=== PATIENT | female | born 1950 | race Caucasian/White ===

== ENCOUNTER → 2019-06-12 09:48 | Outpatient (POV) | payer SELFPAY | PROVIDERS: Visit Provider Nurse Practitioner Family | DX: Z00.00 Encounter for general adult medical examination without abnormal findings (principal) ==

== ENCOUNTER → 2020-03-09 11:26 | Outpatient (CLI) | payer MEDICARE, OTHER, SELFPAY ==
[2020-03-09 15:04] LABS: Coronavirus 19 IgG Antibody Negative (Negative); Coronavirus 19 IgM Antibody Negative (Negative)
== END ==
PROVIDERS: Visit Provider Internal Medicine Gastroenterology
DX: Z01.818 Encounter for other preprocedural examination (principal); Z12.11 Encounter for screening for malignant neoplasm of colon
CPT/HCPCS: 36415; 86328

== ENCOUNTER 2020-03-11 07:12 | Day surgery (SDC) | payer MEDICARE, OTHER, SELFPAY ==
[2020-03-05 10:32] VITALS: BMI 30.2
[2020-03-11] VITALS (7 sets, daily range): BP systolic 111–149; BP diastolic 46–95; PULSE 77–86; RESP 16–20; TEMP 36.3–36.6; O2SAT 92–99
--- NOTE | 2020-03-11 07:47 | HMH.ANESCL ---
[facility] Anesthesia Checklist - Patient Identification Patient Identification: Arm Band, Verbal (Name & ) - Structural Data Admitted From: Home Planned Operative Procedure/s: colon Consent for Planned Operative Procedure(s) Verified: Yes Verified Documents: History and Physical - NPO Status Verified Time NPO: 00:00 - Additional verifications Patient : No Anesthesia Reactions: No Hx Blood Transfusions: No Blood Transfusion Reaction: No Cephalosporin Allergy: No Previous Colonoscopy: Yes - Cardiovascular Assessment Heart Sounds: S1 & S2 Pulse Strength: Baseline Pulse Rhythm: Regular Peripheral Edema: No - Airway Assessment C-Spine Mobility Assessed: Yes TMJ Mobility Assessed: Yes Dentition: Partials - Neurological Assessment Level of Consciousness: Awake, Alert, Appropriate Hx Seizures: No Numbness or tingling in extremities: No - Anesthesia Plan Anesthesia Risk discussed: Yes Anesthesia Plan: Verified ASA Class: II Anesthesia Type: MAC [facility] History I have reviewed the patient's past medical history: Yes Medical History: Reports:: Hyperlipidemia, Hypertension Denies:: Cancer, Diabetes Mellitus Type 1, Diabetes Mellitus Type 2, Internal Pacemaker, MRSA, Seizures *Have you ever received a pneumonia vaccine?: Yes *Have you received a flu vaccine this season?: Yes Anesthesia experience/problems:: none Other Surgeries: No: Pacemaker Amputation: No Fractures: No - *Social History Alcohol Intake: never Substance Use Type: other *Occupational Status:: employed Housing: house *Travel in the last 8 weeks: Inside the [place] Family Hx:: No significant family history
--- NOTE | 2020-03-11 08:46 | HMH.PROC ---
[facility] Procedure Note Procedure Note:: Colonoscopy Procedure Report: Colonoscopy with cold snare polypectomy Endoscopist: Johan Bautista II, MD Referring physician: Helio Villa MD Date of Procedure: March 11, 2020 Equipment: Olympus 180 variable stiffness pediatric colonoscope Sedation: MAC sedation Indication: Mrs. Weston is a 70-year-old female who is here for follow-up screening/surveillance colonoscopy secondary to a personal history of colon polyps. The patient did have a colonoscopy by me last and December 2014 at which time she had 3 polyps (small serrated adenomas x2/hyperplastic polyp x1) which were removed. She also had evidence of diverticulosis. The patient does report that she has 2 sisters with cancer but no family history of colon cancer. The patient's bowel function has significantly improved with the MiraLAX plus Citrucel fiber bowel regimen. She did see me in August 2019 and was having globus sensation with choking and heartburn. She felt gas trapped in her chest with belching. She resumed the MiraLAX plus Citrucel (rather than Benefiber) and resume domperidone. Her symptoms have improved and resolved. She reports no rectal bleeding, abdominal pain or weight loss. Procedure: Prior to the procedure, a history and physical exam was performed, and patient's medications and allergies were reviewed. The risks, benefits and alternatives of the sedation and procedure were discussed with the patient. All questions were answered and informed consent was obtained. The patient was brought to the procedure room. Patient identification and proposed procedure were verified by the physician and the nurse. The patient was placed in a left lateral decubitus position and the scope was passed under direct vision. Throughout the procedure, the patient's blood pressure, pulse, and oxygen saturations were monitored continuously. The colonoscopy was accomplished without difficulty. The patient tolerated the procedure well. Findings: On digital rectal examination there was normal rectal tone. There were no external hemorrhoids. The colonoscope was introduced through the anal canal to the rectum and advanced to the cecum. The ileocecal valve and appendiceal orifice were identified. The scope was advanced a short distance into the ileum which appeared grossly normal. The scope was then withdrawn into the colon. There was a diminutive 3 to 4 mm cecal polyp removed via cold snare polypectomy. The remaining cecum, ascending and transverse colon and mucosa were grossly normal. There were extensive scattered diverticuli throughout the colon but more predominantly in the descending and sigmoid colon (LEFT colon). The rectum itself was normal. Upon retroflexion within the rectum there were grade 1 internal hemorrhoids. The preparation was fair to poor throughout with [place] Preparation Score of 6 out of 9. There was a lot of liquid brown stool that was suctioned and washed.. The cecal time was 14 minutes. Impression: 1. Diminutive cecal polyp 2. Extensive pandiverticulosis 3. Grade 1 internal hemorrhoids Plan: I will follow up the polyp pathology and recommend repeat colonoscopy again in 7-10 years based upon the polyp histology as well as the patient's desire and good health to continue screening/surveillance. I would encourage continuation of the fiber bowel regimen (MiraLAX plus Citrucel mixed together) on a long-term daily maintenance basis.
== END 2020-03-11 10:03 | disposition home or self-care (01) ==
LOC: OUTP 07:16
PROVIDERS: Visit Provider Internal Medicine Gastroenterology
PROC: 0DJD8ZZ Inspection of Lower Intestinal Tract, Via Natural or Artificial Opening Endoscopic (ICD-10-PCS; CPT 45378; principal; 2020-03-11 08:00)
DX: Z12.11 Encounter for screening for malignant neoplasm of colon (principal); K63.5 Polyp of colon; K57.30 Diverticulosis of large intestine without perforation or abscess without bleeding; K64.0 First degree hemorrhoids; Z86.010 Personal history of colon polyps; Z80.9 Family history of malignant neoplasm, unspecified; I10 Essential (primary) hypertension; E78.5 Hyperlipidemia, unspecified; Z88.8 Allergy status to other drugs, medicaments and biological substances; Z79.82 Long term (current) use of aspirin; Z79.899 Other long term (current) drug therapy
CPT/HCPCS: 45385; 88305

== ENCOUNTER 2024-10-23 08:35 | Day surgery (SDC) | payer MEDICARE, OTHER, SELFPAY ==
[2024-10-20 10:23] VITALS: BMI 34.1
[2024-10-23 09:28] VITALS: BP 124/70; PULSE 58; RESP 14; TEMP 36.2; O2SAT 97
[2024-10-23] MEDS: LACTATED RINGERS 1000ML 1,000 ML 50 ML IV (09:41)
--- NOTE | 2024-10-23 10:00 | EXP.HP ---
History of Present Illness *Admission Date: 10/23/24 *Reason for visit:: Screening/surveillance colonoscopy-personal history of adenomatous polyps *History of present illness: Mrs. Weston is a 74-year-old female with a history of adenomatous polyps. The patient does state that she had a benign tumor removed from the lower small bowel/ileum because of small bowel obstruction earlier last year. I do not have the operative reports which she will obtain for me. She has improved since then. She reports no abdominal pain. She still has some obstipation/smaller caliber stools and incomplete bowel evacuation. She is off of MiraLAX and Citrucel. She reports no excessive wiping. She reports no rectal bleeding or weight loss. She does have chronic GERD and was placed on omeprazole twice daily. She is taking Iberogast. Previously she was on domperidone. She is here to reestablish. Her last colonoscopy in February 2020 showed a single benign polyp (adenoma). Her colonoscopy in December 2014 and revealed 3 polyps (small serrated adenomas x 2/hyperplastic polyp x 1) which were removed. She does have a history of diverticulosis. She reports no family history of colon cancer. [facility] Disclaimer: The information contained in this section may have been updated after the patient was seen, as this information can be updated by other users. Medical History Heart murmur Sjogrens syndrome Gastritis Hyperlipidemia Hypertension Hiatal hernia Hemorrhoids Esophageal dysmotility Diverticulosis Surgical History History of partial knee replacement H/O: hysterectomy Hx of appendectomy History of knee replacement Family History Father Cancer Sister Breast cancer Sister Brain cancer Lung cancer Social History (Updated 10/23/24 @ 09:29 by Zoraida Hood RN) Smoking Status: Never smoker alcohol intake: current alcohol intake frequency: holidays/special occasions only substance use type: denies use current occupational status: employed Travel in the last 8 weeks?: Inside the [place] housing: house current occupational exposures/hazards: No caffeine: Yes Have you lived/traveled outside US in past 30 days?: No Contact w/someone who lives/traveled outside US past 30 days?: No Exposure to someone with infectious disease in past 14 days?: No Do you have a fever (greater than 100.4 F or 38 C)?: No Have you tested positive for COVID-19?: No Exposed to someone with COVID-19 in past 14 days?: No Do you have a sore throat?: No Do you have a cough?: No Do you have any weakness?: No Are you experiencing any nausea/vomitting?: No Do you have any diarrhea?: No Are you experiencing any unusual bleeding?: No Do you have any muscle aches/pain?: No Do you have any abdominal pain?: No Are you experiencing loss of taste or smell?: No Other Medical History Have you received the Flu Vaccine for this season: Yes Have you received the Pneumonia Vaccine: Yes Review of Systems Review of Systems Review of systems (narrative): Negative *Cardiovascular Comments: Negative *Gastrointestinal Comments: Negative *Genitourinary Comments: Negative *Musculoskeletal Comments: Negative *Neurologic Comments: Negative Meds Home Medications and Allergies Home Medications ?Medication ?Instructions ?Recorded ?Confirmed ?Type clonazepam 0.5 mg tablet 0.5 mg PO DAILY Anxiety 03/05/20 10/23/24 History coenzyme Q10 30 mg capsule 30 mg PO DAILY Supplement 03/05/20 10/23/24 History fluticasone propionate 50 15.8 ml intranasal DAILY allergies 03/05/20 10/23/24 History mcg/actuation nasal spray,suspension losartan 100 mg tablet 100 mg PO DAILY bp 03/05/20 10/23/24 History omeprazole 20 mg capsule,delayed 20 mg PO DAILY GERD 03/05/20 10/23/24 History release simvastatin 20 mg tablet 20 mg PO DAILY Cholesterol 03/05/20 10/23/24 History sumatriptan succinate 100 mg tablet 100 mg PO DAILY migraines 03/05/20 10/23/24 History carvedilol 25 mg tablet 25 mg PO BID 07/18/24 10/23/24 History denosumab 60 mg/mL subcutaneous 60 mg SQ [id number] 07/18/24 10/23/24 History syringe (Prolia) estradiol 0.01% (0.1 mg/gram) 0.25 appful vaginal WEEKLY 07/18/24 10/23/24 History vaginal cream famotidine 20 mg tablet 20 mg PO BID 07/18/24 10/23/24 History hydroxychloroquine 200 mg tablet 200 mg PO DAILY 07/18/24 10/23/24 History hydroxyzine HCl 25 mg tablet 25 mg PO BID PRN allegies 07/18/24 10/23/24 History polyethylene glycol 3350 17 17 g PO DAILY 07/18/24 10/23/24 History gram/dose oral powder (Purelax) ropinirole 2 mg tablet 2 mg PO HS 07/18/24 10/23/24 History sertraline 100 mg tablet 100 mg PO DAILY 07/18/24 10/23/24 History sodium sul 1.479 gram-potas ch See Rx Instructions PO PER PKG DIR 09/27/24 10/23/24 Rx 0.188 gram-magnes sul 0.225 gram colonscopy #24 tabs tablet (Sutab) clonidine HCl 0.1 mg tablet 0.1 mg PO BID 10/20/24 10/23/24 History New Prescriptions to Start Prescriptions: Allergies Allergy/AdvReac Type Severity Reaction Status Date / Time bisoprolol (From Ziac) Allergy Mild Other Verified 10/23/24 09:17 hydrochlorothiazide (From Allergy Mild Other Verified 10/23/24 09:17 Ziac) levofloxacin (From Levaquin) Allergy Mild Nausea Verified 10/23/24 09:17 rizatriptan (From Maxalt) Allergy Mild Nausea Verified 10/23/24 09:17 rivaroxaban (From Xarelto) Allergy Nausea Verified 10/23/24 09:17 Exam Data for Last 24 hours Vital signs and Labs for Last 24 Hours: Temp Pulse Resp BP Pulse Ox O2 Del Method 97.1 F L 58 L 14 124/70 97 Room Air 10/23/24 09:28 10/23/24 09:28 10/23/24 09:28 10/23/24 09:28 10/23/24 09:28 10/23/24 09:28 I & O for Last 24 hours: Intake & Output 10/20/24 10/21/24 10/22/24 10/23/24 23:59 23:59 23:59 23:59 Weight 169 lb *Routine HEENT Exam Head: Present normocephalic Eye: Present EOMI and PERRL ENT: Present mucous membranes moist *Routine Neck Exam Neck: Present supple *Routine Respiratory Exam Respiratory: Present CTA bilaterally *Routine Cardiovascular Exam Cardiovascular: Present RRR *Routine Abdominal Exam Abdominal: Present soft and normoactive bowel sounds; Absent tenderness *Routine Rectal Exam Rectal:: deferred *Routine Genitalia Exam Genitalia:: deferred *Routine Extremities Exam Extremities: Absent cyanosis, clubbing or edema *Routine Skin Exam Skin: Present warm; Absent rash *Routine Neurological Exam Neurological: Present alert and oriented X3 Assessment and Plan *Assessment and plan (1) Personal history of adenomatous and serrated colon polyps: Status: Acute Category: Medical Code(s): Z86.0101 - Personal history of adenomatous and serrated colon polyps (2) Small bowel tumor: Status: Acute Category: Medical Code(s): D49.0 - Neoplasm of unspecified behavior of digestive system Plan A/P: 1. Personal history of adenomatous colon polyps and prior small bowel tumor is the preprocedural diagnosis. The patient will be anesthetized/sedated using MAC sedation. The patient has been seen and examined. Cardiac and lung assessment prior to the examination is stable. Proceed with planned surveillance colonoscopy.
--- NOTE | 2024-10-23 10:02 | HMH.PROCNOTE ---
[facility] Procedure Note Date: 10/23/24 Time: 10:22 Procedure Note:: Colonoscopy Procedure Report: Colonoscopy with cold snare polypectomy and cold biopsy Endoscopist: Johan Bautista II, MD Referring physician: Josesito Braxton DO [facility] [place] [address] Date of Procedure: October 23, 2024 Equipment: Olympus 190 variable stiffness pediatric colonoscope Sedation: MAC sedation Indication: Mrs. Weston is a 74-year-old female who is here for follow-up surveillance colonoscopy secondary to a personal history of adenomatous colon polyps. The patient does state that she had a benign tumor removed from the lower small bowel/ileum because of small bowel obstruction earlier last year. This took place on 07/15/2023 (Octavio Franco DO). She did have small bowel resection and there was a clear transition point and the lesion was benign. She has improved since then. She reports no abdominal pain. She still has some obstipation/smaller caliber stools and incomplete bowel evacuation. She is off of MiraLAX and Citrucel. She reports no excessive wiping. She reports no rectal bleeding or weight loss. She does have chronic GERD and was placed on omeprazole twice daily. She is taking Iberogast. Previously she was on domperidone. She is here to reestablish. Her last colonoscopy in February 2020 showed a single benign polyp (adenoma). Her colonoscopy in December 2014 and revealed 3 polyps (small serrated adenomas x 2/hyperplastic polyp x 1) which were removed. She does have a history of diverticulosis. She reports no family history of colon cancer. The patient has improved since resuming psyllium Konsyl. Procedure: Prior to the procedure, a history and physical exam was performed, and patient's medications and allergies were reviewed. The risks, benefits and alternatives of the sedation and procedure were discussed with the patient. All questions were answered and informed consent was obtained. The patient was brought to the procedure room. Patient identification and proposed procedure were verified by the physician and the nurse. The patient was placed in a left lateral decubitus position and the scope was passed under direct vision. Throughout the procedure, the patient's blood pressure, pulse, and oxygen saturations were monitored continuously. The colonoscopy was accomplished without difficulty. The patient tolerated the procedure well. Findings: On digital rectal examination there was normal rectal tone. There were no external hemorrhoids. The colonoscope was introduced through the anal canal to the rectum and advanced to the cecum. The ileocecal valve and appendiceal orifice were identified. The scope was advanced a short distance into the ileum which appeared grossly normal. The scope was then withdrawn into the colon. There were scattered diverticuli throughout the colon but more predominantly in the descending and sigmoid colon (LEFT colon). There was a single 7 mm sessile polyp in the descending colon removed via cold snare polypectomy. Upon retroflexion within the rectum there were grade 2 internal hemorrhoids. There was some granular/granulation tissue in the anal canal that was biopsied using cold biopsy forceps. The preparation was excellent throughout with [place] Preparation Score of 9. The cecal time was 12 minutes. Impression: 1. Descending colon polyp (7 mm) 2. Pandiverticulosis 3. Grade 2 internal hemorrhoids with some granulation tissue of anal canal status post biopsy Plan: I will follow-up the polyp histology and biopsies. I am not convinced that she will need any further preventive/surveillance colonoscopy. I will discuss the findings with the patient and family.
--- NOTE | 2024-10-23 10:16 | P.PNANES_ITS ---
[facility] Disclaimer: The information contained in this section may have been updated after the patient was seen, as this information can be updated by other users. Medical History Heart murmur Sjogrens syndrome Gastritis Hyperlipidemia Hypertension Hiatal hernia Hemorrhoids Esophageal dysmotility Diverticulosis Surgical History History of partial knee replacement H/O: hysterectomy Hx of appendectomy History of knee replacement Family History Father Cancer Sister Breast cancer Sister Brain cancer Lung cancer Social History (Updated 10/23/24 @ 09:29 by Zoraida Hood RN) Smoking Status: Never smoker alcohol intake: current alcohol intake frequency: holidays/special occasions only substance use type: denies use current occupational status: employed Travel in the last 8 weeks?: Inside the [facility] housing: house current occupational exposures/hazards: No caffeine: Yes Have you lived/traveled outside US in past 30 days?: No Contact w/someone who lives/traveled outside US past 30 days?: No Exposure to someone with infectious disease in past 14 days?: No Do you have a fever (greater than 100.4 F or 38 C)?: No Have you tested positive for COVID-19?: No Exposed to someone with COVID-19 in past 14 days?: No Do you have a sore throat?: No Do you have a cough?: No Do you have any weakness?: No Are you experiencing any nausea/vomitting?: No Do you have any diarrhea?: No Are you experiencing any unusual bleeding?: No Do you have any muscle aches/pain?: No Do you have any abdominal pain?: No Are you experiencing loss of taste or smell?: No [facility] Anesthesia Checklist Patient Identification Patient Identification: Verbal (Name & ) Structural Data Admitted From: Home Planned Operative Procedure/s: colonoscopy Consent for Planned Operative Procedure(s) Verified: Yes NPO Status Verified Time NPO: 00:00 Additional verifications Anesthesia Reactions: No Hx Blood Transfusions: No Blood Transfusion Reaction: No Airway Assessment Mallampati Score:: Class II C-Spine Mobility Assessed: Yes TMJ Mobility Assessed: Yes Dentition: Partials Neurological Assessment Level of Consciousness: Awake, Alert and Appropriate Anesthesia Plan Anesthesia Risk discussed: Yes Anesthesia Plan: Verified ASA Class: II Anesthesia Type: MAC
[2024-10-23 10:25] VITALS: BP 96/62; PULSE 64; RESP 17; TEMP 36.3; O2SAT 96
[2024-10-23 10:35] VITALS: BP 96/65; PULSE 60; RESP 18; O2SAT 95
[2024-10-23 10:45] VITALS: BP 118/65; PULSE 58; RESP 18; O2SAT 98
[2024-10-23 10:55] VITALS: BP 135/75; PULSE 59; RESP 18; O2SAT 98
== END 2024-10-23 11:18 | disposition home or self-care (01) ==
PROVIDERS: PCP Family Medicine; Visit Provider Internal Medicine Gastroenterology
PROC: 0DJD8ZZ Inspection of Lower Intestinal Tract, Via Natural or Artificial Opening Endoscopic (ICD-10-PCS; CPT 45378; principal; 2024-10-23 10:00)
DX: D12.4 Benign neoplasm of descending colon (principal); K62.0 Anal polyp; K57.90 Diverticulosis of intestine, part unspecified, without perforation or abscess without bleeding; K64.8 Other hemorrhoids; K21.9 Gastro-esophageal reflux disease without esophagitis; E78.5 Hyperlipidemia, unspecified; I10 Essential (primary) hypertension; Z86.0101 Personal history of adenomatous and serrated colon polyps; Z79.899 Other long term (current) drug therapy
CPT/HCPCS: 45380; 45385; 88305; J7120

== ENCOUNTER 2025-05-13 19:06 | Inpatient (IN) | payer MEDICARE, OTHER, SELFPAY ==
--- OUTSIDE RECORDS SUMMARY | 2024-02-22 10:40 | XMS_ITS ---
Author Organization Dialysis Clinic, [facility] . Address [address] [place] [address] Care Team Providers Care Sales Assistant Entertainment And Media Name Role Phone Mohan Knox DO Primary Care Provider Scar Samuel [phone] Encounters Encounter Location Date Provider Diagnosis [facility] [address] [address] 02/22/2024 Scar Dhaliwal Plan Of Treatment No Information Progress Notes * Stacey WESTON SDOB:[birth year] (75 yo F)Acc No.[id number]:02/22/2024 Progress Note Patient: Stacey MONTANA Provider: Cristina Dhaliwal MD :1950 A ge:74 Y S ex:Female Date:02/22/2024 [facility] [id number] Pcp:Mohan Knox DO Subjective: * Chief Complaints: * * Medical History: Objective: * Vitals: Assessment: Plan: * Treatment: * * Electronic signature of Delfina Dhaliwal MD on 05/15/2025 at 06:24 AM CHEMICAL PACKAGER Sign off status: Pending * Provider: Cristina Dhaliwal MD Date: Generated for Printi ng/Faxing/eTransmitting on: 06:24 AM CHEMICAL PACKAGER
--- OUTSIDE RECORDS SUMMARY | 2024-02-22 10:40 | XMS_ITS ---
Author Organization Dialysis Clinic, [facility] . Address [address] [place] [address] Care Team Providers Care Exotic Dancer Name Role Phone Mohan Knox DO Primary Care Provider Scar Samuel [phone] Encounters Encounter Location Date Provider Diagnosis [facility] [address] [address] 02/22/2024 Scar Dhaliwal Plan Of Treatment No Information Progress Notes * Stacey WESTON SDOB:[birth year] (75 yo F)Acc No.[id number]:02/22/2024 Progress Note Patient: Stacey MONTANA Provider: Cristina Dhaliwal MD :1950 A ge:74 Y S ex:Female Date:02/22/2024 [facility] [id number] Pcp:Mohan Knox DO Subjective: * Chief Complaints: * * Medical History: Objective: * Vitals: Assessment: Plan: * Treatment: * * Electronic signature of Delfina Dhaliwal MD on 05/13/2025 at 06:46 PM DEVELOPMENT TECHNICAL LEAD Sign off status: Pending * Provider: Cristina Dhaliwal MD Date: Generated for Printi ng/Faxing/eTransmitting on: 07/14/2024 06:46 PM DEVELOPMENT TECHNICAL LEAD
--- OUTSIDE RECORDS SUMMARY | 2024-04-25 15:20 | XMS_ITS ---
Author Organization [facility] Address [address] [place] [address] Phone [phone] Care Team Providers Care Service Coordinator Name Role Phone Josesito Braxton DO Primary Care Provider UnavailScar Mendiola M.D. 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, unspecified migraine type G43.919 Benign essential HTN I10 Insomnia, unspecified type G47.00 Hyponatremia E87.1 Hyperlipidemia, unspecified hyperlipidem ia type E78.5 Sjogrens Syndrome Surgical History Surgery Date(Month/Year) Hysterectomy L Total Knee Replacement Appendectomy L arm reconstruction Carpal Tunnel release partial right knee replacement 12/24/21 Interstem placement 04/27/23 Hospitalization History Reason Date(Month/Year) [facility] - 4 day stay - sept ic UTI 11/12/22 Progress Notes * JESS WATSON SDOB:[birth year] (75 yo F)Acc No.[id number]:04/25/2024 Progress Notes Patient: JESS WATSON Provider: Scar Dhaliwal MD :1950 Age:74 Y Sex:Female Date:04/25/2024 Address:[address] [place] [address], [id number] Pcp:Josesito Braxton DO * Electronic signature of Delfina Dhaliwal M.D. on 05/13/2025 at 07:47 PM EST Sign off status: Pending * Provider: Scar Dhaliwal MD Date: 04/25/2024 Generated for Jeremi neri/Salomón/eTransmitting on: 05/13/2025 07:47 PM EST
--- OUTSIDE RECORDS SUMMARY | 2024-04-25 15:20 | XMS_ITS ---
Author Organization [facility] Address [address] [place] [address] Phone [phone] Care Team Providers Care Wafer Polisher Name Role Phone Josesito Braxton DO Primary Care Provider UnavailScar Mendiola M.D. JF TOBIAS DO Unavailable Unavailable Social History Sex Observation Social History Observation Description Sex Observation Female Encounters Date Time Type Facility Location Provider Diagnosis 04/25/2024 03:20 PM Office Visit [facility] [address] [place] [address] Scar Dhaliwal Plan Of Treatment Next Appt Details Provider Name:Scar Dhaliwal, 08/21/2025 11:30:00 AM, [address], [place], [address], Medical (General) History Medical History History ICD [...] Interstem placement 04/27/23 Hospitalization History Reason Date(Month/Year) [facility] - 4 day stay - sept ic UTI 11/12/22 Progress Notes * JESS WATSON SDOB:[birth year] (75 yo F)Acc No.[id number]:04/25/2024 Progress Notes Patient: JESS WATSON Provider: Scar Dhaliwal MD :1950 Age:74 Y Sex:Female Date:04/25/2024 Address:[address] [place] [address], [place], [id number] Pcp:Josesito Braxton DO * Electronic signature of Delfina Dhaliwal M.D. on 05/15/2025 at 07:25 AM EST Sign off status: Pending * Provider: Scar Dhaliwal MD Date: 04/25/2024 Generated for Jeremi neri/Salomón/eTransmitting on: 05/15/2025 07:25 AM EST
--- OUTSIDE RECORDS SUMMARY | 2025-02-27 08:00 | XMS_ITS ---
Author Organization [facility] katelin Care [facility] Address [address] [place] [address] Phone [phone] Care Team Providers Care Newspaper Photo Editor Name Role Phone Josesito Braxton DO Primary Care Provider UnavailScar Mendiola M.D. [phone] JF TOBIAS DO Unavailable Unavailable Social History Sex Observation Social History Observation Description Sex Observation Female Encounters Date Time Type Facility Location Provider Diagnosis 02/27/2025 08:00 AM Office Visit [facility] [address] [place] [address] Scar Dhaliwal Plan Of Treatment Next Appt Details Provider Name:Scar Dhaliwal, 08/21/2025 11:30:00 AM, [address], [place], [address], Medical (General) History Medical History History ICD [...] Interstem placement 04/27/23 Hospitalization History Reason Date(Month/Year) [facility] - 4 day stay - sept ic UTI 11/12/22 Progress Notes * JESS WATSON SDOB:[birth year] (75 yo F)Acc No.[id number]:02/27/2025 progress note Patient: JESS WATSON Provider: Scar Dhaliwal MD :1950 Age:75 Y Sex:Female Date:02/27/2025 Address:[address] [address], [place] Pcp:Josesito Braxton DO * Electronic signature of Delfina Dhaliwal M.D. on 05/13/2025 at 07:43 PM EST Sign off status: Pending * Provider: Scar Dhaliwal MD Date: 02/27/2025 Generated for Jeremi neri/Salomón/Valentinasmitting on: 05/13/2025 07:43 PM EST
--- OUTSIDE RECORDS SUMMARY | 2025-02-27 08:00 | XMS_ITS ---
Author Organization [facility] katelin Care [facility] Address [address] [place] [address] Phone [phone] Care Team Providers Care Fiberglass Container Winding Operator Name Role Phone Josesito Braxton DO Primary Care Provider UnavailScar Mendiola M.D. JF TOBIAS DO Unavailable Unavailable Social History Sex Observation Social History Observation Description Sex Observation Female Encounters Date Time Type Facility Location Provider Diagnosis 02/27/2025 08:00 AM Office Visit [facility] Kidney Care [facility] [address] [place] [address] Scar Dhaliwal Plan Of Treatment Next Appt Details Provider Name:Scar Dhaliwal, 08/21/2025 11:30:00 AM, [address], [address], [place], [address], Medical (General) History Medical History History ICD [...] Interstem placement 04/27/23 Hospitalization History Reason Date(Month/Year) [facility] - 4 day stay - sept ic UTI 11/12/22 Progress Notes * JESS WATSON SDOB:[birth year] (75 yo F)Acc No.[id number]:02/27/2025 progress note Patient: JESS WATSON Provider: Scar Dhaliwal MD :1950 Age:75 Y Sex:Female Date:02/27/2025 Address:[address] [place] [address], [place] Pcp:Josesito Braxton DO * Electronic signature of Delfina Dhaliwal M.D. on 05/15/2025 at 07:22 AM EST Sign off status: Pending * Provider: Scar Dhaliwal MD Date: 02/27/2025 Generated for Jeremi neri/Salomón/eTjoelsmitting on: 05/15/2025 07:22 AM EST
--- OUTSIDE RECORDS SUMMARY | 2025-03-20 13:20 | XMS_ITS ---
Author Organization [facility] Address [address] [facility] [address] [place] [address] Phone [phone] Care Team Providers Care Forest Fire Control Officer Name Role Phone Josesito Braxton DO Primary Care Provider Unavailabl e Scar Dhaliwal M.D. Unavailable [facility] Unavailable Unavailable REASON FOR VISIT SIADH/HTN Medications Medication SIG (Take, Route, Frequency, Duration) Notes Start Date End Date Diagnosis (ICD Code) Status Probiotic - Capsule as directed Orally *Pick strength-form from [facility] for eRX* Active Losartan Potassium 100 MG Tablet 1 tablet in the aviation boatswain's mate Orally Once a day Hyponatremia (ICD_10 - E87.1) Active Omeprazole 20 MG Capsule Delayed Release 1 capsule Orally twice daily; Duration: 30 days Active Hydroxychloroquine Sulfate 200 MG Tablet 1 tablet Orally once daily Active hydrOXYzine HCl 25 MG Tablet 2 tablets Orally Once a day; Duration: 30 days Active Famotidine 20 MG Tablet TAKE 1 TABLET BY MOUTH TWICE A DAY Oral; Duration: 90 Active Flonase Allergy Relief 50 MCG/ACT Suspension 1 spray in each nostril as needed Nasally Once a day; Duration: 30 days as needed Active CoQ-10 100 MG Capsule 1 capsule with a meal Orally Once a day; Duration: 30 days Active Estradiol 0.1 MG/GM Cream as directed Vaginal Active cloNIDine HCl 0.1 MG Tablet 1 tablet Orally Twice daily HTN (hypertension) (ICD_10 - I10) Active Domperidone 10mg TID Orally *Reorder from [facility] for eRx and Interaction Alerts* Not-Taki ng Pilocarpine HCl 5 MG Tablet 1 tablet Orally twice daily; Duration: 30 days Not-Taki ng Carvedilol 25 MG Tablet TAKE 1 TABLET BY MOUTH TWICE A DAY WITH FOOD FOR 90 DAYS; Duration: 90 Active clonazePAM 0.5 MG Tablet 1 tablet at bedtime Orally Once a day Active Benefiber - Powder as directed Orally Active Potassium Chloride Anamaria ER 20 MEQ Tablet Extended Release 1 tablet with food Orally Once a day Not-Taki ng SUMAtriptan Succinate 100 MG Tablet 1 tablet at least 2 hours between doses as needed Orally Twice a day as needed Active Wegovy 1 MG/0.5ML Solution Auto-injector 0.5 mL Subcutaneous 024 Active Sertraline HCl 100 MG Tablet 1 tablet Orally Once a day; Duration: 30 days Active Simvastatin 20 MG Tablet 1 tablet in the evening Orally Once a day; Duration: 30 day(s) Active rOPINIRole HCl 2 MG Tablet 1 tablet 1 to 3 hours before bedtime Orally Once a day; Duration: 30 days Active Social History Sex Observation Social History Observation Description Sex Observation Female Vital Signs Vital Sign Value Appt Date Temperature 97.5 degrees Fahrenheit 03/20/20 25 Blood pressure systolic 125 mm Hg 03/20/20 25 Blood pressure diastolic 72 mm Hg 025 Heart Rate 76 /min 03/20/2025 Respiratory Rate 20 /min 03/20/2025 Height 59 in 03/20/2025 Weight 182.6 lbs 03/20/2025 BMI 36.88 kg/m2 03/20/2025 Oximetry 97 % 03/20/2025 Height-cm 149.86 cm 03/20/2025 Weight-kg 82.83 kg 03/20/2025 Encounters Date Time Type Facility Location Provider Diagnosis 01:20 PM Office Visit, Est Pt., Level 3 (70504) [facility] Kidney Care [facility] [address] [place] [address] [address] [place] [address] Scar Dhaliwal SIADH (syndrome of inappropriate ADH production) E22.2 ; HTN (hypertension) I10 ; Hyperlipidemia E78.5 and Obese E66.9 Assessments Encounter Date Diagnosis (ICD Code) Assessment Notes Treat ment Notes Section Notes 03/20/2025 SIADH (syndrome of inappropriate ADH production) (ICD-10 - E22.2) I shared today's findings with Stacey. We are both pleased to see that her blood pressures particularly well-controlled and that her metabolic parameters are all within normal limits particularly her serum sodium. Obviously, I have made no changes in her current medications which we reconciled. We agreed to meet at least 1 more time in 6 months. 03/20/2025 HTN (hypertension) (ICD-10 - I10) I shared today's findings with Stacey. We are both pleased to see that her blood pressures particularly well-controlled and that her metabolic parameters are all within normal limits particularly her serum sodium. Obviously, I have made no changes in her current medications which we reconciled. We agreed to meet at least 1 more time in 6 months. 03/20/2025 Hyperlipidemia (ICD-10 - E78.5) I shared today's findings with Stacey. We are both pleased to see that her blood pressures particularly well-controlled and that her metabolic parameters are all within normal limits particularly her serum sodium. Obviously, I have made no changes in her current medications which we reconciled. We agreed to meet at least 1 more time in 6 months. 03/20/2025 Obese (ICD-10 - E66.9) I shared today's findings with Stacey. We are both pleased to see that her blood pressures particularly well-controlled and that her metabolic parameters are all within normal limits particularly her serum sodium. Obviously, I have made no changes in her current medications which we reconciled. We agreed to meet at least 1 more time in 6 months. Plan Of Treatment Pending Test Test Name Order Date CBC, Platelet with No Differential 03/20 Comp. Metabolic Panel (14) 03/20/2025 Urinalysis 03/20/2025 Next Appt Details Follow Up: 6 Months, Reason: Provider Name:Scar Dhaliwal, 08/21/2025 11:30:00 AM, [address], [place], [address], Medical (General) History Medical History History ICD [...] Interstem placement 04/27/23 Hospitalization History Reason Date(Month/Year) [facility] - 4 day stay - sept ic UTI 11/12/22 History and Physical Notes * HPI (History of Present Illness) Category c/o Denies Symptom Duration Details Notes Catego ry Notes History of the present illness Stacey comes in today for recheck of her sodium level and hypertension control. She denies any acute health issues since we last met 4 months ago. Her medications are unchanged. She is no longer taking Wegovy which she had just stopped when I saw her last. She has decided not to try any others her weight is up 6 or 7 lbs. as a result. Her blood pressure however is 125/72 and her oxygen saturation is 97%. Her labs for today's visit include a completely normal comprehensive metabolic profile that includes a sodium of 138. Uric acid level was 4.4. Her hemogram is normal although her hemoglobin is borderline at 12.1 g. Her urinalysis is normal with an SG of 1.019. She has no edema and says that she feels fine. Examination Category Field Details Notes Category Notes Physical Examination General appearance: alert, pleasant, overweight but well-nourished and in no acute distress Head: normocephalic, atrau matic Heart: regular rate and rhy thm at 72 bpm with no ectopy Neurologic: alert and oriented, nonfocal Skin: skin is warm and dry Extremities: normal extremity wit h no clubbing, cyanosis or edema Psych: cooperative with exa m, cognitive function intact, normal affect / mood Oral cavity: mucosa moist Progress Notes * STACEY WATSON SDOB:[birth year] (75 yo F)Acc No.[id number]:03/20/2025 progress note Patient: STACEY WATSON Provider: Scar Dhaliwal MD :1950 Age:75 Y Sex:Female Date:03/20/2025 Address:[address], [place], [place] Pcp:Josesito Braxton DO Subjective: * Chief Complaints: * 1. SIADH/HTN. * HPI: History of the present illness: Stacey comes in today for recheck of her sodium level and hypertension control. She denies any acute health issues since we last met 4 months ago. Her medications are unchanged. She is no longer taking Wegovy which she had just stopped when I saw her last. She has decided not to try any others her weight is up 6 or 7 lbs. as a result. Her blood pressure however is 125/72 and her oxygen saturation is 97%. Her labs for today's visit include a completely normal comprehensive metabolic profile that includes a sodium of 138. Uric acid level was 4.4. Her hemogram is normal although her hemoglobin is borderline at 12.1 g. Her urinalysis is normal with an SG of 1.019. She has no edema and says that she feels fine. * ROS: General / Constitutional: Patient denies change in appetite, fever, weakness. Weight gain admits. NSAID Denies. Allergy / Immunology: Patient denies hives, itching, rash. Respiratory: Patient denies chronic cough, shortness of breath, sputum production. Cardiovascular: Patient denies chest pain, chest pain with exertion, irregular heartbeat. Gastrointestinal: Patient denies abdominal pain, diarrhea, rectal bleeding. Hematology: Patient denies easy bleeding, easy bruising, recent transfusion. Genitourinary: Patient denies abdominal pain / swelling, blood in the urine, frequent urination. Musculoskeletal: Patient denies arthritis / arthralgia, joint stiffness, swollen joints. Peripheral Vascular: Patient denies blanching of skin, cold extremities, decreased sensation in extremities. Skin: Patient denies blistering of skin, changing moles, skin lesion(s). Neurologic: Patient denies dizziness, gait abnormality, headache. Nephrology: Pt denies edema. * Medical History: * Medications: Taking Benefiber - Powder as directed Orally , Taking Carvedilol 25 MG Tablet TAKE 1 TABLET BY MOUTH TWICE A DAY WITH FOOD FOR 90 DAYS , Taking clonazePAM 0.5 MG Tablet 1 tablet at bedtime Orally Once a day , Taking cloNIDine HCl 0.1 MG Tablet 1 tablet Orally Twice daily , Taking CoQ-10 100 MG Capsule 1 capsule with a meal Orally Once a day , Taking Estradiol 0.1 MG/GM Cream as directed Vaginal , Taking Famotidine 20 MG Tablet TAKE 1 TABLET BY MOUTH TWICE A DAY Oral , Taking Flonase Allergy Relief 50 MCG/ACT Suspension 1 spray in each nostril as needed Nasally Once a day , Notes to Pharmacist: as needed, Taking Hydroxychloroquine Sulfate 200 MG Tablet 1 tablet Orally once daily , Taking hydrOXYzine HCl 25 MG Tablet 2 tablets Orally Once a day , Taking Losartan Potassium 100 MG Tablet 1 tablet in the aviation boatswain's mate Orally Once a day , Taking Omeprazole 20 MG Capsule Delayed Release 1 capsule Orally twice daily , Taking Probiotic - Capsule as directed Orally , Notes to Pharmacist: *Pick strength-form from [facility] for eRX*, Taking rOPINIRole HCl 2 MG Tablet 1 tablet 1 to 3 hours before bedtime Orally Once a day , Taking Sertraline HCl 100 MG Tablet 1 tablet Orally Once a day , Taking Simvastatin 20 MG Tablet 1 tablet in the evening Orally Once a day , Taking SUMAtriptan Succinate 100 MG Tablet 1 tablet at least 2 hours between doses as needed Orally Twice a day , Notes to Pharmacist: as needed, Taking Wegovy 1 MG/0.5ML Solution Auto-injector 0.5 mL Subcutaneous , Not-Taking Potassium Chloride Anamaria ER 20 MEQ Tablet Extended Release 1 tablet with food Orally Once a day , Not-Taking Pilocarpine HCl 5 MG Tablet 1 tablet Orally twice daily , Not-Taking Domperidone 10mg TID Orally , Notes to Pharmacist: *Reorder from [facility] for eRx and Interaction Alerts* Objective: * Vitals: BP: 125/72 mm Hg, HR: 76 /min, RR: 20 /min, Temp: 97.5 F, Oxygen sat %: 97 %, Wt: 182.6 lbs, Wt-k.83 kg, Ht: 59 in, Ht-cm: 149.86 cm, BMI: 36.88 Index, Body Surface Area: 1.85. * Examination: Physical Examination: General appearance: alert, pleasant, overweight but well-nourished and in no acute distress. Head: normocephalic, atraumatic. Oral cavity: mucosa moist. Skin: skin is warm and dry. Heart: regular rate and rhythm at 72 bpm with no ectopy. Extremities: normal extremity with no clubbing, cyanosis or edema. Neurologic: alert and oriented, nonfocal. Psych: cooperative with exam, cognitive function intact, normal affect / mood. Assessment: * Assessment: 1. SIADH (syndrome of inappropriate ADH production) - E22.2 (Primary) 2. HTN (hypertension) - I10 3. Hyperlipidemia - E78.5 4. Obese - E66.9 I shared today's findings with Stacey. We are both pleased to see that her blood pressures particularly well- controlled and that her metabolic parameters are all within normal limits particularly her serum sodium. Obviously, I have made no changes in her current medications which we reconciled. We agreed to meet at least 1 more time in 6 months. Plan: * Treatment: 2. HTN (hypertension) LAB: CBC, Platelet with No Differential LAB: Comp. Metabolic Panel (14) LAB: Urinalysis 3. Hyperlipidemia LAB: CBC, Platelet with No Differential LAB: Comp. Metabolic Panel (14) LAB: Urinalysis 4. Obese LAB: CBC, Platelet with No Differential LAB: Comp. Metabolic Panel (14) LAB: Urinalysis * Follow Up: 6 Months * Billing Information: * Visit Code: 56178 Office Visit, Est Pt., Level 3. * Procedure Codes: * Sign off status: Completed true * Provider: Scar Dhaliwal MD Date: 03/20/2025 Generated for Jeremi neri/Salomón/eTjoelsmitting on: 05/13/2025 07:47 PM EST
--- OUTSIDE RECORDS SUMMARY | 2025-03-20 13:20 | XMS_ITS ---
Author Organization [facility] Address [address] [facility] [address] [place] [address] Phone [phone] Care Team Providers Care Insecticide Maker Name Role Phone Josesito Braxton DO Primary Care Provider Unavailabl e Scar Dhaliwal M.D. Unavailable [facility] Unavailable Unavailable REASON FOR VISIT SIADH/HTN Medications Medication SIG (Take, Route, Frequency, Duration) Notes Start Date End Date Diagnosis (ICD Code) Status Probiotic - Capsule as directed Orally *Pick strength-form from [facility] for eRX* Active Losartan Potassium 100 MG Tablet 1 tablet in the thermospray operator Orally Once a day Hyponatremia (ICD_10 - [...] Active Domperidone 10mg TID Orally *Reorder from [facility] for eRx and Interaction Alerts* Not-Taki [...] PM Office Visit, Est Pt., Level 3 ([address]) [facility] Kidney Care [facility] [address] [place] [address] [address] [place] [address] Scar Dhaliwal SIADH (syndrome of inappropriate ADH [...] 11:30:00 AM, [address], [place], [address], Medical (General) History Medical History History ICD [...] STACEY WATSON SDOB:[birth year] (75 yo F)Acc No.[id number]:03/20/2025 progress note Patient: STACEY WATSON Provider: Scar Dhaliwal MD :1950 Age:75 Y Sex:Female Date:03/20/2025 Address:[address], [place], [id number] Pcp:Josesito Braxton DO Subjective: * Chief Complaints: [...] 100 MG Tablet 1 tablet in the thermospray operator Orally Once a day , Taking Omeprazole 20 MG Capsule Delayed Release 1 capsule Orally twice daily , Taking Probiotic - Capsule as directed Orally , Notes to Pharmacist: *Pick strength-form from [facility] for eRX*, Taking rOPINIRole HCl 2 [...] Orally , Notes to Pharmacist: *Reorder from [facility] for eRx and Interaction Alerts* Objective: [...] Months * Billing Information: * Visit Code: 63917 Office Visit, Est Pt., Level 3. * Procedure Codes: * Sign off status: Completed true * Provider: Scar Dhaliwal MD Date: 03/20/2025 Generated for Jeremi neri/Salomón/eTjoelsmitting on: 05/15/2025 07:25 AM EST
--- OUTSIDE RECORDS SUMMARY | 2025-04-23 06:44 | XMS_ITS | Continuity of Care Document ---
Author Organization [facility] Phone Care Team Providers Care Dimension Stone Quarry Supervisor Name Role Phone AIDEN VALVERDE Unavailable AIDEN VALVERDE Primary Attending AIDEN VALVERDE Primary Care AIDEN VALVERDE Admitting ALLERGIES AND ADVERSE REACTIONS ALLERGIES AND ADVERSE REACTIONS Code System Allergy Substance Adverse Reaction Date Reaction (Severity) Comment Status Reported By Updated By UnAssessed Allergies. RESULTS Patient: WALTER MERCADO Date of : 1950 5 LABORATORY RESULTS Information is not available LABORATORY NARRATIVE RESULTS Information is not available RADIOLOGY RESULTS ORDER 100: CHEST PA LATERAL (LOINC: 84109-0) ORDER DATE: April 20, 2025 9:24:00 PM [facility] PERFORMING LAB: [address] [id number] Final Result Date: April 20, 2025 9:33:[address] [place] [address] Name: JESS WATSON Exam Date: 04/20/2025 : 1950 Age 75 years Gender: F Exam: CHEST PA LATERAL Physician: AIDEN VALVERDE Facility: [facility] Facility HSV: Outpatient XR CHEST 2 VIEWS Reason For Study: dysponea COMPARISON:November 16, 2022 TECHNIQUE: PA and lateral views of the chest were obtained. FINDINGS PA and lateral views of the chest demonstrate clear lungs. The heart size is normal. The bony thorax is intact. Mild DJD in the spine. COPD. IMPRESSION: No active disease in the chest. Electronically signed by: Estrellita Mayo MD 04/20/2025 05:48 PM [facility] Dictated By: ESTRELLITA MAYO Transcribed By: Transcribed On: 04/20/2025 4:33 PM Electronically signed by: ESTRELLITA MAYO 04/20/2025 Thank you for referring JESS WATSON to [facility]. Legally authenticated by MARIA ESTHER HARO 2025-04-20 16:33:04 PATHOLOGY NARRATIVE RESULTS Information is not available MICROBIOLOGY RESULTS No Micro Labs/Results Exist for Patient BLOOD ADMIN RESULTS Information is not available MEDICATIONS HOME MEDICATIONS Status RXNORM NDC Medication Dose Route Frequency Dates Comments Reported By Updated By Drug Treatment Unknown DISCHARGE MEDICATIONS Status RXNORM NDC Medication Dose Route Frequency Dates Dis pense Data Comments Physician Updated By No Discharge Medication Info rmation Available INPATIENT MEDICATIONS Status RXNORM NDC Medication Dose Route Frequency Rat e Quantity Dates Indication Dispense Data Comments Physician Updated By No Inpatient Medication Info rmation Available SOCIAL HISTORY SOCIAL HISTORY - Smoking Status SNOMED-CT Social History Element Description Effective Dates Offered Cessation Comment Updated By No Smoking Information Avail able SOCIAL HISTORY - Gender Sex: Female SOCIAL HISTORY - Status : status i nformation is not available Intention in Next Year: intention information is not available SOCIAL HISTORY - Assessments Code System Description Status Date Value of Assessment Updated By Comment Assessment Information is no t available SOCIAL HISTORY - [place] Affiliation [place] information is not av ailable SOCIAL HISTORY - Legal Sex Legal Sex : Female (finding) SOCIAL HISTORY - Sexual Behavior Sexual Orientation Gender Identity SNOMED-CT Description SNO MED -CT Description Activity Level No of Partners Partner Type UpdatedBy Information is not available SOCIAL HISTORY - Occupation Occupation information is no t available ENCOUNTERS ENCOUNTER INFORMATION Reason for Visit XRAY Admission April 20, 2025 9:18:00 PM [facility] [address] [facility] [address] Discharge April 20, 2025 9:18:00 PM [facility] DISCHARGED TO HOME OR SELF CARE ENCOUNTER DIAGNOSES Notes information is not kristopher ilable. Code System Diagnosis Onset Date Diagnosis information is not available. ABSTRACT DIAGNOSES Code System Diagnosis Updated By Abatement Date R06.09 ICD10 OTHER FORMS OF DYSPNEA ESM31 40 on April 23, 2025 11:44:09 AM [facility] R06.09 ICD10 OTHER FORMS OF DYSPNEA ESM31 40 on April 23, 2025 11:44:09 AM [facility] CARE TEAM Care Dimension Stone Quarry Supervisor Role AIDEN VALVERDE Referring AIDEN VALVERDE Primary Attending AIDEN VALVERDE Primary Care AIDEN VALVERDE Admitting CARE TEAM CARE derrick boat runner Role on Team Location Telecom Status Start Date End Curt e Updated By NICOLLE WOLFE DO PCP [address], [place], [address] normal April 20, 2025 5:00:00 AM [place] April 20, 2025 9:18:00 PM [place] [id number] on April 20, 2025 9:19:24 PM [facility] NICOLLE WOLFE DO Referring [address], [place], [address] normal April 20, 2025 5:00:00 AM [place] April 20, 2025 9:18:00 PM [place] [id number] on April 20, 2025 9:19:24 PM [facility] NICOLLE WOLFE DO Attending [address], [place], [address] normal April 20, 2025 5:00:00 AM [facility] April 20, 2025 9:18:00 PM [place] [id number] on April 20, 2025 9:19:24 PM [facility] NICOLLE WOLFE DO Admitting [address], [place], [address] normal April 20, 2025 5:00:00 AM [place] April 20, 2025 9:18:00 PM [place] [id number] on April 20, 2025 9:19:24 PM [facility] INSURANCE PROVIDERS INSURANCE PROVIDER Coverage Status - Effective Date Coverage Type Payor Plan Order Relationship To Subscriber Insurance Plan No Insurance Plan 2024-05-17 M PRIMARY [id number] [id number] MEDICARE 2024-05-17 C SECONDARY [id number] [phone] [facility]
--- OUTSIDE RECORDS SUMMARY | 2025-05-02 09:40 | XMS_ITS | Encounter Summary ---
Author Organization [employer] ([place], [place], [place], [place], [place]) Address [address] [place] [address] Care Team Providers Care Metal Fabricator Helper Name Role Phone Josesito Braxton DO Primary Care Provider [phone] Reason for Referral * Other (Routine) - New Request Specialty Diagnoses / Procedures Referred By Marcos de leon Referred To Contact Diagnoses Other forms of dyspnea Procedures Pulmonary Function Testing Josesito Braxton DO [address] [place] [place] [address] [place] [address] Phone: tel: fax: Referral ID Status Reason Start Date Expiration Date V isits Requested Visits Authorized [id number] New Request 04/23/2025 04/23/2026 1 1 Reason for Visit * Other (Routine) - New Request Specialty Diagnoses / Procedures Referred By Marcos de leon Referred To Contact Diagnoses Other forms of dyspnea Procedures Pulmonary Function Testing Josesito Braxton DO [address] [facility] [place] [address] [place] [address] Phone: tel: fax: Referral ID Status Reason Start Date Expiration Date V isits Requested Visits Authorized [id number] New Request 04/23/2025 04/23/2026 1 1 Encounter Details Date Type Department Care Team (Late st Contact Info) Description 05/02/2025 9:40 AM EST - 05/02/2025 11:59 PM EST Hospital Encounter [facility] Pulmonary Lab [address] [place] [address] Josesito Braxton, [address] [place] [address] Other forms of dyspnea Discharge Disposition: Home or Self Care Social History Tobacco Use Types Packs/Day Years Used Date Smoking Tobacco: Never Smokeless Tobacco: Never PRAPARE - Transportation Answer Date Re corded In the past 12 months, has l ack of transportation kept you from medical appointments or from getting medications? No 07/15/2023 Lack of Transportation (Non-Medical) Not on file 07/15/2023 Utilities Answer Date Recorded In the past 12 months, has t he electric, gas, oil, or water company threatened to shut off services in your home? No 07/15/2023 Food Insecurity Answer Date Recorded Within the past 12 months, y ou worried that your food would run out before you got money to buy more. Never true 07/15/2023 Within the past 12 months, t he food you bought just didn't last and you didn't have money to get more. Never true 07/15/2023 Transportation Needs Answer Date Record ed In the past 12 months, has l ack of reliable transportation kept you from medical appointments, meetings, work or from getting things needed for daily living? No 07/15/2023 Financial Resource Strain Answer Date R ecorded How hard is it for you to pa y for the very basics like food, housing, medical care, and heating? Would you say it is: Not hard at all 07/15/2023 Employment Answer Date Recorded Do you want help finding or keeping work or a job? I do not need or want help 07/15/2023 Family and Community Support Answer Curt e Recorded If for any reason you need h elp with day-to-day activities such as bathing, preparing meals, shopping, managing finances, etc., do you get the help you need? I don't need any help 07/15/2023 Feeling Lonely or Isolated 0 Educational Attainment Answer Date Ha rded Do you speak a language other than [place]ian at [facility]? No 07/15/2023 Do you want help with school or training? For example, starting or completing job training or getting a high school diploma, GED or equivalent. No 07/15/2023 Physical Activity Answer Date Recorded Number of minutes of exercise per week 0 07/15/2023 Substance Use Answer Date Recorded Used prescription meds for non-medical reasons N ot on file 07/14/2023 Used illegal drugs past 12 months Not on file 07/14/2023 Comments Unknown Sex and Gender Information Value Date Recorded Sex Assigned at Not on file Legal Sex Female 2:04 PM CDT Gender Identity Not on file Sexual Orientation Not on file documented as of this encounter Medications at Time of Discharge amoxicillin-clavu lanate (AUGMENTIN) 875-125 mg per tablet Take 1 tablet by mouth 2 (two) times daily. 28 tablet 08/25/2023 documented as of this encounter Plan of Treatment Not on file documented as of this encounter Procedures Procedure Name Priority Date/Time Associated Diagnosis Comments AR GAS DILUT/WASHOUT LUNG VOL W/WO DISTRIB VENT&V Routine 05/02/2025 10:57 AM EST Other forms of dyspnea documented in this encounter Results * Pulmonary Function Testing (05/02/2025 10:57 AM EST) Anatomical Region Laterality Modality Other Impressions 05/06/2025 6:42 PM EST The data is consistent with mild obstructive lung disease like COPD or asthma. There is insignificant post-bronchodilator response. There is no post-bronchodilator response. , that are non consistent with obstructive or restrictive lung diseases. The data shows mild reduction in gas exchange. Narrative 05/06/2025 6:42 PM EST Pulmonary function test/PFT. [address] [address] PATIENT: Stacey Weston is a 75 y.o. female : 1950 DATE: 05/06/2025 All tests were appropriately administered via ATS/ERS criteria. Testing is acceptable and repeatable. FINDINGS: 1. FVC: 109 % 2. FEV1: 98 % 3. FEV1/FVC: 66 4. T % 5. RV: 95 % 6. RV/T 7. DLCO: 64 % Spirometry: . Mild obstructive pattern. . Insignificant postbronchodilator response. Lung volumes: . No restrictive pattern. DLCO: Mild reduction in DLCO. Flow volume loop: Reproducible test with accepted criteria according to ATS. Josesito Braxton DO PFT ORDERABLES Final Result documented in this encounter Visit Diagnoses Diagnosis Other forms of dyspnea documented in this encounter Care Teams Metal Fabricator Helper Relationship Specialty Start Date End Date Josesito Braxton DO [address] [place] [address] PCP - General Family Medicine 07/26/24 documented as of this encounter
--- OUTSIDE RECORDS SUMMARY | 2025-05-02 09:40 | XMS_ITS | Encounter Summary ---
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 Name Role Phone Josesito Braxton DO Primary Care Provider [phone] Reason for Referral * Other (Routine) - New Request Specialty Diagnoses / Procedures Referred By Marcos de leon Referred To Contact Diagnoses Other forms of dyspnea Procedures Pulmonary Function Testing Josesito Braxton DO [address] [place] [place] [address] [place] [address] Phone: tel: fax: Referral ID Status Reason Start Date Expiration Date V isits Requested Visits Authorized [id number] New Request 04/23/2025 04/23/2026 1 1 Reason for Visit * Other (Routine) - New Request Specialty Diagnoses / Procedures Referred By Marcos de leon Referred To Contact Diagnoses Other forms of dyspnea Procedures Pulmonary Function Testing Josesito Braxton DO [address] [facility] [place] [address] [place] [address] Phone: tel: fax: Referral ID Status Reason Start Date Expiration Date V isits Requested Visits Authorized [id number] New Request 04/23/2025 04/23/2026 1 1 Encounter Details Date Type Department Care Team (Late st Contact Info) Description 05/02/2025 9:40 AM EST - 05/02/2025 11:59 PM EST Hospital Encounter [facility] Pulmonary Lab [address] [place] [address] Josesito Braxton, [address] [place] [address] Other forms of dyspnea Discharge [...] Do you speak a language other than Chadian at [facility]? No 07/15/2023 Do you want help with [...] Procedure Name Priority Date/Time Associated Diagnosis Comments CA GAS DILUT/WASHOUT LUNG VOL W/WO DISTRIB VENT&V [...] 05/06/2025 6:42 PM EST Pulmonary function test/PFT. [address] [address] PATIENT: Stacey Weston is a 75 y.o. [...] dyspnea documented in this encounter Care Teams Concrete Pile Driver Operator Relationship Specialty Start Date End Date Josesito Braxton DO [address] [place] [address] PCP - General Family Medicine 07/26/24 documented as of this encounter
[2025-05-13] VITALS (13 sets, daily range): BP systolic 157–209; BP diastolic 80–110; PULSE 67–76; RESP 14–21; TEMP 36.7–36.8; O2SAT 90–99; BMI 34.5; BMI 36.1
--- NOTE | 2025-05-13 19:10 | CT_ITS ---
PROCEDURE INFORMATION: Exam: CT Head Without Contrast Exam date and time: 05/13/2025 7:25 PM Age: 75 years old Clinical indication: Pain; Headache; Additional info: Headache, hypertensive TECHNIQUE: Imaging protocol: Computed tomography of the head without contrast. Radiation optimization: All CT scans at this facility use at least one of these dose optimization techniques: automated exposure control; mA and/or kV adjustment per patient size (includes targeted exams where dose is matched to clinical indication); or iterative reconstruction. COMPARISON: No relevant prior studies available. FINDINGS: Brain: Normal. No hemorrhage. Unremarkable white matter. No mass effect. Cerebral ventricles: No ventriculomegaly. Paranasal sinuses: Visualized sinuses are unremarkable. No fluid levels. Mastoid air cells: Visualized mastoid air cells are well aerated. Bones: Unremarkable. No acute fracture. Soft tissues: Unremarkable. IMPRESSION: No acute intracranial abnormality.
--- NOTE | 2025-05-13 19:10 | XR_ITS ---
PROCEDURE INFORMATION: Exam: XR Chest Exam date and time: 05/13/2025 7:27 PM Age: 75 years old Clinical indication: Other: HTN, chest tightness TECHNIQUE: Imaging protocol: Radiologic exam of the chest. Views: 1 view. COMPARISON: No relevant prior studies available. FINDINGS: Lungs: Unremarkable. No consolidation. Pleural spaces: Unremarkable. No pleural effusion. No pneumothorax. Heart/Mediastinum: Unremarkable. No cardiomegaly. Bones/joints: Unremarkable. IMPRESSION: No acute findings.
--- NOTE | 2025-05-13 19:11 | ECG_ITS ---
APPROVED REPORT Exam: Resting ECG HR:63 bpm ECG Measurements Heart Rate 63 AXES MI 172 P 0 QRSd 82 QRS 53 QT 406 T 64 QTc 413 Conclusion SINUS RHYTHM NORMAL ECG UNCONFIRMED REPORT Electronically signed by : JUAN R GRANDE, 05/13/2025 23:50:41
--- NOTE | 2025-05-13 19:17 | HMH.EDGENADL ---
Discharge Plan Disposition Patient Disposition: Admitted Prescriptions Prescriptions: No Action carvedilol 25 mg tablet 25 mg PO BID estradiol 0.01 % (0.1 mg/gram) cream 0.25 appful vaginal WEEKLY famotidine 20 mg tablet 20 mg PO BID hydroxychloroquine 200 mg tablet 200 mg PO DAILY hydroxyzine HCl 25 mg tablet 25 mg PO BID PRN (Reason: allegies) Prolia 60 mg/mL syringe 60 mg SQ [id number] polyethylene glycol 3350 [Purelax] 17 gram/dose powder 17 g PO DAILY ropinirole 2 mg tablet 2 mg PO HS Rx Instructions: administer 1-3 hours before bedtime sertraline 100 mg tablet 100 mg PO DAILY Sutab 1.479-0.188- 0.225 gram tablet See Rx Instructions PO PER PKG DIR Qty: 24 0RF Rx Instructions: at 6pm the night before procedure, swallow 1 tablet every 1-2 minutes. you should finish 12 tablets and entire 16 oz of water within 20 minutes. IMPORTANT: If you experience pre-related symptoms ( nausea, bloating or cramping) pause and slow the rate of drinking additional water until symptoms diminish. approximately one hour after the last tablet, drink 16 oz of water over 30 mins. then repeat 4 hours before procedure time. clonidine HCl 0.1 mg Tablet 0.1 mg PO BID clonazepam 0.5 MG tablet 0.5 mg PO DAILY coenzyme Q10 30 MG capsule 30 mg PO DAILY sumatriptan succinate 100 MG tablet 100 mg PO DAILY simvastatin 20 MG tablet 20 mg PO DAILY omeprazole 20 MG capsule,delayed release(DR/EC) 20 mg PO DAILY losartan 100 MG tablet 100 mg PO DAILY fluticasone propionate 15.8 ML spray,suspension 15.8 ml intranasal DAILY Referrals Follow up/Referrals: Josesito Braxton DO [Primary Care Provider, Family Practice] - See instructions Clinical Impressions Clinical Impression: Hypertensive emergency Print Language Print Language: Sami Discharge ED Provider: Travis Davis Adult HPI General Chief complaint: Headache Stated complaint: high bp Time Seen by Provider: 05/13/25 19:07 Mode of Arrival: EMS Source of Information: Patient Description of Symptoms (Recalled from ER Triage Doc. by RN): Reports having a headache. Checked her BP and it was 190 systolic so she called EMS. EMS states once they got her into the ambulance she began complaining of chest pain. History of Present Illness HPI narrative: Stacey Enrico is a 75-year-old female with a past medical history of hypertension on carvedilol, clonidine, and losartan, hyperlipidemia, cardiac murmur who presents to the emergency department for complaints of high blood pressure. Patient arrives via EMS. Patient states that over the course of about 30 minutes today, she developed a severe headache. She does report a remote history of migraine headaches but states that this feels different and more severe. She did take a sumatriptan hand at approximately 5 PM. The headache has improved slightly since then. She checked her blood pressure at home and noticed that it was elevated to the 180-190 range, which is abnormal for her. She called 911. She states that throughout the day, she has had some tightness in her chest but denies any shortness of breath, cough, fever, abdominal pain, nausea, vomiting, diarrhea, dysuria or hematuria. She denies any blurry vision or double vision. Related Data Home Medications ?Medication ?Instructions ?Recorded ?Confirmed clonazepam 0.5 mg tablet 0.5 mg PO DAILY Anxiety 03/05/20 10/23/24 coenzyme Q10 30 mg capsule 30 mg PO DAILY Supplement 03/05/20 10/23/24 fluticasone propionate 50 15.8 ml intranasal DAILY allergies 03/05/20 10/23/24 mcg/actuation nasal spray,suspension losartan 100 mg tablet 100 mg PO DAILY bp 03/05/20 10/23/24 omeprazole 20 mg capsule,delayed 20 mg PO DAILY GERD 03/05/20 10/23/24 release simvastatin 20 mg tablet 20 mg PO DAILY Cholesterol 03/05/20 10/23/24 sumatriptan succinate 100 mg tablet 100 mg PO DAILY migraines 03/05/20 10/23/24 carvedilol 25 mg tablet 25 mg PO BID 07/18/24 10/23/24 denosumab 60 mg/mL subcutaneous 60 mg SQ [id number] 07/18/24 10/23/24 syringe (Prolia) estradiol 0.01% (0.1 mg/gram) 0.25 appful vaginal WEEKLY 07/18/24 10/23/24 vaginal cream famotidine 20 mg tablet 20 mg PO BID 07/18/24 10/23/24 hydroxychloroquine 200 mg tablet 200 mg PO DAILY 07/18/24 10/23/24 hydroxyzine HCl 25 mg tablet 25 mg PO BID PRN allegies 07/18/24 10/23/24 polyethylene glycol 3350 17 17 g PO DAILY 07/18/24 10/23/24 gram/dose oral powder (Purelax) ropinirole 2 mg tablet 2 mg PO HS 07/18/24 10/23/24 sertraline 100 mg tablet 100 mg PO DAILY 07/18/24 10/23/24 clonidine HCl 0.1 mg tablet 0.1 mg PO BID 10/20/24 10/23/24 Previous Rx's ?Medication ?Instructions ?Recorded sodium sul 1.479 gram-potas ch See Rx Instructions PO PER PKG DIR 09/27/24 0.188 gram-magnes sul 0.225 gram colonscopy #24 tabs tablet (Sutab) Allergies Allergy/AdvReac Type Severity Reaction Status Date / Time bisoprolol (From Ziac) Allergy Mild Other Verified 10/23/24 09:17 hydrochlorothiazide (From Allergy Mild Other Verified 10/23/24 09:17 Ziac) levofloxacin (From Levaquin) Allergy Mild Nausea Verified 10/23/24 09:17 rizatriptan (From Maxalt) Allergy Mild Nausea Verified 10/23/24 09:17 rivaroxaban (From Xarelto) Allergy Nausea Verified 10/23/24 09:17 [facility] Disclaimer: The information contained in this section may have been updated after the patient was seen, as this information can be updated by other users. Medical History (Updated 05/13/25 @ 20:58 by Travis Davis MD) Heart murmur Sjogrens syndrome Gastritis Hyperlipidemia Hypertension Hiatal hernia Hemorrhoids Esophageal dysmotility Diverticulosis Surgical History History of partial knee replacement H/O: hysterectomy Hx of appendectomy History of knee replacement Family History Father Cancer Sister Breast cancer Sister Brain cancer Lung cancer Social History (Updated 10/23/24 @ 09:29 by Zoraida Hood RN) Smoking Status: Never smoker alcohol intake: current alcohol intake frequency: holidays/special occasions only substance use type: denies use current occupational status: employed Travel in the last 8 weeks?: Inside the [place] housing: house current occupational exposures/hazards: No caffeine: Yes Have you lived/traveled outside US in past 30 days?: No Contact w/someone who lives/traveled outside US past 30 days?: No Exposure to someone with infectious disease in past 14 days?: No Do you have a fever (greater than 100.4 F or 38 C)?: No Have you tested positive for COVID-19?: No Exposed to someone with COVID-19 in past 14 days?: No Do you have a sore throat?: No Do you have a cough?: No Do you have any weakness?: No Do you have any diarrhea?: No Are you experiencing any unusual bleeding?: No Do you have any muscle aches/pain?: No Do you have any abdominal pain?: No Are you experiencing loss of taste or smell?: No Other Medical History Have you received the Flu Vaccine for this season: Yes Have you received the Pneumonia Vaccine: Yes ROS Obtained: Yes Systems reviewed as appropriate & no additional complaints except as documented Physical Exam General General appearance: alert and in no apparent distress Head Head exam: atraumatic Eye Eye exam: Present normal appearance ENT ENT exam: Present normal external ear exam Neck Neck exam: Present full ROM Chest Chest inspection: Present symmetric chest wall rise Respiratory Respiratory exam: Present normal lung sounds bilaterally; Absent respiratory distress, wheezes or stridor Cardiovascular Cardiovascular exam: Present regular rate and normal rhythm Abdominal Exam Abdominal exam: Present soft; Absent tenderness or guarding Extremities Exam Extremities exam: Present normal inspection Back Exam Back exam: Present normal inspection Neurological Exam Neurological exam: Present alert and oriented X3 Psychiatric Psychiatric exam: Present normal affect Skin Skin exam: Present warm and dry Medical Decision Making Medical Records Screening: Per USPSTF and CDC recommendations, given the prevalence of disease in our region, it is our hospital?s policy to screen for HIV and viral Hepatitis for all patients aged 18 and over and those with ongoing risk factors. Felix Inquiry Pt receiving controlled substance: No Vital Signs: 05/13/25 19:05 Pulse Rate [Radial] 72 Respiratory Rate 18 Blood Pressure [Right Arm] 198/105 H Blood Pressure Mean [Right Arm] 136 Blood Pressure Source [Right Arm] Automatic Cuff Blood Pressure Position [Right Arm] Sitting 02 Sat by Pulse Oximetry 99 Oxygen Delivery Method Room Air Lab Data Lab Results 05/13/25 19:20: WBC 6.8, RBC 4.66, Hgb 12.0 L, Hct 36.5 L, MCV 78.3 L, MCH 25.8 L, MCHC 32.9, RDW 14.5, Plt Count 240, MPV 8.9, Neut % (Auto) 56.1, Lymph % (Auto) 32.3, Dickson % (Auto) 8.5, Eos % (Auto) 2.5, Baso % (Auto) 0.3, Neut # (Auto) 3.8, Lymph # (Auto) 2.2, Dickson # (Auto) 0.6, Eos # (Auto) 0.2, Baso # (Auto) 0.0, Sodium 136, Potassium 4.1, Chloride 106, Carbon Dioxide 22, Anion Gap 12.1, BUN 19 H, Creatinine 1.00, Estimated Creat Clear 58, Estimated GFR 54 L, Est GFR ( Amer) 65, Glucose 88, Calcium 8.6, Total Bilirubin 1.0, AST 33, ALT 30, Alkaline Phosphatase 60, Troponin I < 0.01, NT-Pro-B Natriuret Pep 124, Total Protein 7.0, Albumin 4.1, Globulin 2.9, Albumin/Globulin Ratio 1.4, TSH 0.88, Free T4 1.12, HCV Ab JORDAN w/Rflx PCR Qn Negative, HIV Ag/Ab Combo Qual Negative 05/13/25 19:20 05/13/25 19:20 Orders (Tests/Meds): ED MEDICATIONS Generic Name Dose Route Start Last Admin Trade Name Freq PRN Reason Stop Dose Admin Sodium Nitroprusside 50 mg/ 252 mls @ 7.037 mls/hr 05/13/25 20:45 Dextrose IV 06/12/25 20:44 .Q24H LUIGI Protocol 0.3 MCG/KG/MIN Discontinued Medications Generic Name Dose Route Start Last Admin Trade Name Freq PRN Reason Stop Dose Admin Acetaminophen 1,000 mg 05/13/25 19:10 05/13/25 19:36 Acetaminophen 500mg Tab PO 05/13/25 19:11 1,000 mg ONCE ONE Administration ORDERS Category Date Time Status CT head/brain wo con Stat Cat Scan 05/13/25 19:10 Completed CXR --portable [XR chest portable] Stat Exams 05/13/25 19:10 Completed BNP [NT Pro Brain Natriuretic Pep.] Stat Lab 05/13/25 19:20 Completed CBC w/Auto Diff [Complete Blood Count Auto Diff] Stat Lab 05/13/25 19:20 Completed CMP [Comprehensive Metabolic Panel] Stat Lab 05/13/25 19:20 Completed Free T4 (Free Thyroxine) Stat Lab 05/13/25 19:20 Completed HIV Combo Stat Lab 05/13/25 19:20 Completed Hepatitis C Ab Qual. W/ RFX Stat Lab 05/13/25 19:20 Completed TSH [Thyroid Stimulating Hormone] Stat Lab 05/13/25 19:20 Completed Troponin I Q3H Lab 05/13/25 22:15 Ordered Troponin I Q3H Lab 05/14/25 01:15 Ordered Troponin I Stat Lab 05/13/25 19:20 Completed ECG Data Tracing #1: I reviewed this ECG and interpreted as documented below: Normal sinus rhythm. No ST elevation or depression. QTc normal at 413 Medical Decision Narrative: Stacey Weston is a 75-year-old female with a past medical history of hypertension on carvedilol, clonidine, and losartan, hyperlipidemia, cardiac murmur who presents to the emergency department for complaints of high blood pressure. Patient arrives via EMS. Patient states that over the course of about 30 minutes today, she developed a severe headache. She does report a remote history of migraine headaches but states that this feels different and more severe. She did take a sumatriptan hand at approximately 5 PM. The headache has improved slightly since then. She checked her blood pressure at home and noticed that it was elevated to the 180-190 range, which is abnormal for her. She called 911. She states that throughout the day, she has had some tightness in her chest but denies any shortness of breath, cough, fever, abdominal pain, nausea, vomiting, diarrhea, dysuria or hematuria. She denies any blurry vision or double vision. On arrival, patient is hypertensive her blood pressure 198/105, heart rate within normal limits, maintaining appropriate oxygen saturation on room air. Physical exam, stated above, revealed nontoxic-appearing female in no distress. She is able to ambulate here in the emergency department. Cardiopulmonary Jonathan without murmur or rub. No wheezing, rales or rhonchi. No focal neurological deficit. Differential diagnosis includes, but is not limited to: Hypertensive emergency, intracranial hemorrhage, migraine headache, tension headache, ACS, hyperthyroidism, electrolyte derangement, among others. The most morbid conditions were considered and workup was based on these. EKG was interpreted by me personally. Normal sinus rhythm. No ST elevation or depression. Chest x-ray interpreted by me personally. No focal consolidation, no pneumothorax, no widened mediastinum, no enlargement of the cardiac silhouette. Unremarkable chest x-ray. See radiology report for details. CT head was interpreted by me personally. No intracranial hemorrhage, mass or midline shift. See radiology report for details Laboratory studies are grossly unremarkable and nonactionable with initial troponin less than 0.01. Thyroid studies within normal limits. Mildly elevated BUN of 19 but no YAYO. Patient is continue to have symptoms and blood pressure is rising, 210/110 currently. Given her continued chest tightness, I do feel that she would benefit from gradual reduction of her blood pressure and started her on a nitroprusside drip. Do feel that she will require admission for hypertensive emergency. I discussed patient's case with Dr. Boyle of the hospital medicine service who agreed to admit the patient for further management. Patient and family are in agreement with this plan. Critical Care Critical Care Time Critical Care Time: Yes Attestation: On 05/13/25, the high probability of a clinically significant, sudden or life threatening deterioration of the following system(s) required my full and direct attention, intervention and personal management. The time I documented below is in addition to time spent performing reported procedures but includes the following listed in this critical care notation. Total Time Total Critical Care Time: 35
[2025-05-13 19:30] LABS: Hematocrit 36.5 % (37.0-47.0); Hemoglobin 12.0 g/dL (12.2-16.2); Immature Granulocytes % 0.3 %; Mean Corpuscular HGB Conc 32.9 g/dL (31.8-35.4); Mean Corpuscular Hemoglobin 25.8 pg (27.0-31.2); Mean Corpuscular Volume 78.3 fl (81-99); Nucleated Red Blood Cells % 0 %; Platelet Count 240 K/mm3 (142-424); Red Blood Count 4.66 M/mm3 (4.20-5.40); Red Cell Distribution Width-SD 40.7 fL; White Blood Count 6.8 K/mm3 (4.8-10.8)
[2025-05-13] MEDS: ACETAMINOPHEN 500MG TAB 1000 MG PO (19:36)
[2025-05-13 19:38] LABS: Alanine Aminotransferase 30 U/L (12-78); Albumin Level 4.1 g/dl (3.5-5.0); Albumin/Globulin Ratio 1.4 (1.1-1.8); Alkaline Phosphatase 60 U/L (38-126); Anion Gap 12.1 mEq/L (5-15); Aspartate Amino Transferase 33 U/L (14-36); Bilirubin,Total 1.0 mg/dl (0.2-1.3); Blood Urea Nitrogen 19 mg/dl (7-17); Calcium 8.6 mg/dl (8.4-10.2); Carbon Dioxide 22 mmol/L (22.0-30.0); Chloride 106 mmol/L (98-107); Creatinine Clearance Estimated 58 mL/min (50-200); Creatinine,Serum 1.00 mg/dl (0.52-1.04); Estimated Glomerular Filt Rate 54 ml/min (>60); GFR (African American) 65 ML/MIN (>60); Globulin 2.9 g/dL (1.3-3.2); Glucose 88 mg/dl (74-100); Potassium 4.1 mmoL/L (3.5-5.1); Sodium 136 mmol/L (136-145); Total Protein,Serum 7.0 g/dl (6.3-8.2)
--- OUTSIDE RECORDS SUMMARY | 2025-05-13 19:43 | XMS_ITS | Continuity of Care Document ---
Author Organization [facility], BONE DENSITY SB Address [address] [place] [address] Care Team Providers Care Vice President Financial Name Role Phone MARGO ALEJANDRO Pelts Skinner KAVON TANG Urologist YOVANI LOPEZ Communication Consultant AIDEN BRAXTON Primary Care Provider CHARLIE BAUTISTA Scientific Glass Blower INGRID CASTAÑEDA Referring Provider Assessment No assessment recorded. Plan of Treatment Reminders Order Date Submit Date Provider Last Modified By Organization Details Last Modified Time Details Appointments PHYSICAL EXAM 2025 09:00A M AIDEN BRAXTON DO Not available Not available Not available CARDIO ULTRASOUN D 2025 01:45P M CARDIO_UL TRASOUND Not available Not available Not available INJECTION 2025 09:00A M Endocrino logy_nurs e Not available Not available Not available DERM VISIT 2025 08:20A M LOAN [employer] LIBRARIAN Not available Not available Not available RECHECK 2025 09:00A M KAVON TANG MD Not available Not available Not available BONE DENSITY 2025 09:00A M Bone_dens ity Not available Not available Not available RECHECK 2025 09:15A M INGRID CASTAÑEDA MD Not available Not available Not available VISUAL FIELD 2025 09:45A M Ophth_vis ual_field s Not available Not available Not available LEVEL 1 2025 10:30A Candice ALEJANDRO MD Not available Not available Not available Lab None recorded. Referral None recorded. Procedures None recorded. Surgeries None recorded. Imaging None recorded. Medication Orders None recorded. Patient TargetsNo targets recorded. Patient InstructionsNo instructions recorded. Reason for Referral None Reported. Results Created Date Observation Date Name Description Value Unit Range Abnormal Flag Note LastModifiedBy Organization Detail LastModifiedTime 03/16/2003/16/2025 URIC ACID uric acid 4.4 mg/dL 2.4-6. 8 normal Refer ence range s are based on [facility] norms and do not neces aiden martinez late with treat ment targe ts. In patie nts with an estab lishe d diagn osis of gout under going Urate Lower ing Thera py (ULT) , the 2011 José can [facility] atolo gy Guid kyung s for Manag ement of Gout recom mend a targe t uric acid level of < 6 mg/dL in all patie nts, or lower in certa in circu mstan mary anne. Arthr itis Care and Resea [facility] Vol 64 No 10, 2011 José bliss [facility] of Rheum atolo gy ----- ----- ----- ----- ----- ----- ----- ----- ----- ----- ----- ---- Not Available [facility] [address] [place], [address], 03/16/2025 14:19:08 03/16/2003/16/2025 COMP. METAB OLIC PANEL glucose 99 mg/dL 74-100 normal Not Available [facility] [address] [place], [address], 03/16/2025 14:19:06 03/16/20 25 03/16/2025 COMP. METAB OLIC PANEL blood urea nitrogen 14 mg/dL 6-20 normal Not Available [facility] [address] [place], [address], 03/16/2025 14:19:06 03/16/20 25 03/16/2025 COMP. METAB OLIC PANEL creatinine 0.84 mg/dL 0.50-0 .95 normal Not Available [facility] [address] [place] [address], [address], 03/16/2025 14:19:06 03/16/20 25 03/16/2025 COMP. METAB OLIC PANEL BUN/creatini ne ratio 17 (calc ) 10-20 normal Not Available [facility] [address] [place] [address], [address], 03/16/2025 14:19:06 03/16/20 25 03/16/2025 COMP. METAB OLIC PANEL sodium 138 mmol/ L 136-14 5 normal Not Available [facility] [address] [place] [address], [address], 03/16/2025 14:19:06 03/16/20 25 03/16/2025 COMP. METAB OLIC PANEL potassium 4.1 mmol/ L 3.4-5. 0 normal Not Available [facility] [address] [place] [address], [address], 03/16/2025 14:19:06 03/16/20 25 03/16/2025 COMP. METAB OLIC PANEL chloride 103 mmol/ L 98-107 normal Not Available [facility] [address] [place] [address], [address], 03/16/2025 14:19:06 03/16/20 25 03/16/2025 COMP. METAB OLIC PANEL carbon dioxide 21 mmol/ L 22-31 low Not Available [facility] [address] [place] [address], [address], 03/16/2025 14:19:06 03/16/20 25 03/16/2025 COMP. METAB OLIC PANEL anion gap 14 (calc ) 7-25 normal Not Available [facility] [address] [place] [address], [address], 03/16/2025 14:19:06 03/16/20 25 03/16/2025 COMP. METAB OLIC PANEL calcium 9.0 mg/dL 8.6-10 .2 normal Not Available [facility] [address] [place] [address], [address], 03/16/2025 14:19:06 03/16/20 25 03/16/2025 COMP. METAB OLIC PANEL total protein 6.4 g/dL 6.4-8. 3 normal Not Available [facility] [address] [place] [address], [address], 03/16/2025 14:19:06 03/16/2003/16/2025 COMP. METAB OLIC PANEL albumin 3.8 g/dL 3.5-5. 2 normal Not Available [facility] [address] [place] [address], [address], 03/16/2025 14:19:06 03/16/20 25 03/16/2025 COMP. METAB OLIC PANEL globulin 2.6 1.5-4. 5 normal Not Available [facility] [address] [place] [address], [address], 03/16/2025 14:19:06 03/16/20 25 03/16/2025 COMP. METAB OLIC PANEL albumin/glob ulin ratio 1.5 (calc ) 1.1-2. 5 normal Not Available [facility] [address] [place] [address], [address], 03/16/2025 14:19:06 03/16/20 25 03/16/2025 COMP. METAB OLIC PANEL bilirubin, total 1.0 mg/dL 0.1-1. 0 normal NOTE: New refer ence range . Not Available [facility] [address] [place] [address], [address], 03/16/2025 14:19:06 03/16/20 25 03/16/2025 COMP. METAB OLIC PANEL alkaline phosphatase 51 U/L 30-121 normal Not Available [facility] [address] [place], [address], 03/16/2025 14:19:06 03/16/2003/16/2025 COMP. METAB OLIC PANEL AST 21 U/L 0-32 normal Not Available [facility] [address] [place] [address], [address], 03/16/2025 14:19:06 03/16/2003/16/2025 COMP. METAB OLIC PANEL ALT 25 U/L 0-33 normal Not Available [facility] [address] [place], [address], 03/16/2025 14:19:06 03/16/2003/16/2025 COMP. METAB OLIC PANEL eGFR 71 >= 60 normal NOT E New calcu latio n for GFR (CKD- EPI 2020) is formu lated witho ut race adjus tment facto rs at the recom menda tion of the [employer] at[employer] and Ameri can Socie ty of Nephr ology . This calcu latio n has not been valid ated in pregn ant women . For pedia will bowmane nts refer to https ://leesa thomason.wilmer anderson/angelina mccrary s/VERONIKAO QI/gf r_cal culat orPed Not Available [facility] [address] [place], [address], 03/16/2025 14:19:06 03/16/2003/16/2025 UA WITH CULTU RE IF INDIC ATED color Yellow normal Not Available [facility] [address] [place], [address], 03/16/2025 13:56:16 03/16/2003/16/2025 UA WITH CULTU RE IF INDIC ATED appearance Clear normal Not Available [facility] [address] [place], [address], 03/16/2025 13:56:16 03/16/2003/16/2025 UA WITH CULTU RE IF INDIC ATED glucose Normal mg/dL normal normal Not Available [facility] [address] [place] [address], [address], 03/16/2025 13:56:16 03/16/2003/16/2025 UA WITH CULTU RE IF INDIC ATED bilirubin Negati ve mg/dL negati ve normal Not Available [facility] [address] [place] [address], [address], 03/16/2025 13:56:16 03/16/2003/16/2025 UA WITH CULTU RE IF INDIC ATED ketone Negati ve mg/dL negati ve normal Not Available [facility] [address] [place] [address], [address], 03/16/2025 13:56:16 03/16/2003/16/2025 UA WITH CULTU RE IF INDIC ATED specific gravity 1.019 1.003- 1.035 normal Not Available [facility] [address] [place] [address], [address], 03/16/2025 13:56:16 03/16/20 25 03/16/2025 UA WITH CULTU RE IF INDIC ATED blood Negati ve /uL negati ve normal Not Available [facility] [address] [place] [address], [address], 03/16/2025 13:56:16 03/16/2003/16/2025 UA WITH CULTU RE IF INDIC ATED pH 6.5 5.0 - 8.0 normal Not Available [facility] [address] [place] [address], [address], 03/16/2025 13:56:16 03/16/2003/16/2025 UA WITH CULTU RE IF INDIC ATED protein Negati ve mg/dL negati ve normal Not Available [facility] [address] [place] [address], [address], 03/16/2025 13:56:16 03/16/20 25 03/16/2025 UA WITH CULTU RE IF INDIC ATED urobilinogen 1 mg/dL normal abnormal Not Available [facility] [address] [place] [address], [address], 03/16/2025 13:56:16 03/16/20 25 03/16/2025 UA WITH CULTU RE IF INDIC ATED nitrite Negati ve negati ve normal Not Available [facility] [address] [place] [address], [address], 03/16/2025 13:56:16 03/16/2003/16/2025 UA WITH CULTU RE IF INDIC ATED leukocyte esterase Negati ve /uL negati ve normal Not Available [facility] [address] [place] [address], [address], 03/16/2025 13:56:16 03/16/2003/16/2025 UA WITH CULTU RE IF INDIC ATED WBC, urine Rare 0-5/hp f normal Not Available [facility] [address] [place] [address], [address], 03/16/2025 13:56:16 03/16/20 25 03/16/2025 UA WITH CULTU RE IF INDIC ATED RBC, urine 0-2 0-2/hp f normal Not Available [facility] [address] [place] [address], [address], 03/16/2025 13:56:16 03/16/20 25 03/16/2025 UA WITH CULTU RE IF INDIC ATED squamous epi. cells 0-5 0-5/hp f normal Not Available [facility] [address] [place] [address], [address], 03/16/2025 13:56:16 03/16/20 25 03/16/2025 UA WITH CULTU RE IF INDIC ATED reflex culture see below normal UA resul ts do not meet cultu re crite mckenzie. Not Available [facility] [address] [place] [address], [address], 03/16/2025 13:56:16 03/16/2003/16/2025 HEMOG BRITTANY white blood cells 6.2 10*3/ uL 3.8-10 .8 normal Not Available [facility] [address] [place] [address], [address], 03/16/2025 13:48:00 03/16/2003/16/2025 HEMOG BRITTANY red blood cells 4.65 10*6/ uL 3.80-5 .20 normal Not Available [facility] [address] [place] [address], [address], 03/16/2025 13:48:00 03/16/2003/16/2025 HEMOG BRITTANY hemoglobin 12.1 g/dL 12.0-1 6.0 normal Not Available [facility] [address] [place] [address], [address], 03/16/2025 13:48:00 03/16/2003/16/2025 HEMOG BRITTANY hematocrit 36.1 % 35.0-4 7.0 normal Not Available [facility] [address] [place] [address], [address], 03/16/2025 13:48:00 03/16/2003/16/2025 HEMOG BRITTANY MCV 78 fL 80-100 low Not Available [facility] [address] [place] [address], [address], 03/16/2025 13:48:00 03/16/2003/16/2025 HEMOG BRITTANY MCH 26 pg 26-35 normal Not Available [facility] [address] [place] [address], [address], 03/16/2025 13:48:00 03/16/20 25 03/16/2025 HEMOG BRITTANY MCHC 34 g/dL 32-36 normal Not Available [facility] [address] [place] [address], [address], 03/16/2025 13:48:00 03/16/20 25 03/16/2025 HEMOG BRITTANY RDW 14.7 % 11.0-1 5.0 normal Not Available [facility] [address] [place] [address], [address], 03/16/2025 13:48:00 03/16/20 25 03/16/2025 HEMOG BRITTANY MPV 7.0 fL 6.2-10 .5 normal Not Available [facility] [address] [place] [address], [address], 03/16/2025 13:48:00 03/16/20 25 03/16/2025 HEMOG BRITTANY platelet count 271 10*3/ uL 150-40 0 normal Not Available [facility] [address] [place] [address], [address], 03/16/2025 13:48:00 03/23/20 25 03/23/2025 PTH, INTAC T WITH CA PTH, intact 62.0 pg/mL 17.9-5 8.6 high INTER PRETI VE GUIDE ===== ===== ===== ===== ===== ===== ===== ===== ===== ===== ===== === PTH CALCI UM CONDI TION ===== ===== ===== ===== ===== ===== ===== ===== ===== ===== ===== = Renata l Renata l Renata l Parat hyroi d _ Low or Low Hypop ethan yroid ism Low Renata l _ Renata l or High Prima ry Hyper parat hyroi dism High __ High Renata l or Secon brandy Hyper parat hyroi dism Low __ High High Terti piyush Hyper parat hyroi dism __ Low or High Non-P ethan yroid Hyper calce chayo Low Renata l ===== ===== ===== ===== ===== ===== ===== ===== ===== ===== ===== ==== Not Available [facility] [address] [place] [address], [address], 03/23/2025 17:15:29 03/23/20 25 03/23/2025 PTH, INTAC T WITH CA calcium 9.0 mg/dL 8.6-10 .2 normal Not Available [facility] [address] [place] [address], [address], 03/23/2025 17:15:29 03/23/20 25 03/23/2025 VITAM IN D 25-OH vitamin D 25-oh, total 27 NG/mL >=30 NG/mL abnormal Not Available [facility] [address] [place], [address], 03/23/2025 17:14:21 03/24/20 25 03/23/2025 DEXA No observ ation record ed. IVETT Castañeda MD [address] [place], [address], 03/26/2025 12:33:01 03/29/20 25 03/29/2025 elect rocar diogr am No observ ation record ed. BARCODE Not Available 2024 16:54:21 04/20/20 25 04/20/2025 XR, chest , 2 view No observ ation record ed. IVETT Not Available 2024 13:51:02 04/20/20 25 04/20/2025 XR, chest , 2 view No observ ation record ed. [address], [address], 04/22/2025 13:51:02 04/23/20 25 04/20/2025 elect rocar diogr am No observ ation record ed. BARCODE Not Available 2024 08:23:38 04/23/20 25 04/23/2025 optic al coher ence tomog brittany, retin a No observ ation record ed. [email or web address] Not Available 2024 11:19:42 04/23/20 25 04/23/2025 visua l field test No observ ation record ed. [email or web address] Not Available 2024 13:59:35 05/06/20 25 05/02/2025 compl ete PFT w/ post [facility] hodil ator jayce metry * No observ ation record ed. [facility] [address], [place], [address], 05/11/2025 15:43:58 Result Notes Documentation Provider Name and Address Organization Details Recorded Time Dexa : [facility] [address] [facility] [id number], Donna S (id #[id number], : 1950) [address] [address] Date: 03/24/2025RE: Stacey Weston, : 1950, PT ID #[id number] Hurt DO, I would like to thank you for referring Stacey Weston to our practice for consultation and evaluation. I have enclosed a copy of the office evaluation for your records. Sincerely, Electronically Signed by: INGRID CASTAÑEDA, MDProcedure DocumentationDXA Low Bone Mass 2 - Tx:Bone Densitometry Dual Energy X-Ray Absorptiometry (DXA) Report & Bone Health Report Trabecular Bone Score ( TBS) Follow-up bone mineral density measurement was performed on a Hologic QDR-4500C scanner with good technique. Ordering Provider Indications for the study:1. Osteopenia/prior fracture/rheumatoid arthritis/monitoring treatment The L1-L4 lumbar spine bone density scan demonstrates lumbar spine T-score of -0.7, Z-score of 1.8, BMD 0.971 g/cm . Additionally, there has been a no statistically significant change in bone density over the lumbar spine when compared to the patient's previous examination on 03/23/2024. The left hip bone density scan demonstrates a femoral neck T-score of -1.6, Z-score of 0.6, BMD 0.670 g/cm . The total left hip T-score of -0.3, Z-score of 1.6, BMD 0.902 g/cm . Additionally there has been a no statistically significant change in bone density over the left total hip and a -7.1% decrease in bone density over the femoral neck when compared to the previous bone density measurement on 03/23/2024. The lumbar spine TBS is 1.177 which suggests a degraded microarchitecture.IMPRESSIO N: Low bone mass (osteopenia) on Prolia therapy as demonstrated by bone density measurements& moderate resilience to fracture on bone resilience index. As perNational Osteoporosis Foundation 2014,postmenopausal women and men age 50 and older presenting with any the following should be considered for treatment: A hip or vertebral (clinical or morphometric) fracture or T-score = -2.5 at the femoral neck or spine after appropriate evaluation to exclude secondary causes or Low bone mass (T-score between -1.0 and -2.5 at the femoral neck or spine) and a 10-year probability of a hip fracture = 3% or a 10-year probability of a major osteoporosis-related fracture = 20% based on the [place]-adapted WHO algorithm P atient is a candidate for pharmacologic therapy based on the above-mentioned criteria.RECOMMENDATIONS:1. Continue current Prolia therapy 60 mg subcu every 6 months. 2. 1 year follow-up bone density while on Prolia therapy. 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 94848646 Active Not Available [employer] 3 08:06:45 Morbid obesity 687498636 Active Not Available [employer] 3 08:06:48 Chronic kidney disease stage 3B 429228914 Active Not Available [employer] 4 09:23:52 Body mass index 40+ - severely obese 792489214 Active Not Available [employer] 4 09:23:58 Insomnia 256211200 Active 2014 From Automate d Load;Pro vider: Daisy, Cadet;S tatus: Active AIDEN BRAXTON, [address], [address] 4 18:20:35 Hyperten sive disorder 57931550 Completed 201402/05/2019 From Automate d Load;Pro vider: Daisy, Cadet;S tatus: Active JF CHAMBERS, [place] [address] 9 18:12:30 Hyperlip idemia 56720895 Active 2014 From Automate d Load;Pro vider: Daisy, Cadet;S tatus: Active AIDEN BRAXTON [address] [address] , [facility] 4 18:20:28 Melanocy tic nevus of trunk 383788156 Completed 201411/09/2016 From Automate d Load;Pro vider: Loan Medina; Status: [facility] 7 10:32:09 Senile hyperker atosis 405548810 Completed 201404/28/2016 From Automate d Load;Pro vider: Loan Medina; Status: Active HELIO VILLA MD [address] [place] [address], [address] [place] [address] , [facility] 6 15:20:57 Lentigo Completed 201404/28/2016 From Automate d Load;Pro vider: Loan Medina; Status: Active HELIO VILLA MD [address] [place] [address], [address] [place] [address] , [facility] 6 15:20:42 Hypertro phic conditio n of skin 23095416 Completed 201404/28/2016 From Automate d Load;Pro vider: Loan Medina; Status: Active HELIO VILLA MD [address] [place] [address], [address] , [facility] 6 15:21:10 Gastroin testinal tract finding Completed 201403/20/2019 From Automate d Load;Pro vider: Marlene Raza;S tatus: Active JF CHAMBERS DO [address] [place] [address], [address] , [facility] 9 08:44:09 Backache 799382052 Completed 201404/28/2016 From Automate d Load;Pro vider: Jenna Villa tatus: Active HELIO VILLA MD [address] [place] [address], [address] , [facility] 6 15:28:50 Function al heart murmur 73466601 Active 2014 From Automate d Load;Pro vider: Diaz Munroe;S tatus: Active Not Available [facility] 3 08:12:47 Irritabl e bowel syndrome with diarrhea 131678781 Active 2014 From Automate d Load;Pro vider: Marlene Raza;Fernanda tatus: Active Not Available [facility] 3 08:12:47 Constipa tion 51803893 Completed 201511/09/2016 From Automate d Load;Pro vider: Marlene Raza;S tatus: [facility] 7 10:31:52 Lacerati on of hand 581716480 Completed 201504/28/2016 From Automate d Load;Pro vider: Helio Villa;S tatus: [place] [address] [place] [address], [address] , [facility] 6 15:21:03 Low back pain 803836220 Completed 201511/09/2016 From Automate d Load;Pro vider: Helio Villa;S tatus: Active [facility] 7 10:32:13 Hemangio ma 140524156 Completed 201511/09/2016 From Automate d Load;Pro vider: Loan Medina; Status: [facility] 7 10:32:17 Degenera tion of lumbar interver tebral disc 46876577 Active 2015 Not Available [facility] 3 08:12:47 Hyperkal emia 95451788 Completed 201803/17/2019 JF CHAMBERS, [address], [address] , [facility] 9 08:33:51 Benign essentia l hyperten dwayne 1147141 Active 2018 AIDEN BRAXTON, DO [address] [place], [address] , [facility] 4 18:20:26 Fracture of phalanx of finger 12442893 Active 2018 Not Available [facility] 3 08:12:47 Hyponatr emia 69489654 Active 2018 Not Available [facility] 3 08:12:47 Migraine 73474500 Active 2019 Not Available [facility] 3 08:12:47 Generali zed anxiety disorder 42793122 Active 2020 Not Available [facility] 3 08:12:47 Restless legs syndrome 84621581 Active 2022 AIDEN BRAXTON, DO [address] [place], [address] , [facility] 4 11:41:36 COVID-19 767655969 Active 2022 BLADIMIR GLOVER MD [address] [place], [address] , [facility] 3 12:34:54 Lower abdomina l pain 49883903 Active 2023 CONNIE MOREIRA, DO [address] [place], [address] , [facility] 4 10:53:29 Stomach cramps 26484354 Active 2023 CONNIE MOREIRA, DO [address] [place], [address] , [facility] 4 11:21:49 Divertic ulosis of colon 037142203 Active 2023 CONNIE MOREIRA, DO [address] [place], [address] , [facility] 4 11:21:56 Nausea 230342624 Active 2023 CONNIE MOREIRA, DO [address] [place], [address] , [facility] 4 11:23:15 Obstruct ani sleep apnea of adult 03536410274 03 Active 2023 AIDEN BRAXTON, DO [address] [place], [address] , [facility] 4 18:20:43 Anxiety 85555301 Active 2023 AIDEN BRAXTON, DO [address] [place], [address] , [facility] 4 11:41:56 Obesity 523865103 Active 2023 Kendal mathew, [facility] 4 10:34:00 Ex-smoke r 2807672 Active 2024 AIDEN BRAXTON, DO [address] [place], [address] , [facility] 5 10:41:21 Problem Notes None recorded. Procedures Surgical History Date Name Laterality Status Provider Name and Address Organization Details Recorded Time OCT/Retina completed MARGO ALEJANDRO MD [address] [place] [address], [address], [facility] 04/23/2025 11:27:53 025 Visual Field Extended completed MARGO ALEJANDRO MD [address] [place] [address], [address], [facility] 04/23/2025 11:27:51 025 Punctual Plug completed MARGO ALEJANDRO MD [address] [place] [address], [address], [facility] 04/23/2025 11:27:17 025 EKG completed MIKAL LOJA, [employer] [address] [place] [address] [place], [address], [facility] 03/29/2025 16:24:21 025 DXA Low Bone Mass 2 - Tx completed INGRID CASTAÑEDA MD [address] [place] [address], [address], [facility] 03/24/2025 10:29:10 025 Neurostimulator Analysis w/o Reprogramming completed Chelly Tyler [facility] 02/07/2025 15:59:51 09/24/2 025 Post Void Residual; Ultrasound completed Lexy Rahman [facility] 02/07/2025 15:02:22 025 Destruction Premalignant Lesion(s) completed Shruti Valdez [facility] 01/09/2025 08:36:36 025 Prolia Injection completed Gena Browne [facility] 12/22/2024 09:20:55 025 Punctual Plug completed MARGO ALEJANDRO MD [address] [place], [address], [facility] 10/13/2024 09:28:28 025 Prolia Injection completed Karol Crooks [facility] 06/23/2024 09:07:52 025 Axial Length, IOL Master completed MARGO ALEJANDRO MD [facility] [place], [address], [facility] 06/02/2024 09:56:59 024 OCT/[place] [address] [place] [address], [phone], [facility] 04/19/2024 10:29:56 024 DXA Low Bone Mass 2 - Tx completed INGRID CASTAÑEDA MD [address] [place] [address], [address], [facility] 03/23/2024 16:44:04 024 EKG completed MIKAL LOJA APRN [address] [place], [address], [facility] 02/24/2024 09:40:10 024 Post Void Residual; Ultrasound completed Reg Sky [facility] 12/29/2023 15:52:26 024 Prolia Injection completed Josefa Kumar [facility] 12/21/2023 16:07:15 024 procedure on intestine completed Christy Choi [facility] 02/24/2024 09:35:22 024 Neurostimulator Analysis w/o Reprogramming completed Chelly Gonzalezey [facility] 05/31/2023 10:21:06 024 Post Void Residual; Ultrasound completed Reg Sky [facility] 05/31/2023 09:27:17 023 Other completed KAVON TANG MD [address] [place], [address], [facility] 04/27/2023 15:56:37 023 Prolia Injection completed Flower Winston [facility] 04/19/2023 16:20:54 023 PNE Implantation; Sacral Nerve completed KAVON TANG MD [address] [place] [address], [phone], [facility] 04/06/2023 15:07:08 023 Post Void Residual; Ultrasound completed Gaby Maurice [facility] 01/22/2023 08:55:17 023 DXA Low Bone Mass 2 - Tx completed INGRID CASTAÑEDA MD [facility] [place], [address], [facility] 12/15/2022 18:22:03 023 TCM completed Bree Rolon [facility] 11/19/2022 20:07:07 023 Post Void Residual; Ultrasound completed Jillian Roe [facility] 07/17/2022 08:34:39 022 Post Void Residual; Ultrasound completed Catrachita Tarango [facility] 05/05/2022 08:53:27 021 Destruction BN Lesions completed Sondra Oconnor [facility] 04/29/2021 08:58:00 021 Knee Surgery completed Kendal Canales [facility] 04/29/2021 11:21:40 021 Visual Field Extended completed MARGO ALEJANDRO MD [address] [place], [address], [facility] 11/11/2020 09:09:46 021 EKG completed JF CHAMBERS DO [address] [place], [address], [facility] 09/30/2020 10:03:56 021 OCT/Retina completed MARGO ALEJANDRO MD [address] [place], [address], [facility] 09/09/2020 09:45:14 020 Salivary Gland Biopsy completed MARGO FRIEDMAN MD [address] [place], [address], [facility] 04/30/2020 09:43:49 020 Destruction BN Lesions completed Ariadna Meng [facility] 04/23/2020 08:51:13 020 Urinary Bladder completed KAVON TANG MD [address] [place], [address], [facility] 03/26/2020 09:44:18 020 Post Void Residual; Ultrasound completed Teena Johnson [facility] 02/09/2020 08:13:00 020 EKG completed MIKAL LOJA, [employer] [address] [place], [address], [facility] 02/01/2020 09:13:51 020 Post Void Residual; Ultrasound completed Yolanda Alexander [facility] 11/15/2019 09:12:34 020 Biopsy Skin Lesion; Tangential completed Cheyanne Magaña [facility] 10/31/2019 11:29:08 019 Destruction BN Lesions completed LOAN MEDINA, [employer] [address] [place], [address], [facility] 04/20/2019 09:32:34 019 Evening/Weekend/Ho liday Services completed Denny Schwab [facility] 02/25/2019 13:34:39 019 EKG completed DIAZ MUNROE PA-C [address] [place], [address], [facility] 01/26/2019 08:54:46 019 Probing Lacrimal Canaliculi completed MARGO ALEJANDRO MD [address] [place], [address], [facility] 05/26/2018 13:24:16 018 Destruction BN Lesions completed [facility] 04/19/2018 09:15:50 018 Date of Last Pap Smear completed [facility] 12/13/2018 10:16:23 018 EKG completed DIAZ MUNROE PA-C [address] [place], [address], [facility] 01/26/2018 09:02:42 018 DXA Low Bone Mass 1 - No Tx completed INGRID CASTAÑEDA MD [facility] [place], [address], [facility] 11/08/2017 18:09:16 018 Most Recent Bone Density completed [facility] 12/13/2018 10:16:45 018 Orthopedic Surgery completed ROBIN ARELLANO PA-C [address] [place], [address], [facility] 09/01/2017 09:30:46 017 Destruction BN Lesions completed [facility] 04/14/2017 09:04:58 017 Shave Lesion; scalp, neck, hand, foot, genitalia completed [facility] 04/14/2017 09:06:31 017 EKG completed DIAZ MUNROE PA-C [address] [place], [address], [facility] 10/29/2016 09:29:58 016 EKG [place], [address], [facility] 05/05/2016 14:22:08 016 Most Recent Mammogram completed [facility] 12/13/2018 10:18:24 012 Total Hysterectomy completed Luis Carlos Whaleyley [facility] 12/13/2018 13:20:05 Appendectomy completed Skylar Burns [facility] 04/28/2016 11:23:45 Carpal tunnel surgery completed Yulisa Freddie [facility] 02/02/2020 09:20:20 Orthopedic Surgery completed Amari Crosson [facility] 09/25/2019 15:42:13 Other completed Gabbie Stump [facility] 10/14/2023 16:17:19 Imaging Results None recorded. Procedure Notes None recorded. Medical Equipment None Reported. Allergies Allergen ID Allergen Name Allergen Category Reaction Reaction Severity Criticality Documentation Date Start Date Code Code System Note Provider Name and Address Organization Details Recorded Time 660303 bisoprolo l / hydrochlo rothiazid e medicatio n Not available Not available Not available 04/10/20162005 24560 7 [facility] [id number] Maxalt medicatio n Not available Not available Not available 04/10/20162005 26374 8 RxNorm [facility]ives / n[facility] 09:22:08 200983 Levaquin medicatio n rash Not available Not available 06/18/2022 82060 2 RxNorm KAVON TANG MD [address] [place] [address], [phone] [place] [address] 3 13:46:23 [id number] rizatript an medicatio n Not available Not available Not available 03/29/2025 85783 RxNorm Not Available ivett - External Data Service - prod 5 06:13:52 [id number] levofloxa arcadio medicatio n Not available Not available Not available 03/29/20252023 74551 RxNorm Not Available ivett [employer] - prod 5 06:15:51 599407 metoclopr amide hydrochlo ride medicatio n Not available Not available Not available 03/29/20252023 89668 6 RxNorm Not Available [employer] - External Data Service - prod 5 06:15:51 [id number] bisoprolo l / hydrochlo rothiazid e medicatio n Not available Not available Not available 03/29/20252023 63327 7 RxNorm Not Available [employer] - External Data Service - prod 5 06:15:51 Medications Name Sig Start Date Stop Date Status Note LastModified by Organization Details LastModified Time semagluti de 4mg/1ml injectabl e Inject 0.5mL (2mg=50 units) subcutan eously once weekly for four (4) weeks. 04/27 completed Not Available Not Available Not Available compounde d medicatio n Inject 0.5mL (2mg=50 units) subcutan eously once weekly for four (4) weeks. 2024 active Not Available Not Available Not Avai lable Compound Bi-Est Vaginal Cream (Estriol- E3 Estradiol -E2 (80:20) 0.5 mg/gm) Insert 1g into the vagina 2 nights per week 03/17 completed Not Available Not Available Not Available compounde d medicatio n Inject 0.5mL (2mg=50 units) subcutan eously once weekly for four (4) weeks. 2024 active Not Available Not Available Not Avai lable compounde d medicatio n Inject 0.5mL (2mg=50 units) subcutan eously once weekly for four (4) weeks. 2024 active Not Available Not Available Not Avai lable semagluti de 1mg/1ml injectabl e Inject 0.5mL (0.5mg=5 0 units) subcutan eously once weekly for four (4) weeks. 03/29 completed Not Available Not Available Not Available semagluti de methylcob alamin 4mg 1mg/1ml injectabl e Inject 0.5mL (2mg=50 units) subcutan eously once weekly for four (4) weeks. active to compound ing pharmacy Not Available Not Available Not Available compounde d medicatio n Inject 0.5mL (2mg=50 units) subcutan eously once weekly for four (4) weeks. active Not Available Not Available No t Available compounde d medicatio n Inject 0.5mL (2mg=50 units) subcutan eously once weekly for four (4) weeks. 2024 active Not Available Not Available Not Avai lable semagluti de 0.5mg/0.5 ml injectabl e Inject 0.25mL (0.25mg= 25 units) subcutan eously once weekly for four (4) weeks. 01/23 completed Not Available Not Available Not Available losartan 50 mg tablet Take 1 tablet every day by oral route at bedtime. 12/26 completed Not Available Not Available Not Available celecoxib 200 mg capsule TAKE 1 CAPSULE BY MOUTH EVERY DAY 2024 active Not Available Not Available Not Avai lable cyclobenz aprine 10 mg tablet Take 1 tablet 3 times a day by oral route. 01/29 completed Not Available Not Available Not Available amoxicill in 500 mg capsule TAKE 4 CAPSULES 1HR PRIOR TO APPOINTM ENT 02/01 completed Not Available Not Available Not Available methocarb mikayla 500 mg tablet TAKE 1 TABLET BY MOUTH EVERYDAY AT BEDTIME 02/01 completed Not Available Not Available Not Available pilocarpi ne 5 mg tablet TAKE 1 TABLET BY MOUTH THREE TIMES A DAY FOR 90 DAYS 2024 active Not Available Not Available Not Avai lable carvedilo l 25 mg tablet TAKE 1 TABLET BY MOUTH TWICE A DAY WITH FOOD FOR 90 DAYS active Not Available Not Available No t Available clonidine HCl 0.1 mg tablet 2 TABLETS ORALLY ONCE A DAY IN THE EVENING 30 DAYS 2024 active Not Available Not Available Not Avai lable oxybutyni n chloride ER 15 mg tablet,ex tended release 24 hr Take 1 tablet every day by oral route for 30 days. 02/03 completed Not Available Not Available Not Available doxycycli ne hyclate 100 mg capsule Take 1 capsule twice a day by oral route for 7 days. 07/27 completed Not Available Not Available Not Available ropinirol e 1 mg tablet TAKE 1 TABLET BY MOUTH EVERY DAY AT BEDTIME NEEDED 05/28 completed Not Available Not Available Not Available clindamyc in HCl 300 mg capsule Take 1 capsule every 8 hours by oral route. 03/04 completed Not Available Not Available Not Available trazodone 50 mg tablet TAKE 1/2-1 TABLET AT BEDTIME NEEDED 04/02 completed Not Available Not Available Not Available cetirizin e 10 mg tablet TAKE 1 TABLET BY MOUTH EVERY DAY FOR 30 DAYS 02/23 completed no longer takes Not Available Not Available Not Available oxybutyni n chloride ER 10 mg tablet,ex tended release 24 hr TAKE 1 TABLET BY MOUTH EVERY DAY active Not Available Not Available No t Available benzonata te 200 mg capsule Take 1 capsule 3 times a day by oral route for 5 days. 07/27 completed Not Available Not Available Not Available metoprolo l succinate ER 50 mg tablet,ex tended release 24 hr TAKE 1 TABLET BY MOUTH TWICE A DAY active Not Available Not Available No t Available sumatript an 100 mg tablet TAKE 1 TABLET BY MOUTH AT ONSET OF MIGRAINE , MAY REPEAT DOSE AFTER 2 HRS 2024 active Not Available Not Available Not Avai lable meloxicam 15 mg tablet Take 1 tablet every day by oral route as needed. 10/17 completed Not Available Not Available Not Available promethaz ine 12.5 mg tablet TAKE 1 TABLET BY MOUTH THREE TIMES A DAY NEEDED 04/06 completed Complete d Not Available Not Available Not Available Levaquin 750 mg tablet Take 1 tablet every day by oral route. 01/29 completed Not Available Not Available Not Available Imitrex 20 mg/actuat ion nasal spray One spray at the onset of migraine headache . 12/04 completed Instruct ions: USE DIRECTED ;Medicat ion Descript ion: sumatrip tillman; Route:na yefri; refills: 3; Quantity :18 spray Not Available Not Available Not Available ondansetr on HCl 4 mg tablet TAKE 1 TABLET BY MOUTH FOUR TIMES A DAY NEEDED 02/23 completed Not Available Not Available Not Available Medrol (Carlos) 4 mg tablets in a dose pack Take as directed on package 01/29 completed Not Available Not Available Not Available clonazepa m 0.5 mg tablet TAKE 1 TABLET BY MOUTH EVERY DAY AT BEDTIME NEEDED active Not Available Not Available No t Available sertralin e 100 mg tablet TAKE 1 & 1/2 TABLET BY MOUTH EVERY DAY FOR 90 DAYS active Not Available Not Available No t Available meclizine 12.5 mg tablet 1-2 tablets every 8 hrs as needed 08/24 completed Not Available Not Available Not Available levofloxa arcadio 250 mg tablet TAKE 3 TABLETS EVERY 24 HOURS 06/30 completed Not Available Not Available Not Available tramadol 50 mg tablet Take 1 tablet every 6 hours by oral route. 07/08 completed Not Available Not Available Not Available Kenalog 40 mg/mL suspensio n for injection KENALOG 40MG 07/04 completed Not Available Not Available Not Available meloxicam 7.5 mg tablet 1-2 TABS DAILY PRN FOR PAIN 02/09 completed Not Available Not Available Not Available Tessalon Perles 100 mg capsule Take 2 capsules 3 times a day by oral route as needed. 06/21 completed Not Available Not Available Not Available famotidin e 20 mg tablet TAKE 1 TABLET BY MOUTH TWICE A DAY NEEDED 2024 active Not Available Not Available Not Avai lable hydrocort isone 2.5 % lotion Apply to the rash on eyelids twice a day for 1 week, then once day for 1 week, then only if needed for flares up, but not more than twice a week. 04/24 completed Not Available Not Available Not Available Imodium A-D 2 mg tablet 03/17 completed Not Available Not Available Not Available Flagyl 500 mg tablet Take 1 tablet every 8 hours by oral route for 10 days. 09/28 completed Not Available Not Available Not Available hydrocodo ne 7.5 mg-acetam inophen 325 mg tablet Take 1 tablet every 6 hours by oral route as needed for 3 days. 02/01 completed Not Available Not Available Not Available ropinirol e 2 mg tablet TAKE 1 TO 1 & 1/2 TABLETS AT BEDTIME NEEDED 2024 active Not Available Not Available Not Avai lable Lasix 20 mg tablet Take 1 tablet every day by oral route as needed for 14 days. 01/05 completed Not Available Not Available Not Available cephalexi n 500 mg capsule TAKE 1 CAPSULE EVERY 8 HOURS BY ORAL ROUTE FOR 3 DAYS. 06/30 completed Not Available Not Available Not Available simvastat in 20 mg tablet TAKE 1 TABLET BY MOUTH EVERYDAY AT BEDTIME active Not Available Not Available No t Available oseltamiv ir 75 mg capsule Take 1 capsule twice a day by oral route as directed for 5 days. 06/21 completed Not Available Not Available Not Available Norvasc 5 mg tablet Take 1 tablet every day by oral route. 02/09 completed Not Available Not Available Not Available ropinirol e 0.5 mg tablet TAKE 1 TABLET BY MOUTH EVERY DAY AT BEDTIME NEEDED 05/28 completed Not Available Not Available Not Available ranitidin e 150 mg tablet TAKE 1 TABLET BY MOUTH TWICE A DAY NEEDED active Not Available Not Available No t Available buspirone 10 mg tablet Two times a day 06/03 completed Frequenc y: bid;Medi cation Descript ion: buspiron e; Dosage:1 /2; Route:or al; refills: 4; Quantity :30 tablet Not Available Not Available Not Available promethaz ine 25 mg tablet 1 po q6hrs prn nausea. 06/21 completed Not Available Not Available Not Available Antivert 25 mg tablet Three times a day 09/28 completed Instruct ions: Take for dizzines s;Freque ncy: tid;Alt Frequenc y: prn;Medi cation Descript ion: meclizin e; Dosage:1 ; Route:or al; refills: 2; Quantity :30 tablet Not Available Not Available Not Available hydrochlo rothiazid e 12.5 mg capsule Take 1 capsule every day by oral route. 03/17 completed Not Available Not Available Not Available oxybutyni n chloride ER 5 mg tablet,ex tended release 24 hr Take 1 tablet every day by oral route. 07/23 completed Not Available Not Available Not Available omeprazol e 20 mg capsule,d elayed release 1 capsule by mouth twice daily active Not Available Not Available No t Available diclofena c sodium 75 mg tablet,de layed release Take 1 tablet twice a day by oral route. 10/18 completed Not Available Not Available Not Available hydroxyzi ne HCl 25 mg tablet TAKE 1 TO 2 TABLETS BY MOUTH AT BEDTIME NEEDED 2024 active Not Available Not Available Not Avai lable Levsin/SL 0.125 mg sublingua l tablet Every four hours 06/03 completed Frequenc y: q4h;Alt Frequenc y: prn;Medi cation Descript ion: hyoscyam ine; Dosage:1 ; Route:knight blingual ; refills: 3; Quantity :60 tablet Not Available Not Available Not Available hydroxych loroquine 200 mg tablet TAKE 1 TABLET BY MOUTH EVERY DAY 2024 active Not Available Not Available Not Avai lable estradiol 0.01% (0.1 mg/gram) vaginal cream PLEASE SEE ATTACHED FOR DETAILED DIRECTIO NS active Not Available Not Available No t Available albuterol sulfate HFA 90 mcg/actua tion aerosol inhaler Inhale 2 puffs every 4 hours by inhalati on route for 30 days. 2024 active Not Available Not Available Not Avai lable Vitamin D2 1,250 mcg (50,000 unit) capsule 12/04 completed Duration : 28 days;Ins truction s: TAKE ONE CAPSULE BY MOUTH ONCE WEEKLY;M edjabiero n Descript ion: ergocalc iferol; Route:or al; refills: 5; Quantity :4 capsule Not Available Not Available Not Available Percocet 5 mg-325 mg tablet Take 1 tablet every 6 hours by oral route as needed for 3 days. 05/04 completed Not Available Not Available Not Available ketoconaz ole 2 % topical cream Apply to the areas of rash on the face, once daily, as needed. 12/14 completed Not Available Not Available Not Available [place] 5 mg-325 mg tablet Take 1 tablet every 4-6 hours by oral route as needed. 08/19 completed Not Available Not Available Not Available ondansetr on 4 mg disintegr ating tablet 1-2 TABLETS BY MOUTH EVERY 8 HOURS NEEDED NEEDED FOR NAUSEA OR VOMITING . active Not Available Not Available No t Available Klonopin 1 mg tablet 1 po qhs prn 03/17 completed Not Available Not Available Not Available losartan 100 mg tablet TAKE 1 TABLET BY MOUTH EVERY DAY 2024 active Not Available Not Available Not Avai lable fluticaso ne propionat e 50 mcg/actua tion nasal spray,dion pension SPRAY TWICE IN EACH NOSTRIL DAILY active Not Available Not Available No t Available clotrimaz ole 1 % topical cream USE DIRECTED 02/23 completed no longer takes Not Available Not Available Not Available sertralin e 50 mg tablet TAKE 1 TABLET BY MOUTH EVERY DAY 12/26 completed Not Available Not Available Not Available doxycycli ne hyclate 100 mg tablet TAKE 1 TABLET BY MOUTH TWICE A DAY 02/23 completed no longer takes Not Available Not Available Not Available dicyclomi ne 10 mg capsule TAKE 1 CAPSULE BY MOUTH EVERY SIX HOURS NEEDED FOR PAIN FOR 30 DAYS 02/01 completed Not Available Not Available Not Available loratadin e 10 mg tablet Take 1 tablet every day by oral route for 90 days. 2024 active Not Available Not Available Not Avai lable doxazosin 2 mg tablet TAKE 1 TABLET BY MOUTH EVERY DAY 10/15 completed Not Available Not Available Not Available amoxicill in 875 mg-potass ium clavulana te 125 mg tablet TAKE 1 TABLET BY MOUTH EVERY 12 HOURS FOR 7 DAYS 12/26 completed Not Available Not Available Not Available ciclopiro x 0.77 % topical gel Apply to the areas of rash on the face, once daily. 11/09 completed Not Available Not Available Not Available Bactrim DS 800 mg-160 mg tablet Take 1 tablet every 12 hours by oral route for 7 days. 02/09 completed Not Available Not Available Not Available Asprin Ec Low Dose 81 mg tablet,de layed release 02/09 completed Not Available Not Available Not Available guaifenes in 400 mg tablet Take 1 tablet every 4 hours by oral route as needed for 5 days. 12/26 completed Not Available Not Available Not Available cyclobenz aprine 5 mg tablet 1-2 tabs qhs prn 09/27 completed Not Available Not Available Not Available cyclospor ine 0.05 % eye drops in a dropperet te active Not Available Not Available Not Available Mucinex DM 30 mg-600 mg tablet,ex tended release 12 hr Take 1 tablet every 12 hours by oral route for 10 days. 07/27 completed Not Available Not Available Not Available Sure Comfort Insulin Syringe 0.5 mL 31 gauge x 09/29 USE DIRECTED active Not Available Not Available No t Available Co Q-10 1 DAILY active Not Available Not Avai lable Not Available calcium 1200 mg 02/01 completed Not Available Not Available Not Available Aspir-81 03/17 completed Not Available Not Available Not Available Citrucel (sucrose) Daily 09/01 completed Frequenc y: daily;Me dication Descript ion: methylce llulose; Dosage:2 ; Route:or al; refills: 0; Quantity :otc tablet Not Available Not Available Not Available Vitamin D 2000 units daily 04/06 completed Is no longer taking. Is injectin g prolia every 6 months. Not Available Not Available Not Available fiber 20ml qd 12/11 completed fiber gas Not Available Not Available Not Available gabapenti n 07/08 completed Not Available Not Available Not Available Miralax 03/17 completed Not Available Not Available Not Available Vitamin Daily active Per renal doc Not Available Not Available Not Available sodium fluoride 1.1 % dental paste USE DIRECTED 2024 active Not Available Not Available Not Avai lable Benefiber 02/09 completed Not Available Not Available Not Available diclofena c 1 % topical gel APPLY 2 GRAMS TO THE AFFECTED AREA(S) BY TOPICAL ROUTE 4 TIMES PER DAY 02/09 completed Not Available Not Available Not Available Probiotic Formula 10 billion cell(2 billion ea) capsule Daily 2014 active Frequenc y: daily;Me dication Descript ion: bifidoba cterium- lactobac illus; Dosage:1 ; Route:or al; refills: 0; Quantity :otc capsule- -not taking Not Available Not Available Not Available Xifaxan 550 mg tablet Take 1 tablet 3 times a day by oral route for 14 days. 12/14 completed Not Available Not Available Not Available Prolia 60 mg/mL subcutane ous syringe Inject 1 mL by subcutan eous route for 80 days. 2024 active Injects every 6 months Not Available Not Available Not Available Purelax 17 gram oral powder packet 17 GRAMS BY MOUTH ONCE DAILY active Not Available Not Available No t Available Osteo Bi-Flex 1 DAILY 02/09 completed Not Available Not Available Not Available domperido ne 10 mg tablet Take 1 tablet 4 times a day by oral route. 02/[address] Bautista Not Available Not Available Not Available Myrbetriq 25 mg tablet,ex tended release Take 1 tablet every day by oral route. 10/04 completed Not Available Not Available Not Available Myrbetriq 50 mg tablet,ex tended release Take 1 tablet every day by oral route for 30 days. 01/27 completed Not Available Not Available Not Available potassium chloride ER 20 mEq tablet,ex tended release TAKE 1 TABLET BY MOUTH EVERY DAY 12/26 completed Not Available Not Available Not Available Xiidra 5 % eye drops in a dropperet te PLACE 1 DROP INTO BOTH EYES TWICE A DAY APPROX IMATELY 12 HOURS APART 2024 active Not Available Not Available Not Avai lable semagluti de 0.25 mg or 0.5 mg (2 mg/1.5 mL) subcutane ous pen injector Inject by subcutan eous route 0.25 MG once weekly. 2024 active Not Available Not Available Not Avai lable semagluti de (weight loss) 0.5 mg/0.5 mL subcutane ous pen injector Inject 0.5 mg every week by subcutan eous route for 28 days. 02/01 completed Not Available Not Available Not Available semagluti de (weight loss) 1 mg/0.5 mL subcutane ous pen injector Inject 1 mg every week by subcutan eous route as directed for 28 days. 04/06 completed compound medicati on. Increase d to 2 mg every week. Not Available Not Available Not Available Tyrvaya 0.03 mg/spray nasal spray INSTILL 1 SPRAY INTO EACH NOSTRIL TWICE A DAY 04/16 completed Not Available Not Available Not Available Paxlovid 300 mg (150 mg x 2)-100 mg tablets in a dose pack take BID for 5 days 04/27 completed Not Available Not Available Not Available Ozempic 2 mg/dose (8 mg/3 mL) subcutane ous pen injector Inject by subcutan eous route for 28 days. active Not Available Not Available No t Available tirzepati de 2.5 mg/0.5 mL subcutane ous pen injector Inject 2.5 mg every week by subcutan eous route. 12/28 completed Not Available Not Available Not Available Lagevrio 200 mg capsule (EUA) Take 4 capsules every 12 hours by oral route for 5 days. 06/04 completed Not Available Not Available Not Available Ozempic 0.25 mg or 0.5 mg (2 mg/3 mL) subcutane ous pen injector INJECT BY SUBCUTAN EOUS ROUTE 0.5 MG ONCE WEEKLY. 01/29 completed Not Available Not Available Not Available Vitals Date Recorded Body height Body mass index (BMI) Body weight Systolic And Diastolic Provider Name and Address Organization Details Last Updated DateTime 03/23/2025 151.13 cm 34.4 kg/m2 79583.48 g 136/74 mm[Hg[facility] 15:46:27 Social History Question Answer Notes LastModified by Organizat ion Details LastModified Time Tobacco Smoking Status Former Smoker hasnt smoked since 1979 Luis Carlos Mahoney [facility] 12/13/2018 13:18:56 Accident Related Injury No [email or web address] Information not available 09/25/2019 What Is Your Level Of Caffeine Consumption? Moderate [email or web address] Information not available 08/29/2024 How Much Tobacco Do You Chew? None [email or web address] Information not available 02/25/2019 Are You Deaf Or Do You Have Serious Difficulty Hearing? No Information not available 12/11/2020 What Type Of Diet Are You Following? REGULAR Information not available 12/11/2020 Which Illicit Or Recreational Drugs Have You Used? None Per Pt [email or web address] Information not available 04/16/2019 When Did You Quit Smoking? 16+yearssinc [email or web address] te Information not available 10/15/2022 Which Of Your Hands Is Dominant? Right [email or web address] Information not available 09/25/2019 Hard Of Hearing Or Deaf In One Or Both Ears? No Information not available 10/26/2019 Legally Blind In One Or Both Eyes? No Information not available 10/26/2019 Which Hand Is Involved? Left Shoulder Information not available 09/25/2019 Rate The Severity Of Your Symptoms: (0-10 With 0=none And 10=worst Possible) 3 3-08/24 [email or web address] Information not available 09/25/2019 Date Of Injury: 2009 Or Longer [email or web address] Information not available 09/25/2019 Have You Been Treated For This Problem Before? Yes [email or web address] Information not available 09/25/2019 How Long Have You Had These Symptoms? 10 Years, Worse In Last Month [email or web address] Information not available 09/25/2019 Will This Be Filed As Workers' Compensation? No [email or web address] Information not available 09/25/2019 Marital Status Unknown Informatio n not available 04/28/2016 What Was The Date Of Your Most Recent Tobacco Screening? 03/29/2025 [email or web address] Information not available 03/29/2025 What Is Your Current Pack Years? 20-29packyea rs [email or web address] Information not available 04/27/2024 What Is Your Relationship Status? [email or web address] Information not available 08/29/2024 Do You Use Your Seat Belt Or Car Seat Routinely? Yes Information not available 12/11/2020 Are You Sexually Active? No Information not available 12/11/2020 Do You Have Smoke And Carbon Monoxide Detectors In Your Home? Yes Information not available 12/11/2020 At What Age Did You Start Smoking Tobacco? 11 [email or web address] Information not available 08/29/2024 Are There Any Smokers In Your House? No Information not available 12/11/2020 How Much Tobacco Do You Smoke? 2 PPD Information not available 03/17/2019 Do You Use Sunscreen Routinely? Yes Information not available 12/11/2020 Has Tobacco Cessation Counseling Been Provided? No Information not available 01/28/2021 On What Date Was Tobacco Cessation Counseling Provided? 04/27/2024 [email or web address] Information not available 04/27/2024 How Many Years Have You Smoked Tobacco? 20 Information not available 04/28/2016 Have You Recently Traveled Abroad? No Information not available 12/11/2020 Work Related Injury? No Information not available 09/25/2019 Sex: Female Functional Status Question Answer Note LastModified by Organizat ion Details LastModified Time How many times per week do you consume alcohol? Less than 1 time per week [email or web address] Information not available 08/29/2024 Do you use any illicit or recreational drugs? No [email or web address] Information not available 09/25/2019 Do you or have you ever used any other forms of tobacco or nicotine? Yes Information not available 12/11/2020 What is your level of alcohol consumption? Occasional Information not available 04/28/2016 Do you or have you ever used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
--- OUTSIDE RECORDS SUMMARY | 2025-05-13 19:43 | XMS_ITS | Clinical Summary ---
Author Organization [employer] ([place], [place], [place], [place], [place]) Address [address] [place] [address] Care Team Providers Care Outboard Technician Name Role Phone Josesito Braxton DO Primary Care Provider [phone] Allergies Active Allergy Reactions Criticality Noted Date Comments Levofloxacin 07/14/2023 Metoclopramide Hcl 07/14/2023 Bisoprolol-Hydrochlorothiazide 07/14 Medications amoxicillin-clav ulanate (AUGMENTIN) 875-125 mg per tablet Take 1 tablet by mouth 2 (two) times daily. 28 tablet 08/25/2023 Active Active Problems Problem Noted Date Diagnosed Date Small bowel obstruction 07/14/2023 Encounters Date Type Department Care Team Description 05/02/2025 9:40 AM EST - 05/02/2025 11:59 PM [facility] Hospital Encounter [facility] [address] [place] [address] Josesito Braxton DO Other forms of dyspnea Discharge Disposition: Home or Self Care from Last 3 Months Social History Tobacco Use Types Packs/Day Years Used Date Smoking Tobacco: Never Smokeless Tobacco: Never Tobacco Cessation:Counseling Given: Not Answered PRAPARE - Transportation Answer Date Re corded [...] Do you speak a language other than [place] at [place]? No 07/15/2023 Do you want help with [...] on file Sexual Orientation Not on file Last Filed Vital Signs Vital Sign Reading Time Taken Comments Blood Pressure 156/77 08/02/2024 6:05 PM EDT Pulse 81 08/02/2024 6:05 PM EDT Temperature 36.7 C (98.1 F) 08/02/2024 1:36 PM EDT Respiratory Rate 22 08/02/2024 6:05 PM EDT Oxygen Saturation 96% 08/02/2024 6:05 PM EDT Inhaled Oxygen Concentration - - Weight 79.8 kg (176 lb) 08/02/2024 1:36 PM EDT Height 160 cm (5' 3 ) 08/02/2024 1:36 PM EDT Body Mass Index 31.18 08/02/2024 1:36 PM EDT Plan of Treatment Health Maintenance Due Date Last Done Comments DXA SCAN 1950 Depression Screening (12+) 1960 Hepatitis C Screening 01/19/1966 Medicare Initial AWV [id number] 01/16/2014 Respiratory Syncytial Virus (RSV) Adult or (1 - 1-dose 75+ series) 01/19/2023 Falls Risk Screening 05/17/2024 COVID-19 VACCINE ( - 2024-2 6 season) 2025 05/04/2023, 04/06/2022, 11/05/2021, Additional history exists Tobacco Cessation Counseling and Screening (12+) 08/02/2025 08/02/2024 DTAP/TDAP/TD VACCINES (2 - T d or Tdap) 03/10/2034 03/10/2024 Pneumococcal 50+ years Completed , 02/14/2021, 06/29/2014, Additional history exists Shingles Vaccine (Zoster) Completed 2022, 03/30/2022, 03/30/2014 Breast Cancer Screening Discontinued 03/24/20, 05/26/2022, 09/02/2020, Additional history exists Influenza Vaccine Completed 02/07/2025, , 01/29/2023, Additional history exists Procedures Procedure Name Priority Date/Time Associated Diagnosis Comments MO GAS DILUT/WASHOUT LUNG VOL W/WO DISTRIB VENT&V Routine 05/02/2025 10:57 AM EST Other forms of dyspnea from Last 3 Months Results * Pulmonary Function Testing (05/02/2025 10:57 [...] 05/06/2025 6:42 PM EST Pulmonary function test/PFT. [address] [address] PATIENT: Stacey Weston is a 75 y.o. [...] Josesito Braxton DO PFT ORDERABLES Final Result from Last 3 Months Insurance MEDICARE PART A B Advance Directives For more information, please contact: [phone] * Full Code (Latest Code Status on File) Date Activated Date Inactivated Comments 07/14/2023 4:39 PM 07/21/2023 2:58 PM -Attempt Resu scitation if person has no pulse and is not breathing. -If no pulse or not breathing attempt CPR/CODE. -Call Rapid Response if patient is in distress. Care Teams Outboard Technician Relationship Specialty Start Date End Date Josesito Braxton DO [address] [place] [address] [address] [place] [address] PCP - General Family Medicine 07/26/24
--- OUTSIDE RECORDS SUMMARY | 2025-05-13 19:43 | XMS_ITS | Clinical Summary ---
Author Organization [facility] , [facility] Address [address] [place] [address] Phone Care Team Providers Care School Principal Name Role Phone Pieter HIGGINS, Ad Bain Unavailable Wendi HAYWOOD MD (), [facility] Primary Care Provider [phone] Lisette Neymar CLARKin Diana Unavailable [phone] Reason for Visit and Chief Complaint BRACE FITTING Problems Includes: Problems addressed during this encounter and other active Problems All Visits Onset Date Date of Diagnosis Resolved Date Provider Condition Status Joint Pain Right Thumb 10/09/2021 10/09/2021 Ad Stapleton MD Active Last Documented On 5 1:41AM ; [facility], [facility] Joint Pain Right Knee 06/26/2020 06/26/2020 Nathaniel Feldman MD Active Last Documented On 5 1:40AM ; [facility] Plan of Treatment No Plan of Treatment Recorded Assessments Includes: Assessments from this encounter No Assessments Recorded Medical Equipment - Implanted Devices Includes: Current Devices No Medical Equipment Recorded Medications Includes: Medications discussed during this encounter and other current Medications Current Medications (continue as prescribed) HYDROcodone-Acetaminophen 5- 325 MG Oral Tablet 09/26/2024 Provider: Herbert Feldman MD Diagnosis: Take 1 tablet every 8 hrs prn pain Last Documented On 5 10:46AM By Moises Feldman ; [facility] traZODone HCl 50 MG Oral Tablet 01/29/2022 Provider: Diagnosis: Last Documented On 2 2:11PM By Alina Manrique ; [facility] SUMAtriptan Succinate 100 MG Oral Tablet 01/27/2022 Provider: Diagnosis: Last Documented On 2 2:11PM By Alina Manrique ; [facility] Carvedilol 25 MG Oral Tablet 01/23/2022 Provider: Diagnosis: Last Documented On 2 2:11PM By Alina Manrique ; [facility] Doxazosin Mesylate 2 MG Oral Tablet 01/23/2022 Provi carmina: Diagnosis: Last Documented On 2 2:11PM By Alina Manrique ; [facility] Simvastatin 20 MG Oral Tablet 01/16/2022 Provider: Diagnosis: Last Documented On 2 2:11PM By Alina Manrique ; [facility] clonazePAM 0.5 MG Oral Tablet 01/11/2022 Provider: Diagnosis: Last Documented On 2 2:11PM By Alina Manrique ; [facility] Pilocarpine HCl 5 MG Oral Tablet 01/05/2022 Provider : Bear Hamilton Diagnosis: Last Documented On 2 2:11PM By Alina Manrique ; [facility], [facility] Medications Administered Includes: Administered Medications from this encounter No Administered Medications Recorded Results Includes: Results discussed during this encounter No Results Recorded For Specified Dates History of Present Illness Includes: History of Present Illness from this encounter No History of Present Illness Recorded Social History Description Last Updated Sex - Female 12/11/2024 Last Documented On 5 3:19PM ; [facility] Smoking Status Unknown Procedures and Surgical History Includes: Procedures from this encounter Procedures Code Diagnosis Performing Provider Service Location Service Date KNEE SUPPORT, NEOPRENE [id number] Effusion, right knee, Presence of right artificial knee joint Drew ORTIZ 09/26/2024 Last Documented On 5 1:06PM ; [facility], [facility] Medical History Includes: Medical History addressed during this encounter No Medical History Recorded Family History Includes: Family History addressed during this encounter No Family History Recorded Review of Systems Includes: Review of Systems from this encounter No Review of Systems Recorded Physical Exam Includes: Physical Exam from this encounter No Physical Exam Recorded Allergies Includes: Active Allergies Substance Type Reaction Onset Date Resolved Date Statu s OTHER Allergy maxalt/ziac 10/09/2021 Active Last Documented On 5 9:13AM ; [facility] Morphine Derivatives Allergy Nausea, Vom iting, Diarrhea / Diarrheal disorder 08/05/2009 Resolved Last Documented On 7 9:34AM ; [facility] Care School Principal Name (Identifier) Role/Relation Location/Telecom Last Documented By Ad Stapleton MD ([id number]) Assigned practitioner (occupation) Last Documented On 12/11/2024 3:19PM ; [facility] CODIE HAYWOOD MD (FP) ([id number]) Primary care physician (occupation) [address], [facility], [address] tel: Last Documented On 12/11/2024 3:19PM ; [facility], [facility] Diana [facility] ([id number]) [address] , [facility], [address] tel: Last Documented On 03/21/2019 3:39PM ; [facility] Encounters Encounter Provider Location (Healthcare Service Location) Date Check-In Time Check-Out Time Diagnosis Encounter Disposition BRACE FITTING Drew CORTEZ DME 2024 10:27AM 11:59PM Payer Includes: Active Insurance Policies Plan Name (Payer ID) Coverage Type Member ID Group # Subscriber (ID) Relationship Effective Dates 1 - Medicare Part B [facility] ([id number]) [id number] Stacey Michael Enrico Self 01/15/2013 - Unknown Last Documented On 9 8:26AM ; [facility] 2 - [facility] ([id number]) [id number] Stacey S Mary ulte Self 05/17/2016 - Unknown Last Documented On 2 11:18AM ; [facility]
--- OUTSIDE RECORDS SUMMARY | 2025-05-13 19:44 | XMS_ITS | Referral Summary ---
Author Organization [employer] ([place], [place], [place], [place], [place]) Address [address] [place] [address] Care Team Providers Care Roto Mixer Operator Name Role Phone Josesito Braxton DO Primary Care Provider [phone] Encounters Date Type Department Care Team Description 05/02/2025 9:40 AM EST - 05/02/2025 11:59 PM EST Hospital Encounter [facility] [address] [place] [address] Josesito Braxton DO Other forms of dyspnea Discharge Disposition: Home or Self Care from Last 3 Months Allergies Active Allergy Reactions Criticality Noted Date Comments Levofloxacin 07/14/2023 Metoclopramide Hcl 07/14/2023 Bisoprolol-Hydrochlorothiazide 07/14 Medications amoxicillin-clav ulanate (AUGMENTIN) 875-125 mg per tablet Take 1 tablet by mouth 2 (two) times daily. 28 tablet 08/25/2023 Active Active Problems Problem Noted Date Diagnosed Date Small bowel obstruction 07/14/2023 Social History Tobacco Use Types Packs/Day Years [...] Do you speak a language other than [place] at [place]? No 07/15/2023 Do you [...] 08/02/2024 1:36 PM EDT Plan of Treatment Not on file Procedures Procedure Name Priority Date/Time Associated Diagnosis Comments CT GAS DILUT/WASHOUT LUNG VOL W/WO DISTRIB VENT&V [...] 05/06/2025 6:42 PM EST Pulmonary function test/PFT. [address] [address] PATIENT: Stacey Weston is a 75 y.o. [...] Advance Directives For more information, please contact: [phone] * Full Code (Latest Code Status on File) Date Activated Date Inactivated Comments 07/14/2023 4:39 PM 07/21/2023 2:58 PM -Attempt Resu scitation if person has no pulse and is not breathing. -If no pulse or not breathing attempt CPR/CODE. -Call Rapid Response if patient is in distress. Care Teams Roto Mixer Operator Relationship Specialty Start Date End Date Josesito Braxton DO [address] [place] [address] PCP - General Family Medicine 07/26/24
--- OUTSIDE RECORDS SUMMARY | 2025-05-13 19:44 | XMS_ITS | Continuity of Care Document ---
Author Organization VIRIDIANA Garry Cl[facility], [facility] Address [address] [place] [address] Care Team Providers Care Strategic Partner Development Manager Name Role Phone MARGO ALEJANDRO Fire Lieutenant Marine KAVON TANG Urologist YOVANI LOPEZ Pantograph Ii Engraver AIDEN VALVERDE Primary Care Provider [phone] CHARLIE BAUTISTA Automatic Splicing Machine Operator INGRID CASTAÑEDA Referring Provider [phone] Assessment Encounter Date Assessment Date Assessment LastModified by Organization Details LastModified Time 04/20/2025 04/20/2025 Hemoptysis: - The patient's report of spitting up blood is noted. A nasal exam did not reveal a source. - A chest X-ray will be performed to further investigate potential pulmonary sources. - The patient's excessive phlegm production could be due to allergies or COPD, which will be evaluated with PFTs. [email or web address] Not available 04/20/2025 15:33:58 Plan of Treatment Reminders Order Date Submit Date Provider Last Modified By Organization Details Last Modified Time Details Appointments PHYSICAL EXAM 2025 09:00A M AIDEN VALVERDE DO Not available Not available Not available CARDIO ULTRASOUN D 2025 01:45P M CARDIO_UL TRASOUND Not available Not available Not available INJECTION 2025 09:00A M Endocrino logy_nurs e Not available Not available Not available DERM VISIT 2025 08:20A M LOAN MEDINA [employer] Not available Not available Not available RECHECK 2025 09:00A M KAVON TANG MD Not available Not available Not available BONE DENSITY 2025 09:00A M Bone_dens ity Not available Not available Not available RECHECK 2025 09:15A M INGRID CATSAÑEDA MD Not available Not available Not available VISUAL FIELD 2025 09:45A M Ophth_vis ual_field s Not available Not available Not available LEVEL 1 2025 10:30A M MARGO ALEJANDRO MD Not available Not available Not available Lab CBC w/ auto diff 2024 025 [facility], [address], [place], [address], 04/20/2025 19:15:20 Referral None recorded. Procedures None recorded. Surgeries None recorded. Imaging XR, chest, 2 view 2024 [facility], [address] [place], [address], 04/20/2025 17:57:11 Medication Orders albuterol sulfate HFA 90 mcg/actua tion aerosol inhaler [address] [id number], [address] [place] [address], [address], 04/20/2025 15:30:20 Patient TargetsNo targets recorded. Patient Instructions Encounter Date Encounter Id Patient Instructions Last Modified By Organization Details Last Modified Time 04/20/2025 [id number] complete PFT w/ post bronchodilator spirometry* [email or web address] Not available 05/03/2025 09:37:38 - An order will be placed for you to have a chest X-ray and blood work done today. - The staff will help you schedule an appointment for pulmonary function tests to check your lung function. - Keep your appointment with the rotating equipment specialist for an echocardiogram, which is scheduled for June 06. - An inhaler has been prescribed for you. You may use two puffs every four hours as needed for chest tightness or wheezing. - To use the inhaler correctly, breathe out fully, then take a slow, deep breath in as you press the canister. Hold your breath for as long as you can, then breathe out. Wait a minute or two before taking the second puff. - Be aware that the inhaler may cause your heart to beat faster for a few minutes after use. - Our office will call you with the results of your pulmonary function tests once they are available. [email or web address] Not available 04/20/2025 15:34:02 Reason for Referral None Reported. Results Created Date Observation Date Name Description Value Unit Range Abnormal Flag Note LastModifiedBy Organization Detail LastModifiedTime 03/23/2003/23/2025 PTH, INTAC T WITH CA PTH, intact [...] ===== ===== ===== ===== ==== Not Available [facility] [address] [place] [address], [phone], 03/23/2025 17:15:29 03/23/20 25 03/23/2025 PTH, INTAC T WITH CA calcium 9.0 mg/dL 8.6-10 .2 normal Not Available [facility] [address] [place] [address], [phone], 03/23/2025 17:15:29 03/23/20 25 03/23/2025 VITAM IN D 25-OH vitamin D 25-oh, total 27 NG/mL >=30 NG/mL abnormal Not Available [facility] [address] [place] [address], [phone], 03/23/2025 17:14:21 04/20/20 25 04/20/2025 COMPL ETE BLOOD COUNT white blood cells 6.5 10*3/ uL 3.8-10 .8 normal Not Available [facility] [address] [place] [address], [phone], 04/20/2025 19:15:20 04/20/20 25 04/20/2025 COMPL ETE BLOOD COUNT red blood cells 4.70 10*6/ uL 3.80-5 .20 normal Not Available [facility] [address] [place] [address], [phone], 04/20/2025 19:15:20 04/20/20 25 04/20/2025 COMPL ETE BLOOD COUNT hemoglobin 12.4 g/dL 12.0-1 6.0 normal Not Available [facility] [address] [place] [address], [phone], 04/20/2025 19:15:20 04/20/20 25 04/20/2025 COMPL ETE BLOOD COUNT hematocrit 36.4 % 35.0-4 7.0 normal Not Available [facility] [address] [place] [address], [address], 04/20/2025 19:15:20 04/20/20 25 04/20/2025 COMPL ETE BLOOD COUNT MCV 78 fL 80-100 low Not Available [facility] [address] [place] [address], [phone], 04/20/2025 19:15:20 04/20/20 25 04/20/2025 COMPL ETE BLOOD COUNT MCH 26 pg 26-35 normal Not Available [facility] [address] [place] [address], [address], 04/20/2025 19:15:20 04/20/20 25 04/20/2025 COMPL ETE BLOOD COUNT MCHC 34 g/dL 32-36 normal Not Available [facility] [address] [place] [address], [address], 04/20/2025 19:15:20 04/20/20 25 04/20/2025 COMPL ETE BLOOD COUNT RDW 14.8 % 11.0-1 5.0 normal Not Available [facility] [address] [place] [address], [phone], 04/20/2025 19:15:20 04/20/20 25 04/20/2025 COMPL ETE BLOOD COUNT MPV 7.0 fL 6.2-10 .5 normal Not Available [facility] [address] [place] [address], [phone], 04/20/2025 19:15:20 04/20/20 25 04/20/2025 COMPL ETE BLOOD COUNT platelet count 267 10*3/ uL 150-40 0 normal Not Available [facility] [address] [place] [address], [address], 04/20/2025 19:15:20 04/20/20 25 04/20/2025 COMPL ETE BLOOD COUNT neutrophil,a bsolute 3.9 10*3/ uL 1.6-8. 4 normal Not Available [facility] [address] [place] [address], [address], 04/20/2025 19:15:20 04/20/20 25 04/20/2025 COMPL ETE BLOOD COUNT lymphocyte,a bsolute 1.5 10*3/ uL 0.4-5. 1 normal Not Available [facility] [address] [place] [address], [address], 04/20/2025 19:15:20 04/20/20 25 04/20/2025 COMPL ETE BLOOD COUNT monocyte,abs olute 0.9 10*3/ uL 0.0-1. 2 normal Not Available [facility] [address] [place] [address], [phone], 04/20/2025 19:15:20 04/20/20 25 04/20/2025 COMPL ETE BLOOD COUNT eosinophil,a bsolute 0.2 10*3/ uL 0.0-0. 8 normal Not Available [facility] [address] [place] [address], [phone], 04/20/2025 19:15:20 04/20/20 25 04/20/2025 COMPL ETE BLOOD COUNT basophil,abs olute 0.1 10*3/ uL 0.0-0. 3 normal Not Available [facility] [address] [place] [address], [address], 04/20/2025 19:15:20 04/20/20 25 04/20/2025 COMPL ETE BLOOD COUNT % neutrophils 59.3 % 42.0-7 8.0 normal Not Available [facility] [address] [place] [address], [address], 04/20/2025 19:15:20 04/20/20 25 04/20/2025 COMPL ETE BLOOD COUNT % lymphocytes 23.0 % 11.0-4 7.0 normal Not Available [facility] [address] [place] [address], [address], 04/20/2025 19:15:20 04/20/20 25 04/20/2025 COMPL ETE BLOOD COUNT % monocytes 13.6 % 0.0-11 .0 high Not Available [facility] [address] [place] [address], [address], 04/20/2025 19:15:20 04/20/20 25 04/20/2025 COMPL ETE BLOOD COUNT % eosinophils 3.1 % 0.0-7. 0 normal Not Available [facility] [address] [place] [address], [address], 04/20/2025 19:15:20 04/20/20 25 04/20/2025 COMPL ETE BLOOD COUNT % basophils 1.0 % 0.0-3. 0 normal Not Available [facility] [address] [place] [address], [address], 04/20/2025 19:15:20 04/20/20 25 04/20/2025 COMPL ETE BLOOD COUNT nucleated red cells 0.0 % 0.0-0. 9 normal Not Available [facility] [address] [place] [address], [address], 04/20/2025 19:15:20 04/20/20 25 04/20/2025 COMPL ETE BLOOD COUNT nucleated RBCs, absolute 0.00 10*3/ uL not estab. normal Not Available [facility] [address] [place], [address], 04/20/2025 19:15:20 03/24/20 25 03/23/2025 DEXA No observ ation record ed. SELVIN Castañeda MD [address] [place], [address], 03/26/2025 12:33:01 03/29/20 25 03/29/2025 elect rocar diogr am No observ ation record ed. BARCODE Not Available 2024 16:54:21 04/20/20 25 04/20/2025 XR, chest , 2 view No observ ation record ed. SELVIN Not Available 2024 13:51:02 04/20/20 25 04/20/2025 XR, chest , 2 view No observ ation record ed. [facility] [address] [place], [address], 04/22/2025 13:51:02 04/23/20 25 04/20/2025 elect rocar [...] 25 05/02/2025 compl ete PFT w/ [facility] jayce metry * No observ ation record ed. [facility] [address], [place], [address], 05/11/2025 15:43:58 Result Notes None recorded. 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 44770354 Active Not Available [facility] 3 08:06:45 Morbid obesity 047038875 Active Not Available [facility] 3 08:06:48 Chronic kidney disease stage 3B 506179791 Active Not Available [facility] 4 09:23:52 Body mass index 40+ - severely obese 275743090 Active Not Available [facility] 4 09:23:58 Insomnia 300124941 Active 2014 From Autom[employer] Load;Pro vider: Helio Villa;S tatus: Active AIDEN VALVERDE, [address], [address] [place] [address] , [facility] 4 18:20:35 Hyperten sive disorder 32887813 Completed 201402/05/2019 From Automate d Load;Pro vider: Helio Villa;S tatus: Active JF Vipul JATINDER, [address], [address] [place] [address] 9 18:12:30 Hyperlip idemia 54562505 Active 2014 From Autom[employer] Load;Pro vider: Helio Villa;S tatus: Active AIDEN VALVERDE, DO [address] [place] [address], [address] [place] [address] , [facility] 4 18:20:28 Melanocy tic nevus of trunk 561944937 Completed 201411/09/2016 From Automate d Load;Pro vider: Loan Medina; Status: [facility] 7 10:32:09 Senile hyperker atosis 391010630 Completed 201404/28/2016 From Automate d Load;Pro vider: Loan Medina; Status: Active HELIO VILLA MD [address] [place] [address], [address] [place] [address] , [facility] 6 15:20:57 Lentigo Completed 201404/28/2016 From Automate d Load;Pro vider: Loan Medina; [place]: [place] [address] [place] [address], [address] , [facility] 6 15:20:42 Hypertro phic conditio n of skin 57661070 Completed 201404/28/2016 From Automate d Load;Pro vider: Loan Medina; Status: Active HELIO VILLA MD [address] [place] [address], [address] , [facility] 6 15:21:10 Gastroin testinal tract finding Completed 201403/20/2019 From Automate d Load;Pro vider: Marlene Raza;Fernanda tatus: Active JF CHAMBERS DO [address] [place] [address], [address] [place] [address] , [facility] 9 08:44:09 Backache 832033514 Completed 201404/28/2016 From Automate d Load;Pro vider: Helio Villa;S tatus: Active HELIO VILLA MD [address] [place] [address], [address] [place] [address] , [facility] 6 15:28:50 Function al heart murmur 85189596 Active 2014 From Automate d Load;Pro vider: Diaz Munroe;S tatus: Active Not Available [facility] 3 08:12:47 Irritabl e bowel syndrome with diarrhea 045805512 Active 2014 From Automate d Load;Pro vider: Marlene Raza;S tatus: Active Not Available [facility] 3 08:12:47 Constipa tion 88915840 Completed 201511/09/2016 From Automate d Load;Pro vider: Marlene Raza;S tatus: [facility] 7 10:31:52 Lacerati on of hand 471247552 Completed 201504/28/2016 From Automate d Load;Pro vider: Helio Villa;S tatus: Active HELIO VILLA MD [address] [place], [address] , [facility] 6 15:21:03 Low back pain 648932000 Completed 201511/09/2016 From Automate d Load;Pro vider: Helio Villa;S tatus: Active [facility] 7 10:32:13 Hemangio ma 964681710 Completed 201511/09/2016 From Automate d Load;Pro vider: Loan Medina; Status: [facility] 7 10:32:17 Degenera tion of lumbar interver tebral disc 04522091 Active 2015 Not Available [facility] 3 08:12:47 Hyperkal emia 39371404 Completed 201803/17/2019 JF JATINDER, DO [address] [place], [address] , [facility] 9 08:33:51 Benign essentia l hyperten dwayne 5574444 Active 2018 AIDEN VALVERDE, DO [address] [place], [address] , [facility] 4 18:20:26 Fracture of phalanx of finger 21672037 Active 2018 Not Available [facility] 3 08:12:47 Hyponatr emia 62248126 Active 2018 Not Available [facility] 3 08:12:47 Migraine 75466521 Active 2019 Not Available [facility] 3 08:12:47 Generali zed anxiety disorder 30902830 Active 2020 Not Available [facility] 3 08:12:47 Restless legs syndrome 17875383 Active 2022 AIDEN VALEVRDE, DO [address] [place], [address] , [facility] 4 11:41:36 COVID-19 273939781 Active 2022 BLADIMIR GLOVER MD [address] [place], [address] , [facility] 3 12:34:54 Lower abdomina l pain 47810899 Active 2023 CONNIE MOREIRA, DO [address] [place], [address] , [facility] 4 10:53:29 Stomach cramps 85105876 Active 2023 CONNIE MOREIRA, DO [address] [place], [address] , [facility] 4 11:21:49 Divertic ulosis of colon 169690525 Active 2023 CONNIE MOREIRA, DO [address] [place], [address] , [facility] 4 11:21:56 Nausea 962184161 Active 2023 CONNIE MOREIRA, DO [address] [place], [address] , [facility] 4 11:23:15 Obstruct ani sleep apnea of adult 14014764869 03 Active 2023 AIDENVLADIMIR VASQUEZT, DO [address] [place], [address] , [facility] 4 18:20:43 Anxiety 19590814 Active 2023 AIDEN L CHRISTINAT, DO [address] [place], [address] , [facility] 4 11:41:56 Obesity 644533316 Active 2023 [facility] 4 10:34:00 Ex-smoke r 3485542 Active 2024 AIDNE VASQUEZT, DO [address] [place], [address] , [facility] 10:41:21 Problem Notes None recorded. Procedures Surgical History Date Name Laterality Status Provider Name and Address Organization Details Recorded Time OCT/Retina completed MARGO ALEJANDRO MD [address] [place] [address], [address], [facility] 04/23/2025 11:27:53 025 Visual Field Extended completed MARGO ALEJANDRO MD [address] [place] [address], [address], [facility] 04/23/2025 11:27:51 025 Punctual Plug completed MARGO ALEJANDRO MD [address] [place] [address], [address], [facility] 04/23/2025 11:27:17 025 EKG completed MIKAL LOJA APRN [address] [place] [address], [address], [facility] 03/29/2025 16:24:21 025 DXA Low Bone Mass 2 - Tx completed INGRID CASTAÑEDA MD [address] [place] [address], [address], [facility] 03/24/2025 10:29:10 025 Neurostimulator Analysis w/o Reprogramming completed Chelly Tyler [facility] 02/07/2025 15:59:51 025 Post Void Residual; Ultrasound completed Lexy Rahman [facility] 02/07/2025 15:02:22 025 Destruction Premalignant Lesion(s) completed Shruti Valdez [facility] 01/09/2025 08:36:36 025 Prolia Injection completed Gena Browne [facility] 12/22/2024 09:20:55 025 Punctual Plug completed MARGO ALEJANDRO MD [address] [place] [address], [address], [facility] 10/13/2024 09:28:28 025 Prolia Injection completed Karol Crooks [facility] 06/23/2024 09:07:52 01/17/2 025 Axial Length, IOL Master completed MARGO ALEJANDRO MD [address] [place], [address], [facility] 06/02/2024 09:56:59 024 OCT/Retina completed MARGO ALEJANDRO MD [address] [place], [address], [facility] 04/19/2024 10:29:56 024 DXA Low Bone Mass 2 - Tx completed INGRID CASTAÑEDA [place] [address] [place] [address], [address], [facility] 03/23/2024 16:44:04 024 EKG completed MIKAL LOJA APRN [address] [place], [address], [facility] 02/24/2024 09:40:10 024 Post Void Residual; Ultrasound completed [facility] 12/29/2023 15:52:26 024 Prolia Injection completed Josefa Kumar [facility] 12/21/2023 16:07:15 024 procedure on intestine completed Christy Choi [facility] 02/24/2024 09:35:22 024 Neurostimulator Analysis w/o Reprogramming completed Chelly Tyler [facility] 05/31/2023 10:21:06 024 Post Void Residual; Ultrasound completed [facility] 05/31/2023 09:27:17 023 Other completed KAVON TANG MD [address] [place], [address], [facility] 04/27/2023 15:56:37 023 Prolia Injection completed Flower Winston [facility] 04/19/2023 16:20:54 023 PNE Implantation; Sacral Nerve completed KAVON TANG MD [address] [place], [address], [facility] 04/06/2023 15:07:08 023 Post Void Residual; Ultrasound completed Gaby Richards [facility] 01/22/2023 08:55:17 023 DXA Low Bone Mass 2 - Tx completed INGRID CASTAÑEDA MD [address] [place], [address], [facility] 12/15/2022 18:22:03 023 TCM completed Bree Rolon [facility] 11/19/2022 20:07:07 023 Post Void Residual; Ultrasound completed Jillian Roe [facility] 07/17/2022 08:34:39 022 Post Void Residual; Ultrasound completed Catrachita Tarango [facility] 05/05/2022 08:53:27 021 Destruction BN Lesions completed Sondra Oconnor [facility] 04/29/2021 08:58:00 021 Knee Surgery completed Kendal Canales [facility] 04/29/2021 11:21:40 021 Visual Field Extended completed MARGO ALEJANDRO MD [address] [place] [address], [address], [facility] 11/11/2020 09:09:46 021 EKG completed JF CHAMBERS DO [facility] [place], [address], [facility] 09/30/2020 10:03:56 021 OCT/Retina completed MARGO ALEJANDRO MD [address] [place] [address], [address], [facility] 09/09/2020 09:45:14 020 Salivary Gland Biopsy completed MARGO FRIEDMAN MD [address] [place] [address], [address], [facility] 04/30/2020 09:43:49 020 Destruction BN Lesions completed Ariadna Meng [facility] 04/23/2020 08:51:13 020 Urinary Bladder completed KAVON TANG MD [address] [place], [address], [facility] 03/26/2020 09:44:18 020 Post Void Residual; Ultrasound completed Teena Johnson [facility] 02/09/2020 08:13:00 020 EKG completed MIKAL AUBREY LOJA, [employer] [address] [place], [address], [facility] 02/01/2020 09:13:51 020 Post Void Residual; Ultrasound completed Yolanda Alexander [facility] 11/15/2019 09:12:34 020 Biopsy Skin Lesion; Tangential completed Cheyanne Magaña [facility] 10/31/2019 11:29:08 019 Destruction BN Lesions completed LOAN MEDINA, [employer] [address] [place], [address], [facility] 04/20/2019 09:32:34 019 Evening/Weekend/Ho liday Services completed Denny Barfieldley [facility] 02/25/2019 13:34:39 019 EKG completed DIAZ MUNROE PA-C [address] [place], [address], [facility] 01/26/2019 08:54:46 019 Probing Lacrimal Canaliculi completed MARGO ALEJANDRO MD [address] [place], [address], [facility] 05/26/2018 13:24:16 018 Destruction BN Lesions completed [place] [facility] 04/19/2018 09:15:50 018 Date of Last Pap Smear completed Betty Harjeet [facility] 12/13/2018 10:16:23 018 EKG completed DIAZ MUNROE PA-C [address] [place], [address], [facility] 01/26/2018 09:02:42 018 DXA Low Bone Mass 1 - No Tx completed INGRID CASTAÑEDA MD [address] [place], [address], [facility] 11/08/2017 18:09:16 018 Most Recent Bone Density completed [facility] 12/13/2018 10:16:45 018 Orthopedic Surgery completed ROBIN ARELLANO PA-C [address] [place], [address], [facility] 09/01/2017 09:30:46 017 Destruction BN Lesions completed [facility] 04/14/2017 09:04:58 017 Shave Lesion; scalp, neck, hand, foot, genitalia completed [facility] 04/14/2017 09:06:31 017 EKG completed DIAZ MUNROE PA-C [address] [place], [address], [facility] 10/29/2016 09:29:58 016 EKG completed DIAZ MUNROE PA-C [address] [place], [address], [facility] 05/05/2016 14:22:08 016 Most Recent Mammogram completed [facility] 12/13/2018 10:18:24 012 Total Hysterectomy completed Luis Carlos Mahoney [facility] 12/13/2018 13:20:05 Appendectomy completed Skylar Burns [facility] 04/28/2016 11:23:45 Carpal tunnel surgery completed Yulisa Frazier [facility] 02/02/2020 09:20:20 Orthopedic Surgery completed Amari Klein [facility] 09/25/2019 15:42:13 Other completed Gabbie Pérez [facility] 10/14/2023 16:17:19 Imaging Results None recorded. Procedure Notes None recorded. Medical Equipment None Reported. Allergies Allergen ID Allergen Name Allergen Category Reaction Reaction Severity Criticality Documentation Date Start Date Code Code System Note Provider Name and Address Organization Details Recorded Time 770834 bisoprolo l / hydrochlo rothiazid e medicatio n Not available Not available Not available 04/10/20162005 24413 7 RxNorm hives / n/v Yulisa Frazier [facility] 0 09:22:14 007813 Maxalt medicatio n Not available Not available Not available 04/10/20162005 73952 8 RxNorm hives / n/v Yulisa Frazier [facility] 0 09:22:08 482891 Levaquin medicatio n rash Not available Not available 06/18/2022 14742 2 RxNorm KAVON TANG MD [address] [place] [address], [address] [place] [address] 3 13:46:23 743260 rizatript an medicatio n Not available Not available Not available 03/29/2025 11515 RxNorm Not Available [employer] - prod 5 06:13:52 581206 levofloxa arcadio medicatio n Not available Not available Not available 03/29/20252023 60938 RxNorm Not Available [employer] - prod 5 06:15:51 178341 metoclopr amide hydrochlo ride medicatio n Not available Not available Not available 03/29/20252023 72830 6 RxNorm Not Available [employer] - prod 5 06:15:51 379045 bisoprolo l / hydrochlo rothiazid e medicatio n Not available Not available Not available 03/29/20252023 43480 7 RxNorm Not Available [employer] - prod 5 06:15:51 Medications [...] tablet 1-2 TABS DAILY PRN FOR PAIN 01/19/ 2023 09/26 /2023 completed Not Available Not Available Not Available [...] TAKE ONE CAPSULE BY MOUTH ONCE WEEKLY;M ivette n Descript ion: ergocalc iferol; Route:or al; [...] completed Not Available Not Available Not Available Velva 5 mg-325 mg tablet Take 1 tablet [...] height Body mass index (BMI) Body weight Body temperature Heart rate Oxygen saturation Systolic And Diastolic Provider Name and Address Organization Details Last Updated DateTime 5 151.13 cm 36 kg/m2 99235.6 6 g 97.5 [degF] 86 /min 94 % 148/78 mm[Hg] Laurence Herndon [facility] 5 15:05:48 Social History Question Answer Notes LastModified by Organizat ion Details LastModified Time Tobacco Smoking Status Former Smoker hasnt smoked since [facility]/13/2018 13:18:56 Accident Related Injury No [email or web address] Information not available 09/25/2019 What Is Your Level Of Caffeine Consumption? Moderate [email or web address] Information not available 08/29/2024 How Much Tobacco Do You Chew? None [email or web address] Information not available 02/25/2019 Are You Deaf Or Do You Have Serious Difficulty Hearing? No Information not available 12/11/2020 What Type Of Diet Are You Following? REGULAR Information not available 12/11/2020 Which Illicit Or Recreational Drugs Have You Used? None Per Pt [email or web address] Information not available 04/16/2019 When Did You Quit Smoking? 16+yearssinc elastcigaret te Information not available 10/15/2022 Which Of Your Hands Is Dominant? Right [email or web address] Information not available 09/25/2019 Hard Of Hearing Or Deaf In One Or Both Ears? No Information not available 10/26/2019 Legally Blind In One Or Both Eyes? No Information not available 10/26/2019 Which Hand Is Involved? Left Shoulder [email or web address] Information not available 09/25/2019 Rate The Severity Of Your Symptoms: (0-10 With 0=none And 10=worst Possible) 3 3-08/24 [email or web address] Information not available 09/25/2019 Date Of Injury: 2009 Or Longer [email or web address] Information not available 09/25/2019 Have You Been Treated For This Problem Before? Yes [email or web address] Information not available 09/25/2019 How Long Have You Had These Symptoms? 10 Years, Worse In Last Month [email or web address] Information not available 09/25/2019 Will This Be Filed As Workers' Compensation? No Information not available 09/25/2019 Marital Status Unknown Informatio n not available 04/28/2016 What Was The Date Of Your Most Recent Tobacco Screening? 03/29/2025 [email or web address] Information not available 03/29/2025 What Is Your Current Pack Years? 20-29packyea rs [email or web address] Information not available 04/27/2024 What Is Your [...] Date Was Tobacco Cessation Counseling Provided? 04/27/2024 [email or web address] Information not available 04/27/2024 How Many Years Have You Smoked Tobacco? 20 Information not available 04/28/2016 Have You Recently Traveled Abroad? No Information not available 12/11/2020 Work Related Injury? No [email or web address] Information not available 09/25/2019 Sex: Female Functional Status Question Answer Note LastModified by Organizat ion Details LastModified Time How many times per week do you consume alcohol? Less than 1 time per week [email or web address] Information not available 08/29/2024 Do you use any illicit or recreational drugs? No [email or web address] Information not available 09/25/2019 Do you or have you ever used any other forms of tobacco or nicotine? Yes Information not available 12/11/2020 What is your level of alcohol consumption? Occasional Information not available 04/28/2016 Do you or have you ever used smokeless tobacco? Never used smokeless tobacco Information not available 02/25/2019 Are you currently employed? Yes [email or web address] Information not available 08/29/2024 Are you able to care for yourself independently? 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 Never used electronic cigarettes [email or web address] Information not available 02/25/2019 What is your exercise level? Occasional Information not available 12/11/2020 Mental Status Question Answer Note LastModified by Organization D etails LastModified Time Do you feel stressed (tense, restless, nervous, or anxious, or unable to sleep at night)? [id number] Information not available 12/11/2020 Family History Relationship [...] 2015 11:15:50 Mother Migraine [email or web address] available 05/17/2018 08:20:37 Mother Tuberculosis [email or web address] Not availab le 08/29/2024 09:05:09 Notes:NO FAMILY HX OF MM Medical History Condition Response Coronary Artery Disease N Other N Gout N Atrial Fibrillation N Kidney Stones N Hyperthyroidism N Blood Transfusion N Emphysema N COPD N Depression N Pneumonia N Nervous Illness N Lazy Eye N Anxiety Disorder N Muscle, Joint, or Bone Problems N Vision or Eye Problems Y Hiatal hernia N Arthritis N Polyps N Infertility N Blood Clot N Acid Reflux (GERD) Y Cancer N Stroke Y Varicosities N Rheumatoid Arthritis N Fibromyalgia N Headaches Y Kidney Disease N Heart Problems Y Heart [...] N Immune System Disorder N Heart Attack (CT) N Mental Illness N Neurological Problems N [...] Immunizations Vaccine Type Date Status Note Provider Kota sullivan and Address Organization Details Recorded Time Tdap 4 completed Sarah mathew [facility] 03/13/2024 08:47:59 Influenza, high-dose, trivalent, PF 6 completed Sarah Nasir [facility] 08/20/2022 08:13:21 Pneumococcal conjugate PCV 13 5 completed Sarah Best [facility] 08/20/2022 08:13:21 pneumococcal polysaccharide PPV23 4 completed Sarah Best [facility] 08/20/2022 08:13:21 tetanus toxoid, unspecified formulation 6 completed Sarah Best [facility] 08/20/2022 08:13:21 zoster live 4 completed Sarah Best [facility] 08/20/2022 08:13:21 Influenza, high-dose, trivalent, PF 5 completed Sarah Best [facility] 02/09/2025 16:28:58 COVID-19, mRNA, LNP-S, PF, 30 mcg/0.3 mL dose 1 completed Not Available [facility] 07/07/2023 10:32:34 Influenza, high-dose, quadrivalent, PF [address] [facility] [address] [place], [address], [facility] 02/09/2023 08:06:59 COVID-19, mRNA, LNP-S, PF, 50 mcg/0.5 mL [address] [facility], DO [address] [place], [address], [facility] 05/13/2023 07:47:23 RSV, recombinant, protein subunit RSVpreF, adjuvant reconstituted, 0.5 mL, PF [address] [facility], DO [address] [place], [address], [facility] 05/13/2023 07:47:23 COVID-19, mRNA, LNP-S, PF, 100 mcg/0.5mL dose or 50 mcg/0.25mL dose 1 completed Sarah Best [facility] 08/20/2022 08:13:21 COVID-19, mRNA, LNP-S, PF, 100 mcg/0.5mL dose or 50 mcg/0.25mL dose 2 completed Sarah Calixong [facility] 08/20/2022 08:13:21 Influenza, high-dose, quadrivalent, PF 2 completed Sarah Calixong [facility] 08/20/2022 08:13:21 Influenza, high-dose, trivalent, PF 4 completed Maryjane Ritchie [facility] 02/03/2024 08:52:58 COVID-19, mRNA, LNP-S, PF, 30 mcg/0.3 mL dose 1 completed Sarah Best [facility] 08/20/2022 08:13:21 Influenza, high-dose, trivalent, PF 5 completed Sarah Best [facility] 08/20/2022 08:13:21 Influenza, split virus, trivalent, preservative 4 completed Sarah Calixong [facility] 08/20/2022 08:13:21 Influenza, adjuvanted, quadrivalent, PF 0 completed Sarah Calixong [facility] 08/20/2022 08:13:21 Influenza, high-dose, quadrivalent, PF 1 completed Sarah Calixong [facility] 08/20/2022 08:13:21 Influenza, high-dose, trivalent, PF 9 completed Sarah Calixong [facility] 08/20/2022 08:13:21 Influenza, high-dose, trivalent, PF 7 completed Sarah Calixong [facility] 08/20/2022 08:13:21 Influenza, high-dose, trivalent, PF 8 completed Sarah Calixong [facility] 08/20/2022 08:13:21 Influenza, high-dose, trivalent, PF 3 completed Sarah Calixong [facility] 08/20/2022 08:13:21 zoster recombinant 2 completed Sarah Best [facility] 08/20/2022 08:13:21 COVID-19, mRNA, LNP-S, bivalent, PF, 50 mcg/0.5 mL or 25mcg/0.25 mL dose 2 completed Sarah Best [facility] 08/20/2022 08:13:21 zoster recombinant 3 completed [facility] 08/25/2022 08:40:09 Influenza, split virus, quadrivalent, preservative 7 completed [facility] 08/25/2022 08:40:09 Past Encounters Encounter ID Performer Location Encounter Start Date Encounter Closed Date Diagnosis/Indication Diagnosis SNOMED-CT Code Diagnosis ICD10 Code Diagnosis IMO Codes Diagnosis Note [id number] INGRID CASTAÑEDA MD ENDOCRINO [address]Y [address] [place] [address] 03/23/2025 14:51:41 03/24/2025 04:24:10 Osteopenia 749937974 M85.89 1 year follow-up osteopenia on therapy [...] s if necessary. Vitamin D deficiency 347 14637 E55.9 58866 Further repletion to keep levels above 30 ng/mL as appropriat e 1 year follow-up with bone density before visit while on Prolia therapy Patient verbalized understand ing and agreed with the above mentioned plan of care. [id number] INGRID CASTAÑEDA MD BONE DENSITY [address] [place] [address] 03/23/2025 14:51:07 03/23/2025 15:44:40 Osteopenia 057427475 M85.89 [id number] MIKAL LOJA APRN [facility] [address] [place] [address] ,[address] [place] [address] 03/29/2025 15:28:42 04/05/2025 18:59:40 Hypertensive disorder 10484894 I10 Stable. Primary care managing Mixed hyperlipidemia 267 721084 E78.2 Continue with statin. Low cholestero l, low fat diet advised. Recommend FLP at least annually. 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 Obesity 072582908 E66.9 Discussed importance of maintainin g healthy weight, increasing aerobic exercise. Goal 120-150 min per week. Dyspnea on exertion 6084 5006 R06.09 [id number] Echocardio gram will be arranged for evaluation of structural heart disease. Further recommenda tions to be made based on findings. [id number] AIDEN VALVERDE DO [facility] [address] [place] [address] 04/20/2025 14:54:44 04/20/2025 15:38:38 Dyspnea on exertion 16704876 R06.09 [id number] - The primary differenti al diagnoses for the patient's dyspnea on exertion include cardiac and pulmonary etiologies .- The patient has seen cardiology an upcoming appointmen t with a cardiologi st for an echocardio gram on June 06 to assess for cardiac causes. Nuclear stress test may also be needed- A chest x-ray and pulmonary function tests (PFTs) will be ordered to evaluate for pulmonary causes, such as asthma or COPD.- Blood work will be ordered to check blood counts and rule out anemia.- An inhaler will be prescribed for as-needed use for chest tightness or wheezing. Health Concerns Section Related Observation LastModified by Organization Detai ls LastModified Time None Recorded Concern Status LastModified by Organization Details LastModified Time None Recorded Payers Encounter Date Sequence Insurance Name Policy Number Policy Phillip Covered Member ID Phillip Member ID Guarantor Name 04/20/2025 1 [place] Stacey Michael Enrico [id number] Stacey Weston 04/20/2025 2 [facility] (MEDICARE SUPPLEMENT) Stacey S Enrico [id number] Stacey Fernanda Enrico Notes Date Note Type Note Provider Name and Address Organization Details Recorded Time 04/20/2025 text/html The patient is a 75-year-old female presenting with dyspnea on exertion. Dyspnea on exertion: - The patient reports experiencing shortness of breath with minimal exertion, such as carrying her dog, which weighs less than 5 pounds, to the car or walking to the door of a school. - She reports that the dyspnea is intermittent, with good days and bad days, and that she does not experience it while walking around at work. - Associated symptoms include intermittent chest heaviness and significant exhaustion that requires her to sit or lie down to recover before she can continue her activity. - She denies any heart palpitations or swelling. - She questions if she may have developed asthma. - Her weight has been stable. Hemoptysis: - The patient reports a single episode of spitting up bright red blood just before her visit. - This was the first time she has experienced this. - She also notes having a significant amount of phlegm and drainage. History of Tobacco Use: - The patient has a history of smoking but quit in 1979. Medical History: - History of tobacco use, quit in 1979. - No history of anemia. Medications: - Has used an inhaler in the past. Social History: - Tobacco use: Patient is a former smoker who quit in 1979. - Functional status: The patient is able to walk around at work without dyspnea but experiences significant shortness of breath with minimal exertion, such as carrying her small dog. - Pets: She owns a dog. Diagnostic Results: - EKG: Findings are good. Documentation on this patient encounter was supported using voice-enabled Al technology. The patient consented to recording for the purpose of documenting the encounter. Provider reviewed content of the generated note prior to signature. AIDEN VALVERDE, DO [facility] [place], [address], [facility] 04/20/2025 17:05:10 OBGyn Episode No OBEpisode recorded.
--- OUTSIDE RECORDS SUMMARY | 2025-05-13 19:45 | XMS_ITS | Continuity of Care Document ---
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 Procedures None recorded. Surgeries None recorded. Imaging DEXA - 1 year follow-up osteopeni a on Prolia therapy 2024 026 [facility] Bone Density [facility], [address] [place] [address], [address], 03/23/2025 15:51:54 Medication Orders None recorded. Patient TargetsNo targets recorded. Patient InstructionsNo instructions recorded. Reason for Referral None Reported. Results Created Date Observation Date Name Description Value Unit Range Abnormal Flag Note LastModifiedBy Organization Detail LastModifiedTime 03/16/20 25 03/16/2025 URIC ACID uric acid 4.4 mg/dL 2.4-6. 8 normal Refer ence range s are based on [facility] norms and do not neces aiden martinez late with treat ment targe ts. In patie nts with an estab lishe d diagn osis of gout under going Urate Lower ing Thera py (ULT) , the 2011 [facility] Herve tracey s for Manag ement of Gout recom mend a targe t uric acid level of < 6 mg/dL in all patie nts, or lower in certa in circu mstan mary anne. Arthr itis Care and Resea [facility] Vol 64 No 10, 2011 [facility] atolo [facility] ----- ----- ----- ----- ----- ----- ----- ----- ----- ----- ----- ---- Not Available [facility] [address] [place] [address], [address], 03/16/2025 14:19:08 03/16/20 25 03/16/2025 COMP. METAB OLIC PANEL glucose 99 mg/dL 74-100 normal Not Available [facility] [address] [place] [address], [address], 03/16/2025 14:19:06 03/16/20 25 03/16/2025 COMP. METAB OLIC PANEL blood urea nitrogen 14 mg/dL 6-20 normal Not Available [facility] [address] [place] [address], [address], 03/16/2025 14:19:06 03/16/20 25 03/16/2025 COMP. METAB OLIC PANEL creatinine 0.84 mg/dL 0.50-0 .95 normal Not Available [facility] [address] [place] [address], [address], 03/16/2025 14:19:06 03/16/20 25 03/16/2025 COMP. METAB OLIC PANEL BUN/creatini ne ratio 17 (calc ) 10-20 normal Not Available [address], [address], 03/16/2025 14:19:06 03/16/20 25 03/16/2025 COMP. METAB OLIC PANEL sodium 138 mmol/ L 136-14 5 normal Not Available [facility] [address] [place] [address], [address], 03/16/2025 14:19:06 03/16/20 25 03/16/2025 COMP. METAB OLIC PANEL potassium 4.1 mmol/ L 3.4-5. 0 normal Not Available [facility] [address] [place] [address], [address], 03/16/2025 14:19:06 03/16/2010 0303/16/2025 COMP. METAB OLIC PANEL chloride 103 mmol/ L 98-107 normal Not Available [facility] [address] [place] [address], [address], 03/16/2025 14:19:06 03/16/20 25 03/16/2025 COMP. METAB OLIC PANEL carbon dioxide 21 mmol/ L 22-31 low Not Available [facility] [address] [place] [address], [address], 03/16/2025 14:19:06 03/16/20 25 03/16/2025 COMP. METAB OLIC PANEL anion gap 14 (calc ) 7-25 normal Not Available [facility] [address] [place] [address], [address], 03/16/2025 14:19:06 03/16/20 25 03/16/2025 COMP. METAB OLIC PANEL calcium 9.0 mg/dL 8.6-10 .2 normal Not Available [facility] [address] [place] [address], [address], 03/16/2025 14:19:06 03/16/2003/16/2025 COMP. METAB OLIC PANEL total protein 6.4 g/dL 6.4-8. 3 normal Not Available [facility] [address] [place] [address], [address], 03/16/2025 14:19:06 03/16/20 25 03/16/2025 COMP. METAB OLIC PANEL albumin 3.8 g/dL 3.5-5. 2 normal Not Available [facility] [address] [place] [address], [address], 03/16/2025 14:19:06 03/16/20 25 03/16/2025 COMP. METAB OLIC PANEL globulin 2.6 1.5-4. 5 normal Not Available [facility] [address] [place] [address], [address], 03/16/2025 14:19:06 03/16/20 25 03/16/2025 COMP. METAB OLIC PANEL albumin/glob ulin ratio 1.5 (calc ) 1.1-2. 5 normal Not Available [facility] [address] [place], [address], 03/16/2025 14:19:06 03/16/20 25 03/16/2025 COMP. METAB OLIC PANEL bilirubin, total 1.0 mg/dL 0.1-1. 0 normal NOTE: New refer ence range . Not Available [facility] [address] [place] [address], [address], 03/16/2025 14:19:06 03/16/20 25 03/16/2025 COMP. METAB OLIC PANEL alkaline phosphatase 51 U/L 30-121 normal Not Available [facility] [address] [place], [address], 03/16/2025 14:19:06 03/16/20 25 03/16/2025 COMP. METAB OLIC PANEL AST 21 U/L 0-32 normal Not Available [facility] [address] [place], [address], 03/16/2025 14:19:06 03/16/20 25 03/16/2025 COMP. METAB OLIC PANEL ALT 25 U/L 0-33 normal Not Available [facility] [address] [place], [address], 03/16/2025 14:19:06 03/16/20 25 03/16/2025 COMP. METAB OLIC PANEL eGFR 71 >= 60 normal NOT E New calcu latio n for GFR (CKD- EPI 2020) is formu lated witho ut race adjus tment facto rs at the recom menda tion of the [facility] [employer] ation and Amjob Whartone ty of Nephr ology . This calcu latio n has not been valid ated in pregn ant women . For pedia tric patie nts refer to https :[email or web address] [email or web address] anderson/pr ofess ional s/KDO QI/gf r_cal culat orPed Not Available [facility] [address] [place] [address], [address], 03/16/2025 14:19:06 03/16/2003/16/2025 UA WITH CULTU RE IF INDIC ATED color Yellow normal Not Available [facility] [address] [place] [address], [address], 03/16/2025 13:56:16 03/16/2003/16/2025 UA WITH CULTU RE IF INDIC ATED appearance Clear normal Not Available [facility] [address] [place] [address], [address], 03/16/2025 13:56:16 03/16/2003/16/2025 UA WITH CULTU RE IF INDIC ATED glucose Normal mg/dL normal normal Not Available [facility] [address] [place] [address], [address], 03/16/2025 13:56:16 03/16/2003/16/2025 UA WITH CULTU RE IF INDIC ATED bilirubin Negati ve mg/dL negati ve normal Not Available [facility] [address] [place] [address], [address], 03/16/2025 13:56:16 03/16/2003/16/2025 UA WITH CULTU RE IF INDIC ATED ketone Negati ve mg/dL negati ve normal Not Available [facility] [address] [place] [address], [address], 03/16/2025 13:56:16 03/16/2003/16/2025 UA WITH CULTU RE IF INDIC ATED specific gravity 1.019 1.003- 1.035 normal Not Available [facility] [address] [place] [address], [address], 03/16/2025 13:56:16 03/16/2003/16/2025 UA WITH CULTU RE IF INDIC ATED blood Negati ve /uL negati ve normal Not Available [facility] [address] [place] [address], [address], 03/16/2025 13:56:16 03/16/20 25 03/16/2025 UA WITH CULTU RE IF INDIC ATED pH 6.5 5.0 - 8.0 normal Not Available [facility] [address] [place] [address], [address], 03/16/2025 13:56:16 03/16/2003/16/2025 UA WITH CULTU RE IF INDIC ATED protein Negati ve mg/dL negati ve normal Not Available [facility] [address] [place] [address], [address], 03/16/2025 13:56:16 03/16/2003/16/2025 UA WITH CULTU RE IF INDIC ATED urobilinogen 1 mg/dL normal abnormal Not Available [facility] [address] [place] [address], [address], 03/16/2025 13:56:16 03/16/20 25 03/16/2025 UA WITH CULTU RE IF INDIC ATED nitrite Negati ve negati ve normal Not Available [facility] [address] [place] [address], [address], 03/16/2025 13:56:16 03/16/2003/16/2025 UA WITH CULTU RE IF INDIC ATED leukocyte esterase Negati ve /uL negati ve normal Not Available [facility] [address] [place] [address], [address], 03/16/2025 13:56:16 03/16/2003/16/2025 UA WITH CULTU RE IF INDIC ATED WBC, urine Rare 0-5/hp f normal Not Available [facility] [address] [place] [address], [address], 03/16/2025 13:56:16 03/16/20 25 03/16/2025 UA WITH CULTU RE IF INDIC ATED RBC, urine 0-2 0-2/hp f normal Not Available [facility] [address] [place] [address], [address], 03/16/2025 13:56:16 03/16/20 25 03/16/2025 UA WITH CULTU RE IF INDIC ATED squamous epi. cells 0-5 0-5/hp f normal Not Available [facility] [address] [place] [address], [address], 03/16/2025 13:56:16 03/16/20 25 03/16/2025 UA WITH CULTU RE IF INDIC ATED reflex culture see below normal UA resul ts do not meet cultu re crite mckenzie. Not Available [facility] [address] [place] [address], [address], 03/16/2025 13:56:16 03/16/20 25 03/16/2025 HEMOG BRITTANY white blood cells 6.2 10*3/ uL 3.8-10 .8 normal Not Available [facility] [address] [place] [address], [address], 03/16/2025 13:48:00 03/16/20 25 03/16/2025 HEMOG BRITTANY red blood cells 4.65 10*6/ uL 3.80-5 .20 normal Not Available [facility] [address] [place] [address], [address], 03/16/2025 13:48:00 03/16/20 25 03/16/2025 HEMOG BRITTANY hemoglobin 12.1 g/dL 12.0-1 6.0 normal Not Available [facility] [address] [place] [address], [address], 03/16/2025 13:48:00 03/16/20 25 03/16/2025 HEMOG BRITTANY hematocrit 36.1 % 35.0-4 7.0 normal Not Available [facility] [address] [place] [address], [address], 03/16/2025 13:48:00 03/16/2003/16/2025 HEMOG BRITTANY MCV 78 fL 80-100 low Not Available [facility] [address] [place] [address], [address], 03/16/2025 13:48:00 03/16/2003/16/2025 HEMOG BRITTANY MCH 26 pg 26-35 normal Not Available [facility] [address] [place] [address], [address], 03/16/2025 13:48:00 03/16/2003/16/2025 HEMOG BRITTANY MCHC 34 g/dL 32-36 normal Not Available [facility] [address] [place] [address], [address], 03/16/2025 13:48:00 03/16/2003/16/2025 HEMOG BRITTANY RDW 14.7 % 11.0-1 5.0 normal Not Available [facility] [address] [place] [address], [address], 03/16/2025 13:48:00 03/16/20 25 03/16/2025 HEMOG BRITTANY MPV 7.0 fL 6.2-10 .5 normal Not Available [facility] [address] [place] [address], [address], 03/16/2025 13:48:00 03/16/2003/16/2025 HEMOG BRITTANY platelet count 271 10*3/ uL 150-40 0 normal Not Available [facility] [address] [place] [address], [address], 03/16/2025 13:48:00 03/23/20 25 03/23/2025 PTH, INTAC [...] ===== ===== ===== ===== ==== Not Available [facility] [address] [place], [address], 03/23/2025 17:15:29 03/23/20 25 03/23/2025 PTH, INTAC T WITH CA calcium 9.0 mg/dL 8.6-10 .2 normal Not Available [facility] [address] [place], [address], 03/23/2025 17:15:29 03/23/20 25 03/23/2025 VITAM IN D 25-OH vitamin D 25-oh, total 27 NG/mL >=30 NG/mL abnormal Not Available [facility] [address] [place] [address], [address], 03/23/2025 17:14:21 03/24/20 25 03/23/2025 DEXA No observ ation record ed. IVETT Castañeda MD [address] [place], [address], 03/26/2025 12:33:01 03/29/20 25 03/29/2025 elect rocar diogr am No observ ation record ed. BARCODE Not Available 2024 16:54:21 04/20/20 25 04/20/2025 XR, chest , 2 view No observ ation record ed. IVETT Not Available 2024 13:51:02 04/20/20 25 04/20/2025 XR, chest , 2 view No observ ation record ed. IVETT [address], [address], 04/22/2025 13:51:02 04/23/20 25 04/20/2025 elect rocar [...] 25 05/02/2025 compl ete PFT w/ post [facility] hodil ator jayce metry * No observ ation record ed. [facility] [address] [facility] , [place], [address], 05/11/2025 15:43:58 Result Notes None recorded. 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 61213610 Active Not Available [employer] 3 08:06:45 Morbid obesity 897934534 Active Not Available [employer] 3 08:06:48 Chronic kidney disease stage 3B 790979611 Active Not Available [employer] 4 09:23:52 Body mass index 40+ - severely obese 452077687 Active Not Available [employer] 4 09:23:58 Insomnia 984279249 Active 2014 From Autom[employer] Load;Pro vider: Daisy, Cadet;S tatus: Active AIDEN VALVERDE, [address], [address] , [facility] 4 18:20:35 Hyperten sive disorder 13917068 Completed 201402/05/2019 From Automate d Load;Pro vider: Daisy, Cadet;S tatus: Active [facility], [address], [address] , [facility] 9 18:12:30 Hyperlip idemia 12899062 Active 2014 From Autom[employer] d Load;Pro vider: Daisy, Cadet;S tatus: Active AIDEN VALVERDE, [address], [address] , [facility] 4 18:20:28 Melanocy tic nevus of trunk 061896380 Completed 201411/09/2016 From Automate d Load;Pro vider: Loan Medina; Status: Active Beckie Henry [facility] 7 10:32:09 Senile hyperker atosis 401302760 Completed 201404/28/2016 From Automate d Load;Pro vider: Loan Medina; Status: Active HELIO VILLA MD [address] [place] [address], [address] [place] [address] , [facility] 6 15:20:57 Lentigo Completed 201404/28/2016 From Automate d Load;Pro vider: Loan Medina; Status: Active HELIO VILLA MD [address] [place] [address], [address] , [facility] 6 15:20:42 Hypertro phic conditio n of skin 83039394 Completed 201404/28/2016 From Automate d Load;Pro vider: Loan Medina; Status: Active HELIO VILLA MD [address] [place] [address], [address] , [facility] 6 15:21:10 Gastroin testinal tract finding Completed 201403/20/2019 From Automate d Load;Pro vider: Marlene Raza;S tatus: Active JF CHAMBERS DO [address] [place] [address], [address] , [facility] 9 08:44:09 Backache 677398937 Completed 201404/28/2016 From Automate d Load;Pro vider: Jenna Villa tatus: Active HELIO VILLA MD [address] [place] [address], [address] , [facility] 6 15:28:50 Function al heart murmur 49660290 Active 2014 From Automate d Load;Pro vider: Diaz Munroe;S tatus: Active Not Available [facility] 3 08:12:47 Irritabl e bowel syndrome with diarrhea 906989646 Active 2014 From Automate d Load;Pro vider: Marlene Raza;S tatus: Active Not Available [facility] 3 08:12:47 Constipa tion 50720107 Completed 201511/09/2016 From Automate d Load;Pro vider: Marlene Raza;S tatus: [facility] 7 10:31:52 Lacerati on of hand 215895718 Completed 201504/28/2016 From Automate d Load;Pro vider: Helio Villa;S [place]atus: [place] [address] [place] [address], [address] , [facility] 6 15:21:03 Low back pain 564282971 Completed 201511/09/2016 From Automate d Load;Pro vider: Helio Villa;S tatus: Active [facility] 7 10:32:13 Hemangio ma 192250756 Completed 201511/09/2016 From Automate d Load;Pro vider: Loan Medina; Status: [facility] 7 10:32:17 Degenera tion of lumbar interver tebral disc 87814610 Active 2015 Not Available [facility] 3 08:12:47 Hyperkal emia 46997919 Completed 201803/17/2019 JF CHAMBERS, DO [address] [place] [address], [address] , [facility] 9 08:33:51 Benign essentia l hyperten dwayne 6740642 Active 2018 AIDEN VALVERDE, DO [address] [place], [address] , [facility] 4 18:20:26 Fracture of phalanx of finger 69655190 Active 2018 Not Available [facility] 3 08:12:47 Hyponatr emia 99393902 Active 2018 Not Available [facility] 3 08:12:47 Migraine 41776509 Active 2019 Not Available [facility] 3 08:12:47 Generali zed anxiety disorder 31831083 Active 2020 Not Available [facility] 3 08:12:47 Restless legs syndrome 03268756 Active 2022 AIDEN VALVERDE, DO [address] [place], [address] , [facility] 4 11:41:36 COVID-19 715752713 Active 2022 BLADIMIR GLOVER MD [address] [place], [address] , [facility] 3 12:34:54 Lower abdomina l pain 06243331 Active 2023 CONNIE MOREIRA, DO [address] [place], [address] , [facility] 4 10:53:29 Stomach cramps 47465328 Active 2023 CONNIE MOREIRA, DO [address] [place], [address] , [facility] 4 11:21:49 Divertic ulosis of colon 720309608 Active 2023 CONNIE MOREIRA, DO [address] [place], [address] , [facility] 4 11:21:56 Nausea 013536457 Active 2023 CONNIE MOREIRA, DO [address] [place], [address] , [facility] 4 11:23:15 Obstruct ani sleep apnea of adult 60649196373 03 Active 2023 AIDEN VALVERDE, DO [address] [place], [address] , [facility] 4 18:20:43 Anxiety 48330538 Active 2023 AIDEN VALVERDE, DO [address] [place], [address] , [facility] 4 11:41:56 Obesity 321622875 Active 2023 Kendal mathew, [facility] 4 10:34:00 Ex-smoke r 8211358 Active 2024 AIDEN VALVERDE, DO [address] [place], [address] , [facility] 5 10:41:21 Problem Notes None recorded. Procedures Surgical History Date Name Laterality Status Provider Name and Address Organization Details Recorded Time OCT/Retina completed MARGO ALEJANDRO MD [address] [place] [address], [address], [facility] 04/23/2025 11:27:53 025 Visual Field Extended completed MARGO ALEJANDRO MD [address] [place] [address], [address], [facility] 04/23/2025 11:27:51 025 Punctual Plug completed MARGO ALEJANDRO MD [address] [place] [address], [address], [facility] 04/23/2025 11:27:17 025 EKG completed MIKAL LOJA APRN [address] [place] [address], [address], [facility] 03/29/2025 16:24:21 025 DXA Low Bone Mass 2 - Tx completed INGRID CASTAÑEDA MD [address] [place] [address], [address], [facility] 03/24/2025 10:29:10 025 Neurostimulator Analysis w/o Reprogramming completed Chelly Tyler [facility] 02/07/2025 15:59:51 025 Post Void Residual; Ultrasound completed Lexy Rahman [facility] 02/07/2025 15:02:22 025 Destruction Premalignant Lesion(s) completed Shruti Valdez [facility] 01/09/2025 08:36:36 025 Prolia Injection completed Gena Browne [facility] 12/22/2024 09:20:55 025 Punctual Plug completed MARGO ALEJANDRO MD [address] [place], [address], [facility] 10/13/2024 09:28:28 025 Prolia Injection completed Karol Crooks [facility] 06/23/2024 09:07:52 025 Axial Length, IOL Master completed MARGO ALEJANDRO MD [address] [place], [address], [facility] 06/02/2024 09:56:59 024 OCT/Retina completed MARGO ALEJANDRO MD [address] [place], [address], [facility] 04/19/2024 10:29:56 024 DXA Low Bone Mass 2 - Tx completed INGRID CASTAÑEDA MD [address] [place], [address], [facility] 03/23/2024 16:44:04 024 EKG completed MIKAL LOJA APRN [address] [place], [address], [facility] 02/24/2024 09:40:10 024 Post Void Residual; Ultrasound completed Reg Sky [facility] 12/29/2023 15:52:26 024 Prolia Injection completed Josefa Kumar [facility] 12/21/2023 16:07:15 024 procedure on intestine completed Christy Choi [facility] 02/24/2024 09:35:22 024 Neurostimulator Analysis w/o Reprogramming completed Chellychantelle Tyler [facility] 05/31/2023 10:21:06 024 Post Void Residual; Ultrasound completed Reg Sky [facility] 05/31/2023 09:27:17 023 Other completed KAVON TANG MD [address] [place], [address], [facility] 04/27/2023 15:56:37 023 Prolia Injection completed Flower Tiwarichelle [facility] 04/19/2023 16:20:54 023 PNE Implantation; Sacral Nerve completed KAVON TANG MD [address] [place], [address], [facility] 04/06/2023 15:07:08 023 Post Void Residual; Ultrasound completed Gaby Maurice [facility] 01/22/2023 08:55:17 023 DXA Low Bone Mass 2 - Tx completed INGRID CASTAÑEDA MD [address] [place], [address], [facility] 12/15/2022 18:22:03 023 TCM completed Bree Rolon [facility] 11/19/2022 20:07:07 023 Post Void Residual; Ultrasound completed Jillian Roe [facility] 07/17/2022 08:34:39 022 Post Void Residual; Ultrasound completed Catrachita Tarango [facility] 05/05/2022 08:53:27 021 Destruction BN Lesions completed Sondra Oconnor [facility] 04/29/2021 08:58:00 021 Knee Surgery completed Kendal Canales [facility] 04/29/2021 11:21:40 021 Visual Field Extended completed MARGO ALEJANDRO MD [address] [place], [address], [facility] 11/11/2020 09:09:46 021 EKG completed JF CHAMBERS DO [address] [place], [address], [facility] 09/30/2020 10:03:56 021 FEB/ completed MARGO ALEJANDRO MD [address] [place], [address], [facility] 09/09/2020 09:45:14 020 Salivary Gland Biopsy completed MARGO FRIEDMAN MD [address] [place], [address], [facility] 04/30/2020 09:43:49 020 Destruction BN Lesions completed Ariadna Meng [facility] 04/23/2020 08:51:13 020 Urinary Bladder completed KAVON TANG MD [address] [place], [address], [facility] 03/26/2020 09:44:18 020 Post Void Residual; Ultrasound completed Teena Johnson [facility] 02/09/2020 08:13:00 020 EKG completed MIKAL LOJA, [employer]CHANIC [address] [place], [address], [facility] 02/01/2020 09:13:51 020 Post Void Residual; Ultrasound completed Yolanda Alexander [facility] 11/15/2019 09:12:34 020 Biopsy Skin Lesion; Tangential completed Cheyanne Magaña [facility] [facility] 10/31/2019 11:29:08 019 Destruction BN Lesions completed LOAN MEDINA, [employer] [address] [place], [address], [facility] 04/20/2019 09:32:34 019 Evening/Weekend/Ho liday Services completed Denny Schwab [facility] 02/25/2019 13:34:39 019 EKG completed DIAZ MUNROE PA-C [address] [place], [address], [facility] 01/26/2019 08:54:46 019 Probing Lacrimal Canaliculi completed MARGO ALEJANDRO MD [address] [place], [address], [facility] 05/26/2018 13:24:16 018 Destruction BN Lesions completed [facility] 04/19/2018 09:15:50 018 Date of Last Pap Smear completed [facility] 12/13/2018 10:16:23 018 EKG completed DIAZ MUNROE PA-C [address] [place], [address], [facility] 01/26/2018 09:02:42 018 DXA Low Bone Mass 1 - No Tx completed INGRID CASTAÑEDA MD [address] [place], [address], [facility] 11/08/2017 18:09:16 018 Most Recent Bone Density completed [facility] 12/13/2018 10:16:45 018 Orthopedic Surgery completed ROBIN ARELLANO PA-C [address] [place], [address], [facility] 09/01/2017 09:30:46 017 Destruction BN Lesions completed [facility] 04/14/2017 09:04:58 017 Shave Lesion; scalp, neck, hand, foot, genitalia completed [facility] 04/14/2017 09:06:31 017 EKG completed DIAZ MUNROE PA-C [address] [place], [address], [facility] 10/29/2016 09:29:58 016 EKG [place], [address], [facility] 05/05/2016 14:22:08 016 Most Recent Mammogram completed [facility] 12/13/2018 10:18:24 012 Total Hysterectomy completed Luis Carlos Mahoney [facility] 12/13/2018 13:20:05 Appendectomy completed Skylar Burns [facility] 04/28/2016 11:23:45 Carpal tunnel surgery completed Yulisa Freddie [facility] 02/02/2020 09:20:20 Orthopedic Surgery completed Amari Klein [facility] 09/25/2019 15:42:13 Other completed Gabbie Stump [facility] 10/14/2023 16:17:19 Imaging Results None recorded. Procedure Notes None recorded. Medical Equipment None Reported. Allergies Allergen ID Allergen Name Allergen Category Reaction Reaction Severity Criticality Documentation Date Start Date Code Code System Note Provider Name and Address Organization Details Recorded Time 401901 bisoprolo l / hydrochlo rothiazid e medicatio n Not available Not available Not available 04/10/20162005 99538 7 RxNorm hives / n/[facility] 09:22:14 108900 Maxalt medicatio n Not available Not available Not available 04/10/20162005 59814 8 RxNorm hives / n/v [facility] 0 09:22:08 414281 Levaquin medicatio n rash Not available Not available 06/18/2022 08753 2 RxNorm KAVON TANG MD [address] [place] [address], [address] [place] [address] 3 13:46:23 355054 rizatript an medicatio n Not available Not available Not available 03/29/2025 03152 RxNorm Not Available [employer] - prod 5 06:13:52 591351 levofloxa arcadio medicatio n Not available Not available Not available 03/29/20252023 76585 RxNorm Not Available [employer] External Data Service - prod 5 06:15:51 492717 metoclopr amide hydrochlo ride medicatio n Not available Not available Not available 03/29/20252023 36838 6 RxNorm Not Available [employer] - External Data Service - prod 5 06:15:51 571511 bisoprolo l / hydrochlo rothiazid e medicatio n Not available Not available Not available 03/29/20252023 58846 7 RxNorm Not Available [employer]ett - External [...] TAKE ONE CAPSULE BY MOUTH ONCE WEEKLY;M edrosenda n Descript ion: ergocalc iferol; Route:or al; [...] completed Not Available Not Available Not Available [place] 5 mg-325 mg tablet Take 1 tablet [...] Updated DateTime 03/23/2025 151.13 cm 34.4 kg/m2 69813.48 g 136/74 mm[Hg] [facility] 03/23/2025 15:46:27 Social History Question Answer Notes LastModified by Organizat ion Details LastModified Time Tobacco Smoking Status Former Smoker hasnt smoked since 1979 Luis Carlos Mahoney [facility] 12/13/2018 13:18:56 Accident Related Injury No [email or web address] Information not available 09/25/2019 What Is Your Level Of Caffeine Consumption? Moderate [email or web address] Information not available 08/29/2024 How Much Tobacco Do You Chew? None [email or web address] Information not available 02/25/2019 Are You Deaf Or Do You Have Serious Difficulty Hearing? No Information not available 12/11/2020 What Type Of Diet Are You Following? REGULAR Information not available 12/11/2020 Which Illicit Or Recreational Drugs Have You Used? None Per Pt [email or web address] Information not available 04/16/2019 When Did You Quit Smoking? 16+yearssinc [email or web address] te Information not available 10/15/2022 Which Of Your Hands Is Dominant? Right Information not available 09/25/2019 Hard Of Hearing Or Deaf In One Or Both Ears? No Information not available 10/26/2019 Legally Blind In One Or Both Eyes? No Information not available 10/26/2019 Which Hand Is Involved? Left Shoulder Information not available 09/25/2019 Rate The Severity Of Your Symptoms: (0-10 With 0=none And 10=worst Possible) 3 3-08/24 [email or web address] Information not available 09/25/2019 Date Of Injury: 2009 Or Longer Information not available 09/25/2019 Have You Been Treated For This Problem Before? Yes [email or web address] Information not available 09/25/2019 How Long Have You Had These Symptoms? 10 Years, Worse In Last Month Information not available 09/25/2019 Will This Be Filed As Workers' Compensation? No [email or web address] Information not available 09/25/2019 Marital Status Unknown [email or web address] Informatio n not available 04/28/2016 What Was The Date Of Your Most Recent Tobacco Screening? 03/29/2025 [email or web address] Information not available 03/29/2025 What Is Your Current Pack Years? 20-29packyea rs [email or web address] Information not available 04/27/2024 What Is Your [...] Date Was Tobacco Cessation Counseling Provided? 04/27/2024 [email or web address] Information not available 04/27/2024 How Many Years Have You Smoked Tobacco? 20 Information not available 04/28/2016 Have You Recently Traveled Abroad? No Information not available 12/11/2020 Work Related Injury? No [email or web address] Information not available 09/25/2019 Sex: Female Functional Status Question Answer Note LastModified by Organizat ion Details LastModified Time How many times per week do you consume alcohol? Less than 1 time per week [email or web address] Information not available 08/29/2024 Do you use any illicit or recreational drugs? No [email or web address] Information not available 09/25/2019 Do you or have you ever used any other forms of tobacco or nicotine? Yes Information not available 12/11/2020 What is your level of alcohol consumption? Occasional Information not available 04/28/2016 Do you or have you ever used smokeless tobacco? Never used smokeless tobacco [email or web address] Information not available 02/25/2019 Are you currently employed? Yes [email or web address] Information not available 08/29/2024 Are you able to care for yourself independently? 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 Never used electronic cigarettes Information not available 02/25/2019 What is your exercise level? Occasional Information not available 12/11/2020 Mental Status Question Answer Note LastModified by Organization D etails LastModified Time Do you feel stressed (tense, restless, nervous, or anxious, or unable to sleep at night)? [id number] Information not available 12/11/2020 Family History Relationship [...] history of malignant neoplasm undete rmined type API- Not available 08/29/2024 09:05:09 Father Alcoholism API- Not available 08/29/2024 09:05:09 Father Hyperlipidem ia API- Not available 2024 09:05:09 Mother Hypertensive disorder [...] N Immune System Disorder N Heart Attack (OR) N Mental Illness N Neurological Problems N [...] Recorded Time Tdap 4 completed Sarah Best [facility] 03/13/2024 08:47:59 Influenza, high-dose, trivalent, PF 6 completed Sarah Best [facility] 08/20/2022 08:13:21 Pneumococcal conjugate PCV 13 5 completed Sarahaftab Best [facility] 08/20/2022 08:13:21 pneumococcal polysaccharide PPV23 4 [facility] 08/20/2022 08:13:21 tetanus toxoid, unspecified formulation 6 completed [facility] 08/20/2022 08:13:21 zoster live 4 completed [facility] 08/20/2022 08:13:21 Influenza, high-dose, trivalent, PF 5 completed Sarah [facility] 02/09/2025 16:28:58 COVID-19, mRNA, LNP-S, PF, 30 mcg/0.3 mL dose 1 completed Not Available [facility] 07/07/2023 10:32:34 Influenza, high-dose, quadrivalent, PF 3 completed [facility], [address], [address], [facility] 02/09/2023 08:06:59 COVID-19, mRNA, LNP-S, PF, 50 mcg/0.5 mL 3 completed [facility], [address], [address], [facility] 05/13/2023 07:47:23 RSV, recombinant, protein subunit RSVpreF, adjuvant reconstituted, 0.5 mL, PF 3 completed JF CHAMBERS, DO [address] [place], [address], [facility] 05/13/2023 07:47:23 COVID-19, mRNA, LNP-S, PF, 100 mcg/0.5mL dose or 50 mcg/0.25mL dose 1 completed Sarah Best [facility] 08/20/2022 08:13:21 COVID-19, mRNA, LNP-S, PF, 100 mcg/0.5mL dose or 50 mcg/0.25mL dose 2 completed Sarah Best [facility] 08/20/2022 08:13:21 Influenza, high-dose, quadrivalent, PF 2 completed Sarah Best [facility] 08/20/2022 08:13:21 Influenza, high-dose, trivalent, PF 4 completed Maryjane Ritchie [facility] 02/03/2024 08:52:58 COVID-19, mRNA, LNP-S, PF, 30 mcg/0.3 mL dose 1 completed Sarah Best [facility] 08/20/2022 08:13:21 Influenza, high-dose, trivalent, PF 5 completed Sarah Best [facility] 08/20/2022 08:13:21 Influenza, split virus, trivalent, preservative 4 completed Sarah Best [facility] 08/20/2022 08:13:21 Influenza, adjuvanted, quadrivalent, PF 0 completed Sarah Best [facility] 08/20/2022 08:13:21 Influenza, high-dose, quadrivalent, PF 1 completed Sarah Best [facility] 08/20/2022 08:13:21 Influenza, high-dose, trivalent, PF 9 completed Sarah Calixong [facility] 08/20/2022 08:13:21 Influenza, high-dose, trivalent, PF 7 completed Sarah Calixong [facility] 08/20/2022 08:13:21 Influenza, high-dose, trivalent, PF 8 completed [facility] 08/20/2022 08:13:21 Influenza, high-dose, trivalent, PF 3 completed Sarah [facility] 08/20/2022 08:13:21 zoster recombinant 2 completed [facility] 08/20/2022 08:13:21 COVID-19, mRNA, LNP-S, bivalent, PF, 50 mcg/0.5 mL or 25mcg/0.25 mL dose 2 completed [facility] 08/20/2022 08:13:21 zoster recombinant 3 completed [facility] 08/25/2022 08:40:09 Influenza, split virus, quadrivalent, preservative 7 completed [facility] 08/25/2022 08:40:09 Past Encounters Encounter ID Performer Location Encounter Start Date Encounter Closed Date Diagnosis/Indication Diagnosis SNOMED-CT Code Diagnosis ICD10 Code Diagnosis IMO Codes Diagnosis Note [id number] FCO CASTRO APRN UROLOGY [facility] [address] [place] [address] 02/21/2025 08:54:22 02/24/2025 04:26:59 Overactive urinary bladder 226703280 N32.81 [id number] INGRID CASTAÑEDA MD [address] [place] [address] 03/23/2025 14:51:41 03/24/2025 04:24:10 Osteopenia [id number] M85.89 1 year follow-up osteopenia on therapy [...] s if necessary. Vitamin D deficiency 347 49790 E55.9 32500 Further repletion to keep levels above 30 ng/mL as appropriat e 1 year follow-up with bone density before visit while on Prolia therapy Patient verbalized understand ing and agreed with the above mentioned plan of care. [id number] INGRID CASTAÑEDA MD BONE DENSITY [address] [place] [address] 03/23/2025 14:51:07 03/23/2025 15:44:40 Osteopenia 459995813 M85.89 [id number] Health Concerns Section Related Observation LastModified by Organization Detai ls LastModified Time None Recorded Concern Status LastModified by Organization Details LastModified Time None Recorded Payers Encounter Date Sequence Insurance Name Policy Number Policy Phillip Covered Member ID Phillip Member ID Guarantor Name 03/23/2025 1 [place] Stacey Weston [id number] Stacey Weston 03/23/2025 2 [employer] (MEDICARE SUPPLEMENT) Stacey Weston [id number] Stacey Weston Notes Date Note Type Note [...] excessive alcohol consumptionTakes calcium and vitamin D ezkg-xew-ercxjkwDr recent fallsBone density on 12/07/2022 is consistent with osteopenia and 10-year fracture risk which qualifies her for pharmacologic therapy.Interval history:Started on Prolia therapy and received her first injection on 04/19/2023Last Prolia injection on She denies any recent falls or low trauma fracture since last office visit while on Prolia at herPreviously reported unable to take vitamin D [id number] due to constipationHad a follow-up bone density our endocrine office today including TBS INGRID CASTAÑEDA MD [address] [place] [address], [address], [facility] 03/23/2025 17:09:53 OBGyn Episode No OBEpisode recorded.
--- OUTSIDE RECORDS SUMMARY | 2025-05-13 19:46 | XMS_ITS | Clinical Summary ---
Author Organization [facility] , [facility] Address [address] [place] [address] Phone Care Team Providers Care Parole Supervisor Name Role Phone Pieter HIGGINS, Ad Bain Unavailable [phone] YOBANY HIGGINS (FP), CODIE Heart Primary Care Provider [phone] Lisette Mohan CLARK Unavailable [phone] Reason for Referral 04/15/2022 Encounter for Follow Up Date Recorded Target Due Date Referral Type Referring Prov ider Reason For Referral 04/15/2022 Thaddeus Hair on PA-C see pcp for bp Last Documented On 2 3:37PM ; [facility] 04/15/2022 Thaddeus Hair on PA-C referral to physician Last Documented On 2 3:43PM ; [facility], [facility] Reason for Visit and Chief Complaint The Chief Complaint is: Right knee pain Problems Includes: Problems addressed during this encounter and other active Problems All Visits Onset Date Date of Diagnosis Resolved Date Provider Condition Status Joint Pain Right Thumb 10/09/2021 10/09/2021 Ad Stapleton MD Active Last Documented On 5 1:41AM ; [facility] Joint Pain Right Knee 06/26/2020 06/26/2020 Nathaniel Feldman MD Active Last Documented On 5 1:40AM ; [facility], [facility] Plan of Treatment Patient is 1 year postop partial knee replacement. Overall doing well no complaints. Continue with ad jen. activity follow-up in the office in 3 to 5 years or as needed - Last Documented On 04/16/2022 8:07AM ; [facility] Instructions to patient Instructions for patient SEE PCP FOR BP Last Documented On 2 3:37PM ; [facility] Lose weight Last Documented On 2 3:37PM ; [facility] Assessments Includes: Assessments from this encounter Findings 1 year postop right medial partial knee replacement - Last Documented On 04/16/2022 8:07AM ; [facility] Instructions Includes: Instructions from this encounter Instructions to patient Instructions for patient SEE PCP FOR BP Last Documented On 2 3:37PM ; [facility] Lose weight Last Documented On 2 3:37PM ; [facility] Medical Equipment - Implanted Devices Includes: Current Devices No Medical Equipment Recorded Medications Includes: Medications discussed during this encounter and other current Medications Current Medications (continue as prescribed) HYDROcodone-Acetaminophen 5- 325 MG Oral Tablet 09/26/2024 Provider: Herbert Feldman MD Diagnosis: Take 1 tablet every 8 hrs prn pain Last Documented On 5 10:46AM By Moises Feldman ; [facility] traZODone HCl 50 MG Oral Tablet 01/29/2022 Provider: Diagnosis: Last Documented On 2 2:11PM By Alina Manrique ; [facility] SUMAtriptan Succinate 100 MG Oral Tablet 01/27/2022 Provider: Diagnosis: Last Documented On 2 2:11PM By Alina Manrique ; [facility] Carvedilol 25 MG Oral Tablet 01/23/2022 Provider: Diagnosis: Last Documented On 2 2:11PM By Alina Manrique ; [facility] Doxazosin Mesylate 2 MG Oral Tablet 01/23/2022 Provi carmina: Diagnosis: Last Documented On 2 2:11PM By Alina Manrique ; [facility] Simvastatin 20 MG Oral Tablet 01/16/2022 Provider: Diagnosis: Last Documented On 2 2:11PM By Alina Manrique ; [facility] clonazePAM 0.5 MG Oral Tablet 01/11/2022 Provider: Diagnosis: Last Documented On 2 2:11PM By Alina Manrique ; [facility], [facility] Pilocarpine HCl 5 MG Oral Tablet 01/05/2022 Provider : Bear Hamilton Diagnosis: Last Documented On 2 2:11PM By Alina Manrique ; [facility], [facility] Past Medications on file Medrol 4 MG Oral Tablet Ther apy Pack 09/26/2024 - 10/03/2024 Provider: Drew Levine Diagnosis: take as directed per instructions on box Last Documented On 5 10:46AM By Drew Ricardo ; [facility], [facility] Clotrimazole 1% External Cream 03/18/2023 - 04/17/2023 Provider: Ad diggs MD Diagnosis: use as directed Last Documented On 3 4:47PM By Ragini Bradshaw ; [facility] Medications Administered Includes: Administered Medications from this encounter No Administered Medications Recorded Vital Signs Includes: Vital Signs from this encounter Vital Name 04/15/2022 03:42P Blood Pressure Sitting (mmHg) 146/80 Pulse Rate-Sitting (bpm) 76 Height (in) 58 Weight (lb) 183.4 Body Mass Index (kg/m2) 38.3 Body Surface Area (m2) 1.8 Note: ck Last Documented: On 04/15/2022 3:42PM ; [facility] Results Includes: Results discussed during this encounter No Results Recorded For Specified Dates History of Present Illness Includes: History of Present Illness from this encounter VAL Weston is a 72 year old female. - Allergy list reviewed - Problem list reviewed - Medication list reviewed Social History Description Last Updated Not a current smoker. 03/18/2023 Last Documented On 2 3:37PM ; [facility] Not using alcohol 03/18/2023 Last Documented On 2 3:37PM ; [facility] No caffeine use 03/24/2022 Last Documented On 2 3:37PM ; [facility] No recent change in diet 03/24/2022 Last Documented On 2 3:37PM ; [facility], [facility] Not exercising regularly 03/24/2022 Last Documented On 2 3:37PM ; [facility] Not using drugs 03/24/2022 Last Documented On 2 3:37PM ; [facility] Tobacco non-user 03/24/2022 Last Documented On 2 3:37PM ; [facility] Non-smoker 03/24/2022 Last Documented On 2 3:37PM ; [facility] Not a smoker 03/24/2022 Last Documented On 2 3:37PM ; [facility] Not a current smoker. 06/26/2020 Last Documented On 2 3:37PM ; [facility] Not a current smoker 03/21/2019 Last Documented On 2 3:37PM ; [facility], [facility] Recent change in diet 03/21/2019 Last Documented On 2 3:37PM ; [facility] Smoking status : Never smoker 03/21/2019 Last Documented On 2 3:37PM ; [facility], [facility] No tobacco use 03/21/2019 Last Documented On 2 3:37PM ; [facility], [facility] Sex - Female 12/11/2024 Last Documented On 5 3:19PM ; [facility], [facility] Procedures and Surgical History Includes: Procedures from this encounter Procedures Code Diagnosis Performing Provider Service L ocation Service Date use of tobacco assessment performed 1000F Last Documented On 2 3:37PM ; [facility], [facility] patient screened for future fall risk: documentation of any fall with injury in past year 1100F Last Documented On 2 3:43PM ; [facility] follow-up visit in one month Last Documented On 2 3:43PM ; [facility] referral to physician see pcp for bp Last Documented On 2 3:37PM ; [facility] referral to physician Last Documented On 2 3:43PM ; [facility], [facility] Pt received screening for fall risk G8270 Last Documented On 2 3:37PM ; [facility] Clinical summary provided to patient Last Documented On 2 3:37PM ; [facility] an X-ray was performed 06/2020 [facility] [id number] Last Documented On 2 3:37PM ; [facility] Surgical History Last Updated History of hysterectomy 10/09/2021 Last Documented On 2 3:37PM ; [facility] History of total knee arthroplasty 2018 Right 10/09/2021 Last Documented On 2 3:37PM ; [facility], [facility] History of appendectomy 03/21/2019 Last Documented On 2 3:37PM ; [facility], [facility] Medical History Includes: Medical History addressed during this encounter Description Last Updated Recent immunization for flu 02/13/2022 Last Documented On 2 8:07AM ; [facility], [facility] Recent immunization for pneumococcal pne umonia 02/13/2022 04/15/2022 Last Documented On 2 8:07AM ; [facility], [facility] History of arthritis 10/09/2021 Last Documented On 2 3:37PM ; [facility], [facility] Use of CPAP 10/09/2021 Last Documented On 2 3:37PM ; [facility], [facility] Previous Fractures 08/09/2020 Last Documented On 2 3:37PM ; [facility], [facility] Appendectomy 06/26/2020 Last Documented On 2 3:37PM ; [facility], [facility] Heartburn / Acid Reflux 06/26/2020 Last Documented On 2 3:37PM ; [facility], [facility] Hypertension 06/26/2020 Last Documented On 2 3:37PM ; [facility], [facility] Hysterectomy 06/26/2020 Last Documented On 2 3:37PM ; [facility], [facility] Sleep Apnea 06/26/2020 Last Documented On 2 3:37PM ; [facility], [facility] Total knee arthroplasty 06/26/2020 Last Documented On 2 3:37PM ; [facility], [facility] Use of CPAP 06/26/2020 Last Documented On 2 3:37PM ; [facility], [facility] Arthritic joint problems 03/21/2019 Last Documented On 2 3:37PM ; [facility], [facility] Intermittent hypertension 03/21/2019 Last Documented On 2 3:37PM ; [facility] Carpal tunnel/ulnar removed-right ~high cholesterol 03/31/2017 Last Documented On 2 3:37PM ; [facility], [facility] History of diverticulitis of colon 03/31 Last Documented On 2 3:37PM ; [facility], [facility] Family History Includes: Family History addressed during this encounter Description Last Updated Family history of thromboembolic disease 10/09/2021 Last Documented On 2 3:37PM ; [facility] Family history of rheumatoid arthritis 0 06/26/2020 Last Documented On 2 3:37PM ; [facility], [facility] Stroke / Seizures 06/26/2020 Last Documented On 2 3:37PM ; [facility] stroke/seizure 03/21/2019 Last Documented On 2 3:37PM ; [facility], [facility] Family history of cancer 03/21/2019 Last Documented On 2 3:37PM ; [facility] Family history of hypertension 9 Last Documented On 2 3:37PM ; [facility] Review of Systems Includes: Review of Systems from this encounter Systemic: Not feeling tired, no recent weight loss, and no recent weight gain. No edema. Head: Headache. No sinus pain. Eyes: No vision problems. Vision problems glasses/contacts. No glaucomatous visual field defect. No Cataracts. Glasses/Contacts. No Glaucoma. Otolaryngeal: No hearing loss and no tinnitus. No nasal symptoms. Cardiovascular: No chest pain or discomfort, no palpitations, no Hypertension, and no High Cholesterol. Pulmonary: No daytime asthma symptoms, no cough, and no chronic cough. No wheezing. Gastrointestinal: No heartburn and no abdominal pain. Indigestion and Acid Reflux. No Peptic Ulcer, no GI Stomach Bleed, and no Ulcers. Endocrine: No hot flashes, no muscle weakness, no Diabetes, no Hypothyroid, and no Hyperthyroid. Hematologic: Easy bleeding and a tendency for easy bruising. No Anemia. Musculoskeletal: Arthritis. No lower back pain. No soft tissue swelling. Pain localized to one or more joints. Neurological: No dizziness, no convulsions, and no numbness. Psychological: No anxiety, no emotional lability, no depression, and no insomnia. Not crying for no reason. Skin: No dry skin. No Ulcers, no Scars, no rash, and no ulcers. Allergic and Immunologic: Complaint of seasonal allergic reaction. Mental Status Includes: Mental Status from this encounter Description No anxiety Last Documented On 2 3:37PM ; [facility], [facility] Physical Exam Includes: Physical Exam from this encounter Immunizations Includes: Immunizations addressed during this encounter Vaccine Dose # Date Site Reaction(s) Status Source Influenza 2 02/13/2022 Complete (Reported) Patient Last Documented On 2 3:42PM ; [facility] PCV (Pneumovax 23) 2 02/13/2022 Complete ( Reported) Patient Last Documented On 2 3:42PM ; [facility] Allergies Includes: Active Allergies Substance Type Reaction Onset Date Resolved Date Statu s OTHER Allergy maxalt/ziac 10/09/2021 Active Last Documented On 5 9:13AM ; [facility] Morphine Derivatives Allergy Nausea, Vom iting, Diarrhea / Diarrheal disorder 08/05/2009 Resolved Last Documented On 7 9:34AM ; [facility], [facility] Care Parole Supervisor Name (Identifier) Role/Relation Location/Telecom Last Documented By Ad Stapleton MD ([id number]) Assigned practitioner (occupation) tel:[phone] Last Documented On 12/11/2024 3:19PM ; [facility], [facility] CODIE HAYWOOD MD (FP) ([id number]) Primary care physician (occupation) [address], [place], [place], , [address] tel:[phone] Last Documented On 12/11/2024 3:19PM ; [facility], [facility] Mohan Knox DO ([id number]) [address] , [place], [place], , [address] tel: Last Documented On 03/21/2019 3:39PM ; [facility] Encounters Encounter Provider Location (Healthcare Service Location) Date Check-In Time Check-Out Time Diagnosis Encounter Disposition Follow Up [facility] 2021 3:31PM 4:02PM Payer Includes: Active Insurance Policies Plan Name (Payer ID) Coverage Type Member ID Group # Subscriber (ID) Relationship Effective Dates 1 - Medicare Part B [facility] ([id number]) [id number] Stacey Weston Self 01/15/2013 - Unknown Last Documented On 9 8:26AM ; [facility], [facility] - [facility] [id number] Stacey mantilla Self 05/17/2016 - Unknown Last Documented On 2 11:18AM ; [facility], [facility]
--- OUTSIDE RECORDS SUMMARY | 2025-05-13 19:46 | XMS_ITS | Continuity of Care Document ---
Author Organization [facility], UROLOGY [facility] Address [address] [place] [address] Care Team Providers Care Director Of Institutional Sales Name Role Phone MARGO ALEJANDRO Hot Header Operator KAVON TANG Urologist YOVANI LOPEZ Practice Nurse AIDEN VALVERDE Primary Care Provider CHARLIE BAUTISTA Petroleum Engineering Professor INGRID CASTAÑEDA Referring Provider Assessment Encounter Date Assessment Date Assessment LastModified by Organization Details LastModified Time 02/21/2025 02/21/2025 Medtronic interstim reps only, no charge [email or web address] Not available 02/23/2025 14:41:58 Plan of Treatment Reminders Order Date Submit [...] DERM VISIT 2025 08:20A M LOAN MEDINA APRN Not available Not available Not available RECHECK [...] Abnormal Flag Note LastModifiedBy Organization Detail LastModifiedTime 02/08/2002/07/2025 urina lysis panel , auto Unknown Analyte Clean Catch Not Available Cu/Lc Urolo gy [facility] [address] [facility], [place], [address], 02/07/2025 15:02:25 02/08/2002/07/2025 urina lysis panel , auto Unknown Analyte Yellow Not Available Cu/Lc Urology [address] [place], [address], 02/07/2025 15:02:25 02/08/2002/07/2025 urina lysis panel , auto Unknown Analyte Clear Not Available Cu/Lc Urology [facility] [address] [place], [address], 02/07/2025 15:02:25 02/08/2002/07/2025 urina lysis panel , auto Unknown Analyte 1.005 Not Available Cu/Lc [facility] [place], [address], 02/07/2025 15:02:25 02/08/2002/07/2025 urina lysis panel , auto Unknown Analyte 7.0 Not Available Cu/Lc [facility] [address] [place], [address], 02/07/2025 15:02:25 02/08/2008 0202/07/2025 urina lysis panel , auto Unknown Analyte Negati ve Not Available Cu/Lc Urolo gy [address] [facility], [place], [address], 02/07/2025 15:02:25 02/08/20 25 02/07/2025 urina lysis panel , auto Unknown Analyte Negati ve Not Available Cu/Lc Urolo gy [address] [facility], [place], [address], 02/07/2025 15:02:25 02/08/2002/07/2025 urina lysis panel , auto Unknown Analyte Negati ve Not Available Cu/Lc Urolo gy [address] [facility], [place], [address], 02/07/2025 15:02:25 02/08/2002/07/2025 urina lysis panel , auto Unknown Analyte Normal Not Available Cu/Lc Urology [address] [facility], [place], [address], 02/07/2025 15:02:25 02/08/2002/07/2025 urina lysis panel , auto Unknown Analyte Negati ve Not Available Cu/Lc Urolo gy [address] [facility], [place], [address], 02/07/2025 15:02:25 02/08/2002/07/2025 urina lysis panel , auto Unknown Analyte Normal Not Available Cu/Lc Urology [address] [facility], [place], [address], 02/07/2025 15:02:25 02/08/2002/07/2025 urina lysis panel , auto Unknown Analyte Negati ve Not Available Cu/Lc Urolo gy [address] [facility], [place], [address], 02/07/2025 15:02:25 02/08/20 25 02/07/2025 urina lysis panel , auto Unknown Analyte Negati ve Not Available Cu/Lc Urolo gy [address], [place], [address], 02/07/2025 15:02:25 03/24/20 25 03/23/2025 DEXA No observ ation record ed. IVETT Castañeda MD [address] [place], [address], 03/26/2025 12:33:01 03/29/20 25 03/29/2025 elect rocar diogr am No observ ation record ed. BARCODE Not Available 2024 16:54:21 04/20/20 25 04/20/2025 XR, chest , 2 view No observ ation record ed. IVETT Not Available 2024 13:51:02 04/20/20 25 04/20/2025 XR, chest , 2 view No observ ation record ed. [facility] [address] [place], [address], 04/22/2025 13:51:02 04/23/20 25 04/20/2025 elect rocar [...] 25 05/02/2025 compl ete PFT w/ [facility] hodil ator jayce metry * No observ ation record ed. [facility] [address], [place], [address], 05/11/2025 15:43:58 Result Notes None recorded. 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 04294756 Active Not Available [facility] 3 08:06:45 Morbid obesity 778269154 Active Not Available [facility] 3 08:06:48 Chronic kidney disease stage 3B 968669803 Active Not Available [facility] 4 09:23:52 Body mass index 40+ - severely obese 182348020 Active Not Available [facility] 4 09:23:58 Insomnia 695604688 Active 2014 From Automate d Load;Pro vider: Helio Villa;S tatus: Active AIDEN VALVERDE, [address], [address] [place] [address] , [facility] 4 18:20:35 Hyperten sive disorder 78439176 Completed 201402/05/2019 From Automate d Load;Pro vider: Helio Villa;S tatus: Active JF Vipul JATINDER, [address], [address] [place] [address] 9 18:12:30 Hyperlip idemia 18732743 Active 2014 From Automate d Load;Pro vider: Helio Villa;S tatus: Active AIDEN Susan VASQUEZLavinia, [address], [address] [place] [address] 4 18:20:28 Melanocy tic nevus of trunk 091105356 Completed 201411/09/2016 From Automate d Load;Pro vider: Loan Medina; Status: [facility] 7 10:32:09 Senile hyperker atosis 110734226 Completed 201404/28/2016 From Automate d Load;Pro vider: Loan Medina; Status: Active HELIO VILLA MD [address] [place] [address], [address] [place] [address] , [facility] 6 15:20:57 Lentigo Completed 201404/28/2016 From Automate d Load;Pro vider: Loan Medina; Status: Active HELIO VILLA MD [address] [place] [address], [address] , [facility] 6 15:20:42 Hypertro phic conditio n of skin 05043806 Completed 201404/28/2016 From Automate d Load;Pro vider: Loan Medina; Status: Active HELIO VILLA MD [address] [place] [address], [address] , [facility] 6 15:21:10 Gastroin testinal tract finding Completed 201403/20/2019 From Automate d Load;Pro vider: Marlene Raza;Fernanda tatus: Active JF CHAMBRES DO [address] [place] [address], [address] , [facility] 9 08:44:09 Backache 561546071 Completed 201404/28/2016 From Automate d Load;Pro vider: Helio Villa;S tatus: Active HELIO VILLA MD [address] [place] [address], [address] , [facility] 6 15:28:50 Function al heart murmur 18893015 Active 2014 From Automate d Load;Pro vider: Diaz Munroe;S tatus: Active Not Available [facility] 3 08:12:47 Irritabl e bowel syndrome with diarrhea 604142768 Active 2014 From Automate d Load;Pro vider: Shady Raza tatus: Active Not Available [facility] 3 08:12:47 Constipa tion 58884208 Completed 201511/09/2016 From Automate d Load;Pro vider: Marlene Raza;S tatus: [facility] 7 10:31:52 Lacerati on of hand 270824302 Completed 201504/28/2016 From Automate d Load;Pro vider: Helio Villa;Fernanda tatus: Active HELIO VILLA MD [address] [place], [address] , [facility] 6 15:21:03 Low back pain 877053729 Completed 201511/09/2016 From Automate d Load;Pro vider: Helio Villa;S tatus: Active [facility] 7 10:32:13 Hemangio ma 478047548 Completed 201511/09/2016 From Automate d Load;Pro vider: Loan Medina; Status: [facility] 7 10:32:17 Degenera tion of lumbar interver tebral disc 35819279 Active 2015 Not Available [facility] 3 08:12:47 Hyperkal emia 91574895 Completed 201803/17/[address] JATINDER, DO [address] [place], [address] , [facility] 9 08:33:51 Benign essentia l hyperten dwayne 5037686 Active 2018 AIDEN VALVERDE DO [facility] [place], [address] , [facility] 4 18:20:26 Fracture of phalanx of finger 82093664 Active 2018 Not Available [facility] 3 08:12:47 Hyponatr emia 06659962 Active 2018 Not Available [facility] 3 08:12:47 Migraine 38183877 Active 2019 Not Available [facility] 3 08:12:47 Generali zed anxiety disorder 19436619 Active 2020 Not Available [facility] 3 08:12:47 Restless legs syndrome 46376894 Active 2022 AIDEN VALVERDE, DO [address] [place], [address] , [facility] 4 11:41:36 COVID-19 542808279 Active 2022 BLADIMIR GLOVER MD [address] [place], [address] , [facility] 3 12:34:54 Lower abdomina l pain 38963401 Active 2023 CONNIE MOREIRA, DO [address] [place], [address] , [facility] 4 10:53:29 Stomach cramps 07141880 Active 2023 CONNIE MOREIRA, DO [address] [place], [address] , [facility] 4 11:21:49 Divertic ulosis of colon 723336816 Active 2023 CONNIE MOREIRA, DO [address] [place], [address] , [facility] 4 11:21:56 Nausea 862926549 Active 2023 CONNIE MOREIRA, DO [address] [place], [address] , [facility] 4 11:23:15 Obstruct ani sleep apnea of adult 89803876030 03 Active 2023 AIDEN VALVERDE, DO [address] [place], [address] , [facility] 4 18:20:43 Anxiety 08131703 Active 2023 AIDEN VALVERDE, DO [address] [place], [address] , [facility] 4 11:41:56 Obesity 417997046 Active 2023 [facility] 4 10:34:00 Ex-smoke r 4884474 Active 2024 AIDEN VALVERDE, DO [address] [place], [address] , [facility] 10:41:21 Problem Notes None recorded. Procedures Surgical History Date Name Laterality Status Provider Name and Address Organization Details Recorded Time OCT/Retina completed MARGO ALEJANDRO MD [address] [place], [address], [facility] 04/23/2025 11:27:53 Visual Field Extended completed MARGO ALEJANDRO MD [address] [place] [address], [address], [facility] 04/23/2025 11:27:51 025 Punctual Plug completed MARGO ALEJANDRO MD [address] [place] [address], [address], [facility] 04/23/2025 11:27:17 025 EKG completed MIKAL LOJA APRN [address] [place] [address], [address], [facility] 03/29/2025 16:24:21 025 DXA Low Bone Mass 2 - Tx completed INGRID CASTAÑEDA MD [address] [place] [address], [address], [facility] 03/24/2025 10:29:10 025 Neurostimulator Analysis w/o Reprogramming completed hCelly Tyler [facility] 02/07/2025 15:59:51 025 Post Void Residual; Ultrasound completed Lexy Rahman [facility] 02/07/2025 15:02:22 025 Destruction Premalignant Lesion(s) completed Shruti Valdez [facility] 01/09/2025 08:36:36 025 Prolia Injection completed Gena Browne [facility] 12/22/2024 09:20:55 025 P[place]ual [place] [address] [place] [address], [address], [facility] 10/13/2024 09:28:28 025 Prolia Injection completed Karol Crooks [facility] 06/23/2024 09:07:52 025 Axial Length, IOL Master completed MARGO ALEJANDRO MD [address] [place], [address], [facility] 06/02/2024 09:56:59 024 OCT/Retina completed MARGO ALEJANDRO MD [address] [place], [address], [facility] 04/19/2024 10:29:56 024 DXA Low Bone Mass 2 - Tx completed INGRID CASTAÑEDA MD [address] [place], [address], [facility] 03/23/2024 16:44:04 024 EKG completed MIKAL LOJA APRN [address] [place], [address], [facility] 02/24/2024 09:40:10 024 Post Void Residual; Ultrasound completed [facility] 12/29/2023 15:52:26 024 Prolia Injection completed Josefa Kumar [facility] 12/21/2023 16:07:15 024 procedure on intestine completed Christy Choi [facility] 02/24/2024 09:35:22 024 Neurostimulator Analysis w/o Reprogramming completed Chelly Tyler [facility] 05/31/2023 10:21:06 024 Post Void Residual; Ultrasound completed [facility] 05/31/2023 09:27:17 023 Other completed KAVON TANG MD [address] [place], [address], [facility] 04/27/2023 15:56:37 023 Prolia Injection completed Flower Winston [facility] 04/19/2023 16:20:54 023 PNE Implantation; Sacral Nerve completed KAVON TANG MD [address] [place], [address], [facility] 04/06/2023 15:07:08 023 Post Void Residual; Ultrasound completed Gaby Richards [facility] 01/22/2023 08:55:17 023 DXA Low Bone Mass 2 - Tx completed INGRID CASTAÑEDA MD [address] [place] [address], [address], [facility] 12/15/2022 18:22:03 023 TCM completed Breeryan Rolon [facility] 11/19/2022 20:07:07 023 Post Void Residual; Ultrasound completed Jillian Roe [facility] 07/17/2022 08:34:39 022 Post Void Residual; Ultrasound completed Catrachita Tarango [facility] 05/05/2022 08:53:27 021 Destruction BN Lesions completed Sondra Oconnor [facility] 04/29/2021 08:58:00 021 Knee Surgery completed Kendal Canales [facility] 04/29/2021 11:21:40 021 Visual Field Extended completed MARGO ALEJANDRO MD [address] [place] [address], [address], [facility] 11/11/2020 09:09:46 021 EKG completed JF CHAMBERS DO [address] [place] [address], [address], [facility] 09/30/2020 10:03:56 021 OCT/Retina completed MARGO ALEJANDRO MD [address] [place] [address], [address], [facility] 09/09/2020 09:45:14 020 Salivary Gland Biopsy completed MARGO FRIEDMAN MD [address] [place] [address], [address], [facility] 04/30/2020 09:43:49 020 Destruction BN Lesions completed Ariadna Meng [facility] 04/23/2020 08:51:13 020 Urinary Bladder completed KAVON TANG MD [address] [place], [address], [facility] 03/26/2020 09:44:18 020 Post Void Residual; Ultrasound completed Teena Johnson [facility] 02/09/2020 08:13:00 020 EKG completed MIKAL LOJA, STEAM PRESSURE CHAMBER OPERATOR [address] [place], [address], [facility] 02/01/2020 09:13:51 020 Post Void Residual; Ultrasound completed Yolanda Barbourham [facility] 11/15/2019 09:12:34 020 Biopsy Skin Lesion; Tangential completed Cheyanne Magaña [facility] 10/31/2019 11:29:08 019 Destruction BN Lesions completed LOAN MEDINA, STEAM PRESSURE CHAMBER OPERATOR [address] [place], [address], [facility] 04/20/2019 09:32:34 019 Evening/Weekend/Ho liday Services completed Dennybrunilda Schwab [facility] 02/25/2019 13:34:39 019 EKG completed DIAZ MUNROE PA-C [address] [place], [address], [facility] 01/26/2019 08:54:46 019 Probing Lacrimal Canaliculi completed MARGO ALEJANDRO MD [address] [place], [address], [facility] 05/26/2018 13:24:16 018 Destruction BN Lesions completed Mt Cortes [facility] 04/19/2018 09:15:50 018 Date of Last Pap Smear completed Betty Cosby [facility] 12/13/2018 10:16:23 018 EKG completed DIAZ MUNROE PA-C [address] [place], [address], [facility] 01/26/2018 09:02:42 06/20/2 018 DXA Low Bone Mass 1 - No Tx completed INGRID CASTAÑEDA MD [address] [place], [address], [facility] 11/08/2017 18:09:16 018 Most Recent Bone Density completed [facility] 12/13/2018 10:16:45 018 Orthopedic Surgery completed ROBIN ARELLANO PA-C [address] [place], [address], [facility] 09/01/2017 09:30:46 017 Destruction BN Lesions completed [facility] 04/14/2017 09:04:58 017 Shave Lesion; scalp, neck, hand, foot, genitalia completed [facility] 04/14/2017 09:06:31 017 EKG completed DIAZ MUNROE PA-C [address] [place], [address], [facility] 10/29/2016 09:29:58 016 EKG completed DIAZ MUNROE PA-C [address] [place], [address], [facility] 05/05/2016 14:22:08 016 Most Recent Mammogram completed [facility] 12/13/2018 10:18:24 012 Total Hysterectomy completed Luis Carlos Mahoney [facility] 12/13/2018 13:20:05 Appendectomy completed Skylar Burns [facility] 04/28/2016 11:23:45 Carpal tunnel surgery completed Yulisa Frazier [facility] 02/02/2020 09:20:20 Orthopedic Surgery completed Amari Klein [facility] 09/25/2019 15:42:13 Other completed Gabbie [facility] 10/14/2023 16:17:19 Imaging Results None recorded. Procedure Notes None recorded. Medical Equipment None Reported. Allergies Allergen ID Allergen Name Allergen Category Reaction Reaction Severity Criticality Documentation Date Start Date Code Code System Note Provider Name and Address Organization Details Recorded Time 074150 bisoprolo l / hydrochlo rothiazid e medicatio n Not available Not available Not available 04/10/20162005 90496 7 RxNorm hives / n/v Yulisaumm Frazier [facility] 0 09:22:14 194490 Maxalt medicatio n Not available Not available Not available 04/10/20162005 30843 8 RxNorm hives / n/v Yulisaalisha Frazier [facility] 0 09:22:08 548530 Levaquin medicatio n rash Not available Not available 06/18/2022 83728 2 RxNorm KAVON TANG MD [address] [place] [address], [address] [place] [address] 3 13:46:23 851780 rizatript an medicatio n Not available Not available Not available 03/29/2025 24059 RxNorm Not Available [employer] - External Data Service - prod 5 06:13:52 022997 levofloxa arcadio medicatio n Not available Not available Not available 03/29/20252023 84465 RxNorm Not Available [employer] External Data Service - prod 5 06:15:51 935282 metoclopr amide hydrochlo ride medicatio n Not available Not available Not available 03/29/20252023 74166 6 RxNorm Not Available [employer] External Data Service - prod 5 06:15:51 020856 bisoprolo l / hydrochlo rothiazid e medicatio n Not available Not available Not available 03/29/20252023 51703 7 RxNorm Not Available [employer] - prod 5 06:15:51 Medications [...] for four (4) weeks. active to compound [facility] Not Available Not Available Not Available [...] TAKE ONE CAPSULE BY MOUTH ONCE WEEKLY;M edicatio n Descript ion: ergocalc iferol; Route:or al; [...] completed Not Available Not Available Not Available [place] 5 mg-325 mg tablet Take 1 tablet [...] Not Available Not Available Not Available Vitals None Recorded Social History Question Answer Notes LastModified by Organizat ion Details LastModified Time Tobacco Smoking Status Former Smoker hasnt smoked since 1979 Luis Carlos Mahoney [facility] 12/13/2018 13:18:56 Accident Related Injury No [email or web address] Information not available 09/25/2019 What Is Your Level Of Caffeine Consumption? Moderate [email or web address] Information not available 08/29/2024 How Much Tobacco Do You Chew? None [email or web address] Information not available 02/25/2019 Are You Deaf Or Do You Have Serious Difficulty Hearing? No Information not available 12/11/2020 What Type Of Diet Are You Following? REGULAR Information not available 12/11/2020 Which Illicit Or Recreational Drugs Have You Used? None Per Pt [email or web address] Information not available 04/16/2019 When Did You [...] (0-10 With 0=none And 10=worst Possible) 3 3-4/10 [email or web address] Information not available 09/25/2019 Date Of Injury: 2009 Or Longer [email or web address] Information not available 09/25/2019 Have You Been Treated For This Problem Before? Yes [email or web address] Information not available 09/25/2019 How Long Have You Had These Symptoms? 10 Years, Worse In Last Month [email or web address] Information not available 09/25/2019 Will This Be Filed As Workers' Compensation? No [email or web address] Information not available 09/25/2019 Marital Status Unknown Informatio n not available 04/28/2016 What Was The Date Of Your Most Recent Tobacco Screening? 03/29/2025 [email or web address] Information not available 03/29/2025 What Is Your Current Pack Years? 20-29packyea rs [email or web address] Information not available 04/27/2024 What Is Your [...] Date Was Tobacco Cessation Counseling Provided? 04/27/2024 [email or web address] Information not available 04/27/2024 How Many Years Have You Smoked Tobacco? 20 Information not available 04/28/2016 Have You Recently Traveled Abroad? No Information not available 12/11/2020 Work Related Injury? No [email or web address] Information not available 09/25/2019 Sex: Female Functional Status Question Answer Note LastModified by Organizat ion Details LastModified Time How many times per week do you consume alcohol? Less than 1 time per week [email or web address] Information not available 08/29/2024 Do you use any illicit or recreational drugs? No [email or web address] Information not available 09/25/2019 Do you or have you ever used any other forms of tobacco or nicotine? Yes Information not available 12/11/2020 What is your level of alcohol consumption? Occasional Information not available 04/28/2016 Do you or have you ever used smokeless tobacco? Never used smokeless tobacco [email or web address] Information not available 02/25/2019 Are you currently employed? Yes [email or web address] Information not available 08/29/2024 Are you able to care for yourself independently? 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 Never used electronic cigarettes [email or web address] Information not available 02/25/2019 What is your exercise level? Occasional Information not available 12/11/2020 Mental Status Question Answer Note LastModified by Organization D etails LastModified Time Do you feel stressed (tense, restless, nervous, or anxious, or unable to sleep at night)? [id number] Information not available 12/11/2020 Family History Relationship Description Onset Age of this Age Resolved Age Notes LastModified by Organization Details LastModified Time Brother Hypertensive disorder Not available 2015 11:15:50 Sister Hypertensive disorder Not available 2015 11:15:50 Sister Migraine [email or web address] Not available 05/17/2018 08:20:37 Sister Family history of malignant [...] Hospitalizations N Black Lung N Migraines Y Skin Problems N Eating Disorder N Constipation N Ulcers N Rheumatic Fever [...] Breast Cancer N Hernia N Glaucoma N Hypothyroidism N Lung Disease N Breast Problem N Vascular Disease N Difficulty Swallowing N Anesthesia Complications N Deep Vein Thrombosis N Meniere's disease N RD/retinal tear N Endometriosis N Blood Thinners Y Bladder or Kidney Problems Y Alcohol Overuse/Alcohol Abuse N High Cholesterol Y Liver Disease N Allergies/Hayfever Y Parkinson's Disease N Alzheimer's N Thyroid Problems N GI Problems Y Diabetic Eye Disease N Anemia N Immune System Disorder N Heart Attack ([place]) N Mental Illness N Neurological Problems N [...] Recorded Time Tdap 4 completed Sarah Best [facility] 03/13/2024 08:47:59 Influenza, high-dose, trivalent, PF 6 completed Sarah Best [facility] 08/20/2022 08:13:21 Pneumococcal conjugate PCV 13 5 carlene Best [facility] 08/20/2022 08:13:21 pneumococcal polysaccharide PPV23 4 carlene Best [facility] 08/20/2022 08:13:21 tetanus toxoid, unspecified formulation 6 completed Sarah Best [facility] 08/20/2022 08:13:21 zoster live 4 completed Sarah Best [facility] 08/20/2022 08:13:21 Influenza, high-dose, trivalent, PF 5 completed Sarahaftab Best [facility] 02/09/2025 16:28:58 COVID-19, mRNA, LNP-S, PF, 30 mcg/0.3 mL dose 1 completed Not Available [facility] 07/07/2023 10:32:34 Influenza, high-dose, quadrivalent, PF 3 completed [facility], [address], [address], [facility] 02/09/2023 08:06:59 COVID-19, mRNA, LNP-S, PF, 50 mcg/0.5 mL 3 completed [facility], [address], [address], [facility] 05/13/2023 07:47:23 RSV, recombinant, protein subunit RSVpreF, adjuvant reconstituted, 0.5 mL, PF 3 completed [facility], [address], [address], [facility] 05/13/2023 07:47:23 COVID-19, mRNA, LNP-S, PF, 100 mcg/0.5mL dose or 50 mcg/0.25mL dose 1 completed Sarah Best [facility] 08/20/2022 08:13:21 COVID-19, mRNA, LNP-S, PF, 100 mcg/0.5mL dose or 50 mcg/0.25mL dose 2 completed Sarah Best [facility] 08/20/2022 08:13:21 Influenza, high-dose, quadrivalent, PF 2 completed Sarah Best [facility] 08/20/2022 08:13:21 Influenza, high-dose, trivalent, PF 4 [facility] 08:52:58 COVID-19, mRNA, LNP-S, PF, 30 mcg/0.3 mL dose 1 completed Sarah Best [facility] 08/20/2022 08:13:21 Influenza, high-dose, trivalent, PF 5 completed Sarah Best [facility] 08/20/2022 08:13:21 Influenza, split virus, trivalent, preservative 4 completed Sarah Best [facility] 08/20/2022 08:13:21 Influenza, adjuvanted, quadrivalent, PF 0 completed Sarah Best [facility] 08/20/2022 08:13:21 Influenza, high-dose, quadrivalent, PF 1 completed Sarah Best [facility] 08/20/2022 08:13:21 Influenza, high-dose, trivalent, PF 9 completed Sarah Best [facility] 08/20/2022 08:13:21 Influenza, high-dose, trivalent, PF 7 completed Sarah Best [facility] 08/20/2022 08:13:21 Influenza, high-dose, trivalent, PF 8 completed Sarah Calixong [facility] 08/20/2022 08:13:21 Influenza, high-dose, trivalent, PF 3 completed [facility] 08/20/2022 08:13:21 zoster recombinant 2 completed Sarah Calixong [facility] 08/20/2022 08:13:21 COVID-19, mRNA, LNP-S, bivalent, PF, 50 mcg/0.5 mL or 25mcg/0.25 mL dose 2 completed [facility] 08/20/2022 08:13:21 zoster recombinant 3 completed [facility] 08/25/2022 08:40:09 Influenza, split virus, quadrivalent, preservative 7 completed [facility] 08/25/2022 08:40:09 Past Encounters Encounter ID Performer Location Encounter Start Date Encounter Closed Date Diagnosis/Indication Diagnosis SNOMED-CT Code Diagnosis ICD10 Code Diagnosis IMO Codes Diagnosis Note [id number] KAVON TANG MD UROLOGY [facility] [address] [place] [address] 02/07/2025 14:55:52 02/07/2025 15:58:54 Overactive urinary bladder 778167896 N32.81 Urge incon tinence of urine 13941027 N39.41 History of urinary tract infection [id number] 107 Z87.440 [id number] FCO CASTRO APRN UROLOGY [facility] [address] [place] [address] 02/21/2025 08:54:22 02/24/2025 04:26:59 Overactive urinary bladder [id number] N32.81 [id number] Health Concerns Section Related Observation LastModified by Organization Detai ls LastModified Time None Recorded Concern Status LastModified by Organization Details LastModified Time None Recorded Payers Encounter Date Sequence Insurance Name Policy Number Policy Phillip Covered Member ID Phillip Member ID Guarantor Name 02/21/2025 1 [place] Stacey Weston [id number] Stacey Weston 02/21/2025 2 [employer] [place] (MEDICARE SUPPLEMENT) Stacey Weston [id number] Stacey Weston OBGyn Episode No OBEpisode recorded.
--- OUTSIDE RECORDS SUMMARY | 2025-05-13 19:46 | XMS_ITS | Clinical Summary ---
Author Organization [facility] Address [address] [place] [address] Phone Care Team Providers Care Dredge Master Name Role Phone Ad Stapleton MD Unavailable [phone] YOBANY HIGGINS (FP), [facility] Primary Care Provider [phone] Lisette Neymar CLARKin Diana Unavailable [phone] Reason for Visit and Chief Complaint The Chief Complaint is: right thumb pain Problems Includes: Problems addressed during this encounter and other active Problems All Visits Onset Date Date of Diagnosis Resolved Date Provider Condition Status Joint Pain Right Thumb 10/09/2021 10/09/2021 Ad Stapleton MD Active Last Documented On 5 1:41AM ; [facility] Joint Pain Right Knee 06/26/2020 06/26/2020 Nathaniel Feldman MD Active Last Documented On 5 1:40AM ; [facility] Plan of Treatment Fall Risk Assessment: This patient has been identified as a fall risk. Balance/gait along with postural blood pressure, vision and home fall hazards have been assessed. Medications have been reviewed, and recommendations made with regard to contributing factors for future falls. Plan of care: Consideration of vitamin D supplementation along with balance and strength training with consideration for formal physical therapy has been discussed with the patient. - Last Documented On 03/31/2023 3:52PM ; [facility] Instructions to patient Lose weight Last Documented On 3:21PM ; [facility] Assessments Includes: Assessments from this encounter Findings X-ray of the right hand 3 views shows no fractures or dislocations. Alignment is good. There are no areas of lucency. - Last Documented On 03/31/2023 3:52PM ; [facility] Patient has onychomycosis. We will need to try to treat her medically we can not control infection medically we may need to consider surgery once again - Last Documented On 03/31/2023 3:52PM ; [facility] Instructions Includes: Instructions from this encounter Instructions to patient Lose weight Last Documented On 3 3:21PM ; [facility] Medical Equipment - Implanted Devices Includes: Current Devices No Medical Equipment Recorded Medications Includes: Medications discussed during this encounter and other current Medications New / Renewed during this visit Ad Stapleton MD on 03/18/2023 Clotrimazole 1% External Cream Provider: Ad Stapleton MD 30 day supply: 1 gram, 0 refills Diagnosis: use as directed Pharmacy: [facility]/pharmacy #[id number] [facility] [place], [address] - Last Documented On 3 4:47PM By Ragini Bradshaw ; [facility] Current Medications (continue as prescribed) HYDROcodone-Acetaminophen 5- 325 MG Oral Tablet 09/26/2024 Provider: Herbert Feldman MD Diagnosis: Take 1 tablet every 8 hrs prn pain Last Documented On 5 10:46AM By Moises Feldman ; [facility] traZODone HCl 50 MG Oral Tablet 01/29/2022 Provider: Diagnosis: Last Documented On 2 2:11PM By Alina Hoover [facility] SUMAtriptan Succinate 100 MG Oral Tablet 01/27/2022 Provider: Diagnosis: Last Documented On 2 2:11PM By Alina Manrique ; [facility] Carvedilol 25 MG Oral Tablet 01/23/2022 Provider: Diagnosis: Last Documented On 2 2:11PM By Alina Manrique ; [facility] Doxazosin Mesylate 2 MG Oral Tablet 01/23/2022 Provi carmina: Diagnosis: Last Documented On 2 2:11PM By Alina Manrique ; [facility] Simvastatin 20 MG Oral Tablet 01/16/2022 Provider: Diagnosis: Last Documented On 2 2:11PM By Alina Manrique ; [facility] clonazePAM 0.5 MG Oral Tablet 01/11/2022 Provider: Diagnosis: Last Documented On 2 2:11PM By Alina Manrique ; [facility] Pilocarpine HCl 5 MG Oral Tablet 01/05/2022 Provider : Bear Hamilton Diagnosis: Last Documented On 2 2:11PM By Alina Manrique ; [facility] Past Medications on file Medrol 4 MG Oral Tablet Ther apy Pack 09/26/2024 - 10/03/2024 Provider: Drew Levine Diagnosis: take as directed per instructions on box Last Documented On 5 10:46AM By Drew Ricardo ; [facility] Medications Administered Includes: Administered Medications from this encounter No Administered Medications Recorded Vital Signs Includes: Vital Signs from this encounter Vital Name 03/18/2023 03:52P Height (in) 58 Weight (lb) 175.3 Body Mass Index 36.6 Body Surface Area 1.7 Note: ct Last Documented: On 03/18/2023 3:52PM ; [facility] Results Includes: Results discussed during this encounter No Results Recorded For Specified Dates History of Present Illness Includes: History of Present Illness from this encounter VAL Weston is a 73 year old female. - Symptoms touching it makes the pain worse. - Allergy list reviewed - Problem list reviewed - Medication list reviewed - Previous history of new onset pain Injury is not work related or an automotive accident - Patient pain level from 1-10: 3 - Yes, previous treatment. - History of Physical Therapy Medications used for this condition: Patient is here today with recurrence of the onychomycosis on her left thumb Social History Description Last Updated Alcohol use socially drink 03/18/2023 Last Documented On 3 3:52PM ; [facility] Not a current smoker. 03/18/2023 Last Documented On 3 3:52PM ; [facility] No caffeine use 03/24/2022 Last Documented On 3 3:21PM ; [facility] No recent change in diet 03/24/2022 Last Documented On 3 3:21PM ; [facility] Not exercising regularly 03/24/2022 Last Documented On 3 3:21PM ; [facility] Not using drugs 03/24/2022 Last Documented On 3 3:21PM ; [facility] Tobacco non-user 03/24/2022 Last Documented On 3 3:21PM ; [facility] Non-smoker 03/24/2022 Last Documented On 3 3:21PM ; [facility] Not a smoker 03/24/2022 Last Documented On 3 3:21PM ; [facility] Not a current smoker. 06/26/2020 Last Documented On 3 3:21PM ; [facility] Not a current smoker 03/21/2019 Last Documented On 3 3:21PM ; [facility] Recent change in diet 03/21/2019 Last Documented On 3 3:21PM ; [facility] Smoking status : Never smoker 03/21/2019 Last Documented On 3 3:21PM ; [facility] No tobacco use 03/21/2019 Last Documented On 3 3:21PM ; [facility] Sex - Female 12/11/2024 Last Documented On 5 3:19PM ; [facility] Procedures and Surgical History Includes: Procedures from this encounter Procedures Code Diagnosis Performing Provider Service L ocation Service Date use of tobacco assessment performed 1000F Last Documented On 3 3:21PM ; [facility] patient screened for future fall risk: documentation of any fall with injury in past year 1100F Last Documented On 3 3:21PM ; [facility] review of medications documented 1160F Last Documented On 3 3:53PM ; [facility] Surgical History Last Updated History of hysterectomy 10/09/2021 Last Documented On 3 3:21PM ; [facility] History of total knee arthroplasty 2018 Right 10/09/2021 Last Documented On 3 3:21PM ; [facility] History of appendectomy 03/21/2019 Last Documented On 3 3:21PM ; [facility] Medical History Includes: Medical History addressed during this encounter Description Last Updated Recent immunization for flu 02/13/2022 Last Documented On 3 3:21PM ; [facility] Recent immunization for pneumococcal pne umonia 02/13/2022 09/26/2024 Last Documented On 3 3:21PM ; [facility] No recent immunization for pneumococcal pneumonia 03/18/2023 Last Documented On 3 3:52PM ; [facility] Recent immunization for flu 02/14/2022 1 05/18/2022 Last Documented On 3 3:52PM ; [facility] History of arthritis 10/09/2021 Last Documented On 3 3:21PM ; [facility] Use of CPAP 10/09/2021 Last Documented On 3 3:21PM ; [facility] Previous Fractures 08/09/2020 Last Documented On 3 3:21PM ; [facility] Appendectomy 06/26/2020 Last Documented On 3 3:21PM ; [facility] Heartburn / Acid Reflux 06/26/2020 Last Documented On 3 3:21PM ; [facility] Hypertension 06/26/2020 Last Documented On 3 3:21PM ; [facility] Hysterectomy 06/26/2020 Last Documented On 3 3:21PM ; [facility] Sleep Apnea 06/26/2020 Last Documented On 3 3:21PM ; [facility] Total knee arthroplasty 06/26/2020 Last Documented On 3 3:21PM ; [facility] Use of CPAP 06/26/2020 Last Documented On 3 3:21PM ; [facility] Arthritic joint problems 03/21/2019 Last Documented On 3 3:21PM ; [facility] Intermittent hypertension 03/21/2019 Last Documented On 3 3:21PM ; [facility] Carpal tunnel/ulnar removed-right ~high cholesterol 03/31/2017 Last Documented On 3 3:21PM ; [facility] History of diverticulitis of colon 03/31 Last Documented On 3 3:21PM ; [facility] Family History Includes: Family History addressed during this encounter Description Last Updated Family history of thromboembolic disease 10/09/2021 Last Documented On 3 3:21PM ; [facility] Family history of rheumatoid arthritis 0 06/26/2020 Last Documented On 3 3:21PM ; [facility] Stroke / Seizures 06/26/2020 Last Documented On 3 3:21PM ; [facility] stroke/seizure 03/21/2019 Last Documented On 3 3:21PM ; [facility] Family history of cancer 03/21/2019 Last Documented On 3 3:21PM ; [facility] Family history of hypertension 9 Last Documented On 3 3:21PM ; [facility] Review of Systems Includes: Review of Systems from this encounter Systemic: Not feeling tired, no recent weight loss, and no recent weight gain. Head: No headache and no sinus pain. Eyes: No vision problems, no Cataracts, no Glasses/Contacts, and no Glaucoma. Otolaryngeal: No hearing loss and no tinnitus. Cardiovascular: No chest pain or discomfort, no palpitations, no Hypertension, and no High Cholesterol. Pulmonary: No daytime asthma symptoms and no chronic cough. No wheezing. Gastrointestinal: No heartburn and no abdominal pain. No Indigestion, no Acid Reflux, no Peptic Ulcer, no GI Stomach Bleed, and no Ulcers. Endocrine: No hot flashes, no muscle weakness, no Diabetes, no Hypothyroid, and no Hyperthyroid. Hematologic: No easy bleeding, no tendency for easy bruising, and no Anemia. Musculoskeletal: No Arthritis and no lower back pain. No soft tissue swelling and no localized joint pain. Neurological: No dizziness, no convulsions, and no numbness. Psychological: No anxiety, no emotional lability, no depression, and no insomnia. Not crying for no reason. Skin: No dry skin. No Ulcers, no Scars, and no rash. Allergic and Immunologic: No complaint of seasonal allergic reaction. Mental Status Includes: Mental Status from this encounter Description No anxiety Last Documented On 3 3:21PM ; [facility] Physical Exam Includes: Physical Exam from this encounter Allergies Includes: Active Allergies Substance Type Reaction Onset Date Resolved Date Statu s OTHER Allergy maxalt/ziac 10/09/2021 Active Last Documented On 5 9:13AM ; [facility] Morphine Derivatives Allergy Nausea, Vom iting, Diarrhea / Diarrheal disorder 08/05/2009 Resolved Last Documented On 7 9:34AM ; [facility] Care Dredge Master Name (Identifier) Role/Relation Location/Telecom Last Documented By Ad Stapleton MD ([id number]) Assigned practitioner (occupation) tel:[phone] Last Documented On 12/11/2024 3:19PM ; [facility] CODIE HAYWOOD MD (FP) ([id number]) Primary care physician (occupation) [address], [place], [place], [place], [address] tel: Last Documented On 12/11/2024 3:19PM ; [facility] Mohan Napier Clarigo CLARK ([id number]) [address] , [place], [place], [address] tel: Last Documented On 03/21/2019 3:39PM ; [facility] Encounters Encounter Provider Location (Healthcare Service Location) Date Check-In Time Check-Out Time Diagnosis Encounter Disposition Follow Up Ad Stapleton MD [facility] 2022 2:32PM 4:34PM Payer Includes: Active Insurance Policies Plan Name (Payer ID) Coverage Type Member ID Group # Subscriber (ID) Relationship Effective Dates 1 - [place] ([id number]) [id number] Stacey Weston Self 01/15/2013 - Unknown Last Documented On 9 8:26AM ; [facility] 2 - [facility] ([id number]) [id number] Stacey mantilla Self 05/17/2016 - Unknown Last Documented On 2 11:18AM ; [facility] Clinical Notes Includes: Clinical Notes from this encounter * Progress note Date Encounter Last Documented by 03/18/2023 Follow Up Last documented on 03/31/2023; 3:52 PM, Ad Stapleton MD; [facility] Active Problems & Conditions - Joint Pain in the Right Knee - Joint Pain Right Thumb Chief Complaint The Chief Complaint is: Right thumb pain. Referred Here Referred by self. History of Present Illness Stacey Weston is a 73 year old female. - Symptoms touching it makes the pain worse. - Allergy list reviewed - Problem list reviewed - Medication list reviewed - Previous history of new onset pain Injury is not work related or an automotive accident - Patient pain level from 1-10: 3 - Yes, previous treatment. - History of Physical Therapy Medications used for this condition: Patient is here today with recurrence of the onychomycosis on her left thumb Current Medication - Carvedilol 25 MG Oral Tablet 30 days, 0 refills - clonazePAM 0.5 MG Oral Tablet 30 days, 0 refills - Doxazosin Mesylate 2 MG Oral Tablet 30 days, 0 refills - Pilocarpine HCl 5 MG Oral Tablet 90 days, 0 refills - Simvastatin 20 MG Oral Tablet 90 days, 0 refills - SUMAtriptan Succinate 100 MG Oral Tablet 6 days, 0 refills - traZODone HCl 50 MG Oral Tablet 90 days, 0 refills Past Medical/Surgical History Reported: Use of CPAP. Use of CPAP. Medical: Arthritic joint problems. Intermittent hypertension. Immunization History: Recent immunization for flu 02/13/2022, for flu 02/14/2022, and for pneumococcal pneumonia 02/13/2022. No recent immunization for pneumococcal pneumonia. Diagnoses: Sleep Apnea Heartburn / Acid Reflux Hypertension. Diverticulitis of colon. Arthritis Carpal tunnel/ulnar removed-right high cholesterol. Surgical: - Appendectomy - Appendectomy - Hysterectomy - Hysterectomy - Previous Fractures - Total knee arthroplasty - Total knee arthroplasty 2018 Right Social History Not a current smoker. Not a current smoker. Current diet: Recent change in diet. No recent change in diet. Caffeine use: No caffeine use. Tobacco use: No tobacco use and not a current smoker. Tobacco non-user. Not a smoker. Non-smoker. Smoking status: Never smoker. Alcohol: Alcohol use socially drink. Drug Use: Not using drugs. Habits: Not exercising regularly. Allergies - OTHER Reaction: maxalt/ziac Family History Cancer Stroke / Seizures Stroke/seizure Systemic hypertension Thromboembolic disease Rheumatoid arthritis Review Of Systems Systemic: Not feeling tired, no recent weight loss, and no recent weight gain. Head: No headache and no sinus pain. Eyes: No vision problems, no Cataracts, no Glasses/Contacts, and no Glaucoma. Otolaryngeal: No hearing loss and no tinnitus. Cardiovascular: No chest pain or discomfort, no palpitations, no Hypertension, and no High Cholesterol. Pulmonary: No daytime asthma symptoms and no chronic cough. No wheezing. Gastrointestinal: No heartburn and no abdominal pain. No Indigestion, no Acid Reflux, no Peptic Ulcer, no GI Stomach Bleed, and no Ulcers. Endocrine: No hot flashes, no muscle weakness, no Diabetes, no Hypothyroid, and no Hyperthyroid. Hematologic: No easy bleeding, no tendency for easy bruising, and no Anemia. Musculoskeletal: No Arthritis and no lower back pain. No soft tissue swelling and no localized joint pain. Neurological: No dizziness, no convulsions, and no numbness. Psychological: No anxiety, no emotional lability, no depression, and no insomnia. Not crying for no reason. Skin: No dry skin. No Ulcers, no Scars, and no rash. Allergic and Immunologic: No complaint of seasonal allergic reaction. Physical Findings - Vitals taken 03/18/2023 03:[address] Height 58 in 59 - 78 Weight 175 lbs 4.8 oz 95 - 175 Body Mass Index 36.6 kg/m2 Body Surface Area 1.7 m2 Standard Measurements: - Patient was overweight. The patient is awake alert oriented in time place and person. Is in no acute distress. Has normal mood and affect. Is neatly dressed. Has normal gait and station. Pupils are equal and react to light normally. Eyes move normally. Mucous membranes are moist. The patient has no trouble with speech. The patient is afebrile. Patient has a thickened thumb nail plate on the right thumb. Thickening corresponds to an area discoloration under the nail plate. Counseling/Education - Lose weight Plan StartCited - Other Clotrimazole 1% gram use as directed, 30 days, 0 refills EndCited Fall Risk Assessment: This patient has been identified as a fall risk. Balance/gait along with postural blood pressure, vision and home fall hazards have been assessed. Medications have been reviewed, and recommendations made with regard to contributing factors for future falls. Plan of care: Consideration of vitamin D supplementation along with balance and strength training with consideration for formal physical therapy has been discussed with the patient. Practice Management Use of tobacco assessment performed and patient screened for future fall risk documentation of any fall with injury in past year Review of medications documented. Care Team - Mohan Knox, DO Notes This dictation was done with voice recognition software and may contain errors and omissions. User Defined 5 X-ray of the right hand 3 views shows no fractures or dislocations. Alignment is good. There are no areas of lucency. Patient has onychomycosis. We will need to try to treat her medically we can not control infection medically we may need to consider surgery once again
--- OUTSIDE RECORDS SUMMARY | 2025-05-13 19:47 | XMS_ITS | Clinical Summary ---
Author Organization [facility] Address [address] [place] [address] Care Team Providers Care Title Clerk Automobile Name Role Phone Phoebe Cabrera DO Primary Care Provider Allergies No known active allergies Social History Tobacco Use Types Packs/Day Years Used Date Smoking Tobacco: Never Assessed Abuse Screen Answer Date Recorded Unsafe at Home or Work/School Not on file Feels Threatened by Someone? Not on file 01/2023 Does Anyone Keep You from Co ntacting Others or Doint Things Outside the Home? Not on file 02/22/2023 Physical Sign of Abuse Present Not on file 1 Housing Stability Answer Date Recorded Current Living Arrangements Not on file 01/2023 Potentially Unsafe Housing Conditions Not on brigette e 02/22/2023 Family and Community Support Answer Curt e Recorded Help with Day-to-Day Activities Not on file 02/22/2023 Lonely or Isolated Not on file 02/22/2023 Employment Answer Date Recorded Do you want help finding or keeping work or a moo b? Not on file 02/22/2023 Disabilities Answer Date Recorded Concentrating, Remembering, or Making Decisions Difficulty Not on file 02/22/2023 Doing Errands Independently Difficulty Not on fi le 02/22/2023 Education Answer Date Recorded Help with school or training? Not on file Preferred Language Not on file 02/22/2023 Comments Unknown Sex and Gender Information Value Date Recorded Sex Assigned at Not on file Legal Sex Female 10:50 AM EDT Gender Identity Not on file Sexual Orientation Not on file Plan of Treatment Health Maintenance Due Date Last Done Comments ANNUAL PHYSICAL 1950 HEPATITIS C SCREENING 1950 TDAP/TD VACCINES (1 - Tdap) 01/19/1967 RSV Vaccine - Adults (1 - 1- dose 75+ series) 01/19/2023 DXA SCAN 12/07/2024 12/07/2022, 11/03/2017 INFLUENZA VACCINE 12/15/2024 01/29/2023, , 02/05/2022, Additional history exists COVID-19 Vaccine (2024-2 6 season) 2025 05/04/2023, 04/06/2022, 11/05/2021, Additional history exists Pneumococcal Vaccine 50+ Completed 022, 02/14/2021, 06/29/2014, Additional history exists ZOSTER VACCINE Completed 08/18/2022, 03/17, 03/30/2014 Insurance MEDICARE A & B [employer] [facility] Care Teams Title Clerk Automobile Relationship Specialty Start Date End Date Phoebe Cabrera DO [address] [facility] [address] [place] [address] PCP - General Family Medicine 07/07/23
--- OUTSIDE RECORDS SUMMARY | 2025-05-13 19:47 | XMS_ITS | Patient Health Record ---
Author Organization [facility] Address [address] [facility] [address] [place] [address] Phone [phone] Care Team Providers Care Publication Specialist Name Role Phone Josesito Braxton DO Primary Care Provider UnavailScar Mendiola M.D. Unavailable [facility] JF TOBIAS DO Unavailable Unavailable Allergies Allergen (clinical drug ingredient) Drug/Non Drug Allergy documented on EMR Reaction Allergy Type Onset Date Status rizatriptan Maxalt Unknown Drug Allergy Activ e Ziac Unknown Drug Allergy Active Reason For Referral No Information Medications Medication SIG (Take, Route, Frequency, Duration) Notes Start Date End Date Diagnosis (ICD Code) Status Famotidine 20 MG Tablet TAKE 1 TABLET [...] MG Tablet 1 tablet Orally Twice daily 024 HTN (hypertension) (ICD_10 - I10) Active Sertraline HCl 100 MG Tablet 1 tablet Orally Once a day; Duration: 30 days Active Simvastatin 20 MG Tablet 1 tablet in the evening Orally Once a day; Duration: 30 day(s) Active Carvedilol 25 MG Tablet TAKE 1 TABLET BY MOUTH TWICE A DAY WITH FOOD FOR 90 DAYS; Duration: 90 Active Probiotic - Capsule as directed Orally *[facility]* Active clonazePAM 0.5 MG Tablet 1 tablet at bedtime Orally Once a day Active rOPINIRole HCl 2 MG Tablet 1 tablet 1 to 3 hours before bedtime Orally Once a day; Duration: 30 days Active Losartan Potassium 100 MG Tablet 1 tablet in the international marketing intern Orally Once a day Hyponatremia (ICD_10 - E87.1) Active Benefiber - Powder as directed Orally Active Omeprazole 20 MG Capsule Delayed Release 1 capsule Orally twice daily; Duration: 30 days Active Hydroxychloroquine Sulfate 200 MG Tablet 1 tablet Orally once daily Active hydrOXYzine HCl 25 MG Tablet 2 tablets Orally Once a day; Duration: 30 days Active Domperidone 10mg TID Orally *Reorder from [facility] for eRx and Interaction Alerts* Not-Taki ng Potassium Chloride Anamaria ER 20 MEQ Tablet Extended Release 1 tablet with food Orally Once a day Not-Taki ng Pilocarpine HCl 5 MG Tablet 1 tablet Orally twice daily; Duration: 30 days Not-Taki ng SUMAtriptan Succinate 100 MG Tablet 1 tablet at least 2 hours between doses as needed Orally Twice a day as needed Active Wegovy 1 MG/0.5ML Solution Auto-injector 0.5 mL Subcutaneous 024 Active Social History Sex Observation Social History Observation Description Sex Observation Female Social History Additional Details Category Social Info Options Details Migrated Social History Drugs/Alcohol: (Alcohol Screen (Audit-C)): Did you have a drink containing alcohol in the past year?: No, Points: 0, Interpretation: Negative (Caffeine): Intake: 3-4 cups per day Tea (Drugs): Have you used drugs other than those for medical reasons in the past 12 months? 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) SIADH (syndrome of inappropriate ADH production) (E22.2) Added On:07/17 Active confirmed Vital Signs Vital Sign Value Notes Appt Date Heart Rate 76 /min 03/20/2025 Temperature 97.5 degrees Fahrenheit 08/2024 Respiratory Rate 20 /min 03/20/2025 Height-cm 149.86 cm 03/20/2025 Oximetry 97 % 03/20/2025 Blood pressure diastolic 72 mm Hg 08/2024 Weight-kg 82.83 kg 03/20/2025 Height 59 in 03/20/2025 Blood pressure systolic 125 mm Hg 08/2024 Weight 182.6 lbs 03/20/2025 BMI 36.88 kg/m2 03/20/2025 Encounters Date Time Type Facility Location Provider Diagnosis 08/08/19 02:40 PM Office Visit, [place]., Level 4 ([address]1996) [address] [address] Scar Dhaliwal HTN (hypertension) I10 ; Obese E66.9 ; Hyperlipidemia E78.5 and SIADH (syndrome of inappropriate ADH production) E22.2 10/18/19 03:40 PM Office Visit, Est Pt., Level 3 ([address]) [address] [address] Scar Dhaliwal SIADH (syndrome of inappropriate ADH production) E22.2 ; Hyponatremia E87.1 ; HTN (hypertension) I10 ; Hyperlipidemia E78.5 and Obese E66.9 03/20/20 25 01:20 PM Office Visit, Est Pt., Level 3 ([address]) [address] [address] Scar Dhaliwal SIADH (syndrome of inappropriate ADH production) E22.2 ; HTN (hypertension) I10 ; Hyperlipidemia E78.5 and Obese E66.9 08/01/19 25 07:57 AM [facility] En[facility] [place] [address] [address] [place] [address] Scar Dhaliwal SIADH (syndrome of inappropriate ADH production) E22.2 08/04/19 09:43 AM Telephone Encounter [facility] [address] [place] [address] Scar Dhaliwal 08/09/19 12:09 PM Telephone Encounter [facility] [address] [place] [address] Scar Dhaliwal Assessments Encounter Date Diagnosis (ICD Code) Assessment Notes Treat ment Notes Section Notes 07/31/2024 SIADH (syndrome of inappropriate ADH production) (ICD-10 - E22.2) 08/07/2024 HTN (hypertension) (ICD-10 - I10) I reviewed the summary notes from recent hospital visits particularly as relates to her blood pressure issue. It would appear that it was mildly elevated on admission and came down with minimal intervention and no change in chronic medications. Her labs were essentially normal. Since her most recent visit she has had no chest pain shortness of breath or edema. We discussed her medical treatment and have agreed to try the clonidine on a BID schedule once again. She is pretty sure that the dose is still 0.1 mg. I asked her let me know if it is not the case. Otherwise we agreed to meet again in 2 months. She was encouraged to contact us if issues arise in between visits. 10/17/2024 SIADH (syndrome of inappropriate ADH production) (ICD-10 - E22.2) I shared today's findings with Stacey. I pointed out that her serum sodium is low normal and certainly safe. Her blood pressure I think is reasonably well-controlled but I asked her to monitor this at home which she says she is doing. I asked her to let me know if the top number is consistently above 140. Otherwise, I have made no changes in those medications. She would certainly benefit from taking a thiazide diuretic but because of her Na situation we are having to avoid this. I once again explained that weight loss would improve her health in general. She has stopped taking Wegovy as it evidently made her nauseous. I mentioned that there are other medications similar to this that are available if she wants to try them through her PCP. I reminded her to avoid excessive fluid intake. We agreed to meet again in 4 months. 10/17/2024 Hyponatremia (ICD-10 - E87.1) I shared today's findings with Stacey. I pointed out that her serum sodium is low normal and certainly safe. Her blood pressure I think is reasonably well-controlled but I asked her to monitor this at home which she says she is doing. I asked her to let me know if the top number is consistently above 140. Otherwise, I have made no changes in those medications. She would certainly benefit from taking a thiazide diuretic but because of her Na situation we are having to avoid this. I once again explained that weight loss would improve her health in general. She has stopped taking Wegovy as it evidently made her nauseous. I mentioned that there are other medications similar to this that are available if she wants to try them through her PCP. I reminded her to avoid excessive fluid intake. We agreed to meet again in 4 months. 03/20/2025 SIADH (syndrome of inappropriate ADH production) [...] least 1 more time in 6 months. 08/07/2024 Obese (ICD-10 - E66.9) I reviewed the summary notes from recent hospital visits particularly as relates to her blood pressure issue. It would appear that it was mildly elevated on admission and came down with minimal intervention and no change in chronic medications. Her labs were essentially normal. Since her most recent visit she has had no chest pain shortness of breath or edema. We discussed her medical treatment and have agreed to try the clonidine on a BID schedule once again. She is pretty sure that the dose is still 0.1 mg. I asked her let me know if it is not the case. Otherwise we agreed to meet again in 2 months. She was encouraged to contact us if issues arise in between visits. 10/17/2024 HTN (hypertension) (ICD-10 - I10) I shared today's findings with Stacey. I pointed out that her serum sodium is low normal and certainly safe. Her blood pressure I think is reasonably well-controlled but I asked her to monitor this at home which she says she is doing. I asked her to let me know if the top number is consistently above 140. Otherwise, I have made no changes in those medications. She would certainly benefit from taking a thiazide diuretic but because of her Na situation we are having to avoid this. I once again explained that weight loss would improve her health in general. She has stopped taking Wegovy as it evidently made her nauseous. I mentioned that there are other medications similar to this that are available if she wants to try them through her PCP. I reminded her to avoid excessive fluid intake. We agreed to meet again in 4 months. 10/17/2024 Hyperlipidemia (ICD-10 - E78.5) I shared today's findings with Stacey. I pointed out that her serum sodium is low normal and certainly safe. Her blood pressure I think is reasonably well-controlled but I asked her to monitor this at home which she says she is doing. I asked her to let me know if the top number is consistently above 140. Otherwise, I have made no changes in those medications. She would certainly benefit from taking a thiazide diuretic but because of her Na situation we are having to avoid this. I once again explained that weight loss would improve her health in general. She has stopped taking Wegovy as it evidently made her nauseous. I mentioned that there are other medications similar to this that are available if she wants to try them through her PCP. I reminded her to avoid excessive fluid intake. We agreed to meet again in 4 months. 08/07/2024 Hyperlipidemia (ICD-10 - E78.5) I reviewed the summary notes from recent hospital visits particularly as relates to her blood pressure issue. It would appear that it was mildly elevated on admission and came down with minimal intervention and no change in chronic medications. Her labs were essentially normal. Since her most recent visit she has had no chest pain shortness of breath or edema. We discussed her medical treatment and have agreed to try the clonidine on a BID schedule once again. She is pretty sure that the dose is still 0.1 mg. I asked her let me know if it is not the case. Otherwise we agreed to meet again in 2 months. She was encouraged to contact us if issues arise in between visits. 03/20/2025 Hyperlipidemia (ICD-10 - E78.5) I shared [...] least 1 more time in 6 months. 10/17/2024 Obese (ICD-10 - E66.9) I shared today's findings with Stacey. I pointed out that her serum sodium is low normal and certainly safe. Her blood pressure I think is reasonably well-controlled but I asked her to monitor this at home which she says she is doing. I asked her to let me know if the top number is consistently above 140. Otherwise, I have made no changes in those medications. She would certainly benefit from taking a thiazide diuretic but because of her Na situation we are having to avoid this. I once again explained that weight loss would improve her health in general. She has stopped taking Wegovy as it evidently made her nauseous. I mentioned that there are other medications similar to this that are available if she wants to try them through her PCP. I reminded her to avoid excessive fluid intake. We agreed to meet again in 4 months. 08/07/2024 SIADH (syndrome of inappropriate ADH production) (ICD-10 - E22.2) I reviewed the summary notes from recent hospital visits particularly as relates to her blood pressure issue. It would appear that it was mildly elevated on admission and came down with minimal intervention and no change in chronic medications. Her labs were essentially normal. Since her most recent visit she has had no chest pain shortness of breath or edema. We discussed her medical treatment and have agreed to try the clonidine on a BID schedule once again. She is pretty sure that the dose is still 0.1 mg. I asked her let me know if it is not the case. Otherwise we agreed to meet again in 2 months. She was encouraged to contact us if issues arise in between visits. Plan Of Treatment Pending Test Test Name Order Date Uric Acid, Serum 10/17/2024 Iron and TIBC 02/22/2024 CBC, Platelet with No Differential 02/21 CBC, Platelet with No Differential 10/17 CBC, Platelet with No Differential 03/20 CBC, Platelet with No Differential 08/07 Comp. Metabolic Panel (14) 08/07/2024 Comp. Metabolic Panel (14) 03/20/2025 Comp. Metabolic Panel (14) 10/17/2024 Basic Metabolic Panel (8) 02/22/2024 Urinalysis 02/22/2024 Urinalysis 03/20/2025 Urinalysis 10/17/2024 Urinalysis 08/07/2024 Uric Acid, Serum 12/29/2022 Uric Acid, Serum 09/11/2021 Uric Acid, Serum 09/28/2022 Uric Acid, Serum 07/04/2019 Urinalysis, Complete 09/11/2021 PTH, Intact 12/29/2022 CBC WITH DIFF 12/20/2023 Urinalysis 12/29/2022 .Renal Function Panel 12/29/2022 .Renal Function Panel 09/11/2021 CMP14+eGFR 11/26/2020 CMP14+eGFR 01/16/2020 CMP14+eGFR 07/18/2019 CMP14+eGFR 07/04/2019 CBC W/AUTO DIFF 09/11/2021 CBC W/AUTO DIFF 12/29/2022 URINALYSIS COMPLETE 12/20/2023 URINALYSIS COMPLETE 11/26/2020 URINALYSIS COMPLETE 09/28/2022 URINALYSIS COMPLETE 05/28/2020 URINALYSIS COMPLETE 07/18/2019 URINALYSIS COMPLETE 07/04/2019 CBC W AUTOMATED DIFFERENTIAL 07/18/2019 CBC W AUTOMATED DIFFERENTIAL 01/16/2020 CBC W AUTOMATED DIFFERENTIAL 11/26/2020 BMP 12/20/2023 BMP 10/18/2023 BMP 09/28/2022 BMP 09/21/2019 BMP 05/28/2020 BMP 04/15/2021 Future Test Test Name Order Date Urinalysis 08/19/2023 Vitamin D 08/19/2023 BMP8+eGFR 08/19/2023 Hgb+Hct 08/19/2023 Next Appt Details Provider Name:Scar Dhaliwal, 08/21/2025 11:30:00 AM, [address] [facility] [address], [place], [address], Insurance Providers Payer Name Payer Address Payer Phone Subscriber Number Group Number Insured Name Patient Relationship to Insured Coverage Start Date Coverage End Date CGS - Medicare [place] [place] [address] [id number] STACEY WATSON Self [place] [address] [phone] [id number] STACEY WATSON Self - patient is the insured Medical (General) History Medical History History ICD [...] placement 04/27/23 Hospitalization History Reason Date(Month/Year) [facility] - 4 day stay - sept ic UTI 11/12/22
--- OUTSIDE RECORDS SUMMARY | 2025-05-13 19:48 | XMS_ITS | Data Portability ---
Author Organization VIRIDIANA Garry hollingsworth, [place] [facility] Address [address] [facility] [address] [place] [address] Care Team Providers Care Astrobiologist Name Role Phone MARGO ALEJANDRO Sonar Subsystem Equipment Operator KAVON TANG Urologist YOVANI LOPEZ Guest Experience Manager LEI BRAXTON Primary Care Provider CHARLIE BAUTISTA Geriatric Nurse Practitioner INGRID CASTAÑEDA Referring Provider [phone] Assessment Encounter Date Assessment Date Assessment LastModified [...] Details Appointments PHYSICAL EXAM 2025 09:00A M LEI BRAXTON DO Not available Not available Not available CARDIO ULTRASOUN D 2025 01:45P M CARDIO_UL TRASOUND Not available Not available Not available INJECTION 2025 09:00A M Endocrino logy_nurs e Not available Not available Not available DERM VISIT 2025 08:20A M LOAN MDEINA JD EDWARDS DEVELOPER Not available Not available Not available RECHECK [...] Lab CBC w/ auto diff 2024 025 [facility], [address] [place] [address], [id number], 04/20/2025 19:15:20 vitamin D, 25-hydrox y, total, serum 2024 025 [facility], [address] [place] [address], [address], 03/23/2025 17:14:21 PTH (parathyr oid hormone), intact + calcium, serum or plasma 2024 025 [facility], [address] [place] [address], [id number], 03/23/2025 17:14:20 Referral None recorded. Procedures None recorded. Surgeries None recorded. Imaging XR, chest, 2 view 2024 025 [facility]iology, [address], [place], [address], 04/20/2025 17:57:11 US, doppler echocardi ogram, w/ color flow 2024 025 [email or web address] [facility], [address] [place] [address] , [place], [address], 04/24/2025 10:49:38 DEXA - 1 year follow-up osteopeni a on Prolia therapy 2024 026 [facility], [address] [place], [address], 03/23/2025 15:51:54 Medication Orders Xiidra 5 % eye drops in a dropperet te 2024 025 [facility]/Pharmacy #[id number], [address] [place], [address], 04/23/2025 11:21:56 albuterol sulfate HFA 90 mcg/actua tion aerosol inhaler 2024 025 [facility]/Pharmacy #2332, [address] [place], [address], 04/20/2025 15:30:20 Patient TargetsNo targets recorded. Patient Instructions Encounter Date Encounter Id Patient Instructions Last Modified By Organization Details Last Modified Time 03/29/2025 [id number] body mass index: care instructions Not available 03/29/2025 16:32:42 high blood pressure: care instructions Not available 03/30/2025 12:38:48 Heart Station Patient Instructions Not available 03/29/2025 16:32:42 04/20/2025 [id number] complete PFT w/ post bronchodilator spirometry* [email or web address] Not available 05/03/2025 09:37:38 - An order will be placed for you to have a chest X-ray and blood work done today. - The staff will help you schedule an appointment for pulmonary function tests to check your lung function. - Keep your appointment with the global mobility specialist for an echocardiogram, which is scheduled [...] Refer ence range s are based on [facility] [place] norms and do not neces aiden martinez [...] mary anne. Arthr itis Care and Resea [facility] Vol 64 No 10, 2011 José can Colle ge of Rheum atolo gy ----- ----- ----- ----- ----- ----- ----- ----- ----- ----- ----- ---- Not Available [facility] [address] [place] [address], [address], 03/16/2025 14:19:08 03/16/20 25 03/16/2025 COMP. METAB OLIC PANEL glucose 99 mg/dL 74-100 normal Not Available [facility] [address] [place] [address], [address], 03/16/2025 14:19:06 03/16/20 25 03/16/2025 COMP. METAB OLIC PANEL blood urea nitrogen 14 mg/dL 6-20 normal Not Available [facility] [address] [place] [address], [address], 03/16/2025 14:19:06 03/16/20 25 03/16/2025 COMP. METAB OLIC PANEL creatinine 0.84 mg/dL 0.50-0 .95 normal Not Available [facility] [address] [place] [address], [address], 03/16/2025 14:19:06 03/16/20 25 03/16/2025 COMP. METAB OLIC PANEL BUN/creatini ne ratio 17 (calc ) 10-20 normal Not Available [facility] [address] [place] [address], [address], 03/16/2025 14:19:06 03/16/20 25 03/16/2025 COMP. METAB OLIC PANEL sodium 138 mmol/ L 136-14 5 normal Not Available [facility] [address] [place] [address], [address], 03/16/2025 14:19:06 03/16/20 25 03/16/2025 COMP. METAB OLIC PANEL potassium 4.1 mmol/ L 3.4-5. 0 normal Not Available [facility] [address] [place] [address], [address], 03/16/2025 14:19:06 03/16/20 25 03/16/2025 COMP. METAB OLIC PANEL chloride 103 mmol/ L 98-107 normal Not Available [facility] [address] [place] [address], [address], 03/16/2025 14:19:06 03/16/20 25 03/16/2025 COMP. METAB OLIC PANEL carbon dioxide 21 mmol/ L 22-31 low Not Available [facility] [address] [place] [address], [address], 03/16/2025 14:19:06 03/16/20 25 03/16/2025 COMP. METAB OLIC PANEL anion gap 14 (calc ) 7-25 normal Not Available [facility] [address] [place] [address], [address], 03/16/2025 14:19:06 03/16/20 25 03/16/2025 COMP. METAB OLIC PANEL calcium 9.0 mg/dL 8.6-10 .2 normal Not Available [facility] [address] [place] [address], [address], 03/16/2025 14:19:06 03/16/20 25 03/16/2025 COMP. METAB OLIC PANEL total protein 6.4 g/dL 6.4-8. 3 normal Not Available [facility] [address] [place] [address], [address], 03/16/2025 14:19:06 03/16/20 25 03/16/2025 COMP. METAB OLIC PANEL albumin 3.8 g/dL 3.5-5. 2 normal Not Available [facility] [address] [place] [address], [address], 03/16/2025 14:19:06 03/16/20 25 03/16/2025 COMP. METAB OLIC PANEL globulin 2.6 1.5-4. 5 normal Not Available [facility] [address] [place] [address], [address], 03/16/2025 14:19:06 03/16/20 25 03/16/2025 COMP. METAB OLIC PANEL albumin/glob ulin ratio 1.5 (calc ) 1.1-2. 5 normal Not Available [facility] [address] [place] [address], [address], 03/16/2025 14:19:06 03/16/20 25 03/16/2025 COMP. METAB OLIC PANEL bilirubin, total 1.0 mg/dL 0.1-1. 0 normal NOTE: New refer ence range . Not Available [facility] [address] [place] [address], [address], 03/16/2025 14:19:06 03/16/20 25 03/16/2025 COMP. METAB OLIC PANEL alkaline phosphatase 51 U/L 30-121 normal Not Available [facility] [address] [place] [address], [address], 03/16/2025 14:19:06 03/16/20 25 03/16/2025 COMP. METAB OLIC PANEL AST 21 U/L 0-32 normal Not Available [facility] [address] [place] [address], [address], 03/16/2025 14:19:06 03/16/20 25 03/16/2025 COMP. METAB OLIC PANEL ALT 25 U/L 0-33 normal Not Available [facility] [address] [place] [address], [address], 03/16/2025 14:19:06 03/16/20 25 03/16/2025 COMP. METAB OLIC PANEL eGFR 71 >= 60 normal NOT E New calcu latio n for GFR (CKD- EPI 2020) is formu lated witho ut race adjus tment facto rs at the [facility] menda tion of the Brice Holley y Jaciel atshira and Amjob Whartone ty of Nephr ology . This calcu latio n has not been valid ated in pregn ant women . For pedia tric patie nts refer to https ://leesa thomason.wilmer anderson/angelina mccrary s/VERONIKAO QI/gf r_cal culat orPed Not Available [facility] [address] [place] [address], [address], 03/16/2025 14:19:06 03/16/20 25 03/16/2025 UA WITH CULTU RE IF INDIC ATED color Yellow normal Not Available [facility] [address] [place] [address], [address], 03/16/2025 13:56:16 03/16/2003/16/2025 UA WITH CULTU RE IF INDIC ATED appearance Clear normal Not Available [facility] [address] [place] [address], [address], 03/16/2025 13:56:16 03/16/20 25 03/16/2025 UA WITH CULTU RE IF INDIC ATED glucose Normal mg/dL normal normal Not Available [facility] [address] [place] [address], [address], 03/16/2025 13:56:16 03/16/2003/16/2025 UA WITH CULTU RE IF INDIC ATED bilirubin Negati ve mg/dL negati ve normal Not Available [facility] [address] [place] [address], [address], 03/16/2025 13:56:16 03/16/2003/16/2025 UA WITH CULTU RE IF INDIC ATED ketone Negati ve mg/dL negati ve normal Not Available [facility] [address] [place] [address], [address], 03/16/2025 13:56:16 03/16/2003/16/2025 UA WITH CULTU RE IF INDIC ATED specific gravity 1.019 1.003- 1.035 normal Not Available [facility] [address] [place] [address], [address], 03/16/2025 13:56:16 03/16/2003/16/2025 UA WITH CULTU RE IF INDIC ATED blood Negati ve /uL negati ve normal Not Available [facility] [address] [place] [address], [address], 03/16/2025 13:56:16 03/16/2003/16/2025 UA WITH CULTU RE IF INDIC ATED pH 6.5 5.0 - 8.0 normal Not Available [facility] [address] [place] [address], [address], 03/16/2025 13:56:16 03/16/2003/16/2025 UA WITH CULTU RE IF INDIC ATED protein Negati ve mg/dL negati ve normal Not Available [facility] [address] [place] [address], [address], 03/16/2025 13:56:16 03/16/2003/16/2025 UA WITH CULTU RE IF INDIC ATED urobilinogen 1 mg/dL normal abnormal Not Available [facility] [address] [place] [address], [address], 03/16/2025 13:56:16 03/16/20 25 03/16/2025 UA WITH CULTU RE IF INDIC ATED nitrite Negati ve negati ve normal Not Available [facility] [address] [place] [address], [address], 03/16/2025 13:56:16 03/16/20 25 03/16/2025 UA WITH CULTU RE IF INDIC ATED leukocyte esterase Negati ve /uL negati ve normal Not Available [facility] [address] [place] [address], [address], 03/16/2025 13:56:16 03/16/20 25 03/16/2025 UA WITH CULTU RE IF INDIC ATED WBC, urine Rare 0-5/hp f normal Not Available [facility] [address] [place] [address], [address], 03/16/2025 13:56:16 03/16/2003/16/2025 UA WITH CULTU RE IF INDIC ATED RBC, urine 0-2 0-2/hp f normal Not Available [facility] [address] [place] [address], [address], 03/16/2025 13:56:16 03/16/20 25 03/16/2025 UA WITH CULTU RE IF INDIC ATED squamous epi. cells 0-5 0-5/hp f normal Not Available [facility] [address] [place] [address], [address], 03/16/2025 13:56:16 03/16/20 25 03/16/2025 UA WITH CULTU RE IF INDIC ATED reflex culture see below normal UA resul ts do not meet cultu re crite mckenzie. Not Available [facility] [address] [place] [address], [address], 03/16/2025 13:56:16 03/16/2003/16/2025 HEMOG BRITTANY white blood cells 6.2 10*3/ uL 3.8-10 .8 normal Not Available [facility] [address] [place] [address], [address], 03/16/2025 13:48:00 03/16/2003/16/2025 HEMOG BRITTANY red blood cells 4.65 10*6/ uL 3.80-5 .20 normal Not Available [facility] [address] [place] [address], [address], 03/16/2025 13:48:00 03/16/2003/16/2025 HEMOG BRITTANY hemoglobin 12.1 g/dL 12.0-1 6.0 normal Not Available [facility] [address] [place] [address], [address], 03/16/2025 13:48:00 03/16/2003/16/2025 HEMOG BRITTANY hematocrit 36.1 % 35.0-4 7.0 normal Not Available [facility] [address] [place] [address], [address], 03/16/2025 13:48:00 03/16/2003/16/2025 HEMOG BRITTANY MCV 78 fL 80-100 low Not Available [facility] [address] [place] [address], [address], 03/16/2025 13:48:00 03/16/2003/16/2025 HEMOG BRITTANY MCH 26 pg 26-35 normal Not Available [facility] [address] [place] [address], [address], 03/16/2025 13:48:00 03/16/20 25 03/16/2025 HEMOG BRITTANY MCHC 34 g/dL 32-36 normal Not Available [facility] [address] [place] [address], [address], 03/16/2025 13:48:00 03/16/20 25 03/16/2025 HEMOG BRITTANY RDW 14.7 % 11.0-1 5.0 normal Not Available [facility] [address] [place] [address], [address], 03/16/2025 13:48:00 03/16/20 25 03/16/2025 HEMOG BRITTANY MPV 7.0 fL 6.2-10 .5 normal Not Available [facility] [address] [place] [address], [address], 03/16/2025 13:48:00 03/16/2003/16/2025 HEMOG BRITTANY platelet count 271 10*3/ uL 150-40 0 normal Not Available [facility] [address] [place] [address], [address], 03/16/2025 13:48:00 03/23/20 25 03/23/2025 PTH, INTAC T WITH CA PTH, intact 62.0 pg/mL 17.9-5 8.6 high INTER PRETI VE GUIDE ===== ===== ===== ===== ===== ===== ===== ===== ===== ===== ===== === PTH CALCI UM CONDI TION ===== ===== ===== ===== ===== ===== ===== ===== ===== ===== ===== = Renata l Renata l Rentaa l Parat hyroi d _ Low or [...] ===== ===== ===== ===== ==== Not Available [facility] [address] [place] [address], [address], 03/23/2025 17:15:29 03/23/20 25 03/23/2025 PTH, INTAC T WITH CA calcium 9.0 mg/dL 8.6-10 .2 normal Not Available [facility] [address] [place] [address], [address], 03/23/2025 17:15:29 03/23/20 25 03/23/2025 VITAM IN D 25-OH vitamin D 25-oh, total 27 NG/mL >=30 NG/mL abnormal Not Available [facility] [address] [place] [address], [address], 03/23/2025 17:14:21 04/20/20 25 04/20/2025 COMPL ETE BLOOD COUNT white blood cells 6.5 10*3/ uL 3.8-10 .8 normal Not Available [facility] [address] [place] [address], [address], 04/20/2025 19:15:20 04/20/20 25 04/20/2025 COMPL ETE BLOOD COUNT red blood cells 4.70 10*6/ uL 3.80-5 .20 normal Not Available [facility] [address] [place] [address], [address], 04/20/2025 19:15:20 04/20/20 25 04/20/2025 COMPL ETE BLOOD COUNT hemoglobin 12.4 g/dL 12.0-1 6.0 normal Not Available [facility] [address] [place] [address], [address], 04/20/2025 19:15:20 04/20/20 25 04/20/2025 COMPL ETE BLOOD COUNT hematocrit 36.4 % 35.0-4 7.0 normal Not Available [facility] [address] [place] [address], [address], 04/20/2025 19:15:20 04/20/20 25 04/20/2025 COMPL ETE BLOOD COUNT MCV 78 fL 80-100 low Not Available [facility] [address] [place] [address], [address], 04/20/2025 19:15:20 04/20/20 25 04/20/2025 COMPL ETE BLOOD COUNT MCH 26 pg 26-35 normal Not Available [facility] [address] [place] [address], [address], 04/20/2025 19:15:20 04/20/20 25 04/20/2025 COMPL ETE BLOOD COUNT MCHC 34 g/dL 32-36 normal Not Available [facility] [address] [place] [address], [address], 04/20/2025 19:15:20 04/20/20 25 04/20/2025 COMPL ETE BLOOD COUNT RDW 14.8 % 11.0-1 5.0 normal Not Available [facility] [address] [place] [address], [address], 04/20/2025 19:15:20 04/20/20 25 04/20/2025 COMPL ETE BLOOD COUNT MPV 7.0 fL 6.2-10 .5 normal Not Available [facility] [address] [place] [address], [address], 04/20/2025 19:15:20 04/20/20 25 04/20/2025 COMPL ETE BLOOD COUNT platelet count 267 10*3/ uL 150-40 0 normal Not Available [facility] [address] [place] [address], [address], 04/20/2025 19:15:20 04/20/20 25 04/20/2025 COMPL ETE BLOOD COUNT neutrophil,a bsolute 3.9 10*3/ uL 1.6-8. 4 normal Not Available [facility] [address] [place] [address], [address], 04/20/2025 19:15:20 04/20/20 25 04/20/2025 COMPL ETE BLOOD COUNT lymphocyte,a bsolute 1.5 10*3/ uL 0.4-5. 1 normal Not Available [facility] [address] [place] [address], [address], 04/20/2025 19:15:20 04/20/20 25 04/20/2025 COMPL ETE BLOOD COUNT monocyte,abs olute 0.9 10*3/ uL 0.0-1. 2 normal Not Available [facility] [address] [place] [address], [address], 04/20/2025 19:15:20 04/20/20 25 04/20/2025 COMPL ETE BLOOD COUNT eosinophil,a bsolute 0.2 10*3/ uL 0.0-0. 8 normal Not Available [facility] [address] [place] [address], [address], 04/20/2025 19:15:20 04/20/20 25 04/20/2025 COMPL ETE BLOOD COUNT basophil,abs olute 0.1 10*3/ uL 0.0-0. 3 normal Not Available [facility] [address] [place] [address], [address], 04/20/2025 19:15:20 04/20/20 25 04/20/2025 COMPL ETE BLOOD COUNT % neutrophils 59.3 % 42.0-7 8.0 normal Not Available [facility] [address] [place] [address], [address], 04/20/2025 19:15:20 04/20/20 25 04/20/2025 COMPL ETE BLOOD COUNT % lymphocytes 23.0 % 11.0-4 7.0 normal Not Available [facility] [address] [place] [address], [address], 04/20/2025 19:15:20 04/20/20 25 04/20/2025 COMPL ETE BLOOD COUNT % monocytes 13.6 % 0.0-11 .0 high Not Available [facility] [address] [place] [address], [address], 04/20/2025 19:15:20 04/20/20 25 04/20/2025 COMPL ETE BLOOD COUNT % eosinophils 3.1 % 0.0-7. 0 normal Not Available [facility] [address] [place] [address], [address], 04/20/2025 19:15:20 04/20/20 25 04/20/2025 COMPL ETE BLOOD COUNT % basophils 1.0 % 0.0-3. 0 normal Not Available [facility] [address] [place] [address], [address], 04/20/2025 19:15:20 04/20/20 25 04/20/2025 COMPL ETE BLOOD COUNT nucleated red cells 0.0 % 0.0-0. 9 normal Not Available [facility] [address] [place], [address], 04/20/2025 19:15:20 04/20/20 25 04/20/2025 COMPL ETE BLOOD COUNT nucleated RBCs, absolute 0.00 10*3/ uL not estab. normal Not Available [facility] [address] [place], [address], 04/20/2025 19:15:20 03/24/20 25 03/23/2025 DEXA No observ ation record ed. IVETT Castañeda MD [address] [place], [address], 03/26/2025 12:33:01 03/29/20 25 03/29/2025 elect rocar diogr am No observ ation record ed. BARCODE Not Available 2024 16:54:21 04/20/20 25 04/20/2025 XR, chest , 2 view No observ ation record ed. IVETT Not Available 2024 13:51:02 04/20/20 25 04/20/2025 XR, chest , 2 view No observ ation record ed. IVETT [address], [address], 04/22/2025 13:51:02 04/23/20 25 04/20/2025 elect rocar [...] 25 05/02/2025 compl ete PFT w/ post cox north hodil ator jayce metry * No observ ation record ed. IVETT Prajapati [facility] [address] [facility] , [place], [address], 05/11/2025 15:43:58 Result Notes Documentation Provider Name and Address Organization Details Recorded Time Dexa : [facility] [address] [facility] [address]WNXAANT, Donna S (id #[id number], : 1950) [facility] [address] [place] [address] Date: 03/24/2025RE: Stacey Watson, : 1950, PT ID #[id number] Hurt DO, I would like to thank you for referring Stacey Watson to our practice for consultation and evaluation. I have enclosed a copy of the office evaluation for your records. Sincerely, Electronically Signed by: INGRID CASTAÑEDA, SANTArocedtawnya DocumentationDXA Low Bone Mass 2 - Tx:Bone [...] follow-up bone density while on Prolia therapy. 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 35233924 Active Not Available [facility] 3 08:06:45 Morbid obesity 860243729 Active Not Available [facility] 3 08:06:48 Chronic kidney disease stage 3B 289619898 Active Not Available [facility] 4 09:23:52 Body mass index 40+ - severely obese 835568529 Active Not Available [facility] 4 09:23:58 Insomnia 618447804 Active 2014 From Automate [employer] Load;Pro vider: Jenna Villa: Active LEI BRAXTON DO [facility] [place], [address] , [facility] 4 18:20:35 Hyperten sive disorder 28538480 Completed 201402/05/2019 From Automate d Load;Pro vider: Helio Villa;S tatus: Active [facility], DO [address] [place], [address] , [facility] 9 18:12:30 Hyperlip idemia 19046474 Active 2014 From Automate d Load;Pro vider: Helio Villa;S tatus: Active LEI BRAXTON, DO [address] [place] [address], [address] , [facility] 4 18:20:28 Melanocy tic nevus of trunk 129913251 Completed 201411/09/2016 From Automate d Load;Pro vider: Loan Medina; Status: [facility] 7 10:32:09 Senile hyperker atosis 550127426 Completed 201404/28/2016 From Automate d Load;Pro vider: Loan Medina; Status: Active HELIO VILLA MD [address] [place] [address], [address] [place] [address] , [facility] 6 15:20:57 Lentigo Completed 201404/28/2016 From Automate d Load;Pro vider: Loan Medina; Status: Active HELIO VILLA MD [address] [place] [address], [address] [place] [address] , [facility] 6 15:20:42 Hypertro phic conditio n of skin 28010574 Completed 201404/28/2016 From Automate d Load;Pro vider: Loan Medina; Status: Active HELIO VILLA MD [address] [place] [address], [address] , [facility] 6 15:21:10 Gastroin testinal tract finding Completed 201403/20/2019 From Automate d Load;Pro vider: Marlene Raza;S tatus: [place] [address] [place] [address], [address] , [facility] 9 08:44:09 Backache 717972914 Completed 201404/28/2016 From Automate d Load;Pro vider: Helio Villa;S tatus: Active HELIO VILLA MD [address] [place], [address] , [facility] 6 15:28:50 Function al heart murmur 38728489 Active 2014 From Automate d Load;Pro vider: Diaz Hill;S tatus: Active Not Available [facility] 3 08:12:47 Irritabl e bowel syndrome with diarrhea 602959015 Active 2014 From Automate d Load;Pro vider: Marlene Raza;S tatus: Active Not Available [facility] 3 08:12:47 Constipa tion 48807620 Completed 201511/09/2016 From Automate d Load;Pro vider: Marlene Raza;S tatus: [facility] 7 10:31:52 Lacerati on of hand 811220356 Completed 201504/28/2016 From Automate d Load;Pro vider: Helio Villa;S tatus: Active HELIO VILLA MD [address] [place], [address] , [facility] 6 15:21:03 Low back pain 271230283 Completed 201511/09/2016 From Automate d Load;Pro vider: Helio Villa;S tatus: [facility] 7 10:32:13 Hemangio ma 733084674 Completed 201511/09/2016 From Automate d Load;Pro vider: Loan Medina; Status: [facility] 7 10:32:17 Degenera tion of lumbar interver tebral disc 99352032 Active 2015 Not Available [facility] 3 08:12:47 Hyperkal emia 71493342 Completed 201803/17/2019 JF CHAMBERS, DO [address] [place], [address] , [facility] 9 08:33:51 Benign essentia l hyperten dwayne 3967722 Active 2018 LEI Susan NICOLLE, DO [address] [place], [place], [address] , [facility] 4 18:20:26 Fracture of phalanx of finger 93946878 Active 2018 Not Available [facility] 3 08:12:47 Hyponatr emia 05896974 Active 2018 Not Available [facility] 3 08:12:47 Migraine 93415442 Active 2019 Not Available [facility] 3 08:12:47 Generali zed anxiety disorder 79256069 Active 2020 Not Available [facility] 3 08:12:47 Restless legs syndrome 05748131 Active 2022 LEI BRAXTON, DO [address] [place], [address] , [facility] 4 11:41:36 COVID-19 536780899 Active 2022 BLADIMIR GLOVER MD [address] [place], [address] , [facility] 3 12:34:54 Lower abdomina l pain 45895338 Active 2023 CONNIE MOREIRA, DO [address] [place], [address] , [facility] 4 10:53:29 Stomach cramps 36173865 Active 2023 CONNIE MOREIRA, DO [address] [place], [address] , [facility] 4 11:21:49 Divertic ulosis of colon 255792064 Active 2023 CONNIE MOREIRA, DO [address] [place], [address] , [facility] 4 11:21:56 Nausea 998566451 Active 2023 CONNIE MOREIRA, DO [address] [place], [address] , [facility] 4 11:23:15 Obstruct ani sleep apnea of adult 65290492121 03 Active 2023 LEIVLADIMIR BRAXTON, DO [address] [place], [address] , [facility] 4 18:20:43 Anxiety 07765030 Active 2023 LEI BRAXTON, DO [address] [place], [address] , [facility] 4 11:41:56 Obesity 101801005 [facility] 10:34:[facility] Ex-smoke r 6530214 Active 2024 LEI BRAXTON, DO [address] [place], [address] , [facility] 5 10:41:21 Problem Notes Documentation Provider Name and Address Organization Details Recorded Time Sonar Subsystem Equipment Operator Consult Note : [place] [address] [facility] [address]AENENJE, Donna S (id #[id number], : 1950) [place] [address] [place] [address] Encounter Summary - Progress Note Date Printed: 04/23/2025 Documents sent via fax will include the followingmessage: This fax may contain sensitive and confidential personal health information that is being sent for the sole use of the intended recipient. Unintended recipients are directed to securely destroy any materials received. You are hereby notified that the unauthorized disclosure or other unlawful use of this fax or any personal health information is prohibited. To the extent patient information contained in this fax is subject to 42 CFR Part 2, this regulation prohibits unauthorized disclosure of these records. If you received this fax in error, please visit [email or web address] to notify the sender and confirm that the information will be destroyed. If you do not have internet access, please call to notify the sender and confirm that the information will be destroyed. Thank you for your attention and cooperation. [ID:[id number]] Patient Stacey Watson (75yo, F) #[id number] 1950 Patient Demographics: Address [address] [place] [phone] Encounter Notes: Encounter Reason/Date 75 yo F returns for a HVF and Mac Pt reports her VA is decreasing OD> OS States she has discomfort in OU Floaters in OU GTTS: Xiidra BID @ 7:30 AM AGM eyes water really bad plugs help vision declining using art tear daily too 200mg/day plaq 04/23/2025 - 09:30AM - [facility]ALMOLOGY [facility] History of Present IllnessNone recorded Review of SystemsROS as noted in the [facility] [id number] 09:50 Ht: 4 ft 11.5 in Results/Interpretations Physical ExamExternal Exam:General Appearance normal. Face: normal. Lids: normal. Pupils normal. Muscle Balance Testing: normal. EOM: normal. Visual Johnson Exam normal to count fingers OU. Slit Lamp Exam:Lids normal. Conjunctiva: normal. Cornea:abnormal(few pek ou). Anterior Chamber: normal. Iris: normal. Lens:abnormal(2+nsc ou 1+hans ou periphearlly). Fundus Exam:Vitreous: normal. Disc C/D Ratio normal, OD: 0.4, and OS: 0.4. Retinal Vessels normal. Macula: normal. Peripheral Retina normal. Psychiatric:Orientation: oriented to time, place, and person. Mental Status: affect normal. Procedure DocumentationOCT/Retina:Optica l Coherence Testing (OCT) of retina performed. See scanned document for detail.Punctual Plug:Punctual plug inserted in the tear duct of right and left lower ids. Patient tolerated procedure well. 0.7mm tear saver placed rll, lllVisual Field Extended:Extended visual field examination performed. See scanned report for findings. Assessment and Plan1. Long-term drug therapy-5 years of tx on plaq no retinopathy ou todayoct mac normal plaquenil therapy 200mg/day max daily dose 388mg/day for current body weight discussed risk of vision loss - non-reversible mac normal1 year oct mac hvf 10-2 Z79.899: [place] [facility] [place] 2. Dry eyes-failed art tearsrec xiidra bid oureplace plugs today H04.129: Dry eye syndrome of unspecified lacrimal gland Xiidra 5 % eye drops in a dropperette - PLACE 1 DROP INTO BOTH EYES TWICE A DAY APPROXIMATELY 12 HOURS APART Qty: (3) 60 dropperette, single-use drop dispenser blister pack Refills: 3 Pharmacy: [id number] Note to Pharmacy: restasis was sent in error - correct rx is for xiidra glasses (Expiration Date: 04/23/2026)Right -Sph: +1.75Cyl: sphAxis: A dd: +3.00Left -Sph: +1.25Cyl: +0.25Axis: 015Add: +3.00 3. Incipient senile meaawskeS97.099: Other age-related incipient cataract, unspecified eye Return to Office LEI BRAXTON DO for PHYSICAL EXAM at [facility] on 05/25/2025 at 09:00 AM CARDIO_ULTRASOUND for CARDIO ULTRASOUND at RADIOLOGY CARDIOLOGY [facility] on 06/06/2025 at 01:45 PM ENDOCRINOLOGY_NURSE for INJECTION at ENDOCRINOLOGY on 07/04/2025 at 09:00 AM LOAN MEDINA APRN for DERM VISIT at DERMATOLOGY [facility] on 01/09/2026 at 08:20 AM KAVON TANG MD for RECHECK at UROLOGY [facility] on 02/13/2026 at 09:00 AM to see MIKAL LOJA APRN for RECHECK at CARDIOLOGY [facility] on or around 03/30/2026 BONE_DENSITY for BONE DENSITY at BONE DENSITY on 04/04/2026 at 09:00 AM INGRID CASTAÑEDA MD for RECHECK at ENDOCRINOLOGY on 04/04/2026 at 09:15 AM to see MARGO ALEJANDRO MD at OPHTHALMOLOGY [facility] on or around 04/23/2026 Patient Medical History: Allergies List Reviewed Allergies BISOPROLOL-HYDROCHLOROTHIAZIDE LEVAQUIN: Rash LEVOFLOXACIN MAXALT: - hives / n/v METOCLOPRAMIDE HCL RIZATRIPTAN ZIAC: - hives / n/v Medications Reviewed Medications NameDate Source albuterol sulfate HFA 90 mcg/actuation aerosol inhalerInhale 2 puff(s) every 4 hours by inhalation route for 30 days.04/20/25 prescribed LEIVLADIMIR VASQUEZT, DO carvediloL 25 mg tabletTAKE 1 TABLET BY MOUTH TWICE A DAY WITH FOOD FOR 90 DAYS06/28/24 filled surescripts celecoxib 200 mg capsuleTAKE 1 CAPSULE BY MOUTH EVERY DAY03/23/25 renewed LEI L CHRISTINAT, DO clonazePAM 0.5 mg tabletTAKE 1 TABLET BY MOUTH EVERY DAY AT BEDTIME JTLHQQ23/26/25 renewed LEI L CHRISTINAT, DO cloNIDine HCL 0.1 mg tablet2 TABLETS ORALLY ONCE A DAY IN THE EVENING 30 DAYS12/21/24 renewed LEIVLADIMIR BRAXTON, DO Co Q-101 DAILY06/03/17 entered Skylar Burns COMPOUNDED MEDICATIONSemaglutide 4mg/1ml Injectable Inject 0.5mL (2mg=50 units) subcutaneously once weekly for four (4) weeks.07/17/24 prescribed LEI VASQUEZT, DO estradioL 0.01% (0.1 mg/gram) vaginal creamPLEASE SEE ATTACHED FOR DETAILED [id number]/08/23 filled surescripts famotidine 20 mg tabletTAKE 1 TABLET BY MOUTH TWICE A DAY GVEABR80/19/25 renewed LEIVLADIMIR VASQUEZT, DO fluticasone propionate 50 mcg/actuation nasal spray,suspensionSPRAY TWICE IN EACH NOSTRIL DAILY08/08/24 filled surescripts hydroxychloroquine 200 mg tabletTAKE 1 TABLET BY MOUTH EVERY DAY03/19/25 renewed YOVANI LOPEZ MD hydrOXYzine HCL 25 mg tabletTAKE 1 TO 2 TABLETS BY MOUTH AT BEDTIME QTLZEF78/14/25 renewed LEIVLADIMIR VASQUEZT, DO loratadine 10 mg tabletTake 1 tablet(s) every day by oral route for 90 days.12/21/24 prescribed LEIVLADIMIR VASQUEZT, DO losartan 100 mg tabletTAKE 1 TABLET BY MOUTH EVERY DAY01/11/25 renewed LEI VASQUEZT, DO omeprazole 20 mg capsule,delayed release1 capsule by mouth twice daily07/22/24 filled surescripts ondansetron 4 mg disintegrating tablet1-2 TABLETS BY MOUTH EVERY 8 HOURS NEEDED NEEDED FOR NAUSEA OR VOMITING.02/07/24 filled surescripts pilocarpine 5 mg tabletTAKE 1 TABLET BY MOUTH THREE TIMES A DAY FOR 90 DAYS03/19/25 renewed YOVANI LOPEZ MD VitaminDaily Internal Note:Per renal doc02/24/24 entered MIKAL LOJA APRN Probiotic Formula 10 billion cell(2 billion ea) capsuleDaily Internal Note:Frequency: daily;Medication Description: bifidobacterium-lactobacillus; Dosage:1; Route:oral; refills:0; Quantity:otc capsule--not taking, start started regan.262 Prolia 60 mg/mL subcutaneous syringeInject 1 mL by subcutaneous route for 80 days. Administer Note: Buy and bill Internal Note:Injects every 6 /08/25 administered AURELIO ARNETT APRN Purelax 17 gram oral powder [id number] GRAMS BY MOUTH ONCE DAILY11/16/22 filled surescripts Restasis 0.05 % eye drops in a dropperetteInstill by ophthalmic route.05/03/24 filled surescripts rOPINIRole 2 mg tabletTAKE 1 - 1&1/2 TABLETS BY MOUTH AT BEDTIME CPXWCX15/19/25 filled surescripts semaglutide 0.25 mg or 0.5 mg (2 mg/1.5 mL) subcutaneous pen injectorInject by subcutaneous route 0.25 MG once weekly.08/29/24 prescribed LEI VASQUEZT, DO semaglutide 2 mg/dose (8 mg/3 mL) subcutaneous pen injectorInject 2 mg every week by subcutaneous route for 30 days.06/29/24 prescribed LEI VASQUEZT, DO semaglutide methylcobalamin 4mg 1mg/1ml injectableInject 0.5mL (2mg=50 units) subcutaneously once weekly for four (4) weeks. Internal Note:to compounding ubbfylai27/04/25 filled surescripts sertraline 100 mg tabletTAKE 1 & 1/2 TABLET BY MOUTH EVERY DAY FOR 90 DAYS08/29/24 filled surescripts simvastatin 20 mg tabletTAKE 1 TABLET BY MOUTH EVERYDAY AT TYANEJI65/25/25 filled surescripts sodium fluoride 1.1 % dental pasteUSE GEEXPTUS55/15/25 renewed LEI BRAXTON, DO SUMAtriptan 100 mg tabletTAKE 1 TABLET BY MOUTH AT ONSET OF MIGRAINE, MAY REPEAT DOSE AFTER 2 HRS10/12/24 prescribed LEI BRAXTON, DO Sure Comfort Insulin Syringe 0.5 mL 31 gauge x 5/16 USE [id number]/15/25 filled surescripts Xiidra 5 % eye drops in a dropperettePLACE 1 DROP INTO BOTH EYES TWICE A DAY APPROXIMATELY 12 HOURS APART04/23/25 prescribed MARGO ALEJANDRO MD Some medications listed in Document: #[id number] could not be added to this patient's chart. Please review this document and add these medications to the patient's chart manually as needed. Family HistoryReviewed Family History Brother - Hypertensive disorder Sister - Hypertensive disorder - Migraine - Family history of malignant neoplasm (onset age: 61) - breast; niece breast Father - Hypertensive disorder - Family history of stroke (onset age: 62) - Family history of malignant neoplasm - undetermined type - Alcoholism - Hyperlipidemia Mother - Hypertensive disorder - Migraine - Tuberculosis NO FAMILY HX OF MM Past Medical HistoryReviewed Past Medical History Glasses/Contacts:Y Notes: Easy bleeding Vaccine HistoryVaccines not reviewed (last reviewed 04/20/2025) Vaccine Type Date Amt. Route Site [facility] Lot # Mfr. Exp. Date VIS VIS Given Apple Turner COVID-19 COVID-19, mRNA, LNP-S, PF, 50 mcg/0.5 mL 05/04/23 0.5 mL Intramuscular Deltoid, Right [id number] [employer] 08/12/23 COVID-19 mRNA ages 12 and up 03/04/2023 05/04/23 Kendal Canales COVID-19, mRNA, LNP-S, bivalent, PF, 50 mcg/0.5 mL dose (Moderna) 04/06/22 0.5 mL Intramuscular [id number] [employer] 09/22/22 COVID-19, mRNA, LNP-S, PF, 100 mcg/0.5 mL dose (Moderna) 11/05/21 0.5 mL Intramuscular [id number] [employer] 01/25/22 COVID-19, mRNA, LNP-S, PF, 100 mcg/0.5 mL dose (Moderna) 03/13/21 0.25 mL Intramuscular [id number] [employer] 07/25/21 COVID-19, mRNA, LNP-S, PF, 30 mcg/0.3 mL dose ([employer]) 07/17/20 0.3 mL [employer] COVID-19, mRNA, LNP-S, PF, 30 mcg/0.3 mL dose ([employer]) 06/15/20 0.3 mL Intramuscular [id number] [employer] 10/13/20 Diphtheria, Tetanus, Pertussis Tdap 03/10/24 0.5 mL [id number] Gl[employer]oSmithKline Influenza influenza, high dose seasonal 02/07/25 0.5 mL [id number] Sanofi Pasteur influenza, high dose seasonal 02/03/24 0.5 mL Intramuscular Deltoid, Left [id number] Sanofi Pasteur 11/13/24 Inactivated Influenza 12/20/2020 02/02/24 Maryjane Ritchie, Christina influenza, high-dose, quadrivalent 01/29/23 0.7 mL Intramuscular Deltoid, Right [id number] Sanofi Pasteur 11/14/23 Inactivated Influenza 12/20/2020 01/29/23 Kendal Andradeu influenza, high-dose, quadrivalent 02/05/22 0.7 mL Intramuscular [id number] Sanofi Pasteur 11/13/22 influenza, high-dose, quadrivalent 01/28/21 0.7 mL Intramuscular [id number] Sanofi Pasteur 11/13/21 Influenza vaccine, quadrivalent, adjuvanted 01/27/20 0.5 mL Intramuscular [id number] [employer] 09/25/20 influenza, high dose seasonal 02/03/19 0.5 mL Intramuscular [id number] Sanofi Pasteur 09/20/19 influenza, high dose seasonal 02/10/18 0.5 mL Intramuscular [id number] Sanofi Pasteur 08/01/18 influenza, injectable, quadrivalent 02/14/17 influenza, high dose seasonal 08/25/17 0.5 mL Intramuscular [id number] Sanofi Pasteur 07/16/17 influenza, high dose seasonal 01/30/16 influenza, high dose seasonal 01/24/15 0.5 mL influenza, seasonal, injectable 03/08/14 0.5 mL influenza, high dose seasonal 01/30/13 Pneumococcal pneumococcal conjugate PCV 13 06/29/14 pneumococcal polysaccharide PPV23 07/05/13 Respiratory Syncytial Virus RSV, recombinant, protein subunit RSVpreF, adjuvant reconstituted, 0.5 mL, PF 05/04/23 0.5 mL Intramuscular Deltoid, Left [id number] G75S4 Gl[employer]line 11/18/24 RSV (Respiratory Syncytial Virus) 03/04/2023 05/04/23 Kendal Canales Tetanus tetanus toxoid 07/24/05 Zoster zoster recombinant 08/18/22 0.5 mL Intramuscular [id number] Gl[employer]oSmithKline 10/12/23 zoster recombinant 03/30/22 0.5 mL Intramuscular [id number] GlaxoSmithKline 04/08/23 zoster live 03/30/14 Electronically Signed by: MARGO ALEJANDRO MD INGRID CASTAÑEDA MD [address] [place] [address], [phone] 04/23/2025 12:20:37 Sonar Subsystem Equipment Operator Consult Note : [address] [facility] [id number], Donna S (id #[id number], : 1950) [address] [place] [address] Encounter Summary - Progress Note Date Printed: 04/23/2025 Documents sent via fax will include the followingmessage: This fax may contain sensitive and confidential personal health information that is being sent for the sole use of the intended recipient. Unintended recipients are directed to securely destroy any materials received. You are hereby notified that the unauthorized disclosure or other unlawful use of this fax or any personal health information is prohibited. To the extent patient information contained in this fax is subject to 42 CFR Part 2, this regulation prohibits unauthorized disclosure of these records. If you received this fax in error, please visit [email or web address] to notify the sender and confirm that the information will be destroyed. If you do not have internet access, please call to notify the sender and confirm that the information will be destroyed. Thank you for your attention and cooperation. [ID:[id number]] Patient Stacey Watson (75yo, F) #[id number] 1950 Patient Demographics: Address [address] [place] [phone] Encounter Notes: Encounter Reason/Date 75 yo F returns for a HVF and Mac Pt reports her VA is decreasing OD> OS States she has discomfort in OU Floaters in OU GTTS: Xiidra BID @ 7:30 AM AGM eyes water really bad plugs help vision declining using art tear daily too 200mg/day plaq 04/23/2025 - 09:30AM - [facility]THALMOLOGY [facility] History of Present IllnessNone recorded Review of SystemsROS as noted in the [facility] [id number] 09:50 Ht: 4 ft 11.5 in Results/Interpretations Physical ExamExternal Exam:General Appearance normal. Face: normal. Lids: normal. Pupils normal. Muscle Balance Testing: normal. EOM: normal. Visual Johnson Exam normal to count fingers OU. Slit Lamp Exam:Lids normal. Conjunctiva: normal. Cornea:abnormal(few pek ou). Anterior Chamber: normal. Iris: normal. Lens:abnormal(2+nsc ou 1+hans ou periphearlly). Fundus Exam:Vitreous: normal. Disc C/D Ratio normal, OD: 0.4, and OS: 0.4. Retinal Vessels normal. Macula: normal. Peripheral Retina normal. Psychiatric:Orientation: oriented to time, place, and person. Mental Status: affect normal. Procedure DocumentationOCT/Retina:Optica l Coherence Testing (OCT) of retina performed. See scanned document for detail.Punctual Plug:Punctual plug inserted in the tear duct of right and left lower ids. Patient tolerated procedure well. 0.7mm tear saver placed rll, lllVisual Field Extended:Extended visual field examination performed. See scanned report for findings. Assessment and Plan1. Long-term drug therapy-5 years of tx on plaq no retinopathy ou todayoct mac normal plaquenil therapy 200mg/day max daily dose 388mg/day for current body weight discussed risk of vision loss - non-reversible mac normal1 year oct mac hvf 10-2 Z79.899: [place] [facility] [place] 2. Dry eyes-failed art tearsrec xiidra bid oureplace plugs today H04.129: Dry eye syndrome of unspecified lacrimal gland Xiidra 5 % eye drops in a dropperette - PLACE 1 DROP INTO BOTH EYES TWICE A DAY APPROXIMATELY 12 HOURS APART Qty: (3) 60 dropperette, single-use drop dispenser blister pack Refills: 3 Pharmacy: [facility] #[id number] Note to Pharmacy: restasis was sent in error - correct rx is for xiidra glasses (Expiration Date: 04/23/2026)Right -Sph: +1.75Cyl: sphAxis: A dd: +3.00Left -Sph: +1.25Cyl: +0.25Axis: 015Add: +3.00 3. Incipient senile yciuunqoP53.099: Other age-related incipient cataract, unspecified eye Return to Office LEI BRAXTON DO for PHYSICAL EXAM at [facility] on 05/25/2025 at 09:00 AM CARDIO_ULTRASOUND for CARDIO ULTRASOUND at RADIOLOGY CARDIOLOGY [facility] on 06/06/2025 at 01:45 PM ENDOCRINOLOGY_NURSE for INJECTION at ENDOCRINOLOGY on 07/04/2025 at 09:00 AM LOAN MEDINA APRN for DERM VISIT at DERMATOLOGY [facility] on 01/09/2026 at 08:20 AM KAVON TANG MD for RECHECK at UROLOGY [facility] on 02/13/2026 at 09:00 AM to see MIKAL LOJA APRN for RECHECK at CARDIOLOGY [facility] on or around 03/30/2026 BONE_DENSITY for BONE DENSITY at BONE DENSITY on 04/04/2026 at 09:00 AM INGRID CASTAÑEDA MD for RECHECK at ENDOCRINOLOGY [facility] on 04/04/2026 at 09:15 AM to see MARGO ALEJANDRO MD at OPHTHALMOLOGY [facility] on or around 04/23/2026 Patient Medical History: Allergies List Reviewed Allergies BISOPROLOL-HYDROCHLOROTHIAZIDE LEVAQUIN: Rash LEVOFLOXACIN MAXALT: - hives / n/v METOCLOPRAMIDE HCL RIZATRIPTAN ZIAC: - hives / n/v Medications Reviewed Medications NameDate Source albuterol sulfate HFA 90 mcg/actuation aerosol inhalerInhale 2 puff(s) every 4 hours by inhalation route for 30 days.04/20/25 prescribed LEI L CHRISTINAT, DO carvediloL 25 mg tabletTAKE 1 TABLET BY MOUTH TWICE A DAY WITH FOOD FOR 90 DAYS06/28/24 filled surescripts celecoxib 200 mg capsuleTAKE 1 CAPSULE BY MOUTH EVERY DAY03/23/25 renewed LEI L CHRISTINAT, DO clonazePAM 0.5 mg tabletTAKE 1 TABLET BY MOUTH EVERY DAY AT BEDTIME RQQFPC14/26/25 renewed LEI L CHRISTINAT, DO cloNIDine HCL 0.1 mg tablet2 TABLETS ORALLY ONCE A DAY IN THE EVENING 30 DAYS12/21/24 renewed LEI L CHRISTINAT, DO Co Q-101 DAILY06/03/17 entered Skylar Burns COMPOUNDED MEDICATIONSemaglutide 4mg/1ml Injectable Inject 0.5mL (2mg=50 units) subcutaneously once weekly for four (4) weeks.07/17/24 prescribed LEI L CHRISTINAT, DO estradioL 0.01% (0.1 mg/gram) vaginal creamPLEASE SEE ATTACHED FOR DETAILED QCAMNURLTW43/08/23 filled surescripts famotidine 20 mg tabletTAKE 1 TABLET BY MOUTH TWICE A DAY FNTHDV70/19/25 renewed LEI L CHRISTINAT, DO fluticasone propionate 50 mcg/actuation nasal spray,suspensionSPRAY TWICE IN EACH NOSTRIL DAILY08/08/24 filled surescripts hydroxychloroquine 200 mg tabletTAKE 1 TABLET BY MOUTH EVERY DAY03/19/25 renewed YOVANI LOPEZ MD hydrOXYzine HCL 25 mg tabletTAKE 1 TO 2 TABLETS BY MOUTH AT BEDTIME MGANCI92/14/25 renewed LEI L CHRISTINAT, DO loratadine 10 mg tabletTake 1 tablet(s) every day by oral route for 90 days.12/21/24 prescribed LEI BRAXTON, DO losartan 100 mg tabletTAKE 1 TABLET BY MOUTH EVERY DAY01/11/25 renewed LEI BRAXTON, DO omeprazole 20 mg capsule,delayed release1 capsule by mouth twice daily07/22/24 filled surescripts ondansetron 4 mg disintegrating tablet1-2 TABLETS BY MOUTH EVERY 8 HOURS NEEDED NEEDED FOR NAUSEA OR VOMITING.02/07/24 filled surescripts pilocarpine 5 mg tabletTAKE 1 TABLET BY MOUTH THREE TIMES A DAY FOR 90 DAYS03/19/25 renewed YOVANI LOPEZ MD VitaminDaily Internal Note:Per renal doc02/24/24 entered MIKAL LOJA APRN Probiotic Formula 10 billion cell(2 billion ea) capsuleDaily Internal Note:Frequency: daily;Medication Description: bifidobacterium-lactobacillus; Dosage:1; Route:oral; refills:0; Quantity:otc capsule--not taking, start started regan.262 Prolia 60 mg/mL subcutaneous syringeInject 1 mL by subcutaneous route for 80 days. Administer Note: Buy and bill Internal Note:Injects every 6 /08/25 administered AURELIO ARNETT APRN Purelax 17 gram oral powder [id number] GRAMS BY MOUTH ONCE DAILY11/16/22 filled surescripts Restasis 0.05 % eye drops in a dropperetteInstill by ophthalmic route.05/03/24 filled surescripts rOPINIRole 2 mg tabletTAKE 1 - 1&1/2 TABLETS BY MOUTH AT BEDTIME ZRJQDI90/19/25 filled surescripts semaglutide 0.25 mg or 0.5 mg (2 mg/1.5 mL) subcutaneous pen injectorInject by subcutaneous route 0.25 MG once weekly.08/29/24 prescribed LEI VASQUEZT, DO semaglutide 2 mg/dose (8 mg/3 mL) subcutaneous pen injectorInject 2 mg every week by subcutaneous route for 30 days.06/29/24 prescribed LEI VASQUEZT, DO semaglutide methylcobalamin 4mg 1mg/1ml injectableInject 0.5mL (2mg=50 units) subcutaneously once weekly for four (4) weeks. Internal Note:to compounding ctmohixb27/04/25 filled surescripts sertraline 100 mg tabletTAKE 1 & 1/2 TABLET BY MOUTH EVERY DAY FOR 90 DAYS08/29/24 filled surescripts simvastatin 20 mg tabletTAKE 1 TABLET BY MOUTH EVERYDAY AT TSFZDBA72/25/25 filled surescripts sodium fluoride 1.1 % dental pasteUSE NWQRKSVW99/15/25 renewed LEI BRAXTON, DO SUMAtriptan 100 mg tabletTAKE 1 TABLET BY MOUTH AT ONSET OF MIGRAINE, MAY REPEAT DOSE AFTER 2 HRS10/12/24 prescribed LEI BRAXTON, DO Sure Comfort Insulin Syringe 0.5 mL 31 gauge x 5/16 USE [id number]/15/25 filled surescripts Xiidra 5 % eye drops in a dropperettePLACE 1 DROP INTO BOTH EYES TWICE A DAY APPROXIMATELY 12 HOURS APART04/23/25 prescribed MARGO ALEJANDRO MD Some medications listed in Document: #[id number] could not be added to this patient's chart. Please review this document and add these medications to the patient's chart manually as needed. Family HistoryReviewed Family History Brother - Hypertensive disorder Sister - Hypertensive disorder - Migraine - Family history of malignant neoplasm (onset age: 61) - breast; niece breast Father - Hypertensive disorder - Family history of stroke (onset age: 62) - Family history of malignant neoplasm - undetermined type - Alcoholism - Hyperlipidemia Mother - Hypertensive disorder - Migraine - Tuberculosis NO FAMILY HX OF MM Past Medical HistoryReviewed Past Medical History Glasses/Contacts:Y Notes: Easy bleeding Vaccine HistoryVaccines not reviewed (last reviewed 04/20/2025) Vaccine Type Date Amt. Route Site [facility] Lot # Mfr. Exp. Date VIS VIS Given Apple Turner COVID-19 COVID-19, mRNA, LNP-S, PF, 50 mcg/0.5 mL 05/04/23 0.5 mL Intramuscular Deltoid, Right [id number] [employer] 08/12/23 COVID-19 mRNA ages 12 and up 03/04/2023 05/04/23 Kendal Canales COVID-19, mRNA, LNP-S, bivalent, PF, 50 mcg/0.5 mL dose (Moderna) 04/06/22 0.5 mL Intramuscular [id number] [employer] 09/22/22 COVID-19, mRNA, LNP-S, PF, 100 mcg/0.5 mL dose (Moderna) 11/05/21 0.5 mL Intramuscular [id number] [employer] 01/25/22 COVID-19, mRNA, LNP-S, PF, 100 mcg/0.5 mL dose (Moderna) 03/13/21 0.25 mL Intramuscular [id number] [employer] 07/25/21 COVID-19, mRNA, LNP-S, PF, 30 mcg/0.3 mL dose ([employer]eBioBeepech) 07/17/20 0.3 mL [employer] COVID-19, mRNA, LNP-S, PF, 30 mcg/0.3 mL dose (BangeeBioNumonyx) 06/15/20 0.3 mL Intramuscular [id number] [employer] 10/13/20 Diphtheria, Tetanus, Pertussis Tdap 03/10/24 0.5 mL [id number] GlaxoSmithKline Influenza influenza, high dose seasonal 02/07/25 0.5 mL [id number] Sanofi Pasteur influenza, high dose seasonal 02/03/24 0.5 mL Intramuscular Deltoid, Left [id number] Sanofi Pasteur 11/13/24 Inactivated Influenza 12/20/2020 02/02/24 Maryjane Ritchie, Christina influenza, high-dose, quadrivalent 01/29/23 0.7 mL Intramuscular Deltoid, Right [id number] Sanofi Pasteur 11/14/23 Inactivated Influenza 12/20/2020 01/29/23 Kendal Canales influenza, high-dose, quadrivalent 02/05/22 0.7 mL Intramuscular [id number] Sanofi Pasteur 11/13/22 influenza, high-dose, quadrivalent 01/28/21 0.7 mL Intramuscular [id number] Sanofi Pasteur 11/13/21 Influenza vaccine, quadrivalent, adjuvanted 01/27/20 0.5 mL Intramuscular [id number] [employer] 09/25/20 influenza, high dose seasonal 02/03/19 0.5 mL Intramuscular [id number] Sanofi Pasteur 09/20/19 influenza, high dose seasonal 02/10/18 0.5 mL Intramuscular [id number] Sanofi Pasteur 08/01/18 influenza, injectable, quadrivalent 02/14/17 influenza, high dose seasonal 01/08/17 0.5 mL Intramuscular [id number] Sanofi Pasteur 07/16/17 influenza, high dose seasonal 01/30/16 influenza, high dose seasonal 01/24/15 0.5 mL influenza, seasonal, injectable 03/08/14 0.5 mL influenza, high dose seasonal 01/30/13 Pneumococcal pneumococcal conjugate PCV 13 06/29/14 pneumococcal polysaccharide [id number] 07/05/13 Respiratory Syncytial Virus RSV, recombinant, protein subunit RSVpreF, adjuvant reconstituted, 0.5 mL, PF 05/04/23 0.5 mL Intramuscular Deltoid, Left [id number] [facility] 11/18/24 RSV (Respiratory Syncytial Virus) 03/04/2023 05/04/23 Kendal Canales Tetanus tetanus toxoid 07/24/05 Zoster zoster recombinant 08/18/22 0.5 mL [facility]amuscular [id number] [facility] 10/12/23 zoster recombinant 03/30/22 0.5 mL Intramuscular [id number] [employer] 04/08/23 zoster live 03/30/14 Electronically Signed by: MARGO ALEJANDRO MD LEI BRAXTON DO [address] [place] [address], [address], [facility] 04/23/2025 13:01:24 Procedures Surgical History Date Name Laterality Status Provider Name and Address Organization Details Recorded Time OCT/Retina completed MARGO ALEJANDRO MD [address] [place] [address], [address], [facility] 04/23/2025 11:27:53 025 Visual Field Extended completed MARGO ALEJANDRO MD [address] [place] [address] [place], [address], [facility] 04/23/2025 11:27:51 025 Punctual Plug completed MARGO ALEJANDRO MD [address] [place] [address], [address], [facility] 04/23/2025 11:27:17 025 EKG completed MIKAL LOJA, JD EDWARDS DEVELOPER [address] [place], [address], [facility] 03/29/2025 16:24:21 025 DXA Low Bone Mass 2 - Tx completed INGRID CASTAÑEDA MD [address] [place], [address], [facility] 03/24/2025 10:29:10 025 Neurostimulator Analysis w/o Reprogramming completed Chelly Tyler [facility] 02/07/2025 15:59:51 025 Post Void Residual; Ultrasound completed Lexy Rahman [facility] 02/07/2025 15:02:22 025 Destruction Premalignant Lesion(s) completed Shruti Valdez [facility] 01/09/2025 08:36:36 025 Prolia Injection completed Gena Browne [facility] 12/22/2024 09:20:55 025 Punctual Plug completed MARGO ALEJANDRO MD [address] [place], [address], [facility] 10/13/2024 09:28:28 025 Prolia Injection completed Karol Crooks [facility] 06/23/2024 09:07:52 025 Axial Length, IOL Master completed MARGO ALEJANDRO MD [address] [place], [address], [facility] 06/02/2024 09:56:59 024 OCT/Retina completed MARGO ALEJANDRO MD [address] [place] [address], [address], [facility] 04/19/2024 10:29:56 024 DXA Low Bone Mass 2 - Tx completed INGRID CASTAÑEDA MD [address] [place], [address], [facility] 03/23/2024 16:44:04 024 EKG completed MIKAL LOJA, JD EDWARDS DEVELOPER [address] [place], [address], [facility] 02/24/2024 09:40:10 024 Post Void Residual; Ultrasound completed [facility] 12/29/2023 15:52:26 024 Prolia Injection completed Josefa Ballesterosette [facility] 12/21/2023 16:07:15 024 procedure on intestine completed Christy Steph [facility] 02/24/2024 09:35:22 024 Neurostimulator Analysis w/o Reprogramming completed Chelly Jayson [facility] 05/31/2023 10:21:06 024 Post Void Residual; Ultrasound completed [facility] 05/31/2023 09:27:17 023 Other completed KAVON TANG MD [address] [place], [address], [facility] 04/27/2023 15:56:37 023 Prolia Injection completed Flower Tiwarichelle [facility] 04/19/2023 16:20:54 023 PNE Implantation; Sacral Nerve completed KAVON TANG MD [address] [place], [address], [facility] 04/06/2023 15:07:08 023 Post Void Residual; Ultrasound completed Gaby Richards [facility] 01/22/2023 08:55:17 023 DXA Low Bone Mass 2 - Tx completed INGRID CASTAÑEDA MD [address] [place], [address], [facility] 12/15/2022 18:22:03 023 TCM completed Bree Rolon [facility] 11/19/2022 20:07:07 023 Post Void Residual; Ultrasound completed Jillian Roe [facility] 07/17/2022 08:34:39 022 Post Void Residual; Ultrasound completed Catrachita Tarango [facility] 05/05/2022 08:53:27 021 Destruction BN Lesions completed Sondra Oconnor [facility] 04/29/2021 08:58:00 021 Knee Surgery completed Kendal Andradeu [facility] 04/29/2021 11:21:40 021 Visual Field Extended completed MARGO ALEJANDRO MD [address] [place], [address], [facility] 11/11/2020 09:09:46 021 EKG completed JF CHAMBERS DO [address] [place], [address], [facility] 09/30/2020 10:03:56 021 OCT/Retina completed MARGO ALEJANDRO MD [address] [place] [address], [address], [facility] 09/09/2020 09:45:14 020 Salivary Gland Biopsy completed MARGO FRIEDMAN MD [address] [place] [address], [address], [facility] 04/30/2020 09:43:49 020 Destruction BN Lesions completed Ariadna Meng [facility] 04/23/2020 08:51:13 020 [place] [address] [place] [address], [address], [facility] 03/26/2020 09:44:18 020 Post Void Residual; Ultrasound completed Teena Johnson [facility] 02/09/2020 08:13:00 020 EKG completed MIKAL LOJA APRN [address] [place], [address], [facility] 02/01/2020 09:13:51 020 Post Void Residual; Ultrasound completed Yolanda Alexander [facility] 11/15/2019 09:12:34 020 Biopsy Skin Lesion; Tangential completed Cheyanne Magaña [facility] 10/31/2019 11:29:08 019 Destruction BN Lesions completed LOAN MEDINA, JD EDWARDS DEVELOPER [address] [place], [address], [facility] 04/20/2019 09:32:34 019 Evening/Weekend/Ho liday Services completed Denny Schwab [facility] 02/25/2019 13:34:39 019 EKG completed DIAZ HILL PA-C [address] [place], [address], [facility] 01/26/2019 08:54:46 019 Probing Lacrimal Canaliculi completed MARGO ALEJANDRO MD [address] [place], [address], [facility] 05/26/2018 13:24:16 018 Destruction BN Lesions completed [facility] 04/19/2018 09:15:50 018 Date of Last Pap Smear completed [facility] 12/13/2018 10:16:23 018 EKG completed DIAZ HILL PA-C [address] [place], [address], [facility] 01/26/2018 09:02:42 018 DXA Low Bone Mass 1 - No Tx completed INGRID CASTAÑEDA MD [address] [place], [address], [facility] 11/08/2017 18:09:16 018 Most Recent Bone Density completed [facility] 12/13/2018 10:16:45 018 Orthopedic Surgery completed ROBIN ARELLANO PA-C [address] [place], [address], [facility] 09/01/2017 09:30:46 017 Destruction BN Lesions completed [facility] 04/14/2017 09:04:58 017 Shave Lesion; scalp, neck, hand, foot, genitalia completed [facility] 04/14/2017 09:06:31 017 EKG completed DIAZ HILL PA-C [address] [place], [address], [facility] 10/29/2016 09:29:58 016 EKG completed DIAZ HILL PA-C [address] [place], [address], [facility] 05/05/2016 14:22:08 016 Most Recent Mammogram completed Betty Cosby [facility] 12/13/2018 10:18:24 012 Total Hysterectomy completed Marveljose luis Mahoney [facility] 12/13/2018 13:20:05 Appendectomy completed Skylar Burns [facility] 04/28/2016 11:23:45 Carpal tunnel surgery completed Yulisa Mckeon [facility] 02/02/2020 09:20:20 Orthopedic Surgery completed Amari Klein [facility] 09/25/2019 15:42:13 Other completed Gabbie Pérez [facility] 10/14/2023 16:17:19 Imaging Results None recorded. Procedure Notes None recorded. Medical Equipment None Reported. Allergies Allergen ID Allergen Name Allergen Category Reaction Reaction Severity Criticality Documentation Date Start Date Code Code System Note Provider Name and Address Organization Details Recorded Time 506430 bisoprolo l / hydrochlo rothiazid e medicatio n Not available Not available Not available 04/10/20162005 94066 7 Rx[facility] 09:22:14 597398 Maxalt medicatio n Not available Not available Not available 04/10/20162005 29508 8 [facility] / n[facility] 0 09:22:08 101301 Levaquin medicatio n rash Not available Not available 06/18/2022 94702 2 RxNorm KAVON TANG MD [address] [place], [address], [facility] 3 13:46:23 343570 rizatript an medicatio n Not available Not available Not available 03/29/2025 34357 RxNorm Not Available ivett - External Data Service - prod 5 06:13:52 724019 levofloxa arcadio medicatio n Not available Not available Not available 03/29/20252023 54263 RxNorm Not Available ivett - External Data Service - prod 5 06:15:51 790268 metoclopr amide hydrochlo ride medicatio n Not available Not available Not available 03/29/20252023 74975 6 RxNorm Not Available ivett - External Data Service - prod 5 06:15:51 128325 bisoprolo l / hydrochlo rothiazid e medicatio n Not available Not available Not available 03/29/20252023 34349 7 RxNorm Not Available [employer] Data Service - prod 5 06:15:51 Medications [...] completed Not Available Not Available Not Available Hudson 5 mg-325 mg tablet Take 1 tablet [...] Insulin Syringe 0.5 mL 31 gauge x /16 USE DIRECTED active Not Available Not Available [...] Updated DateTime 03/23/2025 151.13 cm 34.4 kg/m2 74171.48 g 136/74 mm[Hg] [facility] 03/23/2025 15:46:27 Date Recorded Body height Body mass index (BMI) Body weight Oxygen saturation Heart rate Systolic And Diastolic Provider Name and Address Organization Details Last Updated DateTime 151.13 cm 35.9 kg/m2 61497.2 2 g 96 % 76 /min 138/82 mm[Hg] [facility] 5 16:07:42 Date Recorded Body height Body mass index (BMI) Body weight Body temperature Heart rate Oxygen saturation Systolic And Diastolic Provider Name and Address Organization Details Last Updated DateTime 5 151.13 cm 36 kg/m2 94712.6 6 g 97.5 [degF] 86 /min 94 % 148/78 mm[Hg] Laurence Herndon [facility] 5 15:05:48 Date Recorded Body height Provider Name an d Address Organization Details Last Updated DateTime 04/23/2025 151.13 cm Chivo Hernandez [facility] 04/23/2025 09:50:38 Social History Question Answer Notes LastModified by Organizat ion Details LastModified Time Tobacco Smoking Status Former Smoker [facility] since [facility] 12/13/2018 13:18:56 Accident Related Injury No [email or web address] Information not available 09/25/2019 What Is Your Level Of Caffeine Consumption? Moderate [email or web address] Information not available 08/29/2024 How Much Tobacco Do You Chew? None [email or web address] Information not available 02/25/2019 Are You Deaf Or Do You Have Serious Difficulty Hearing? No Information not available 12/11/2020 What Type Of Diet Are You Following? REGULAR Information not available 12/11/2020 Which Illicit Or Recreational Drugs Have You Used? None Per Pt [email or web address] Information not available 04/16/2019 When Did You Quit Smoking? 16+yearssinc [email or web address] te Information not available 10/15/2022 Which Of Your Hands Is Dominant? Right [email or web address] Information not available 09/25/2019 Hard Of Hearing Or Deaf In One Or Both Ears? No Information not available 10/26/2019 Legally Blind In One Or Both Eyes? No Information not available 10/26/2019 Which Hand Is Involved? Left Shoulder [email or web address] Information not available 09/25/2019 Rate The Severity Of Your Symptoms: (0-10 With 0=none And 10=worst Possible) 3 3-08/24 [email or web address] Information not available 09/25/2019 Date Of Injury: 2009 Or Longer [email or web address] Information not available 09/25/2019 Have You Been Treated For This Problem Before? Yes [email or web address] Information not available 09/25/2019 How Long Have You Had These Symptoms? 10 Years, Worse In Last Month [email or web address] Information not available 09/25/2019 Will This Be Filed As Workers' Compensation? No [email or web address] Information not available 09/25/2019 Marital Status Unknown Informatio n not available 04/28/2016 What Was The Date Of Your Most Recent Tobacco Screening? 03/29/2025 Information not available 03/29/2025 What Is Your Current Pack Years? 20-29packyea rs [email or web address] Information not available 04/27/2024 What Is Your [...] Date Was Tobacco Cessation Counseling Provided? 04/27/2024 [email or web address] Information not available 04/27/2024 How Many Years Have You Smoked Tobacco? 20 Information not available 04/28/2016 Have You Recently Traveled Abroad? No Information not available 12/11/2020 Work Related Injury? No [email or web address] Information not available 09/25/2019 Sex: Female Functional Status Question Answer Note LastModified by Organizat ion Details LastModified Time How many times per week do you consume alcohol? Less than 1 time per week [email or web address] Information not available 08/29/2024 Do you use any illicit or recreational drugs? No Information not available 09/25/2019 Do you or have you ever used any other forms of tobacco or nicotine? Yes Information not available 12/11/2020 What is your level of alcohol consumption? Occasional Information not available 04/28/2016 Do you or have you ever used smokeless tobacco? Never used smokeless tobacco [email or web address] Information not available 02/25/2019 Are you currently employed? Yes [email or web address] Information not available 08/29/2024 Are you able to care for yourself independently? 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 Never used electronic cigarettes [email or web address] Information not available 02/25/2019 What is your exercise level? Occasional Information not available 12/11/2020 Mental Status Question Answer Note LastModified by Organization D etails LastModified Time Do you feel stressed (tense, restless, nervous, or anxious, or unable to sleep at night)? [id number] Information not available 12/11/2020 Family History Relationship [...] N Lung Disease N Breast Problem N Difficulty Swallowing N [...] N Immune System Disorder N Heart Attack ([place]) N Mental Illness N Neurological Problems N Ovarian Cancer N Diabetes N Seizures/Epilepsy N Eye Trauma N Eczema N Double Vision N Ocular trauma N Diverticulitis N Reflux/GERD N Sleep Apnea N Warfarin Management N Heart Disease N Pre-Eclampsia N Hypertension Y Osteoporosis N Gynecological History Statement/Question Response Abnormal [...] and Address Organization Details Recorded Time Tdap completed Sarah mathew [facility] 03/13/2024 08:47:59 Influenza, high-dose, trivalent, PF 6 completed Sarah Best [facility] 08/20/2022 08:13:21 Pneumococcal conjugate PCV 13 5 completed Sarah Best [facility] 08/20/2022 08:13:21 pneumococcal polysaccharide PPV23 4 completed Sarah Best [facility] 08/20/2022 08:13:21 tetanus toxoid, unspecified formulation 6 completed Sarah Best [facility] 08/20/2022 08:13:21 zoster live 4 completed Sarah Best [facility] 08/20/2022 08:13:21 Influenza, high-dose, trivalent, PF 5 completed Sarah Best [facility] 02/09/2025 16:28:58 COVID-19, mRNA, LNP-S, PF, 30 mcg/0.3 mL dose 1 completed Not Available [facility] 07/07/2023 10:32:34 Influenza, high-dose, quadrivalent, PF 3 completed JF MARTINEZ [facility], DO [address] [place] [address], [address], [facility] 02/09/2023 08:06:59 COVID-19, mRNA, LNP-S, PF, 50 mcg/0.5 mL 3 completed JF STVipul [facility], [address], [address], [facility] 05/13/2023 07:47:23 RSV, recombinant, protein subunit RSVpreF, adjuvant reconstituted, 0.5 mL, PF 3 completed [facility], DO [address] [place] [address], [address], [facility] 05/13/2023 07:47:23 COVID-19, mRNA, LNP-S, PF, 100 mcg/0.5mL dose or 50 mcg/0.25mL dose 1 completed Sarah Best [facility] 08/20/2022 08:13:21 COVID-19, mRNA, LNP-S, PF, 100 mcg/0.5mL dose or 50 mcg/0.25mL dose 2 completed Sarah Best [facility] 08/20/2022 08:13:21 Influenza, high-dose, quadrivalent, PF 2 completed [facility] 08/20/[facility] 08:13:21 Influenza, high-dose, trivalent, PF 4 completed Maryjane Ritchie [facility] 02/03/2024 08:52:58 COVID-19, mRNA, LNP-S, PF, 30 mcg/0.3 mL dose 1 completed Sarah Best [facility] 08/20/2022 08:13:21 Influenza, high-dose, trivalent, PF 5 completed Sarah Best [facility] 08/20/2022 08:13:21 Influenza, split virus, trivalent, preservative 4 completed Sarah Calixong [facility] 08/20/2022 08:13:21 Influenza, adjuvanted, quadrivalent, PF 0 completed Sarah Calixong [facility] 08/20/2022 08:13:21 Influenza, high-dose, quadrivalent, PF 1 completed Sarah Calixong [facility] 08/20/2022 08:13:21 Influenza, high-dose, trivalent, PF 9 completed [facility] 08/20/2022 08:13:21 Influenza, high-dose, trivalent, PF 7 completed Sarah Calixong [facility] 08/20/2022 08:13:21 Influenza, high-dose, trivalent, PF 8 completed [facility] 08/20/2022 08:13:21 Influenza, high-dose, trivalent, PF 3 completed Sarah Best [facility] 08/20/2022 08:13:21 zoster recombinant 2 completed Sarah [facility] 08/20/2022 08:13:21 COVID-19, mRNA, LNP-S, bivalent, PF, 50 mcg/0.5 mL or 25mcg/0.25 mL dose 2 completed Sarahaftab Best [facility] 08/20/2022 08:13:21 zoster recombinant 3 completed [facility] 08/25/2022 08:40:09 Influenza, split virus, quadrivalent, preservative 7 completed [facility] 08/25/2022 08:40:09 Past Encounters Encounter ID Performer Location Encounter Start Date Encounter Closed Date Diagnosis/Indication Diagnosis SNOMED-CT Code Diagnosis ICD10 Code Diagnosis IMO Codes Diagnosis Note [id number] DIAZ HILL PA-C CARDIOLOG [address] [place] [id number] 05/05/2016 08:37:36 05/05/2016 09:41:44 Hypertensive disorder 08854989 I10 Hyperlipidemia 37159315 E78.5 [id number] [place] [address] 05/21/2016 14:17:49 05/21/2016 14:57:57 Insomnia 765752310 G47.00 [id number] [facility] [place] [address] 08/17/2016 18:01:10 08/17/2016 18:01:10 [id number] HELIO VILLA MD [address] [address] 08/25/2016 08:34:32 08/25/2016 09:40:07 Hypertensive disorder 75757569 I10 Insomnia 425369077 G47.0 0 Adult heal th examination 305756886 Z00.00 Hyperlipidemia 95062358 E78.5 Long-term drug therapy 171977909 Z79.899 Vitamin D deficiency 347 25056 E55.9 Allergic rhinitis 338543 04 J30.1 Migraine 59319548 G43.90 9 Nausea 963614146 R11.0 Infection screening 2437 29235 Z11.9 Thoracic back pain 99495 8004 M54.6 [id number] DIAZ HILL PA-C CARDIOLOG Y [place] [address] [place] [address] 10/29/2016 08:37:53 10/29/2016 16:09:38 Hypertensive disorder 40767326 I10 [id number] HELIO VILLA MD [facility] [address] [place] [address] 12/04/2016 08:36:34 12/04/2016 10:00:07 Insomnia 362816361 G47.00 Nausea 173193078 R11.0 Hypertensive disorder 38 351448 I10 Overweight 263563331 E66 .3 Cervical radiculopathy 39371259 M54.12 Migraine 31091413 G43.90 9 [id number] HELIO VILLA MD [facility] [address] [place] [address] 03/03/2017 08:35:55 03/03/2017 09:25:30 Insomnia 775106711 G47.00 [id number] LOAN MEDINA APRN [facility] [place] [address] [place] [address] 04/14/2017 08:47:32 04/14/2017 10:23:14 Multiple benign melanocytic nevi 158342601 D22.9 BENIGN APPEARANCE , PT REASSURED & ADVISED TO RTC WITH ANY CHANGES Senile hyperkeratosis 39 7423296 L82.1 CRYO X 1 on forehead IRRITATED SENSATIONS EE PROCEDURE NOTE OTHERS BENIGN APPEARANCE ; PT REASSURED Hemangioma 054979374 D18 .00 BENIGN APPEARANCE , PT REASSURED Solar lentiginosis 10178 2006 L81.4 BENIGN APPEARANCE , PT REASSURED Multiple skin tags 60844 7009 L91.8 BENIGN APPEARANCE , PT REASSURED Generalize d essential telangiectasia 530187581 I78.1 BENIGN APPEARANCE , PT REASSURED Skin sensa tion disturbance 61368569 R20.9 Neoplasm o f uncertain behavior of skin 83499076 D48.5 IRRITATED NEVUSPOSTE RIOR BASE OF THE NECKSHAVE REMOVALSEE PROCEDURE NOTEWOUND CARE INSTRUCTIO NS PROVIDEDF/ U PER PATH [id number] HELIO VILLA MD [facility] [address] [place] [address] 06/03/2017 08:49:33 06/03/2017 09:29:48 Insomnia 072791710 G47.00 Gastroesop hageal reflux disease without esophagitis 917545998 K21.9 [id number] HELIO VILLA MD [facility] [address] [place] [id number] 09/01/2017 08:22:16 09/01/2017 10:11:58 Hypertensive disorder 40483958 I10 Hyperlipidemia 66184307 E78.5 Migraine 13329923 G43.90 9 Allergic rhinitis 596418 04 J30.1 Insomnia 902688676 G47.0 0 Gastroesop hageal reflux disease without esophagitis 538365670 K21.9 Overweight 702016410 E66 .3 Long-term drug therapy 694138066 Z79.378 [id number] [place] [address] 09/01/2017 08:47:19 09/01/2017 09:37:30 Adult health examination 482494065 Z00.00 Osteopenia 396917847 M85 .9 [id number] [place] [address] 10/06/2017 08:22:08 10/06/2017 09:12:31 Hypertensive disorder 73272646 I10 [id number] INGRID CASTAÑEDA MD [address] [place] [address] 11/03/2017 12:59:44 11/03/2017 13:22:33 Osteopenia 357404069 M85.9 [id number] HELIO VILLA MD [facility] [address] [place] [address] 11/24/2017 09:01:29 11/24/2017 10:32:06 Insomnia 893912234 G47.00 [id number] DIAZ HILL PA-C CARDIOLOG Y [place] [address] [place] [address],[address] [place] [address] 01/26/2018 08:39:23 01/26/2018 09:30:59 Hypertensive disorder 10758217 I10 [id number] HELIO VILLA MD [facility] [address] [place] [address] 02/10/2018 08:20:58 02/10/2018 08:54:28 Hypertensive disorder 29526659 I10 Insomnia 243862110 G47.0 0 Gastroesop hageal reflux disease without esophagitis 196000885 K21.9 Hyperlipidemia 33171093 E78.5 [id number] LOAN MEDINA APRN DERMATOLO [facility] [address] [place] [address] 04/19/2018 08:44:16 04/19/2018 10:11:15 Senile hyperkeratosis 388681789 L82.1 CRYO X 12 WITH IRRITATED SENSATION NOTED ON EXAM SEE PROCEDURE NOTEOTHERS BENIGN APPEARANCE ; PT REASSURED Hemangioma 666296910 D18 .00 BENIGN APPEARANCE , PT REASSURED Solar lentiginosis 00766 2007 L81.4 BENIGN APPEARANCE , PT REASSURED Multiple skin tags 53273 7009 L91.8 BENIGN APPEARANCE , PT REASSURED Generalize d essential telangiectasia 587678131 I78.1 BENIGN APPEARANCE , PT REASSURED Multiple b enign melanocytic nevi 873281735 D22.9 BENIGN APPEARANCE , PT REASSURED & ADVISED TO RTC WITH ANY CHANGES Skin sensa tion disturbance 78540780 R20.9 [id number] HELIO VILLA MD [facility] [address] [place] [address] 05/13/2018 08:48:54 05/13/2018 09:59:37 Insomnia 358478511 G47.00 Left lower quadrant pain 378084377 R10.32 [id number] MARGO ALEJANDRO MD OPHTHALMO [facility] [address] [place] [address] 05/26/2018 12:43:22 05/26/2018 14:39:15 Epiphora 920005841 H04.209 doesn't appear to have any significan t dryness today some derbris located at sup punctum irrigation shows initial back flush but after more aggressive irrigation flow to nose establishe d so ?if partial or functional obstructio n recheck 1 week if still symptomati c pt to call back with name of steroid drop to use tid x 3 days. if not better do complete [id number] ELIZ JACOB DO [address] [address] 09/28/2018 15:32:56 09/28/2018 16:11:52 Gastroesophageal reflux disease without esophagitis 646778388 K21.9 Insomnia 146590792 G47.0 0 Hypertensive disorder 38 365167 I10 Migraine 10034549 G43.90 9 Female uri nary stress incontinence 44913305 N39.3 Long-term drug therapy 846065717 Z79.891 FELIX report reviewed and appropriat e or was ordered and not available at time of appt. No signs of diversion or misuse. Urine drug screen and controlled substance contract in chart. Hyperlipidemia 70019494 E78.5 [id number] ELIZ JACOB DO [address] [address] 09/30/2018 08:11:15 09/30/2018 08:25:39 [id number] HELIO VILLA MD [address] [address] 11/04/2018 10:57:58 11/04/2018 12:25:25 Insomnia 159784145 G47.00 Hyperglycemia 36392553 R 73.9 Hypertensive disorder 38 254794 I10 Bladder mu scle dysfunction - overactive 760920154 N32.81 [id number] LINDA CAZARES MD [address] [address] 11/22/2018 08:15:49 11/22/2018 12:40:58 [id number] INES ALBARRAN MD [employer] [facility] CLOS[facility] [address] [place] [address] 12/13/2018 12:59:51 12/13/2018 15:31:55 Dyspareunia 81250993 N94.10 cousneling given. does have some pain and the apex cuff where prior hysterecto my done but I do think this can be rehabilite d with topical estrogen and persistent activity. use the estradiol cream 3 x weekly. if not able to enjoy in 4 months may need assistance with physical therapy. [id number] DIAZ HILL PA-C CARDIOLOG Y EAST [address] [place] [address] ,[address] [place] [address] 01/26/2019 08:24:42 01/26/2019 11:53:59 Hypertensive disorder 10844882 I10 [id number] [facility] [address] [place] [address] 02/03/2019 08:12:09 02/03/2019 09:33:08 Active or passive immunization 260367790 Z23 Insomnia 894098213 G47.0 0 --Discusse d risks/bene fit of clonazepam . --Will decrease dosing to 0.5mg daily and likely continue to taper at follow-up. Consider Doxepin or melatonin ER if insomnia becomes uncontroll ed with Klonopin decrease. Patient agreeable to plan. --Dose accidental ly send as 0.5 mg TID, called pharmacy to correct dosing to 0.5 mg once daily at night prn. --UDS+urin e benzodiaze pine today. --FELIX reviewed and appropriat e. --Controll ed contract signed today. Bladder mu scle dysfunction - overactive 298578211 N32.81 --Recent dry mouth side effect with oxybutying . Symptoms have been well controlled . Discussed potential medication changes. Will decrease dosing of oxybutynin and monitor. Consider urology referral if necessary. Hyponatremia 77167552 E8 7.1 --Noted on previous labs. Monitor with BMP today. Infection of sebaceous cyst 227879056 L72.3 --Localize d skin infection. Size decreased since starting antibx. Continue amoxicilli n. Return precaution s discussed. Benign ess ential hypertension 4120956 I10 --Elevated diastolic in office today at 92, but home readings have been very well controlled . Continue current losartan 50 mg daily, metoprolol XL 50 mg daily. Hyperlipidemia 51358963 E78.5 --Continue simvastati n 20 mg daily. [id number] SANDIP TORRES APRN [facility] CLOSED [address] [place] [address] 02/25/2019 13:18:40 02/25/2019 16:25:06 Vertigo 751058548 R42 advised trial of meclizine 12.5mg-25m g every 8 hrs if needed may cause drowsiness increase fluids/res t f/u PCP if persists. Non-suppur ative otitis media 871506738 H65.91 restart the zyrtec she has at home for next several days. [id number] JF CHAMBERS [facility] [address] [place] [address] 03/17/2019 08:15:26 03/17/2019 09:14:33 Insomnia 605550688 G47.00 --Uncontro lled currently. Will continue current clonazepam 0.5 mg at night dosing (decreased from 1mg last appt). --Discusse d improving sleep hygeine habits. --Consider ing severe snoring, concern for sleep apnea causing insomnia, sleep medicine referral placed. --UDS UTD and appropriat e. --FELIX reviewed and appropriat e. --Controll ed contract signed today. Benign ess ential hypertension 9788873 I10 --Controll ed. --Continue current losartan 50 mg twice daily, metoprolol XL 50 mg daily. Hyperlipidemia 32827624 E78.5 --Continue simvastati n 20 mg daily. Dysfunctio n of urinary bladder 80678138 R39.89 Bladder mu scle dysfunction - overactive 070083283 N32.81 --Symptoms well controlled . Still having dry mouth side effect. --Will decrease oxybutynin from 10 mg to 5 mg daily. Hand pain 26554010 M79.6 41 --Right hand x-ray today showed diffuse degenerati ve changes of the right hand most severe at the first carpometac arpal joint, osseous fragment along the PIP joint of the right fifth finger that could her present a small fracture fragment or degenerati ve ossicle. --Discusse d above results with pt after appt. Recommende d lei taping finger until we can get her in with orthopedic s. Referral placed. Daytime somnolence 72902 42828 00 R40.0 Headache 10182224 R51 --HAs sound more cervicogen ic than migraine (she describes more classic symptoms for her migrain HAs). Avoid tylenol/ib uprofen overuse to avoid rebound headaches. Recommende d heat to neck. [id number] TAN CHAVEZ PA-C SAME DAY [facility] CLOS[facility] [address] [place] [address] 03/30/2019 13:41:51 03/30/2019 16:20:39 Sialoadenitis 68919345 K11.20 [id number] EDWIN VILLALOBOS [facility] CLOSED [address] [place] [address] 04/16/2019 14:58:19 04/16/2019 16:42:35 Influenza-like symptoms 611390173 R68.89 Cough with fever 0200693 03 R05 CXR did not demonstrat e pneumonia, per my review; radiologis t report pending. Upper resp iratory infection 51004981 J06.9 Rapid flu test negative. Patient likely has a viral upper respirator y infection vs flu (with false negative flu test). Based on clinical presentati on, will initiate tamiflu for coverage of flu. Will treat as below. Start symptomati c treatment including coricidin HBP and delsym or robitussin -DM. Supportive care reviewed: humidifier use, saline nasal spray, rest, lozenges, hot tea to soothe throat. Encourage PO fluids and monitor hydration status, infection control measures. Recommende d acetaminop hen/ibupro fen PRN pain, fever; reviewed appropriat e doses. Follow-up here or with PCP if symptoms do not improve or worsen within next 3-5 days. [id number] LOAN MEDINA APRN DERMATMEGHANN [facility]Y [facility] [address] [place] [address] 04/20/2019 08:43:28 04/20/2019 10:55:58 Hemangioma 822683346 D18.00 BENIGN APPEARANCE , PT REASSURED Solar lentiginosis 01524 2006 L81.4 BENIGN APPEARANCE , PT REASSURED Multiple skin tags 6475337 6649 L91.8 BENIGN APPEARANCE , PT REASSURED Generalize d essential telangiectasia 753479259 I78.1 BENIGN APPEARANCE , PT REASSURED Multiple b enign melanocytic nevi 812548710 D22.9 BENIGN APPEARANCE , PT REASSURED & ADVISED TO RTC WITH ANY CHANGES Raised radha orrheic keratosis 0242012318 14115 L82.1 BENIGN APPEARANCE , PT REASSURED Inflamed s eborrheic keratosis 665221081 L82.0 CRYO X1 RISKS OF CRYO SURGERY DISCUSSED; POST OP CARE INSTRUCTIO NS PROVIDED. VERBAL CONSENT TO TREAT GIVEN BY PATIENT. RECHECK IF PERSISTING AFTER TREATMENT. [id number] JF ARH [facility] [address] [place] [address] 04/26/2019 13:04:45 04/26/2019 14:11:56 Postviral cough 714589679 R05 --Post-vir al cough vs acute bronchitis . May consider antibx if symptoms persist but suspect this will self resolve. Previous fever now resolved. Exam normal. Treat symptomati jeff at this time. --Tessalon perles prn. May also use mucinex DM OTC. [id number] GRACE PEÑA PA-C DERMATOLO [facility] [address] [place] [address] 05/24/2019 13:39:47 05/25/2019 07:47:51 Dermatitis of eyelid 68145634 H01.139 B/L UPPER EYELIDS VERY MILD TODAY SAMPLES OF AQUAPHOR PROVIDED TODAY TO TRY WHEN FLARING AND SAMPLE OF EUCRISA TO TRY AFTER IF NOT IMPROVING ADVISED PT WE CAN WORK HER IN WHEN FLARING F/U IF NOT IMPROVING O/W SCHEDULED WITH LOAN [id number] JF [address] [address] 06/21/2019 08:15:04 06/21/2019 08:57:34 Benign essential hypertension 5009548 I10 --Controll ed. --Continue current losartan 50 mg twice daily, metoprolol XL 50 mg daily. Hyperlipidemia 14087663 E78.5 --Continue simvastati n 20 mg daily. Insomnia 861728512 G47.0 0 --Intermit tently uncontroll ed. Will continue current clonazepam 0.5 mg at night dosing. --Agree with her plan to start walking more, as this helps her sleep quite a bit. --Follow up with sleep medicine clinic as planned. --UDS negative, urine bzd positive 02/03/19/ --FELIX 06/21/19 appropriat e. --Controll ed contract signed 02/03/19. Bladder mu scle dysfunction - overactive 644749406 N32.81 --Nack on oxybutynin 10 mg daily. Continue for now. If dry mouth becomes too problemati c, consider urology referral. Daytime somnolence 48889 22509 00 R40.0 --F/u with sleep clinic as planned. Gastroesop hageal reflux disease without esophagitis 743976887 K21.9 --Replace zantac with pepcid. New rx sent. Hyponatremia 65703788 E8 7.1 --Na again low at 129 06/21/19. It has been improved. Will confirm with pt she isn't taking HCTZ, which was previously d/c with concern it was causing this. [id number] GRACE PEÑA PA-C DERMATOLO [facility] [address] [place] [address] 06/22/2019 10:07:15 06/22/2019 13:34:49 Dermatitis of eyelid 18413509 H01.139 B/L UPPER EYELIDS FLARING TODAY PT UNABLE TO TOLERATE EUCRISA (BURNING SENSATION) CONTINUE AQUAPHOR FOR NOW INJECTED KENALOG 40 MG/ML IM PER NEHA KAMARA, NO COMPLICATI ONS; PT TOLERATED WELL DISCUSSED PATCH TESTING IN THE FUTURE IF NEEDED GENTLE CLEANSING TRY TO IDENTIFY AND AVOID ANY TRIGGERING OR EXACERBATI NG FACTORS F/U IF NOT IMPROVING O/W SCHEDULED WITH LOAN [id number] JF CHAMBERS DO [facility] [address] [place] [address] 06/26/2019 08:24:54 06/26/2019 10:35:56 [id number] TAN RO PA-C PULMONARY [address] [facility], [address] [place] [address] 07/04/2019 10:37:59 07/04/2019 13:27:44 Snoring 71709029 R06.83 Considerin g the patient's snoring, excessive daytime sleepiness and morning headaches, I do recommend she undergo a sleep study to evaluate for for the presence of sleep-diso rdered breathing. There are no known contraindi cations to home sleep study at this time. I discussed with the patient process of a home sleep study and she is currently agreeable. She'll be contacted once the results are available and further plan of care will be determined at that time. [id number] TAN RO PA-C [facility] CLOS[facility] [address] [place] [address] 08/04/2019 15:55:31 08/04/2019 16:20:59 [id number] [facility] [address] [address] 09/15/2019 09:10:25 09/15/2019 12:58:34 Pain of shoulder region 31812871 M25.519 ?related to prior humerus fracture/h ardware. She likely has underling OA. No acute injury. Refer to ortho for evaluation . Continue tylenol and heat prn. Hyponatremia 48594817 E8 7.[address] Dhaliwal. Labs Wednesday. [id number] PORFIRIO WRIGHT MD [facility] [address] [facility] [place] [address] 09/25/2019 14:54:14 09/25/2019 16:34:07 Pain of left shoulder joint [id number] 6976693 M25.201 [id number] [facility] [address] [address] 10/26/2019 08:00:05 10/26/2019 12:58:49 Benign essential hypertension 6447488 I10 Hyperlipidemia 98679191 E78.5 Insomnia 390164664 G47.0 0 Bladder mu scle dysfunction - overactive 017033350 N32.81 Daytime somnolence 76965 27771 00 R40.0 Gastroesop hageal reflux disease without esophagitis 872919094 K21.9 Hyponatremia 89781446 E8 7.1 Sleep apnea 43842508 G47 .30 [id number] LAUREN BOOTH DO DERMATOLO [facility] [address] [place] [address] 10/31/2019 10:59:52 10/31/2019 12:04:50 On examination - rash present 522230922 R21 citlalli eyelids, forehead, chin favor either radha derm or possibly contact dermatitis - makeup or ponds cold cream? sent for path r/o Eczema vs radha derm vs less likely dermatomyo sitis Wound care discussed with patient. Leave the bandage on for 24 hrs. Clean the area daily with warm soapy water, and apply polysporin ointment and a bandaid once daily until healed. Call the office if any increase in redness, drainage, or pain. vanicream gentle face cleanser and moisturize r samples given continue hydrocorti sone lotion as directed until biopsy results are back later in the week will notify patient [id number] KAVON TANG MD UROLOGY SB CLOSED [address] [place] [address] 11/15/2019 08:54:51 11/15/2019 10:05:04 Increased frequency of urination 815441819 R35.0 Urgent nilson leela to urinate 76130604 R39.15 Urge incon tinence of urine 23339964 N39.[id number] [address] 11/21/2019 10:17:30 11/21/2019 12:02:04 Benign essential hypertension 0860484 I10 Uncontroll ed. Re-start losartan 100 mg once daily in the morning (vs 50 mg BID). Will add amlodipine 5 mg once daily at night. BP previously increasing late in the day-so will have her do amlodipine PM for now. Check daily and keep a written log. She will call me later this week with update on readings. Pt agreeable to plan. ER indication s discussed. [id number] [address] [address] 12/05/2019 07:54:24 12/05/2019 11:47:20 Benign essential hypertension 5021483 I10 Controlled after starting amlodipine . Continue amlodipine , metoprolol and losartan. Continue amlodipine -she is having LE edema after starting so will CTM. Consider dose decrease of worsening or problemati c. Advised keeping extremitie s elevated when possible. Reported sun poisoning more likely just 2/2 edema-redn ess is improving. No infectious S/S. Edema of l ower extremity 806803338 R60.0 Pain in fi nger of right hand 3057312277 30906 M79.644 Right hand x-ray 03/17/19 showed diffuse degenerati ve changes in the right hand, most severe at first carpometac arpal joint. Current symptoms likely arthritis flare. Recommende d icing, short course of ibuprofen- discussed we prefer to limit due to BP issues. Call if symptoms persist or worsening. [id number] [address] [address] 12/15/2019 13:23:04 12/15/2019 14:57:19 Unilateral leg edema 866270927 R60.0 Venous duplex LLE negative for DVT per call from [facility]. Haven't recieved forma report. Will request. No consistent with infection- given precaution s for this though. No rash on exam. Suspect amlodipine SE-advised pt cut amlodipine in 1/2 over the weekend, keep up with home readings, call with update next week. Benign ess ential hypertension 2750705 I10 Well controlled . [id number] [facility] [address] [place] [address] 01/26/2020 07:53:33 01/26/2020 14:42:00 Hand pain 80829463 M79.641 Hand referral placed. Insomnia 637131236 G47.0 0 Not well controlled , but likely due to above. klonopin continues to be effective and she is tolerating well. UDS, urine benzo ordered. Felix reviewed and appropriat e Controlled contract 02/03/19. Benign ess ential hypertension 9819543 I10 Migraine 02072803 G43.90 9 Sleep apnea 95583811 G47 .30 Following with sleep/pulm . Appt upcoming. Dry mouth symptoms likely from oxybutynin , CPAP could also be contributi ng. Advised discuss at upcoming appt. Increased frequency of urination 058079371 R35.0 Advised following back up with urology and pt agreeable. Adult heal th examination 211942545 Z00.00 Recommend pt complete shingrix. [id number] MIKAL LOJA APRN CARDIOLOG Y EAST [address] [place] [address] ,[address] [place] [address] 02/01/2020 08:25:10 02/01/2020 09:21:07 Hypertensive disorder 31856916 I10 Stable. EKG with no concerning findings. Mixed hyperlipidemia 267 670136 E78.2 Continue with statin. Low cholestero l, low fat diet advised. Recommend FLP at least annually. Heart valve disorder 368 009 I38 Mild hollingsworth valvular regurgitat ion. She is asymptomat ic. She wishes to continue to monitor symptoms. If developes SOA/RESENDEZ, will proceed with echo. Obesity 662781906 E66.9 Discussed importance of maintainin g healthy weight, increasing aerobic exercise. Goal 120-150 min per week. [id number] PAGE MCKEON APRN [facility] [address] [place] [address] 02/02/2020 08:53:27 02/02/2020 10:27:07 Sialoadenitis 15250295 K11.20 [id number] MARGO FRIEDMAN MD ENT SB [address] [place] [address] 02/02/2020 12:52:23 02/02/2020 13:50:04 Acute sialoadenitis 214067997 K11.21 with a history of recurrent swelling and inflammati on in the right parotid gland. Sialagogue . Hydration. Clindamyci n. Follow-up in a few weeks. We'll likely consider CT given her chronic history of intermitte nt swelling to evaluate for a stone [id number] TAN RO PA-C PULMONARY [address] [facility], [address] [place] [address] 02/06/2020 08:13:58 02/06/2020 11:42:54 Obstructive sleep apnea syndrome 54957268 G47.33 good subjective and objective response to CPAP. Residual AHI of 3.4. Good compliance with usage greater than 4 hours for 96% of days used. No indication for pressure changes at this time. We will contact the patient's DME and send orders to try a nasal mask instead. She would likely benefit from having an in-person visit her DME company. She reports they gave her no set up instructio ns. Plan for annual sleep follow-up. Encouraged to contact the office sooner with questions, concerns or changes in sleep. [id number] KAVON TANG MD UROLOGY [facility] CLOSED [address] [place], [place] [address] 02/09/2020 07:56:22 02/09/2020 08:39:55 Increased frequency of urination 542830680 R35.0 Urgent nilson leela to urinate 32043619 R39.15 Urge incon tinence of urine 50721917 N39.41 [id number] MARGO FRIEDMAN MD ENT SB [address] [place] [address] 02/27/2020 13:04:48 02/27/2020 14:01:03 Chronic sialadenitis 343177501 K11.23 bilateral firmness and tenderness of each parotid gland. Did not improve on the right side with medical therapy. I will get a neck CT scan to look for a stone or other intrinsic pathology and follow up after [id number] JF CHAMBERS DO [place] [address] 03/04/2020 07:56:19 03/04/2020 11:33:47 Benign essential hypertension 9759356 I10 Now off amlodipine x 2 days. Continue current metoprolol and losartan, check daily and call back on Wednesday with update of readings-a djust regimen as necessary. Edema 921783576 R60.9 Edema, rash likely 2/2 amlodipine -monitor now that's she's discontinu ed. [id number] KAVON TANG MD SURGERY SCHEDULE [address] [place] [address] 1 03/26/2020 07:32:48 03/26/2020 07:38:34 [id number] MARGO FRIEDMAN MD ENT SB [address] [place] [address] 04/16/2020 07:48:45 04/16/2020 09:08:46 Chronic sialadenitis 533398401 K11.23 continues to be symptomati c with intermitte nt swelling of each parotid gland with eating. CT reviewed and shows no evidence of a stone or tumor within the gland or glands. Given the dry mouth she could have Sjogren's syndrome. Order SSA and SSB. If negative we should consider a minor salivary gland biopsy Xerostomia 51876923 K11. 7 [id number] KAVNO TANG MD UROLOGY SB CLOSED [address] [place] [address] 04/17/2020 08:21:21 04/17/2020 08:35:56 Increased frequency of urination 477639653 R35.0 Urgent nilson leela to urinate 97594047 R39.15 Urge incon tinence of urine 84041438 N39.41 Nocturia 725738867 R35.1 [id number] LOAN MEDINA APRN DERMATOLO GY E[facility] [address] [place] [address] 04/23/2020 08:34:33 04/23/2020 08:59:58 Raised seborrheic keratosis 0338350182 89312 L82.1 BENIGN APPEARANCE , PT REASSURED Hemangioma 001355135 D18 .00 BENIGN APPEARANCE , PT REASSURED Solar lentiginosis 15653 2007 L81.4 BENIGN APPEARANCE , PT REASSURED Multiple skin tags 96534 7009 L91.8 BENIGN APPEARANCE , PT REASSURED Generalize d essential telangiectasia 992341616 I78.1 BENIGN APPEARANCE , PT REASSURED Multiple b enign melanocytic nevi 804891246 D22.9 BENIGN APPEARANCE , PT REASSURED & ADVISED TO RTC WITH ANY CHANGES Inflamed s eborrheic keratosis 780491236 L82.0 CRYO X2 RISKS OF CRYO SURGERY DISCUSSED; POST OP CARE INSTRUCTIO NS PROVIDED. VERBAL CONSENT TO TREAT GIVEN BY PATIENT. RECHECK IF PERSISTING AFTER TREATMENT. [id number] [facility] [address] [place] [address] 04/24/2020 08:20:51 04/24/2020 09:02:55 Sleep apnea 27169857 G47.30 Insomnia 575384699 G47.0 0 Benign ess ential hypertension 6407225 I10 Migraine 10449665 G43.90 9 Adult heal th examination 635162968 Z00.00 Hand pain 35947077 M79.6 41 Hand referral placed. Pain in right knee 32282 63365 41931 M25.257 [id number] MARGO FRIEDMAN MD ENT [address] [place] [address] 04/30/2020 08:37:02 04/30/2020 09:51:05 Chronic sialadenitis 868624509 K11.23 SSA and SSB labs was negative which does not completely Sj gren syndrome. Given her persistent symptoms we've decided to proceed with minor salivary biopsy. Tolerated well.[place] .follow-up 2 weeks Xerostomia 54656979 K11. 7 [id number] MARGO FRIEDMAN MD ENT [place] [address] 05/03/2020 15:51:07 05/03/2020 16:25:47 Lip swelling 427287002 K13.0 under a minor salivary gland biopsy a few days ago. Lip is fairly swollen and may be infected. Having significan t pain. Refill hydrocodon e. We will do steroid and Augmentin. Follow-up as scheduled [id number] MARGO FRIEDMAN MD ENT [place] [address] 05/15/2020 08:19:12 05/15/2020 08:51:12 Sj gren's syndrome 83829782 M35.00 status post minor salivary gland biopsy which would consistent with 1+ lymphocyte s likely consistent with Sjogren syndrome. Has appointmen t with Dr. Lopez in a few weeks [id number] MARGO FRIEDMAN MD ENT [place] [address] 05/31/2020 13:13:19 05/31/2020 13:57:14 Temporomandibular joint disorder 61289163 M26.612 naproxen. Soft diet. Heat. [id number] YOVANI SIAN LOPEZ MD RHEUMATOL OGY [place] [address] 06/14/2020 07:58:28 06/14/2020 08:34:24 Primary Sj gren's syndrome 179840919 M35.00 70-year-ol d female with primary Sjogren's syndrome, typical dry eyes, dry mouth along with parotid enlargemen t. positive minor salivary gland biopsy April 2020. 1+ focus Score negative anti-SSA antibody and negative anti-SSB antibody. Normal CBC along with normal renal and liver function No systemic adenopathy noted. Normal cardiopulm onary examinatio n. Musculoske letal examinatio n demonstrat es age appropriat e degenerati ve changes. Suggested to work on improving hydration. She likes to drink caffeinate d products which I discourage d. initiate Pilocarpin e 5 mg every 8 hours. hydroxychl oroquine 200 mg once a day as a disease modifying medication . Potential risk and benefits of the medication s reviewed. She will follow with yearly eye examinachristina mcmanus while taking the hydroxychl oroquine. She will follow with me in 6 months [id number] [facility] [address] [place] [address] 07/24/2020 07:44:48 07/24/2020 09:24:21 Sleep apnea 71905724 G47.30 Insomnia 964933226 G47.0 0 Benign ess ential hypertension 6940548 I10 Migraine 34117004 G43.90 9 [id number] [facility] [address] [place], [place] [address] 08/19/2020 15:33:50 08/19/2020 16:40:11 Thoracic back pain 518830916 M54.6 Likely muscular, ?Scapular dyskinesis . Pain localized to the medial scapular border and along thoracic left paraspinal s. No acute injury or trauma. No red flag symptoms at this time. Recommende d using only medication s prescribed to her. Will start course of meloxicam at low dose. Avoid other NSAIDs with this medication . While blood pressure elevation in office suspected to be due to pain, discussed that she needs to monitor her blood pressure closely, and avoid NSAID use including meloxicam if continued high elevation. Will also prescribe muscle relaxer with Flexeril to use at night as her pain has been affecting her sleep. Recommende d avoidance of bedrest and staying active, working on range of motion. Urine dip obtained in office and was unremarkab le. Handout for upper back exercises provided patient in office. Recommende d she work on posture improvemen t as well. Follow-up if symptoms persist or worsen. Consider formal PT for referral if needed. Patient agreeable to plan. Scapulalgia 01810621 M25 .844 [id number] MARGO ALEJANDRO MD OPHTHALMO [facility] [address] [place] [address] ,[address] [place] [address] 09/09/2020 08:35:13 09/09/2020 16:35:38 Long-term drug therapy 136157996 Z79.899 plaquenil therapy 200mg/day max daily dose 356mg/day for current body weight discussed risk of vision loss - non-revers ible mac normal oct mac normal rec rtc for hvf repeat testing in 2025 if still on meds Dry eyes 315890861 H04.1 29 rec start art tears qid ou hot compresses bid ou if not better in 1 mo consider restasis [id number] [address] [address] 09/27/2020 08:29:33 09/27/2020 09:12:18 Sleep apnea 00259587 G47.30 Insomnia 210638208 G47.0 0 Benign ess ential hypertension 3083091 I10 Migraine 95197541 G43.90 9 Hyponatremia 44260434 E8 7.1 Hyperlipidemia 65464796 E78.5 Pre-surger y evaluation 625267851 Z01.742 [id number] [facility] [address] [place] [address] 10/04/2020 14:52:27 10/04/2020 15:56:44 Sleep apnea 88597197 G47.30 Insomnia 948309539 G47.0 0 Benign ess ential hypertension 1898111 I10 Migraine 11140786 G43.90 9 Hyponatremia 80347459 E8 7.1 Hyperlipidemia 98995605 E78.5 Anxiety 21086932 F41.9 [id number] DIAZ HILL PA-C CARDIOLOG Y [address] ,[address] [place] [address] 10/08/2020 08:48:31 10/08/2020 16:00:42 Benign essential hypertension 5333356 I10 recent suboptimal control. She had been taking diclofenac and meloxicam together which can elevate blood pressures. This too can result in hyponatrem ia. she will stop diclofenac and continue on meloxicam. Strict adherence to low sodium diet reviewed. Metoprolol discontinu ed, transition ed to carvedilol 25 mg twice a day. Monitor blood pressure and heart rate at home. Avoid diuretics in light of hyponatrem ia. Follow up in 10 days. Consider low dose alpha drake [id number] DIAZ HILL PA-C CARDIOLOG Y [address] ,[address] [place] [address] 10/18/2020 08:35:00 10/18/2020 09:15:12 Essential hypertension 34103176 I10 patient is currently on a maximum dose of carvedilol and losartan with continued suboptimal control of blood pressure. 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 She is intolerant of calcium channel blockers. We'll add Doxazosin 2 mg at bedtime. Patient is okay to proceed to orthopedic surgery follow-up in 2 months. Patient was advised to contact me if she should develop any problems in the interim [id number] [place] [address] 10/23/2020 08:09:57 10/23/2020 15:39:20 Anxiety 10528372 F41.9 Benign ess ential hypertension 3329773 I10 Insomnia 070514521 G47.0 0 Sleep apnea 29009300 G47 .30 Hyperlipidemia 01315706 E78.5 Thoracic back pain 25998 8004 M54.6 [id number] MARGO ALEJANDRO MD OPHTHALMO LOGY [address] ,[address] [place] [address] 11/11/2020 08:53:05 11/11/2020 16:27:49 Long-term drug therapy 219194764 Z79.899 hvf normal today plaquenil therapy 200mg/day max daily dose 356mg/day for current body weight discussed risk of vision loss - non-revers ible mac normal oct mac normal repeat testing in 2025 if still on meds Dry eyes 391381312 H04.1 29 failed art tearsrec restasis bid ou3 mo dry eye check. [id number] JF MARTINEZ [address] [address] 12/11/2020 15:22:35 12/11/2020 16:43:08 Acute sinusitis 23671560 J01.90 Start course of Augmentin for suspected acute sinusitis. She is s/p KRIS mcmanus. Discussed symptomati c treatment. Return precaution s discussed. Patient agreeable to plan. [id number] THI NOEL APRN RHEUMATOL OGY [address] [place] [address] 12/13/2020 08:02:24 12/13/2020 11:20:46 Primary Sj gren's syndrome 124057155 M35.00 labs are normal from 11/21/2020 e has chronic swelling of the salivary glands recurring she has chronic dry eyes and chronic dry mouth, though Evaluation s were significan t for a negative SSA/SSB abs. Had a minor salivary gland biospy 04/30/2020 , with 1+ focus score, and sialadenit is. denies any chest pain. Denies any shortness of breath. Further denies any Numbness and tingling. she is post left knee replacemen t; she will have a rt knee replacemen t 12/16/2020 e is able to participat e in her normal activities . [id number] DIAZ HILL PA-C CARDIOLOG Y [address] ,[address] [place] [address] 12/17/2020 08:36:40 12/17/2020 09:30:38 Essential hypertension 89537990 I10 blood pressures have come under better control on current medical regimen. No additional changes.Ok ay to proceed to surgery from cardiac standpoint [id number] [facility] [place] [address] 3 12/17/2020 09:26:22 12/17/2020 10:38:32 Pre-surgery testing 394223952 Z01.89 Repeat pre-op labs ordered. Confirmed with ortho May labs need to be updated.EK G UTD.Cleare d for surgery. Also cleared earlier today by cardiology . Benign ess ential hypertension 9913808 I10 Well controlled . Continue current regimen. Idiopathic osteoarthritis 047429166 M19.91 Partial RKA scheduled. Acute sinusitis 28362769 J01.90 Significan tly improved with augmentin rx last week. [id number] [facility] [address] [place] [address] 12/18/2020 08:33:27 12/18/2020 09:56:25 [id number] [facility] [address] [place] [address] 01/28/2021 08:20:34 01/28/2021 09:05:48 Benign essential hypertension 4076472 I10 Idiopathic osteoarthritis 615344248 M19.91 Anxiety 47327995 F41.9 Insomnia 348870431 G47.0 0 Sleep apnea 61301973 G47 .30 Hyperlipidemia 72872747 E78.5 Administra tion of influenza vaccine 56655868 Z23 [id number] LOAN MEDINA APRN DERMATOLO [facility]Y [facility] [address] [place] [address] 04/29/2021 08:34:08 04/29/2021 09:26:47 Raised seborrheic keratosis 6156730409 09246 L82.1 BENIGN APPEARANCE , PT REASSURED Hemangioma 814565057 D18 .00 BENIGN APPEARANCE , PT REASSURED Solar lentiginosis 30785 2007 L81.4 BENIGN APPEARANCE ,RECOMMEND SUN PROTECTIVE CLOTHING AND EQUATE SPORT SUNSCREEN AND CERAVE AM SUNSCREEN LOTION OTC DAILY. Multiple skin tags 38275 7009 L91.8 BENIGN APPEARANCE , PT REASSURED Generalize d essential telangiectasia 172558090 I78.1 BENIGN APPEARANCE , PT REASSURED Multiple b enign melanocytic nevi 027473557 D22.9 BENIGN APPEARANCE , MONITOR & ADVISED TO RTC WITH ANY CHANGES Inflamed s eborrheic keratosis 807962448 L82.0 CRYO X1 RISKS OF CRYO SURGERY DISCUSSED; POST OP CARE INSTRUCTIO NS PROVIDED. VERBAL CONSENT TO TREAT GIVEN BY PATIENT. RECHECK IF PERSISTING AFTER TREATMENT. [id number] JF [facility] [address] [place] [address] 04/29/2021 11:17:42 04/29/2021 13:32:32 Benign essential hypertension 7523958 I10 Idiopathic osteoarthritis 590857438 M19.91 Anxiety 25092996 F41.9 Insomnia 277375648 G47.0 0 Sleep apnea 31226798 G47 .30 Hyperlipidemia 08999679 E78.5 Restless l egs syndrome 82563738 G25.81 Migraine 67794597 G43.90 9 [id number] [facility] [address] [place] [address] 05/28/2021 11:19:21 05/28/2021 12:23:02 Benign essential hypertension 5585239 I10 Idiopathic osteoarthritis 994022572 M19.91 Anxiety 83916203 F41.9 Insomnia 700723293 G47.0 0 Sleep apnea 00363493 G47 .30 Hyperlipidemia 08584912 E78.5 Restless l egs syndrome 23965456 G25.81 [id number] YOVANI LOPEZ MD RHEUMATOL OGY [address] [place] [address] 07/08/2021 15:27:29 07/09/2021 08:58:35 Primary Sj gren's syndrome 012684020 M35.00 Primary Sjogren's syndrome. She is status post minor salivary gland biopsy April 30, 2020 with 1+ focus score. No lymphadeno maryjane noted. Stable musculoske letal exam. Stable cardiopulm onary exam. Significan t concern with the dryness primarily in her mouth. We talked about cevimeline . Cost is a concern. We decided to increase the dose of pilocarpin e to 5 mg 4 times a day. Refills were given. Maintain the hydroxychl oroquine 200 mg once a day. Follow with me in 6 months [id number] [place] [address] [place] [address] 07/25/2021 13:46:58 07/25/2021 14:17:00 Chronic low back pain 781477697 M54.50 Lumbar x-ray ordered. Continue to work with PT. Temporoman dibular joint disorder 27272863 M26.609 Left partotid/T MJ pain, swelling- History of chronic sialoadeni tis, Sjogren's syndrome. Previous similar symptoms responded well to oral steroid-Me drol Dosepak prescribed . Low threshold for antibiotic treatment and ENT evaluation . Advised increasing tylenol intake for pain. Return precaution s discussed. Patient agreeable to plan. [id number] CHARLIE BAUTISTA PA-C PULMONARY [address] [facility], [address] [place] [address] 08/06/2021 15:43:34 08/07/2021 08:19:04 Obstructive sleep apnea syndrome 14699284 G47.33 Discussed CPAP/BIPAP recall in detail. It is recommende d not to use any type of CPAP/BIPAP cleaning device such as So Clean. I would recommend that she restart CPAP/BIPAP at previous settings. Patient is compliant with CPAP/BIPAP and continues to benefit from this. [id number] [place] [address] 3 08/25/2021 08:30:42 09/02/2021 08:42:54 Benign essential hypertension 3343434 I10 Anxiety 88439023 F41.9 Insomnia 123250411 G47.0 0 Sleep apnea 19141707 G47 .30 Hyperlipidemia 90392897 E78.5 Restless l egs syndrome 78871921 G25.81 Onychomycosis 578878849 B35.1 Mass of parotid gland 31 8402355 R22.1 [id number] [place] [address] 3 10/17/2021 14:49:12 10/17/2021 15:18:33 Edema of lower extremity 724914307 R60.0 Check BMP to monitor renal function. Start short course of Lasix. Recommende d extremity elevation. Monitor skin changes closely. Return precaution s discussed. Patient fully agreeable to plan. 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 She is status post minor salivary gland biopsy April 30, 2020 with 1+ focus score. She is doing very well.No lymphadeno maryjane noted. Stable musculoske letal exam. Stable cardiopulm onary exam. Does not have any B type symptoms. Station and gait is physiologi c. Continue with pilocarpin e to 5 mg 4 times a day. Refills were given. Maintain the hydroxychl oroquine 200 mg once a day. Continue with yearly eye examinatio n to follow-up on hydroxychl oroquineFo llow with me in 6 months [id number] [facility] [address] [place] [address] 02/02/2022 11:10:03 02/02/2022 14:16:54 Obesity 319841728 E66.9 Patient interested in weight loss medication . Discussed that this can be considered , but recommende d we start with having her see a dietitian, to which she is agreeable. Referral placed. Continue regular exercise routine. Chronic low back pain 27 3959650 M54.50 Chronic issue with intermitte nt sciatica flares. PT referral placed. Follow-up if persistent or worsening. Fatigue 81816760 R53.83 Likely related to untreated sleep apnea. Recommende d follow back up with sleep medicine provider to try and find a mask that she tolerates. Sleep apnea 44679212 G47 .30 As above. [id number] [facility] [address] [place] [address] 02/26/2022 10:02:34 02/26/2022 10:34:08 Benign essential hypertension 8438308 I10 Anxiety 10745110 F41.9 Insomnia 910482114 G47.0 0 Chronic low back pain 27 1050325 M54.50 Sleep apnea 53351378 G47 .30 [id number] DHAVAL STYLES PA-C [address] [place] [address] 04/10/2022 13:55:05 04/10/2022 14:19:07 Low back pain 435079327 M54.50 Begin taking steroid as directedxr ay performed today- will discuss results when received.E ncouraged rest, ice/heat, Tylenol as needed for pain relief and gentle stretching . Muscle pain 48549857 M79 .10 [id number] [facility] [address] [place] [address] 04/15/2022 10:20:21 04/15/2022 11:11:23 Anxiety 33921733 F41.9 Well-contr olled with Zoloft, Klonopin as needed. Felix reviewed and appropriat e. UDS up-to-date . Long-term contract has been signed. Medication effective, well-clary ated. Risk/benef its discussed. Chronic low back pain 27 4140516 M54.50 X-ray 04/10/2022 showed degenerati ve changes in the lumbar spine.Phys ical therapy referral placed.Onl y took a few days of steroid that was prescribed last week. Will prescribe new Medrol Dosepak, which will hopefully help with both suspected eustachian tube dysfunctio n as well as her back pain.Discu ssed that we can consider x-ray of the left hip specifical ly in the future as well. Allergic rhinitis 974511 04 J30.9 Continue Zyrtec, Flonase. Dysfunctio n of bilateral eustachian tubes 8537994435 632133 H69.93 Suspected. Discussed ENT referral. Will prescribe Medrol Dosepak. She will call if symptoms persist or worsen over the next week. [id number] [address] [address] 04/17/2022 14:34:59 04/17/2022 15:01:38 Cough 22481726 R05.9 Viral syndrome 310352016 B34.9 Flulike illness starting 24 hours ago. Rapid flu negative in office. Rapid strep also negative. Concern for COVID-19-t ested and will notify patient of results. Patient to isolate at this time. Discussed symptomati c treatment. Recommende d Tylenol as needed, alternate with ibuprofen if needed. Return precaution s discussed. Patient fully agreeable to plan. [id number] DHAVAL STYLES PA-C [address] [place] [address] 04/28/2022 15:01:14 05/01/2022 15:48:04 Viral gastroenteritis 304565417 A08.4 Diarrhea 03090436 R19.7 Encouraged increased hydration, bland diet, and close monitoring of symptomsSt ool culture and lab work to be completed if symptoms have not resolved by the end of this weekER precaution s given to pt at the time of apt Gastroesop hageal reflux disease without esophagitis 431881237 K21.9 Nausea 269392384 R11.0 At [facility] risk of dehydration 410339985 Z91.89 [id number] KAVON TANG MD UROLOGY [address] [place] [address] 05/05/2022 08:34:50 05/06/2022 12:33:12 Urge incontinence of urine 65529652 N39.41 Overactive urinary bladder 786822563 N32.81 History of urinary tract infection 8997740830 [id number] [facility] [address] [place] [address] 05/28/2022 08:21:35 05/28/2022 08:45:27 Anxiety 26887892 F41.9 Well-contr olled with Zoloft, Klonopin as needed. UDS up-to-date . Long-term contract has been signed. Medication effective, well-clary ated. Risk/benef its have been discussed. Chronic low back pain 27 4884429 M54.50 X-ray 04/10/2022 showed degenerati ve changes in the lumbar spine.Cons idering physical therapy, but holding currently as symptoms are stable. Rib pain 991027454 R07.8 1 Likely contusion. X-ray to rule out fracture. Will prescribe meloxicam to replace ibuprofen. Continue Tylenol as needed. Continue use of ice as needed as well. Restless l egs syndrome 61861087 G25.81 Symptoms adequately controlled with ropinirole . Continue. [id number] KAVON TANG MD SURGERY SCHEDULE [address] [place] [address] 06/18/2022 11:53:39 06/18/2022 11:55:19 [id number] KAVON TANG MD UROLOGY SB [address] [place] [address] 07/17/2022 08:12:19 07/20/2022 14:02:35 Overactive urinary bladder 181456629 N32.81 Urge incon tinence of urine 67290261 N39.41 History of urinary tract infection 2107894487 107 Z87.440 Slowing of urinary stream 71648732 R39.12 Acute urin piyush tract infection 439050867 N39.0 [id number] LOAN MEDINA APRN DERMATOLO GY EAST [address] [place] [address] 07/14/2022 08:43:02 07/14/2022 09:10:48 Raised seborrheic keratosis 7044830717 44119 L82.1 BENIGN APPEARANCE , PT REASSURED Hemangioma 972940657 D18 .00 BENIGN APPEARANCE , PT REASSURED Solar lentiginosis 78002 2007 L81.4 BENIGN APPEARANCE ,RECOMMEND SUN PROTECTIVE CLOTHING AND EQUATE SPORT SUNSCREEN AND CERAVE AM SUNSCREEN LOTION OTC DAILY. Multiple skin tags 88893 7009 L91.8 BENIGN APPEARANCE , PT REASSURED GRADLE X1 ON L MEDIAL THIGH PER PT REQUESTVER BAL CONSENT AND POST OP CARE GIVEN Generalize d essential telangiectasia 626553827 I78.1 BENIGN APPEARANCE , PT REASSURED Multiple b enign melanocytic nevi 619482263 D22.9 BENIGN APPEARANCE , MONITOR & ADVISED TO RTC WITH ANY CHANGES AND ANNUAL FSE [id number] [facility] [address] [place] [address] 08/25/2022 08:27:57 08/25/2022 09:20:52 Adult health examination 858749256 Z00.00 Preventati ve health measures discussed. See attached documents and below. Importance of good fall precaution s discussed- patient to make concerted effort to move more carefully/ take her time to avoid falls. Screening: --Colorect al cancer screening: Colonoscop y [address] Bautista per pt. Repeat recommende d 10 years.--Ce rvical cancer screening: Total hysterecto my--Mammog brittany: 05/26/22--H CV screen: 08/25/16--D EXA: 11/03/17, repeat ordered--C T lung cancer screening: Former smoker. Quit 1979. Vaccines:C OVID- received bivalent boosterFlu - currentTet anus-pt will schedule at [employer] pleted garthPneu pankajcoccal-c urrentPrev enid-comple joel [id number] Screening mammography 24 842314 Z12.31 Last performed 05/26/2022 . Impression : benign findings. Follow up annually Screening for malignant neoplasm of colon 729552967 Z12.11 No previous record in chart. Pt states that last colonoscop y completed about [address] Bautista, states next one was due in 10 years. Menopausal and postmenopausal disorders 042217206 N95.8 Screening for osteoporos is. Last performed 11/08/2017 . Low bone mass but not significan t enough for diagnosis of osteoporos is. Follow up recommende d in 2 years. Hepatitis C screening 41 5319514 Z11.59 Has patient ever had Hep C screening? YES 08/25/2016 Nicotine dependence 5629 4008 Z87.891 Former smoker. Quit 1979. Active immunization 3387 9002 Z23 Has patient had Hep B vaccine? NO Has patient had Shingles vaccine? YES Eye disord er screening 022866843 Z13.5 Has patient ever had eye/glauco ma screening? YES 09/09/2020 Anxiety 11495229 F41.9 Well-contr olled with Zoloft, Klonopin as needed. UDS up-to-date . Long-term contract has been signed. Medication effective, well-clary ated. Risk/benef its have been discussed. We will continue current regimen at this time. Chronic low back pain 27 5784708 M54.50 X-ray 04/10/2022 showed degenerati ve changes in the lumbar spine.Rece nt left-sided thoracic/l umbar muscular pain. Recommende d physical therapy, but patient okay monitoring this time. Recommend use of heat as needed Restless l egs syndrome 60241330 G25.81 Symptoms adequately controlled with ropinirole . Continue. Benign ess ential hypertension 8973021 I10 Controlled in office. Intermitte nt elevations at home. Advised patient to continue close monitoring , keep a log to bring to follow-up. Adjust regimen if needed at that time. Hyperlipidemia 83743565 E78.5 Continue statin, and repeat lipid panel. Sleep apnea 17576890 G47 .30 Continue nightly CPAP. Dysuria 88508505 R30.0 Concern for recurrent UTIs. Check urinalysis today. Recommende d she follow-up with her urologist if continued issues. Gastroesop hageal reflux disease without esophagitis 557895933 K21.9 Osteopenia 088270247 M85 .80 Check vitamin D level. DEXA ordered. Obesity 993674622 E66.9 Insurance did not cover dietitian referral-o rder placed previously .Discussed importance of regular exercise routine, dietary improvemen ts. Recommende d monitoring calorie intake.Dis cussed GLP option and she is interested in trial. Will make recommenda tions pending labs. [id number] [facility] CL[facility] [address] [place] [address] 08/28/2022 14:25:37 08/28/2022 15:26:15 Cervical radiculopathy 93386495 M54.12 Biceps tendinitis 453239 007 M75.22 [id number] [facility] [address] [place] [address] 10/15/2022 08:18:59 10/15/2022 08:44:42 Obesity 111491269 E66.9 Doing very well with Ozempic started last month. 6-7 pound weight loss per home scales. 4 pound weight loss per our scales. Noticing decreased appetite. Has mild GI side effects-ma nageable. She would like to continue on current regimen. Refill sent. Headache 37647852 R51.9 Suspect cervicogen ic. Ozempic SE possible. Not consistent with her migraines. Has been on computer excessivel y lately. Recommende d frequent breaks from the computer. Recommende d limiting over-the-c ounter medication use, to avoid rebound headaches. Follow-up if persistent or worsening. Anxiety 65230767 F41.9 Well-contr olled with Zoloft, Klonopin as needed. UDS up-to-date 11/25/21-Re peat UDS next appt.Long- term contract has been signed. Medication effective, well-clary ated. Risk/benef its have been discussed. We will continue current regimen at this time. [id number] JF [facility] DO [facility] [address] [place] [address] 11/20/2022 11:11:56 11/20/2022 12:01:34 Enterocolitis 90392041 K52.9 Possible enterocoli tis noted on CT imaging during admission. Considerin g ongoing GI symptoms/a bdominal pain, will obtain CT abdomen/pe lvis to further evaluate. We will also check labs as below. Discussed importance of very low threshold of ER evaluation . Patient doesn't feel ER eval needed at this time but understand ing that this is needed if any worsening pain, decreased PO intake or any other new concerns. Acute urin piyush tract infection 432952743 N39.0 Urinalysis to rule out active UTI. Abdominal pain 34811020 R10.9 Acute pyelonephritis 366 78680 N10 Hospital records reviewed. Admitted for septic shock, pyelonephr itis, YAYO. Treated appropriat anthony with antibiotic s, aggressive hydration. She denies any urinary symptoms at this time. Complete antibiotic as prescribed . Discussed importance of staying well-hydra joel. Return precaution s discussed. Constipation 84012866 K5 9.00 Patient to start back regular home regimen for this issue. Benign ess ential hypertension 6337383 I10 Well-contr olled. Continue current medication s. [id number] INGRID CASTAÑEDA MD BONE DENSITY [address] [place] [address] 12/07/2022 14:53:44 12/07/2022 15:39:53 Osteopenia 820375472 M85.89 [id number] YOVANI LOPEZ MD RHEUMATOL OGY [address] [place] [address] 12/07/2022 15:09:59 12/08/2022 04:46:33 Primary Sj gren's syndrome [id number] M35.00 Primary Sjogren's syndrome. She is status post minor salivary gland biopsy April 30, 2020 with 1+ focus score. She is doing very well.No lymphadeno maryjane noted. No constituti onal symptoms. No B type symptoms. Stable musculoske letal exam. Stable cardiopulm onary exam. Continue with pilocarpin e to 5 mg 4 times a day. Refills were given. Maintain the hydroxychl oroquine 200 mg once a day. Maintain yearly eye examinatio n follow-up with me in 12 months sooner if needed [id number] KAVON TANG MD UROLOGY [address] [place] [address] 01/22/2023 08:35:48 01/22/2023 09:16:41 Acute urinary tract infection 939048576 N39.0 Overactive urinary bladder 696933224 N32.81 Urge incon tinence of urine 93592024 N39.41 History of urinary tract infection 4739006591 107 Z87.440 [id number] [facility] [address] [place] [address] 01/29/2023 08:56:34 01/29/2023 10:18:22 Benign essential hypertension 7492968 I10 Well-contr olled. Continue current medication s. Anxiety 37035129 F41.9 Well-contr olled with Zoloft, Klonopin as needed. UDS up-to-date 11/25/21. Repeat UDS today. Long-term contract has been signed. Medication effective, well-clary ated. Risk/benef its have been discussed. We will continue current regimen at this time. Active immunization 3387 9002 Z23 Low back pain 130280405 M54.50 Low back/scapu lar pain. PT referral placed. Platelet c ount outside reference range 692851465 R79.89 Recheck CBC. Fatigue 77895078 R53.83 Suspect multifacto rial. Patient has known sleep apnea, on CPAP. Suspect recent COVID infection contributi ng. We will check labs as below. Discussed importance of maintainin g good sleep hygiene habits. Keep regular set sleep schedule. 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 Follows regularly with nephrology . Morbid obesity 254309770 E66.01 Encouraged improved dietary habits, regular exercise, weight loss. Ozempic discontinu ed due to cost. Sleep apnea 55444490 G47 .30 Continue nightly CPAP. [id number] MARGO ALEJANDRO MD OPHTHALMO LOGY [address] [place] [address] 04/02/2023 08:58:44 04/02/2023 10:08:41 Long-term drug therapy 799963112 Z79.899 plaquenil therapy 200mg/day max daily dose 386mg/day for current body weight discussed risk of vision loss - non-revers ible mac normal repeat testing in 2025 if still on meds Dry eyes 222868756 H04.1 29 failed art tearsrec restasis bid ou [id number] KAVON TANG MD UROLOGY CLOSED [address] [place] [address] 1 04/06/2023 14:29:00 04/15/2023 12:23:53 Overactive urinary bladder 012099426 N32.81 Urge incon tinence of urine 56936503 N39.41 History of urinary tract infection 2082579865 107 Z87.440 [id number] KAVON TANG MD UROLOGY SB CLOSED [address] [place], [place] [address] 04/12/2023 09:32:05 04/12/2023 11:36:01 Overactive urinary bladder 848769140 N32.81 Urge incon tinence of urine 01014355 N39.41 History of urinary tract infection 0419966877 107 Z87.440 [id number] INGRID CASTAÑ[place] [address] 04/14/2023 11:25:37 04/14/2023 12:57:26 Osteopenia 703241046 M85.89 New office visit evaluation osteopenia Risk factors: Previous fracture, autoimmune arthritis and previous glucocorti coid therapy Bone density on 12/07/2022 reviewed and discussed with patient which showed: he L1-L4 lumbar spine bone density scan demonstrat es lumbar spine T-score of -1.8, Z-score of 0.6, BMD 0.849 g/cm . Additional ly, there has been a -8.5% decrease in bone density over the lumbar spine when compared to the patient's previous examinatio n on 11/03/2017. The left hip bone density scan demonstrat es a femoral neck T-score of -1.6, Z-score of 0.5, BMD 0.674 g/cm . The total left hip T-score of -0.7, Z-score of 1.1, BMD 0.861 g/cm . Additional ly there has been a 4.1 %increase in bone density over the left total hip and a No change in bone density over the femoral neck when compared to the previous bone density measuremen t on 11/03/2017. According to national osteoporos is Foundation , indication s of anti-osteo porosis pharmacolo gical therapy include: A hip or vertebral [clinical [...] equals 20% based on US-adapted WHO of alogorithm ) We had a detailed discussion about osteoporos is pathophysi ology i.e. postmenopa usal bone loss, deleteriou s complicati ons in the form of low trauma fractures, universal recommenda tions in the form of calcium and vitamin D and pharmacolo gic therapy benefits, side effects and duration of therapy long-term monitoring and follow-up In view of her current chronic kidney disease, last creatinine 1.34 and GFR 41 I recommende d start Prolia therapy 60 mg subcu every 6 months. Recommenda tions:Star t Prolia 60 mg subcu every 6-monthsDe nosumab reduces the incidence of vertebral fractures by about 68 percent, hip fractures by about 40 percent and non-verteb ral fractures by about 20 percent over three years. I counselled patient about potential side effects related to Denosumab therapy include hypocalcem ia, increased the risk of serious skin infections (celluliti s)/skin rash, rarley ONJ and atypical femur fractures. Lab work today Deficiency of vitamin D3 601319125 E55.9 Currently takes calcium vitamin D over-the-c ounterI discussed with patient the importance adequate dietary calcium intake ( 1,200 mg per day ), incorporat ing dietary supplement s if diet is insufficie nt. Also discussed with patient the importance of adequate vitamin D intake (1,000 IU per day), including supplement s if necessary. Most recent calcium of 9.1 25-hydroxy vitamin D and PTH and calcium todayFurth er vitamin D repletion as appropriat e I would like to thank Dr. Knox for the opportunit y to participat e in the care of this patient.Edwin bautista verbalized understand ing and agreed with the above mentioned plan of care. Chronic ki dney disease stage 3 397575478 N18.30 Current GFR is consistent with stage IIIb chronic kidney disease. [id number] INGRID CASTAÑEDA MD ENDOCRINO LOGY [address] [place] [address] 04/19/2023 16:19:07 04/21/2023 13:03:40 Postmenopausal osteoporosis 854780616 M81.0 [id number] YOVANI LOPEZ MD RHEUMATOL OGY [address] [place] [address] 04/19/2023 14:33:43 04/21/2023 05:13:23 Primary Sj gren's syndrome 419015729 M35.00 Primary Sjogren's syndrome. She is status post minor salivary gland biopsy April 30, 2020 with 1+ focus score. She is doing very well. No lymphadeno maryjane noted. No constituti onal symptoms. No B type symptoms.S he does have right parotid swelling, warm to touch. Cannot rule out carotid gland stone. However on account of her history of Sjogren's does need ENT evaluation . Will suggest her to see Dr. Edgardo Friedman. Her musculoske letal examinatio n is fairly stable with intact active and passive range of motion. Strength is physiologi c. Continue with pilocarpin e to 5 mg 4 times a day. Maintain the hydroxychl oroquine 200 mg once a day. Maintain yearly eye examinatio n follow-up with me in 6 months sooner if needed Chronic ki dney disease stage 3B 776747855 N18.32 Suggested she maintain good hydration, avoid NSAIDs. Okay to take Tylenol for the pain Right paro tid gland swelling [id number] 8262327 K11.9 Right parotid swelling for the past 2 weeks.Need s ENT evaluation ENT referral sent. Suggested to see Edgardo Friedman. She can maintain tylenol and warm compresses . [id number] JF CHAMBERS DO [facility] [address] [place] [id number] 05/04/2023 09:07:49 05/04/2023 09:46:32 Benign essential hypertension 2882007 I10 Well-contr olled. Continue current medication s. Anxiety 93504833 F41.9 Well-contr olled with Zoloft, Klonopin as needed. UDS up-to-date 01/29/23. Long-term contract has been signed. Medication effective, well-clary ated. Risks/bene fits have been discussed. We will continue current regimen at this time. 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 Follows regularly with nephrology . Morbid obesity 578080925 E66.01 Encouraged improved dietary habits, regular exercise, weight loss. Ozempic discontinu ed due to cost. Sleep apnea 95555498 G47 .30 Continue nightly CPAP. Active immunization 3387 9002 Z23 Renal insufficiency 7231 99956 N28.9 Advised full avoidance of NSAIDs. Monitor renal function with BMP today. Anemia 941380070 D64.9 Murmur 113813962 R01.1 Noted on exam. CTM. Consider echo. [id number] KAVON TANG MD SURGERY SCHEDULE [address] [place] [address] 04/27/2023 11:46:16 04/27/2023 11:46:40 Postoperative pain 329326399 G89.18 Overactive urinary bladder 648570973 N32.81 Urge incon tinence of urine 09457441 N39.41 [id number] MARGO FRIEDMAN MD ENT [address] [place] [address] 05/19/2023 15:16:06 05/20/2023 04:35:50 Sj gren's syndrome 42474428 M35.00 Right paro tid gland swelling 8237181216 5340328 K11.9 Now resolved but was present for 6-8 weeks prior to resolution . Has been a recurrent issue this year. Sounds like recurrent infections . No stone palpable. CT neck. If no stone likely secondary to dryness due to Sjogren's. Recommend massage of the gland, sialogogue s, hydration. F/u after CT neck [id number] KAVON TANG MD UROLOGY [address] [place] [address] 05/31/2023 09:02:54 05/31/2023 10:06:04 Overactive urinary bladder 844990058 N32.81 Urge incon tinence of urine 90511321 N39.41 History of urinary tract infection 3299307315 107 Z87.440 [id number] CONNIE MOREIRA, DO PRIMARY CARE [address] [place] [address] 06/30/2023 08:45:16 06/30/2023 11:58:23 Syndrome of inappropriate vasopressin secretion 20988769 E22.2 stableunde r current management of nephrology Chronic ki dney disease stage 3B 201964262 N18.32 stableunde r current management of nephrology avoid nephrotoxi c medication s Body mass index 40+ - severely obese 172795075 E66.01 recommend trying protein shake as a meal replacemen t (try a plant base protein to see if this helps with stomach discomfort )also dedicate time for mod intensity exercising at least 3-5 times weekly [id number] CONNIE MOREIRA, DO PRIMARY CARE [address] [place] [address] 07/07/2023 10:31:18 07/07/2023 11:21:49 Lower abdominal pain 27918196 R10.30 Stomach cramps 31576888 R10.9 Diverticul osis of colon 559920621 K57.30 Nausea 968926339 R11.[id number] MORE[address] [facility] [address] [place] [address] 08/03/2023 09:55:46 08/03/2023 12:02:24 History of small bowel obstruction 6069500184 71540087 Z87.19 Patient is status post small bowel resection and primary anastomosi sBowel movements are normal, tolerating normal diet, overall doing wellNo changes to management at this timehas follow-up scheduled with GI tomorrow Benign ess ential hypertension 7992869 I10 has been taking ibuprofen vs tylenol which is likely a factor in elevation of BPpatient overall asymptomat ic and will be decreasing her ibuprofen use as her pain continues to improve Chronic ki dney disease stage 3B 313469502 N18.32 Kidney function remained stable throughout hospital courseunde r current management of nephrology avoid nephrotoxi c medication s Anxiety 71424911 F41.9 stable on clonazepam Obstructiv e sleep apnea of adult 8076500251 103 G47.33 Post-disch arge follow-up 304415814 Z09 [id number] CHRIS TETE ROBLEDO APRN SAME DAY E[facility] CLOS[facility] [address] [place] [address] 10/14/2023 16:01:37 10/14/2023 16:51:10 Dysfunction of eustachian tube 76784610 H69.92 Use as directedNo signs of infection on exam and believe it to be more related to recent congestion Can take daily antihistam ine such as zyrtec or claritin and nasal sprayavoid decongesta nts due to BPFollow up if no improvmeen t Essential hypertension 94874877 I10 BP high but stable in office today - recommend updating labs while patient is here and making a follow up with PCP for next week for continued evaluation (appt made for 10/19 with PCP)Contin ue to keep a log of BP and take to next apptContin ue to take medication as prescribed dailyDiscu ssed possible reasons BP could be more elevated including increase in stress recently and poor diet/weigh t gainSugges t taking sertraline every day as prescribed for most benefit to with recent increase in anxietyDie t low in sodium and exercise routinelyI f develop any chest pain, headaches, shortness of breath or dizziness please go to the ER MARITA. [id number] JF CHAMBERS DO [address] [address] 10/22/2023 16:20:04 10/22/2023 16:55:49 Benign essential hypertension 9535316 I10 Stable in office. Intermitte nt uncontroll ed home readings. Issues with low BPs with clonidine addition. Hold clonidine at this time. Continue other antihypert ensives. Continue close monitoring . Call Dr. Dhaliwal or myself in about a week with updates readings so that further recs can be made. Anxiety 21870447 F41.9 Strongly suspect contributi ng to BP elevations . Gave my condolence s regarding her 's passing. Will increase her zoloft at this time to 100 mg daily. 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 Follows regularly with nephrology . [id number] JF CHAMBERS DO [facility] [address] [place] [address] 12/27/2023 16:24:48 12/27/2023 16:55:16 Benign essential hypertension 1129228 I10 Elevated x 2 in office. Home readings better controlled . Blood pressure very well-contr olled at 112/68 at endocrinol ogy office last week. Mood/anxie ty related to passing of her certainly contributi ng. Recommende d she contact Dr. Dhaliwal's office for clarificat ion-his note mentions holding the 50 mg losartan in the evening. No medication changes made regarding antihypert ensives. Continue close home blood pressure monitor. Anxiety 10346814 F41.9 Still with considerab le stress regarding passing of her , but improved. Zoloft helpful. Continue. Recommende d she consider seeing a therapist/ counselor. 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 Follows regularly with nephrology . Obesity 798134500 E66.9 Previously tolerated Ozempic well. Will try alternativ e GLP with tirzepatid e. If tolerabili ty issues she will let me know. Monitor 1 month follow-up. Gastroesop hageal reflux disease without esophagitis 915041637 K21.9 [id number] CHRIS ROBLEDO APRN [facility] [address] [place] [address] 11/14/2023 11:26:48 11/14/2023 12:24:06 Acute sinusitis 90945401 J01.90 Take medication s as directedEd ucated patient to use OTC medication s such as allergy medication , flonase and mucinex. Push fluids. tylenol as needed. Follow up with PCP or return to office in 3 days if still no improvemen t in symptoms.P atient understand s and agrees to plan of care [id number] INGRID CASTAÑEDA MD ENDOCRINO LOGY [address] [place] [address] 12/21/2023 15:45:09 12/21/2023 16:14:26 Osteopenia 383188171 M85.89 Follow-up evaluation osteopenia Risk factors: Previous fracture, autoimmune arthritis and previous glucocorti coid therapyTol erating Prolia therapy well without side effectBone density on 12/07/2022 reviewed and discussed with patient which showed: he L1-L4 lumbar spine bone density scan demonstrat es lumbar spine T-score of -1.8, Z-score of 0.6, BMD 0.849 g/cm . Additional ly, there has been a -8.5% decrease in bone density over the lumbar spine when compared to the patient's previous examinatio n on 11/03/2017. The left hip bone density scan demonstrat es a femoral neck T-score of -1.6, Z-score of 0.5, BMD 0.674 g/cm . The total left hip T-score of -0.7, Z-score of 1.1, BMD 0.861 g/cm . Additional ly there has been a 4.1 %increase in bone density over the left total hip and a No change in bone density over the femoral neck when compared to the previous bone density measuremen t on 11/03/2017. According to national osteoporos is Foundation , indication s of anti-osteo porosis pharmacolo gical therapy include: A hip or vertebral [clinical [...] equals 20% based on [place]-adapted WHO of alogorithm ) Recommenda tions:Cont inue Prolia 60 mg subcu every 6-monthsRe ceived her injection in the office todayI discussed with patient the importance adequate dietary calcium intake ( 1,200 mg per day ), incorporat ing dietary supplement s if diet is insufficie nt. Also discussed with patient the importance of adequate vitamin D intake (1,000 IU per day), including supplement s if necessary. Patient verbalized understand ing and agreed with the above mentioned plan of care. [id number] KAVON TANG MD UROLOGY SB [address] [place] [address] 12/29/2023 15:12:08 12/30/2023 04:21:43 Overactive urinary bladder 501754192 N32.81 Urge incon tinence of urine 98447877 N39.41 History of urinary tract infection 8738925048 107 Z87.440 [id number] JF MARTINEZ [address] [address] 02/02/2024 16:09:01 02/02/2024 16:48:35 Benign essential hypertension 7414640 I10 Stable. Continue current regimen. Anxiety 98255572 F41.9 Mood/anxie ty stable with current Zoloft, clonazepam . No medication side effects with clonazepam . Risks/bene fits discussed. Patient agreeable and would like to continue current treatment. We did discuss her most recent UDS result. Clonazepam appropriat anthony positive. Opiates also positive. She disclosed that she takes leftover Hudson as needed for her knee pain. Advised that it is inappropri ate to take any opiate medication s other than specifical ly as prescribed . It was prescribed postsurgic ally, and she has been taking for her knee pain. She then requested that I give her prescripti on for Hudson. Advised that I cannot. I recommende d that she follow-up with her orthopedic provider regarding her knee pain, and she was agreeable. May warrant pain management referral if needed as well. Instructed patient that I would not be able to continue prescribin g clonazepam if UDS inappropri ate. She was understand ing and will discontinu e norco use. We will repeat UDS at next visit.CSA on file.Tamara corbett reviewed and appropriat e. Syndrome o f inappropriate vasopressin secretion 59553173 E22.2 Hyponatrem ia presumably due to SIADH. Follows regularly with nephrology . Obesity 351119255 E66.9 Doing well with compounded semaglutid e. Manageable GI side effects. She will continue on current regimen at this time. Active immunization 3387 9002 Z23 Obstructiv e sleep apnea of adult 1663692943 103 G47.33 Not using CPAP-see HPI. She will follow back up with her sleep medicine provider for recommenda tions regarding mask. Pain of bi lateral knee joints 0269756382 15546 M25.561 Patient will follow back up with her orthopedic provider as noted above. Headache 88351300 R51.9 Waking up with headaches. Suspect related to untreated sleep apnea. Addressed as above. Dysfunctio n of eustachian tube 14149625 H69.90 [id number] MIKAL LOJA APRN CARDIOLOG Y EAST [address] [place] [address] ,[address] [place] [address] 02/24/2024 09:05:36 02/24/2024 11:11:23 Hypertensive disorder 46396566 I10 Stable. Primary care managing Mixed hyperlipidemia 267 044495 E78.2 Continue with statin. Low cholestero l, low fat diet advised. Recommend FLP at least annually. PCP managing Heart valve disorder 368 009 I38 Mild hollingsworth valvular regurgitat ion.Repeat echo will be arranged to reassess valvular regurg Obesity 484039265 E66.9 Discussed importance of maintainin g healthy weight, increasing aerobic exercise. Goal 120-150 min per week. [id number] INGRID CASTAÑEDA MD ENDOCRINO LOGY [address] [place] [address] 03/23/2024 15:11:41 03/24/2024 04:19:33 Osteopenia 460115000 M85.89 Follow-up evaluation osteopenia Risk factors: Previous fracture, autoimmune arthritis and previous glucocorti coid therapyTol erating prolia therapy well without side effectBone density today in our endocrine office is consistent with osteopenia and showing statistica lly significan t increase in bone density over lumbar spine [13.3%], over left femoral neck [6.9%] and stable bone density over left total hip when compared to previous bone density on 12/07/2022 According to national osteoporos is Foundation , indication s of anti-osteo porosis pharmacolo gical therapy include: A hip or vertebral [clinical [...] equals 20% based on US-adapted WHO of alogorithm ) Recommenda tions:Cont inue Prolia 60 mg subcu every 6-monthsDu e for her next injection on 06/23/2023I discussed with patient the importance adequate dietary calcium intake ( 1,200 mg per day ), incorporat ing dietary supplement s if diet is insufficie nt. Also discussed with patient the importance of adequate vitamin D intake (1,000 IU per day), including supplement s if necessary. 1 year follow-up with bone density before visit while on Prolia therapyPat ient verbalized understand ing and agreed with the above mentioned plan of care. [id number] INGRID CASTAÑEDA MD BONE DENSITY [address] [place] [address] 03/23/2024 15:11:10 03/23/2024 15:34:03 Osteopenia 190183715 M85.89 Follow-up evaluation osteopenia Risk factors: Previous fracture, autoimmune arthritis and previous glucocorti coid therapyTol erating Prolia therapy well without side effectBone density on 12/07/2022 reviewed and discussed with patient which showed: he L1-L4 lumbar spine bone density scan demonstrat es lumbar spine T-score of -1.8, Z-score of 0.6, BMD 0.849 g/cm . Additional ly, there has been a -8.5% decrease in bone density over the lumbar spine when compared to the patient's previous examinatio n on 11/03/2017. The left hip bone density scan demonstrat es a femoral neck T-score of -1.6, Z-score of 0.5, BMD 0.674 g/cm . The total left hip T-score of -0.7, Z-score of 1.1, BMD 0.861 g/cm . Additional ly there has been a 4.1 %increase in bone density over the left total hip and a No change in bone density over the femoral neck when compared to the previous bone density measuremen t on 11/03/2017. According to national osteoporos is Foundation , indication s of anti-osteo porosis pharmacolo gical therapy include: A hip or vertebral [clinical [...] equals 20% based on US-adapted WHO of alogorithm ) Recommenda tions:Cont inue Prolia 60 mg subcu every 6-monthsRe ceived her injection in the office todayI discussed with patient the importance adequate dietary calcium intake ( 1,200 mg per day ), incorporat ing dietary supplement s if diet is insufficie nt. Also discussed with patient the importance of adequate vitamin D intake (1,000 IU per day), including supplement s if necessary. Patient verbalized understand ing and agreed with the above mentioned plan of care. [id number] LOAN MEDINA APRN DERMATOLO GY EAST [address] [place] [address] 03/29/2024 16:04:18 03/29/2024 16:29:46 Raised seborrheic keratosis [id number] 50276 L82.1 BENIGN APPEARANCE , PT REASSURED Hemangioma 363887957 D18 .00 BENIGN APPEARANCE , PT REASSURED Solar lentiginosis 42940 2007 L81.4 BENIGN APPEARANCE ,RECOMMEND SUN PROTECTIVE CLOTHING AND EQUATE SPORT SUNSCREEN AND CERAVE AM SUNSCREEN LOTION OTC DAILY. Multiple skin tags 30997 7009 L91.8 BENIGN APPEARANCE , PT REASSURED Generalize d essential telangiectasia 343028657 I78.1 BENIGN APPEARANCE , PT REASSURED Multiple b enign melanocytic nevi 091872872 D22.9 BENIGN APPEARANCE , MONITOR & ADVISED TO RTC WITH ANY CHANGES AND ANNUAL FSE [id number] MARGO ALEJANDRO MD OPHTHALMO LOGY EAST [address] [place] [address] 04/19/2024 09:01:46 04/19/2024 10:37:54 Long-term drug therapy 207859113 Z79.899 no retinopath y ou todayoct mac normal plaquenil therapy 200mg/day max daily dose 372mg/day for current body weight discussed risk of vision loss - non-revers ible mac normal repeat testing in 2025 if still on meds Dry eyes 801781084 H04.1 29 failed art tearsrec restasis bid ou Incipient senile cataract 744783131 H25.099 pt very unhappy with vision and likely no improvemen t with glsdiscuss ed obs vs ce vs mrrec treat dry eye 1 mo and rtc for iolm [id number] LEI BRAXTON, DO [facility] [place] [address] [address] 04/27/2024 10:55:57 04/27/2024 12:03:36 Body mass index 40+ - severely obese 557640658 E66.01 Patient congratula joel on 20+ pound weight lossCurren tly on WegovyPoss ibility this is what caused her sudden onset of nausea continue to monitor for now she appears to be back to baseline Chronic ki dney disease stage 3B 735352642 N18.32 Dr Palm ood pressure at goalAvoida nce of nephrotoxi c medication sLaborator y investigat ions reviewed Syndrome o f inappropriate vasopressin secretion 58007612 E22.2 Follows with endocrinol ogy labs reviewed Benign ess ential hypertension 1432169 I10 Blood pressure at goal Continue medication s carvedilol losartan and clonidine 2 g sodium diet encouraged 150 minutes of exercise weekly DASH Diet Avoidance of trans saturated fat Hyperlipidemia 10339509 E78.5 LDL at goal patient on simvastati n Insomnia 124195888 G47.0 0 Felix reviewedRe view of the chart shows because she has been on clonazepam since 2018Will continue the same Obstructiv e sleep apnea of adult 0845604749 103 G47.33 Confirm diagnoses obtain home sleep study we may need to get her fitted for a mask Anxiety 59262016 F41.9 Gastroesop hageal reflux disease without esophagitis 478531580 K21.9 EGD/colono scopy is up-to-date followed by GI Dr Peter Gallagher controlled with Pepcid as well as omeprazole Sj gren's syndrome 11310597 M35.00 Currently on methotrexa teFollowed by rheumatmeghann gy Adult heal th examination 657395594 Z00.00 Medicare wellness questions completedD epression and fall risks reviewedMa mmogram DEXA scan up-to-date Immunizati ons up-to-date Living will in place [id number] LEI BRAXTON DO [place] [address],[place] [address] 05/15/2024 12:46:58 05/15/2024 14:29:26 Cough 85682499 R05.9 Given the symptoms and recent onset, the patient's cough is likely due to a viral upper respirator y infection. Treatment involves supportive care, including over-the-c ounter medication s, rest, and fluid intake. Monitoring for additional symptoms such as fever or increased severity is advised. Upper resp iratory infection 70555973 J06.9 Discussed cough medication and side effectsSym ptomatic care of Upper resp sxs . tylenol or ibuprofen for aches and fever nasal saline sprays for congestion Afrin 2 sprays bid for max of five days as needed for congestion OTC anti histamine for rhinorhea Rationale for appropriat e use of anti biotics return or call if sxs fail to improve in 10-14 days are worsening or develops soa , fever [id number] MARGO ALEJANDRO MD OPHTHALMO LOG[facility] [address] [place] [address] ,[address] [address] 06/02/2024 09:06:00 06/02/2024 10:01:48 Dry eyes 711771327 H04.129 appears to have less pek but still symptomati ccontinue restasis x 1 mo to see if kicks in better2 mo recheck Nuclear sc lerotic cataract 581281863 H25.13 iolm done todayreche ck 2 mo and consider surg then [id number] INGRID CASTAÑEDA MD ENDOCRINO LOGY [address] [place] [address] 06/23/2024 08:59:17 06/23/2024 09:44:14 Osteopenia 059371189 M85.89 [id number] LEI BRAXTON DO [facility] [address] [place] [address] 07/27/2024 12:43:09 07/27/2024 13:32:14 Nodule of lung 820866124 R91.1 - CT imaging planned for further evaluation to assess nodule characteri stics. C hest x-ray report obtained ER record reviewed possible pulmonary nodule noted right upper lobe will obtain CT scan to confirm size suspected 2.5 cm [id number] LEI BRAXTON, DO [facility] [address] [place] [address] 08/29/2024 09:05:07 08/29/2024 09:51:06 Adult health examination 059722601 Z00.00 Medicare wellness questions completed Depression and fall risks reviewed Mammogram DEXA scan up-to-date Immunizati ons up-to-date Living will discussed Felix reviewed and appropriat e [employer] Adjuster s nephrology ophthalmol ogy,cardio logy Screening mammography 24 313505 Z12.31 Last Mammo 03/24/2024 Screening for malignant neoplasm of colon 817802297 Z12.11 Reports last colonoscop y completed in 2020 with repeat needed in 2 years per notes. Patient follows with Dr. Bautista and has this scheduled Menopausal and postmenopausal disorders 834232720 N95.8 Screening for osteoporos is, Last dexa 03/23/2024 Hepatitis C screening 41 8517493 Z11.59 Has patient ever had Hep C screening? YES Nicotine dependence 5629 4008 Z87.891 former smoker quit in [address] scan of chest Active immunization 3387 9002 Z23 Has patient had Hep B vaccine? NO Flu: up-to-date Covid: due RSV: up-to-date Tdap: up-to-date Pneumococc al: Had PCV13, PPV23 Shingrix up-to-date Eye disord er screening 025743856 Z13.5 Has patient ever had eye/glauco ma screening? YES Body mass index 30+ - obesity 279485724 Z68.34 CounseledW ill resume semaglutid e compounded at the low dose and titrate back up Obstructiv e sleep apnea of adult 9437295151 103 G47.33 Sleep study with AHI index of 4.4 however concern of nocturnal hypoxia and previous diagnoses of sleep apnea as well as persistent symptoms of sleep apnea. We will refer for sleep medicine specialist possible monitored sleep study Anxiety 75274704 F41.9 Discussed methods of treatment agree with her use of a support animal encourage her to seek therapy counseling we can increase her sertraline to 150 a day. Currently on clonazepam at nighttime more for sleep and anxiety has been no untoward effects Little risk of abuse or neglect Thyroid nodule 396573476 E04.1 [address] ly [address] CT scan identified as fluid-fill ed cyst palpable exam today was negative recent PET scan was negative Ex-smoker 4258122 Z87.89 1 quit 1986 [id number] LEI BRAXTON DO [facility] [address] [facility] [place] [address] 08/08/2024 12:13:11 08/08/2024 16:14:51 Nodule of lung 995279538 R91.1 - Conduct a PET scan to assess malignancy potential. - Monitor for new developmen ts in symptoms. - CT imaging abnormal. Radiologic al recommenda tion PET scan. Chronic ki dney disease stage 3B 522841466 N18.32 - Maintain nephrology consultati on and prescribed antihypert ensive regimen. - Adjust medication s as needed for ideal blood pressure control. Follows with nephrology Morbid obesity 378803220 E66.01 - Continue current semaglutid e therapy. - Lifestyle modificati on recommenda tions for improved weight management . Benign ess ential hypertension 2011132 I10 - Follow with carvedilol , losartan. Currently on clonidine 0.1 mg has discontinu ed taking it twice daily- Monitoring of blood pressure and potential nephrology -guided adjustment s.Blood pressure not at goalContin ue medication s carvedilol losartan and clonidineW ill defer to nephrology 2 g sodium diet encouraged 150 minutes of exercise weeklyDASH DietAvoida nce of trans saturated fat Hyperlipidemia 47322186 E78.5 - Ensure adherence to simvastati n therapy. LDL at goal patient on simvastati n Obstructiv e sleep apnea of adult 8079315452 103 G47.33 Await sleep study Confirm diagnoses obtain home sleep study we may need to get her fitted for a mask Xerostomia 95644217 R68. 2 - Provide prescripti on for toothpaste to alleviate dry mouth symptoms. [id number] MARGO ALEJANDRO MD OPHTHALMO [address] ,[address] [address] 08/31/2024 09:32:29 08/31/2024 11:01:37 Tear film insufficiency 42607055 H04.123 03960068 restasis innefectiv erec d/c restasisdi scussed xiidra, plugs, meiboxiidr a bidart tears [facility] [id number] CHARLIE BAUTISTA PA-C PULMONARY [address] [facility], [address] [place] [address] 09/13/2024 13:40:33 09/14/2024 04:23:38 Obstructive sleep apnea syndrome 74087854 G47.33 110214 Due to significan t RONN symptoms and HST being negative for RONN, I recommend an observed multichann el polysomnog brittany. ORDER IN LAB SLEEP STUDY [id number] YOVANI LOPEZ MD RHEUMATOL OGY [address] [place] [address] 09/12/2024 15:48:53 09/13/2024 04:57:03 Primary Sj gren's syndrome 310459901 M35.00 Primary Sjogren's syndrome. She is status post minor salivary gland biopsy April 30, 2020 with 1+ focus score. She is doing very well. Clinical examinatio n stable. No lymphadeno maryjane noted. No constituti onal symptoms. No B type symptoms. Her musculoske letal examinatio n is fairly stable with intact active and passive range of motion. Strength is physiologi c. Talked about compliance and follow-up. We also talked about eye examinatio n every 12 months while taking the hydroxychl oroquine. Congested to continue with pilocarpin e to 5 mg 3 times a day Maintain the hydroxychl oroquine 200 mg once a day. Maintain yearly eye examinatio n follow-up with me in 6 months sooner if needed [id number] LEI BRAXTON DO [facility] [address] [address] 09/25/2024 14:01:26 09/25/2024 14:39:17 Pain in right lower limb 453071436 M79.604 303828 - Consider a potential rupture of a vessel in the right leg. Versus DVT - Ultrasound scheduled to assess further the nature and extent of the injury. - Continue monitoring symptoms and instruct on urgent care symptoms. [id number] CHARLIE BAUTISTA PA-C PULMONARY [address] [facility] [place] [address] 10/03/2024 15:54:15 10/04/2024 04:34:57 Obstructive sleep apnea syndrome 03050410 G47.33 308157 We discussed sleep study in detail. Overall this shows mild RONN. RONN was noted to be more moderate while supine which we discussed. Patient would prefer to wait on CPAP and try a wedge pillow. She will try to avoid the supine position. She will call the office if she decides to proceed with CPAP. [id number] MARGO ALEJANDRO MD OPHTHALMO [facility] [address] [place] [address] ,[address] [place] [address] 10/13/2024 08:49:11 10/13/2024 09:29:12 Dry eyes 180992714 H04.129 91542 xiidra improves situation - continueco ntinue art tears, hcsplugs placed today -f/u dec plaq check hvf 10-2, feb [facility] [id number] LEI BRAXTON, DO [facility] [address] [facility] ,[place] [address] 12/21/2024 10:58:16 12/21/2024 11:56:35 Generalized anxiety disorder 90650646 F41.9 Support animal with her todayConti nue sertraline UDS updatedKas per appropriat e- Monitor clonazepam refill necessity. Benign ess ential hypertension 5373252 I10 Blood pressure at goal continue losartan clonidine carvedilol labs up-to-date Nasal discharge 05330359 R09.82 058809 - Prescribe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
--- OUTSIDE RECORDS SUMMARY | 2025-05-13 19:48 | XMS_ITS | Continuity of Care Document ---
Author Organization [facility], CARDIOLOGY EAST Address [address] [facility] [address] [place] [address] Care Team Providers Care Education And Training Coordinator Name Role Phone MARGO ALEJANDRO Track Coach KAVON TANG Urologist YOVANI LOPEZ Launch Check Out AIDEN VALVERDE Primary Care Provider CHARLIE BAUTISTA Material Carrier INGRID CASTAÑEDA Referring Provider [phone] Assessment No assessment recorded. Plan of Treatment [...] DERM VISIT 2025 08:20A M LOAN MEDINA NON GARMENT SEWING MACHINE OPERATOR Not available Not available Not available RECHECK 2025 09:00A M KAVON TANG MD Not available Not available Not available BONE DENSITY 2025 09:00A M Bone_dens ity Not available Not available Not available RECHECK 2025 09:15A M INGRID CASTAÑEDA MD Not available Not available Not available VISUAL FIELD 2025 09:45A M Ophth_vis ual_field s Not available Not available Not available LEVEL 1 12/18/ 2026 10:30A M MARGO ALEJANDRO MD Not available Not available Not available Lab None recorded. Referral None recorded. Procedures None recorded. Surgeries None recorded. Imaging US, doppler echocardi ogram, w/ color flow 2024 025 [facility], [address] [facility] , [place], [address], 04/24/2025 10:49:38 Medication Orders None recorded. Patient TargetsNo targets recorded. Patient Instructions Encounter Date Encounter Id Patient Instructions Last Modified By Organization Details Last Modified Time 03/29/2025 [id number] body mass index: care instructions Not available 03/29/2025 16:32:42 high blood pressure: care instructions Not available 03/30/2025 12:38:48 Heart Station Patient Instructions Not available 03/29/2025 16:32:42 Reason for Referral None Reported. Results Created Date Observation Date Name Description Value Unit Range Abnormal Flag Note LastModifiedBy Organization Detail LastModifiedTime 03/16/2003/16/2025 URIC ACID uric acid 4.4 mg/dL 2.4-6. 8 normal Refer ence range s are based on [facility] norms and do not neces aiden martinez late with treat ment targe ts. In patie nts with an estab lishe d diagn osis of gout under going Urate Lower ing Thera py (ULT) , the 2011 [facility] ge of Rheum atolo gy Herve tracey s for Manag ement of Gout recom mend a targe t uric acid level of < 6 mg/dL in all patie nts, or lower in certa in circu mstan mary anne. Arthr itis Care and Resea [facility] Vol 64 No 10, 2011 José Damon ge of Rheum atolo gy ----- ----- ----- ----- ----- ----- ----- ----- ----- ----- ----- ---- Not Available [facility] [address] [facility], [place], [address], 03/16/2025 14:19:08 03/16/20 25 03/16/2025 COMP. METAB OLIC PANEL glucose 99 mg/dL 74-100 normal Not Available [facility] [address] [place] [address], [address], 03/16/2025 14:19:06 03/16/20 25 03/16/2025 COMP. METAB OLIC PANEL blood urea nitrogen 14 mg/dL 6-20 normal Not Available [facility] [address] [place] [address], [address], 03/16/2025 14:19:06 03/16/20 25 03/16/2025 COMP. METAB OLIC PANEL creatinine 0.84 mg/dL 0.50-0 .95 normal Not Available [facility] [address] [place] [address], [address], 03/16/2025 14:19:06 03/16/20 25 03/16/2025 COMP. METAB OLIC PANEL BUN/creatini ne ratio 17 (calc ) 10-20 normal Not Available [facility] [address] [place] [address], [address], 03/16/2025 14:19:06 03/16/20 25 03/16/2025 COMP. METAB OLIC PANEL sodium 138 mmol/ L 136-14 5 normal Not Available [facility] [address] [place] [address], [address], 03/16/2025 14:19:06 03/16/20 25 03/16/2025 COMP. METAB OLIC PANEL potassium 4.1 mmol/ L 3.4-5. 0 normal Not Available [facility] [address] [place] [address], [address], 03/16/2025 14:19:06 03/16/20 25 03/16/2025 COMP. METAB OLIC PANEL chloride 103 mmol/ L 98-107 normal Not Available [facility] [address] [place] [address], [address], 03/16/2025 14:19:06 03/16/20 25 03/16/2025 COMP. METAB OLIC PANEL carbon dioxide 21 mmol/ L 22-31 low Not Available [facility] [address] [place] [address], [address], 03/16/2025 14:19:06 03/16/20 25 03/16/2025 COMP. METAB OLIC PANEL anion gap 14 (calc ) 7-25 normal Not Available [facility] [address] [place] [address], [address], 03/16/2025 14:19:06 03/16/20 25 03/16/2025 COMP. METAB OLIC PANEL calcium 9.0 mg/dL 8.6-10 .2 normal Not Available [facility] [address] [place] [address], [address], 03/16/2025 14:19:06 03/16/20 25 03/16/2025 COMP. METAB OLIC PANEL total protein 6.4 g/dL 6.4-8. 3 normal Not Available [facility] [address] [place] [address], [address], 03/16/2025 14:19:06 03/16/20 25 03/16/2025 COMP. METAB OLIC PANEL albumin 3.8 g/dL 3.5-5. 2 normal Not Available [facility] [address] [place] [address], [address], 03/16/2025 14:19:06 03/16/20 25 03/16/2025 COMP. METAB OLIC PANEL globulin 2.6 1.5-4. 5 normal Not Available [facility] [address] [place] [address], [address], 03/16/2025 14:19:06 03/16/20 25 03/16/2025 COMP. METAB OLIC PANEL albumin/glob ulin ratio 1.5 (calc ) 1.1-2. 5 normal Not Available [facility] [address] [place], [address], 03/16/2025 14:19:06 03/16/20 25 03/16/2025 COMP. METAB OLIC PANEL bilirubin, total 1.0 mg/dL 0.1-1. 0 normal NOTE: New refer ence range . Not Available [facility] [address] [place] [address], [address], 03/16/2025 14:19:06 03/16/20 25 03/16/2025 COMP. METAB OLIC PANEL alkaline phosphatase 51 U/L 30-121 normal Not Available [facility] [address] [place] [address], [address], 03/16/2025 14:19:06 03/16/20 25 03/16/2025 COMP. METAB OLIC PANEL AST 21 U/L 0-32 normal Not Available [facility] [address] [place] [address], [address], 03/16/2025 14:19:06 03/16/20 25 03/16/2025 COMP. METAB OLIC PANEL ALT 25 U/L 0-33 normal Not Available [facility] [address] [place] [address], [address], 03/16/2025 14:19:06 03/16/20 25 03/16/2025 COMP. METAB OLIC PANEL eGFR 71 >= 60 normal NOT E New calcu latio n for GFR (CKD- EPI 2020) is formu lated witho ut race adjus tment facto rs at the recom menda tion of the Brice Holley y Jaciel atshira and José Piña ty of Nephr ology . This calcu latio n has not been valid ated in pregn ant women . For pedia tric patie nts refer to https ://leesa infante.effie thomason.o rg/pr ofess ional s/KDO QI/gf r_cal culat orPed Not Available [facility] [address] [place] [address], [address], 03/16/2025 14:19:06 03/16/2003/16/2025 UA WITH CULTU RE IF INDIC ATED color Yellow normal Not Available [facility] [address] [place] [address], [address], 03/16/2025 13:56:16 03/16/2003/16/2025 UA WITH CULTU RE IF INDIC ATED appearance Clear normal Not Available [facility] [address] [place] [address], [address], 03/16/2025 13:56:16 03/16/2003/16/2025 UA WITH CULTU RE IF INDIC ATED glucose Normal mg/dL normal normal Not Available [facility] [address] [place] [address], [address], 03/16/2025 13:56:16 03/16/2003/16/2025 UA WITH CULTU RE IF INDIC ATED bilirubin Negati ve mg/dL negati ve normal Not Available [facility] [address] [place] [address], [address], 03/16/2025 13:56:16 03/16/20 25 03/16/2025 UA WITH CULTU RE IF INDIC ATED ketone Negati ve mg/dL negati ve normal Not Available [facility] [address] [place] [address], [address], 03/16/2025 13:56:16 03/16/20 25 03/16/2025 UA WITH CULTU RE IF INDIC ATED specific gravity 1.019 1.003- 1.035 normal Not Available [facility] [address] [place] [address], [address], 03/16/2025 13:56:16 03/16/20 25 03/16/2025 UA WITH CULTU RE IF INDIC ATED blood Negati ve /uL negati ve normal Not Available [facility] [address] [place] [address], [address], 03/16/2025 13:56:16 03/16/20 25 03/16/2025 UA WITH CULTU RE IF INDIC ATED pH 6.5 5.0 - 8.0 normal Not Available [facility] [address] [place] [address], [address], 03/16/2025 13:56:16 03/16/20 25 03/16/2025 UA WITH CULTU RE IF INDIC ATED protein Negati ve mg/dL negati ve normal Not Available [facility] [address] [place] [address], [address], 03/16/2025 13:56:16 03/16/2003/16/2025 UA WITH CULTU RE IF INDIC ATED urobilinogen 1 mg/dL normal abnormal Not Available [facility] [address] [place] [address], [address], 03/16/2025 13:56:16 03/16/20 25 03/16/2025 UA WITH CULTU RE IF INDIC ATED nitrite Negati ve negati ve normal Not Available [facility] [address] [place] [address], [address], 03/16/2025 13:56:16 03/16/20 25 03/16/2025 UA WITH CULTU RE IF INDIC ATED leukocyte esterase Negati ve /uL negati ve normal Not Available [facility] [address] [place] [address], [address], 03/16/2025 13:56:16 03/16/20 25 03/16/2025 UA WITH CULTU RE IF INDIC ATED WBC, urine Rare 0-5/hp f normal Not Available [facility] [address] [place] [address], [address], 03/16/2025 13:56:16 03/16/20 25 03/16/2025 UA WITH CULTU RE IF INDIC ATED RBC, urine 0-2 0-2/hp f normal Not Available [facility] [address] [place] [address], [address], 03/16/2025 13:56:16 03/16/2003/16/2025 UA WITH CULTU RE IF INDIC ATED squamous epi. cells 0-5 0-5/hp f normal Not Available [facility] [address] [place] [address], [address], 03/16/2025 13:56:16 03/16/2003/16/2025 UA WITH CULTU RE IF INDIC ATED reflex culture see below normal UA resul ts do not meet cultu re crite mckenzie. Not Available [facility] [address] [place] [address], [address], 03/16/2025 13:56:16 03/16/2003/16/2025 HEMOG BRITTANY white blood cells 6.2 10*3/ uL 3.8-10 .8 normal Not Available [facility] [address] [place] [address], [address], 03/16/2025 13:48:00 03/16/2003/16/2025 HEMOG BRITTANY red blood cells 4.65 10*6/ uL 3.80-5 .20 normal Not Available [facility] [address] [place] [address], [address], 03/16/2025 13:48:00 03/16/20 25 03/16/2025 HEMOG BRITTANY hemoglobin 12.1 g/dL 12.0-1 6.0 normal Not Available [facility] [address] [place] [address], [address], 03/16/2025 13:48:00 03/16/20 25 03/16/2025 HEMOG BRITTANY hematocrit 36.1 % 35.0-4 7.0 normal Not Available [facility] [address] [place] [address], [address], 03/16/2025 13:48:00 03/16/2003/16/2025 HEMOG BRITTANY MCV 78 fL 80-100 low Not Available [facility] [address] [place] [address], [address], 03/16/2025 13:48:00 03/16/2003/16/2025 HEMOG BRITTANY MCH 26 pg 26-35 normal Not Available [facility] [address] [place] [address], [address], 03/16/2025 13:48:00 03/16/2003/16/2025 HEMOG BRITTANY MCHC 34 g/dL 32-36 normal Not Available [facility] [address] [place] [address], [address], 03/16/2025 13:48:00 03/16/2003/16/2025 HEMOG BRITTANY RDW 14.7 % 11.0-1 5.0 normal Not Available [facility] [address] [place] [address], [address], 03/16/2025 13:48:00 03/16/2003/16/2025 HEMOG BRITTANY MPV 7.0 fL 6.2-10 .5 normal Not Available [facility] [address] [place] [address], [address], 03/16/2025 13:48:00 03/16/2003/16/2025 HEMOG BRITTANY platelet count 271 10*3/ uL 150-40 0 normal Not Available [facility] [address] [place] [address], [address], 03/16/2025 13:48:00 03/23/2003/23/2025 PTH, INTAC T WITH CA PTH, intact 62.0 pg/mL 17.9-5 8.6 high INTER PRETI VE GUIDE ===== ===== ===== ===== ===== ===== ===== ===== ===== ===== ===== === PTH CALCI UM CONDI TION ===== ===== ===== ===== ===== ===== ===== ===== ===== ===== ===== = Renata l Renata l Renata l Parat hyroi d _ Low or Low Hypop tehan yroid ism Low Renata l _ Renata [...] ===== ===== ===== ===== ==== Not Available [facility] [address] [place], [address], 03/23/2025 17:15:29 03/23/20 25 03/23/2025 PTH, INTAC T WITH CA calcium 9.0 mg/dL 8.6-10 .2 normal Not Available [facility] [address] [place], [address], 03/23/2025 17:15:29 03/23/20 25 03/23/2025 VITAM IN D 25-OH vitamin D 25-oh, total 27 NG/mL >=30 NG/mL abnormal Not Available [facility] [address] [place], [address], 03/23/2025 17:14:21 03/24/20 25 03/23/2025 DEXA No observ ation record ed. IVETT Castañeda MD [address] [place] [address], [address], 03/26/2025 12:33:01 03/29/20 25 03/29/2025 elect rocar diogr am No observ ation record ed. BARCODE Not Available 2024 16:54:21 04/20/20 25 04/20/2025 XR, chest , 2 view No observ ation record ed. IVETT Not Available 2024 13:51:02 04/20/20 25 04/20/2025 XR, chest , 2 view No observ ation record ed. IVETT [address], [address], 04/22/2025 13:51:02 04/23/20 25 04/20/2025 elect rocar [...] 25 05/02/2025 compl ete PFT w/ post [facility] hodil ator jayce metry * No observ ation record ed. [facility] [address] [facility] , [place], [address], 05/11/2025 15:43:58 Result Notes None recorded. 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 75956647 Active Not Available [facility] 3 08:06:45 Morbid obesity 063268479 Active Not Available [facility] 3 08:06:48 Chronic kidney disease stage 3B 086573072 Active Not Available [facility] 4 09:23:52 Body mass index 40+ - severely obese 036069626 Active Not Available [facility] 4 09:23:58 Insomnia 164897884 Active 2014 From Automate d Load;Pro vider: Daisy, Cadet;S tatus: Active AIDEN VALVERDE, [address], [address] , [facility] 4 18:20:35 Hyperten sive disorder 06364835 Completed 201402/05/2019 From Automate d Load;Pro vider: Daisy, Cadet;S tatus: Active JF JATINDER, [address] [place] [address], [address] [place] [address] 9 18:12:30 Hyperlip idemia 10333254 Active 2014 From Automate d Load;Pro vider: Daisy, Cadet;S tatus: [place] [address] [place] [address], [address] , [facility] 4 18:20:28 Melanocy tic nevus of trunk 330310680 Completed 201411/09/2016 From Automate d Load;Pro vider: Loan Medina; Status: Active Beckie Henry [facility] 7 10:32:09 Senile hyperker atosis 428507442 Completed 201404/28/2016 From Automate d Load;Pro vider: Loan Medina; Status: Active HELIO VILLA MD [address] [place] [address], [address] , [facility] 6 15:20:57 Lentigo Completed 201404/28/2016 From Automate d Load;Pro vider: Loan Medina; Status: Active HELIO VILLA MD [address] [place] [address], [address] , [facility] 6 15:20:42 Hypertro phic conditio n of skin 77046504 Completed 201404/28/2016 From Automate d Load;Pro vider: Loan Medina; Status: Active HELIO VILLA MD [address] [place] [address], [address] , [facility] 6 15:21:10 Gastroin testinal tract finding Completed 201403/20/2019 From Automate d Load;Pro vider: Marlene Raza;S tatus: Active JF CHAMBERS DO [address] [place] [address], [address] , [facility] 9 08:44:09 Backache 020124392 Completed 201404/28/2016 From Automate d Load;Pro vider: Stephanie VillaS tatus: Active HELIO VILLA MD [address] [place] [address], [address] , [facility] 6 15:28:50 Function al heart murmur 90071230 Active 2014 From Automate d Load;Pro vider: Diaz Munroe;S tatus: Active Not Available [facility] 3 08:12:47 Irritabl e bowel syndrome with diarrhea 196472578 Active 2014 From Automate d Load;Pro vider: Marlene Raza;S tatus: Active Not Available [facility] 3 08:12:47 Constipa tion 71546213 Completed 201511/09/2016 From Automate d Load;Pro vider: Marlene Raza;S tatus: [facility] 7 10:31:52 Lacerati on of hand 396612064 Completed 201504/28/2016 From Automate d Load;Pro vider: Helio Villa;S tatus: Active HELIO VILLA MD [address] [place] [address], [address] , [facility] 6 15:21:03 Low back pain 102764871 Completed 201511/09/2016 From Automate d Load;Pro vider: Helio Villa;S tatus: [facility] 7 10:32:13 Hemangio ma 292101706 Completed 201511/09/2016 From Automate d Load;Pro vider: Loan Medina; Status: [facility] 7 10:32:17 Degenera tion of lumbar interver tebral disc 74184129 Active 2015 Not Available [facility] 3 08:12:47 Hyperkal emia 19297019 Completed 201803/17/2019 JF CHAMBERS, DO [address] [place], [address] , [facility] 9 08:33:51 Benign essentia l hyperten dwayne 3456107 Active 2018 AIDEN VALVERDE, DO [address] [place], [address] , [facility] 4 18:20:26 Fracture of phalanx of finger 13918174 Active 2018 Not Available [facility] 3 08:12:47 Hyponatr emia 78449759 Active 2018 Not Available [facility] 3 08:12:47 Migraine 87944989 Active 2019 Not Available [facility] 3 08:12:47 Generali zed anxiety disorder 73817747 Active 2020 Not Available [facility] 3 08:12:47 Restless legs syndrome 38189464 Active 2022 AIDEN VALVERDE, DO [address] [place], [address] , [facility] 4 11:41:36 COVID-19 519246224 Active 2022 BLADIMIR GLOVER MD [address] [place], [address] , [facility] 3 12:34:54 Lower abdomina l pain 61230705 Active 2023 CONNIE MOREIRA, DO [address] [place], [address] , [facility] 4 10:53:29 Stomach cramps 16155990 Active 2023 CONNIE MOREIRA, DO [address] [place], [address] , [facility] 4 11:21:49 Divertic ulosis of colon 610151601 Active 2023 CONNIE MOREIRA, DO [address] [place], [address] , [facility] 4 11:21:56 Nausea 181350912 Active 2023 CONNIE MOREIRA, DO [address] [place], [address] , [facility] 4 11:23:15 Obstruct ani sleep apnea of adult 02587487805 03 Active 2023 AIDEN VALVERDE, DO [address] [place], [address] , [facility] 4 18:20:43 Anxiety 69191659 Active 2023 AIDEN VALVERDE, DO [address] [place], [address] , [facility] 4 11:41:56 Obesity 538913493 Active 2023 [facility] 4 10:34:00 Ex-smoke r 6726529 Active 2024 [place] [address] [place] [address], [address] , [facility] 5 10:41:21 Problem Notes None recorded. Procedures Surgical History Date Name Laterality Status Provider Name and Address Organization Details Recorded Time 025 OCT/Retina completed MARGO ALEJANDRO MD [address] [place] [address], [address] 04/23/2025 11:27:53 025 Visual Field Extended completed MARGO ALEJANDRO MD [address] [place] [address], [address] 04/23/2025 11:27:51 025 Punctual Plug completed MARGO ALEJANDRO MD [address] [place] [address], [address] [place] [address] 04/23/2025 11:27:17 025 EKG completed MIKAL LOJA, NON GARMENT SEWING MACHINE OPERATOR [address] [place] [address], [address], [facility] 03/29/2025 16:24:21 025 DXA Low Bone Mass 2 - Tx completed INGRID CASTAÑEDA MD [address] [place] [address], [address], [facility] 03/24/2025 10:29:10 025 Neurostimulator Analysis w/o Reprogramming completed Chelly Tyler [facility] 02/07/2025 15:59:51 025 Post Void Residual; Ultrasound completed Lexy Rahman [facility] 02/07/2025 15:02:22 025 Destruction Premalignant Lesion(s) completed Shruti Valdez [facility] 01/09/2025 08:36:36 025 Prolia Injection completed Gena Browne [facility] 12/22/2024 09:20:55 025 Punctual Plug completed MARGO ALEJANDRO MD [address] [place], [address], [facility] 10/13/2024 09:28:28 025 Prolia Injection completed Karol Crooks [facility] 06/23/2024 09:07:52 025 Axial Length, IOL Master completed MARGO ALEJANDRO MD [address] [place], [address], [facility] 06/02/2024 09:56:59 024 OCT/Retina completed MARGO ALEJANDRO MD [address] [place], [address], [facility] 04/19/2024 10:29:56 024 DXA Low Bone Mass 2 - Tx completed INGRID CASTAÑEDA MD [address] [place], [address], [facility] 03/23/2024 16:44:04 024 EKG completed MIKAL LOJA APRN [address] [place], [address], [facility] 02/24/2024 09:40:10 024 Post Void Residual; Ultrasound completed [facility] 12/29/2023 15:52:26 024 Prolia Injection completed Josefa Kumar [facility] 12/21/2023 16:07:15 024 procedure on intestine completed Christy Choi [facility] 02/24/2024 09:35:22 024 Neurostimulator Analysis w/o Reprogramming completed Chelly Tyler [facility] 05/31/2023 10:21:06 024 Post Void Residual; Ultrasound completed [facility] 05/31/2023 09:27:17 023 Other completed KAVON TANG MD [address] [place], [address], [facility] 04/27/2023 15:56:37 023 Prolia Injection completed F[place] [facility] 04/19/2023 16:20:54 023 PNE Implantation; Sacral Nerve completed KAVON TNAG MD [address] [place] [address] [place], [address], [facility] 04/06/2023 15:07:08 023 Post Void Residual; Ultrasound completed Gaby Richards [facility] 01/22/2023 08:55:17 023 DXA Low Bone Mass 2 - Tx completed INGRID CASTAÑEDA MD [address] [place] [address], [address], [facility] 12/15/2022 18:22:03 023 TCM completed Bree Rolon [facility] 11/19/2022 20:07:07 023 Post Void Residual; Ultrasound completed Jillian Roe [facility] 07/17/2022 08:34:39 022 Post Void Residual; Ultrasound completed Catrachita Tarango [facility] 05/05/2022 08:53:27 021 Destruction BN Lesions completed Sondra Oconnor [facility] 04/29/2021 08:58:00 021 Knee Surgery completed Kendal Canales [facility] 04/29/2021 11:21:40 021 Visual Field Extended completed MARGO ALEJANDRO MD [address] [place], [address], [facility] 11/11/2020 09:09:46 021 EKG completed JF CHAMBERS DO [address] [place], [address], [facility] 09/30/2020 10:03:56 04/26/2 021 OCT/Retina completed MARGO ALEJANDRO MD [address] [place], [address], [facility] [facility] 09/09/2020 09:45:14 020 Salivary Gland Biopsy completed MARGO FRIEDMAN MD [address] [place], [address], [facility] 04/30/2020 09:43:49 020 Destruction BN Lesions completed Ariadna Sell [facility] 04/23/2020 08:51:13 020 Urinary Bladder completed KAVON TANG MD [address] [place], [address], [facility] 03/26/2020 09:44:18 020 Post Void Residual; Ultrasound completed Teena Johnson [facility] 02/09/2020 08:13:00 020 EKG completed MIKAL LOJA, NON GARMENT SEWING MACHINE OPERATOR [address] [place], [address], [facility] 02/01/2020 09:13:51 020 Post Void Residual; Ultrasound completed Yolanda Alexander [facility] 11/15/2019 09:12:34 020 Biopsy Skin Lesion; Tangential completed Cheyanne Magaña [facility] 10/31/2019 11:29:08 019 Destruction BN Lesions completed LOAN MEDINA, NON GARMENT SEWING MACHINE OPERATOR [address] [place], [address], [facility] 04/20/2019 09:32:34 019 Evening/Weekend/Ho liday Services completed Denny Schwab [facility] 02/25/2019 13:34:39 019 EKG completed DIAZ MUNROE PA-C [address] [place], [address], [facility] 01/26/2019 08:54:46 019 Probing Lacrimal Canaliculi completed MARGO ALEJANDRO MD [address] [place], [address], [facility] 05/26/2018 13:24:16 018 Destruction BN Lesions completed [facility] 04/19/2018 09:15:50 018 Date of Last Pap Smear completed [facility] 12/13/2018 10:16:23 018 EKG completed DIAZ MUNROE PA-C [address] [place], [address], [facility] 01/26/2018 09:02:42 018 DXA Low Bone Mass 1 - No Tx completed INGRID CASTAÑEDA MD [address] [place], [address], [facility] 11/08/2017 18:09:16 018 Most Recent Bone Density completed [facility] 12/13/2018 10:16:45 018 Orthopedic Surgery completed ROBIN ARELLANO PA-C [address] [facility] [place], [address], [facility] 09/01/2017 09:30:46 017 Destruction BN Lesions completed [facility] 04/14/2017 09:04:58 017 Shave Lesion; scalp, neck, hand, foot, genitalia completed [facility] 04/14/2017 09:06:31 017 EKG completed DIAZ MUNROE PA-C [address] [place], [address], [facility] 10/29/2016 09:29:58 016 EKG completed DIAZ MUNROE PA-C [address] [place], [address], [facility] 05/05/2016 14:22:08 016 Most Recent Mammogram completed [facility] 12/13/2018 10:18:24 012 Total Hysterectomy completed Luis Carlos Mahoney [facility] 12/13/2018 13:20:05 Appendectomy completed Skylar Burns [facility] 04/28/2016 11:23:45 Carpal tunnel surgery completed Yulisaumm Frazier [facility] 02/02/2020 09:20:20 Orthopedic Surgery completed Amari kori Hammond [facility] 09/25/2019 15:42:13 Other completed Gabbie Pérez [facility] 10/14/2023 16:17:19 Imaging Results None recorded. Procedure Notes None recorded. Medical Equipment None Reported. Allergies Allergen ID Allergen Name Allergen Category Reaction Reaction Severity Criticality Documentation Date Start Date Code Code System Note Provider Name and Address Organization Details Recorded Time 533022 bisoprolo l / hydrochlo rothiazid e medicatio n Not available Not available Not available 04/10/20162005 21290 7 RxNorm hives / n/v Yulisa Freddie [facility] 0 09:22:14 158784 Maxalt medicatio n Not available Not available Not available 04/10/20162005 49905 8 RxNorm hives / n/v Yulisaalisha Frazier [facility] 0 09:22:08 210132 Levaquin medicatio n rash Not available Not available 06/18/2022 83882 2 RxNorm KAVON TANG MD [address] [place] [address], [address] [place] [address] 3 13:46:23 189773 rizatript an medicatio n Not available Not available Not available 03/29/2025 91958 RxNorm Not Available [employer] - External Data Service - prod 5 06:13:52 774410 levofloxa arcadio medicatio n Not available Not available Not available 03/29/20252023 87815 RxNorm Not Available [employer] External Data Service - prod 5 06:15:51 601626 metoclopr amide hydrochlo ride medicatio n Not available Not available Not available 03/29/20252023 23395 6 RxNorm Not Available [employer] External Data Service - prod 5 06:15:51 061960 bisoprolo l / hydrochlo rothiazid e medicatio n Not available Not available Not available 03/29/20252023 83099 7 RxNorm Not Available [employer] - External Data Service - prod 06:15:51 Medications Name Sig Start Date Stop [...] completed Not Available Not Available Not Available Lane 5 mg-325 mg tablet Take 1 tablet [...] Details Last Updated DateTime 5 151.13 cm 35.9 kg/m2 89516.2 2 g 96 % 76 /min 138/82 mm[Hg] Bonnie Bland [facility] 5 16:07:42 Social History Question Answer Notes LastModified by Organizat ion Details LastModified Time Tobacco Smoking Status Former Smoker hasnt smoked since 1979 Luis Carlos Mahoney [facility] 12/13/2018 13:18:56 Accident Related Injury No [email or web address] Information not available 09/25/2019 What Is Your Level Of Caffeine Consumption? Moderate [email or web address] Information not available 08/29/2024 How Much Tobacco Do You Chew? None [email or web address] Information not available 02/25/2019 Are You Deaf Or Do You Have Serious Difficulty Hearing? No Information not available 12/11/2020 What Type Of Diet Are You Following? REGULAR Information not available 12/11/2020 Which Illicit Or Recreational Drugs Have You Used? None Per Pt [email or web address] Information not available 04/16/2019 When Did You Quit Smoking? 16+yearssinc elastcigaret te Information not available 10/15/2022 Which Of Your Hands Is Dominant? Right [email or web address] Information not available 09/25/2019 Hard Of Hearing Or Deaf In One Or Both Ears? No Information not available 10/26/2019 Legally Blind In One Or Both Eyes? No Information not available 10/26/2019 Which Hand Is Involved? Left Shoulder Information not available 09/25/2019 Rate The Severity Of Your Symptoms: (0-10 With 0=none And 10=worst Possible) 3 3-410 [email or web address] Information not available 09/25/2019 Date Of Injury: 2009 Or Longer [email or web address] Information not available 09/25/2019 Have You Been Treated For This Problem Before? Yes [email or web address] Information not available 09/25/2019 How Long Have You Had These Symptoms? 10 Years, Worse In Last Month [email or web address] Information not available 09/25/2019 Will This Be Filed As Workers' Compensation? No [email or web address] Information not available 09/25/2019 Marital Status Unknown Informatio n not available 04/28/2016 What Was The Date Of Your Most Recent Tobacco Screening? 03/29/2025 [email or web address] Information not available 03/29/2025 What Is Your Current Pack Years? 20-29packyea rs Information not available 04/27/2024 What Is Your [...] Date Was Tobacco Cessation Counseling Provided? 04/27/2024 [email or web address] Information not available 04/27/2024 How Many Years Have You Smoked Tobacco? 20 Information not available 04/28/2016 Have You Recently Traveled Abroad? No Information not available 12/11/2020 Work Related Injury? No [email or web address] Information not available 09/25/2019 Sex: Female Functional Status Question Answer Note LastModified by Organizat ion Details LastModified Time How many times per week do you consume alcohol? Less than 1 time per week [email or web address] Information not available 08/29/2024 Do you use any illicit or recreational drugs? No [email or web address] Information not available 09/25/2019 Do you or have you ever used any other forms of tobacco or nicotine? Yes Information not available 12/11/2020 What is your level of alcohol consumption? Occasional Information not available 04/28/2016 Do you or have you ever used smokeless tobacco? Never used smokeless tobacco [email or web address] Information not available 02/25/2019 Are you currently employed? Yes [email or web address] Information not available 08/29/2024 Are you able to care for yourself independently? 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 Never used electronic cigarettes [email or web address] Information not available 02/25/2019 What is your exercise level? Occasional Information not available 12/11/2020 Mental Status Question Answer Note LastModified by Organization D etails LastModified Time Do you feel stressed (tense, restless, nervous, or anxious, or unable to sleep at night)? [id number] Information not available 12/11/2020 Family History Relationship [...] Disease N Breast Cancer N Hernia N Lung Disease N Hypothyroidism N Glaucoma N Breast Problem N Vascular Disease N [...] N Immune System Disorder N Heart Attack ([place]) N Mental Illness N Neurological Problems N [...] Organization Details Recorded Time Tdap 4 completed Sarahaftab Best [facility] 03/13/2024 08:47:59 Influenza, high-dose, trivalent, PF 6 [facility] 08/20/2022 08:13:21 Pneumococcal conjugate PCV 13 5 completed Sarahaftab Best [facility] 08/20/2022 08:13:21 pneumococcal polysaccharide PPV23 4 completed Sarahaftab Best [facility] 08/20/2022 08:13:21 tetanus toxoid, unspecified formulation 6 [facility] 08/20/2022 08:13:21 zoster live [address] [facility] 08/20/2022 08:13:21 Influenza, high-dose, trivalent, PF [address] [facility] 02/09/2025 16:28:58 COVID-19, mRNA, LNP-S, PF, 30 mcg/0.3 mL dose 1 completed [facility] Available [facility] 07/07/[facility]23 10:32:34 Influenza, high-dose, quadrivalent, PF 3 completed [facility], [address] [place], [address], [facility] 02/09/2023 08:06:59 COVID-19, mRNA, LNP-S, PF, 50 mcg/0.5 mL 3 completed [facility], DO [address] [place], [address], [facility] 05/13/2023 07:47:23 RSV, recombinant, protein subunit RSVpreF, adjuvant reconstituted, 0.5 mL, PF 3 completed JF CHAMBERS, DO [address] [place], [address], [facility] 05/13/2023 07:47:23 COVID-19, mRNA, LNP-S, PF, 100 mcg/0.5mL dose or 50 mcg/0.25mL dose 1 completed Sarah Best [facility] 08/20/2022 08:13:21 COVID-19, mRNA, LNP-S, PF, 100 mcg/0.5mL dose or 50 mcg/0.25mL dose 2 completed Sarah Best [facility] 08/20/2022 08:13:21 Influenza, high-dose, quadrivalent, PF 2 completed Sarah Best [facility] 08/20/2022 08:13:21 Influenza, high-dose, trivalent, PF 4 completed Maryjane Ritchie [facility] 02/03/2024 08:52:58 COVID-19, mRNA, LNP-S, PF, 30 mcg/0.3 mL dose 1 completed Sarah Best [facility] 08/20/2022 08:13:21 Influenza, high-dose, trivalent, PF 5 completed Sarah Best [facility] 08/20/2022 08:13:21 Influenza, split virus, trivalent, preservative 4 completed [facility] 08:13:21 Influenza, adjuvanted, quadrivalent, PF 0 completed [facility] 08/20/2022 08:13:21 Influenza, high-dose, quadrivalent, PF 1 completed [facility] 08/20/2022 08:13:21 Influenza, high-dose, trivalent, PF 9 completed [facility] 08/20/2022 08:13:21 Influenza, high-dose, trivalent, PF 7 completed Sarah Best [facility] 08/20/2022 08:13:21 Influenza, high-dose, trivalent, PF 8 completed Sarah Best [facility] 08/20/2022 08:13:21 Influenza, high-dose, trivalent, PF 3 completed Sarah Best [facility] 08/20/2022 08:13:21 zoster recombinant 2 completed Sarah Best [facility] 08/20/2022 08:13:21 COVID-19, mRNA, LNP-S, bivalent, PF, 50 mcg/0.5 mL or 25mcg/0.25 mL dose 2 completed Sarah Best [facility] 08/20/2022 08:13:21 zoster recombinant 3 completed [facility] 08/25/2022 08:40:09 Influenza, split virus, quadrivalent, preservative 7 completed [facility] 08/25/2022 08:40:09 Past Encounters Encounter ID Performer Location Encounter Start Date Encounter Closed Date Diagnosis/Indication Diagnosis SNOMED-CT Code Diagnosis ICD10 Code Diagnosis IMO Codes Diagnosis Note [id number] INGRID CASTAÑEDA MD ENDOCRINO LOGY [address] [place] [address] 03/23/2025 14:51:41 03/24/2025 04:24:10 Osteopenia 881349722 M85.89 1 year follow-up osteopenia on therapy [...] equals 20% based on [place]-adapted WHO of almilescosmovinhm ) Continue current Prolia therapy 60 mg [...] s if necessary. Vitamin D deficiency 347 39213 E55.9 68745 Further repletion to keep levels above 30 ng/mL as appropriat e 1 year follow-up with bone density before visit while on Prolia therapy Patient verbalized understand ing and agreed with the above mentioned plan of care. [id number] INGRID CASTAÑEDA MD BONE DENSITY [address] [place] [address] 03/23/2025 14:51:07 03/23/2025 15:44:40 Osteopenia 314370518 M85.89 [id number] MIKAL LOJA APRN CARDIOLOG Y [facility] [address] [place] [address] ,[address] [place] [address] 03/29/2025 15:28:42 04/05/2025 18:59:40 Hypertensive disorder 41257896 I10 Stable. Primary care managing Mixed hyperlipidemia 267 232550 E78.2 Continue with statin. Low cholestero l, low fat diet advised. Recommend FLP at least annually. 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 Obesity 418314799 E66.9 Discussed importance of maintainin g healthy weight, increasing aerobic exercise. Goal 120-150 min per week. Dyspnea on exertion 6084 5006 R06.09 [id number] Echocardio gram will be arranged for evaluation of structural heart disease. Further recommenda tions to be made based on findings. Health Concerns Section Related Observation LastModified by Organization Detai ls LastModified Time None Recorded Concern Status LastModified by Organization Details LastModified Time None Recorded Payers Encounter Date Sequence Insurance Name Policy Number Policy Phillip Covered Member ID Phillip Member ID Guarantor Name 03/29/2025 1 [place] Stacey Weston [id number] Stacey Weston 03/29/2025 2 [employer] (MEDICARE SUPPLEMENT) Stacey Weston [id number] Stacey Weston Notes Date Note Type Note Provider Name and Address Organization Details Recorded Time 03/29/2025 text/html ROS as noted in the HPI Ms. Weston is a delightful 74-year-old white female with [...] This is a new finding for her. 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
--- OUTSIDE RECORDS SUMMARY | 2025-05-13 19:48 | XMS_ITS | Clinical Summary ---
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 Name Role Phone Unavailable Primary Care Provider Unavailabl e Social History Tobacco Use Types Packs/Day Years Used Date Smoking Tobacco: Never Assessed Comments Unknown Sex and Gender Information Value Date Recorded Sex Assigned at Not on file Legal Sex Female 7:10 PM EDT Gender Identity Not on file Sexual Orientation Not on file Plan of Treatment Health Maintenance Due Date Last Done Comments Annual Wellness Exam 01/19/1953 Hepatitis C Screening 01/19/1966 DTaP/TDaP/Td (1 - Tdap) 01/19/1967 Pneumococcal Vaccine 50+ (1 of 1 - PCV) 01/19/1998 Zoster (1 of 2) 01/19/1998 Bone Density Screening 01/19/2013 RSV or 60+ (1 - 1-d ose 75+ series) 01/19/2023 COVID-19 Vaccine (1 - 2024-2 6 season) 2025 Influenza Vaccine (#1) 2025 Hepatitis B Vaccine Aged Out No longe r eligible based on patient's age to complete this topic Meningococcal B Vaccine Aged Out No l onger eligible based on patient's age to complete this topic
--- OUTSIDE RECORDS SUMMARY | 2025-05-13 19:48 | XMS_ITS | Clinical Summary ---
Author Organization [facility] Address [address] [place] [address] Phone Care Team Providers Care Glue Maker Bone Name Role Phone Stephanie HIGGINS, Scar Irby Unavailable [ ] Conditions or Problems Problem Name Problem Code Onset Date Status Entry Date Provider Comment Standard Description Annotate Contusion of left knee, subsequent encounter S80.02xD (ICD-10-CM) Active 08/26 Scar Brown MD Contusion of left knee, subsequent encounter Knee, left, subsequent encounter, infection/infl ammatory reaction due to internal joint prosthesis T84.54xD (ICD-10-CM) Active 08/05 Carlee Moya Infection and inflammatory reaction due to internal left knee prosthesis, subsequent encounter Cellulitis of left knee L03.116 (ICD-10-CM) Active 08/05 Carlee Griffin Cellulitis of left lower limb 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/05 Carlee Griffin Leukemoid reaction Benign Essential Hypertension 54342451 (SNOMED CT) Active 08/05 Carlee Griffin Benign hypertension Other obesity due to excess calories 554889853 (SNOMED CT) Active 08/05 Alberto Heart Simple obesity Medications Medication Instructions Start Date Stop Date Generic Name [facility] Provider DOXYCYCLINE HYCLATE 100 MG CAPS take 1 cap po BID DOXYCYCLINE HYCLATE 24912952952 [facility] PERCOCET 7.5-325 MG TABS take 1 tab po q4h PRN OXYCODONE-ACETAM INOPHEN 52655137431 [facility] SIMVASTATIN 20 MG TABS take 1 tab po qhs SIMVASTATIN 48352992189 [facility] XARELTO 10 MG TABS take 1 tab po daily RIVAROXABAN 77535035086 [facility] RANITIDINE HCL 150 MG ORAL CAPSULE take 1 cap po BID RANITIDINE HCL 94296407982 [facility] ZOFRAN 4 MG ORAL TABLET take 1 tab po q6h PRN ONDANSETRON HCL 05882607049 [facility] EQ OMEPRAZOLE MAGNESIUM 20 MG CPDR take 1 cap po BID OMEPRAZOLE MAGNESIUM 53649491105 [facility] COZAAR 50 MG TABS take 1 tab po BID LOSARTAN POTASSIUM 51239285949 [facility] COQ-10 50 MG CAPS take 1 cap po daily COENZYME Q10 10575344027 [facility] COLACE CAPS take 2 caps po daily DOCUSATE SODIUM CAPS 41866481874 [facility] CLONAZEPAM 1 MG TABS take 1 tab po qhs CLONAZEPAM 83197886261 [facility] PROBIOTIC CAPS take 1 cap po daily SACCHAROMYCES BOULARDII CAPS 24881474481 [facility] OSTEO BI-FLEX ADV DOUBLE ST ORAL TABLET take 1 tab po BID [facility] [employer] 99760643800 [facility] MIRALAX ORAL PACKET take 17g po daily POLYETHYLENE GLYCOL 3350 03930844726 [facility] METOPROLOL SUCCINATE ER 50 MG [id number] take 1 tab po BID METOPROLOL SUCCINATE 97317829026 [facility] IMITREX 100 MG TABS take 1 tab po daily PRN SUMATRIPTAN SUCCINATE 97627654181 [facility] FLONASE 50 MCG/ACT NASAL SUSPENSION two sprays into nostril daily PRN FLUTICASONE PROPIONATE 06142750683 [facility] DOMPERIDONE take 1 tab po QID for nausea, vomiting DOMPERIDONE [facility] BENEFIBER DRINK MIX PACK take 3.5g po daily WHEAT DEXTRIN 25053409323 [facility] Medications Administered No information available. Allergies, Adverse Reactions, Alerts Allergy Name Reaction Description Start Date Severity Statu s Provider HUBER Severe Hemridging Critical Active Cristina Brown MD MOLD sneezing Mild Active Alberto W MEPERIDINE Nause and vomiting Severe Active Alberto W Results Date Name Value Unit Range Flag Description Clinical Lists Update: Prelo ad HGBA1C 5.50 % Hemoglobin A1c/Hemoglobin, total in Blood - % Office Visit: RM 7 MEDS REVIEW Done Documenta tion of current medications (procedure) ORALTOBACUSE Never Tobacco smoking status CIGARET SMKG yes Tobacco smoking status SMOK STATUS Former smoker Tobacco smoking status Lab Report: SEDIMENTATION RA TE ESR 15 mm/h 0-30 Erythrocyte sedimentation rate by Westergren method Lab Report: C-REACTIVE PROTE IN CRP 0.20 mg/dL 0.00-1.00 C reactive protein [Mass/volume] in Serum or Plasma Plan of Care Type Date Detail Pending order C- reactive prot ein Pending order Sedimentation Ra te (ESR) Pending order C- reactive prot ein Pending order Sedimentation Ra te (ESR) Patient education WEIGHT%20MANAG EMENT Procedures Code Procedure Name Date Entry Date CPT-31332 C- reactive protein CPT-04882 Sedimentation Rate (ESR) 201 12/19/11 CPT-92019 C- reactive protein CPT-57577 Sedimentation Rate (ESR) 201 12/19/11 Vital Signs Date Name Value Unit Description BMI (Body Mass Index) 30.25 kg/m2 Bod y Mass Index (Ratio) Body Temperature 97.6 [degF] temperat ure E&M BP Diastolic 90 mm[Hg] blood pressu re, diastolic BP Systolic 160 mm[Hg] blood pressur e, systolic Heart Rate 82 /min pulse rate Height 59 [in_us] height E&M Respiratory Rate 12 /min respirat ory rate E&M Weight Measured 149.8 [lb_av] weight E& M Weight Measured 149.8 [lb_av] weight E& M Immunizations No information available. Advance Directives Directive Description Start Date NO ADVANCED DIRECTIVES ESTABLISHED AT TH IS TIME
--- OUTSIDE RECORDS SUMMARY | 2025-05-13 19:48 | XMS_ITS | Patient Health Record ---
Author Organization [facility] Address [address] [place] [address] Care Team Providers Care Mgmt Consultant Name Role Phone Mohan Knox DO Primary Care Provider Scar Samuel Unavailable [phone] Allergies Allergen (clinical drug ingredient) Drug/Non Drug Allergy documented on EMR Reaction Allergy Type Onset Date Status rizatriptan Maxalt Unknown Drug Allergy Activ e Ziac Unknown Drug Allergy Active Reason For Referral No Information Medications Medication SIG (Take, Route, Frequency, Duration) Notes Start Date End Date Status Benefiber - as directed Orally Active Hydroxychloroquine Sulfate 200 MG 1 tablet Orally once daily Active cloNIDine HCl 0.1 MG 1 tablet Orally Once a day in the evening 12/20/2023 Active Potassium Chloride Anamaria ER 20 MEQ 1 tablet with food Orally Once a day Not-Taking Flonase Allergy Relief 50 MCG/ACT 1 spray in each nostril as needed Nasally Once a day; Duration: 30 days as needed Active Losartan Potassium 100 MG 1 tablet in e janitor Orally Once a day Active Trelegy Ellipta 100-62.5-25 MCG/ACT 1 puff Inhalation twice a day 12/20/2023 Active clonazePAM 0.5 MG 1 tablet at bedtime Orally Once a day Active Omeprazole 20 MG 1 capsule Orally twice daily; Duration: 30 days Active Domperidone 10mg TID Orally No t-Taking Pilocarpine HCl 5 MG 1 tablet Orally twice daily; Duration: 30 days Not-Taking CoQ-10 30 MG 1 capsule with a meal Orally Once a day; Duration: 30 day(s) Active Carvedilol 25 MG TAKE 1 TABLET BY MOUTH TWICE A DAY WITH FOOD FOR 90 DAYS; Duration: 90 Active Sertraline HCl 50 MG 1 tablet Orally Once a day; Duration: 30 day(s) Active Estradiol 0.1 MG/GM as directed Vaginal Active Famotidine 20 MG TAKE 1 TABLET BY MOUTH TWICE A DAY Oral; Duration: 90 Active Prolia 60 MG/ML as directed Subcutaneous Active Probiotic - as directed Orally Active rOPINIRole HCl 2 MG 1 tablet 1 to 3 hours before bedtime Orally Once a day; Duration: 30 days Active SUMAtriptan Succinate 100 MG 1 tablet at least 2 hours between doses as needed Orally Twice a day as needed Active hydrOXYzine HCl 25 MG 2 tablets Orally Once a day; Duration: 30 days Active Simvastatin 20 MG 1 tablet in the evening Orally Once a day; Duration: 30 day(s) Active Social History Tobacco Use: Social History Observation Description Date Details (start date - stop date) Former Smoker NA - NA Tobacco Use/Smoking Question Answer Notes Status: former smoker How long has it been since you last smoked? > 10 years Alcohol Screen (Audit-C) Question Answer Notes Did you have a drink containing alcohol in the p ast year? 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) Active confirmed Problem Obese (788946501) Obese (E66.9) Active confirme d Plan Of Treatment Pending Test Test Name Order Date Uric Acid, Serum 09/11/2021 Uric Acid, Serum 09/28/2022 Uric Acid, Serum 12/29/2022 Uric Acid, Serum 07/04/2019 Urinalysis, Complete 09/11/2021 PTH, Intact 12/29/2022 CBC WITH DIFF 12/20/2023 Urinalysis 12/29/2022 .Renal Function Panel 12/29/2022 .Renal Function Panel 09/11/2021 CMP14+eGFR 11/26/2020 CMP14+eGFR 07/04/2019 CMP14+eGFR 07/18/2019 CMP14+eGFR 01/16/2020 CBC W/AUTO DIFF 09/11/2021 CBC W/AUTO DIFF 12/29/2022 URINALYSIS COMPLETE 09/28/2022 URINALYSIS COMPLETE 07/18/2019 URINALYSIS COMPLETE 05/28/2020 URINALYSIS COMPLETE 07/04/2019 URINALYSIS COMPLETE 11/26/2020 URINALYSIS COMPLETE 12/20/2023 CBC W AUTOMATED DIFFERENTIAL 11/26/2020 CBC W AUTOMATED DIFFERENTIAL 07/18/2019 CBC W AUTOMATED DIFFERENTIAL 01/16/2020 BMP 09/21/2019 BMP 04/15/2021 BMP 05/28/2020 BMP 09/28/2022 BMP 10/18/2023 BMP 12/20/2023 Future Test Test Name Order Date Urinalysis 08/19/2023 Vitamin D 08/19/2023 BMP8+eGFR 08/19/2023 Hgb+Hct 08/19/2023 Insurance Providers Payer Name Payer Address Payer Phone Subscriber Number Group Number Insured Name Patient Relationship to Insured Coverage Start Date Coverage End Date [place] [address] [place] [address] [id number] Stacey Weston [place] [address] [phone] [id number] Stacey Weston Self - patient is the insured Medical [...] Interstem placement 04/27/23 Hospitalization History Reason Date(Month/Year) [facility] - 4 day stay - sept ic UTI 11/12/22
--- OUTSIDE RECORDS SUMMARY | 2025-05-13 19:48 | XMS_ITS | Clinical Summary ---
Author Organization [facility] Address [address] [place] [address] Phone Care Team Providers Care Patient Admitting Representative Name Role Phone Pieter HIGGINS, Ad Bain Unavailable [phone] YOBANY HIGGINS (FP), CODIE Heart Primary Care Provider [phone] Lisette Mohan CLARK Unavailable [phone] Reason for Referral 09/26/2024 Encounter for Follow Up Date Recorded Target Due Date Referral Type Referring Prov ider Reason For Referral 09/26/2024 Drew Ricardo PA-C see pc p for bp Last Documented On 5 9:13AM ; [facility] 09/26/2024 Drew Ricardo PA-C referr al to physician Last Documented On 5 9:13AM ; [facility] Reason for Visit and Chief Complaint The Chief Complaint is: Right knee pain Problems Includes: Problems addressed during this encounter and other active Problems All Visits Onset Date Date of Diagnosis Resolved Date Provider Condition Status Joint Pain Right Thumb 10/09/2021 10/09/2021 Ad Stapleton MD Active Last Documented On 5 1:41AM ; [facility] Joint Pain Right Knee 06/26/2020 06/26/2020 Nathaniel Feldman MD Active Last Documented On 5 1:40AM ; [facility] Plan of Treatment Patient screened for future fall risk: documentation of any fall with injury in past year. - Last Documented On 09/26/2024 10:25AM ; [facility] Fall Risk Assessment: This patient has been [...] with the patient. - Last Documented On 09/26/2024 10:25AM ; [facility] Patient presents today for evaluation of right knee, 4 days ago was seated, felt immediate pop in the knee posteriorly, began to have swelling, difficulty weight-bearing. Was not trying to get up at the time. Today we reviewed she is well-appearing x-rays, moderate swelling on exam mild effusion, ecchymosis posteriorly. Today recommend aspirating the knee rule out hemarthrosis, aspirated 10 cc of blood-tinged normal-appearing fluid. Today we discussed her symptoms are most consistent with a ruptured popliteal cyst. Today recommend knee sleeve, start tramadol, [place] 5 for pain control, physical therapy for soft tissue modalities and restoring range of motion. Follow up 6 weeks for re-evaluation The [Right] knee was prepped with 3 betadine swabs and an alcohol swab. 3cc 1% lidocaine plain was injected into the knee superficially. The knee was reprepped in the same fashion. An 18 gauge needle on 60cc syringe was then used to aspirate 10 cc of blood-tinged normal-appearing synovial fluid. 10 cc of Marcaine and Lidocaine mix were then injected through the same needle with good fill, patient tolerated procedure well. Hemostasis was obtained with a band-aid. Patient felt immediate relief with lidocaine test - Last Documented On 09/26/2024 10:25AM ; [facility] Pending Tests Order Diagnosis Results Due Ordering P rovider Therapy - Physical Therapy Knee Overweight 09/26/24 Drew Ricardo PA-C Last Documented On 10:24AM ; [facility] Instructions to patient Instructions for patient SEE PCP FOR BP Last Documented On 9:13AM ; [facility] Lose weight Last Documented On 9:13AM ; [facility] Assessments Includes: Assessments from this encounter Findings - Overweight - Last Documented On 09/26/2024 10:25AM ; [facility] History of right TKA 12/25/2020 - lateral compartment grade 0 patellofemoral grade 2 - Last Documented On 09/26/2024 10:25AM ; [facility] Instructions Includes: Instructions from this encounter Instructions to patient Instructions for patient SEE PCP FOR BP Last Documented On 5 9:13AM ; [facility] Lose weight Last Documented On 5 9:13AM ; [facility] Medical Equipment - Implanted Devices Includes: Current Devices No Medical Equipment Recorded Medications Includes: Medications discussed during this encounter and other current Medications New / Renewed during this visit Drew Ricardo PA-C on 09/26/2024 Medrol 4 MG Oral Tablet Therapy Pack Provider: Drew Ricardo PA-C 7 day supply: 1 tablet, 0 refills Diagnosis: take as directed per instructions on TeleDNA cy: [facility]/pharmacy #[id number] - [address] [place], [address] - Last Documented On 5 10:46AM By Drew Ricardo ; [facility] HYDROcodone-Acetaminophen 5- 325 MG Oral Tablet Provider: Herbert Feldman MD 10 day supply: 20 tablet, 0 refills Diagnosis: Take 1 tablet every 8 hrs prn pain Pharmacy: [facility]/pharmacy #[id number] - [address] [place], [address] - Last Documented On 5 10:46AM By Moises Feldman ; [facility] Current Medications (continue as prescribed) traZODone HCl 50 MG Oral Tablet 01/29/2022 Provider: Diagnosis: Last Documented On 2 2:11PM By Alina Manrique ; [facility] SUMAtriptan Succinate 100 MG Oral Tablet 01/27/2022 Provider: Diagnosis: Last Documented On 2 2:11PM By Alina Manrique ; [facility] Carvedilol 25 MG Oral Tablet 01/23/2022 Provider: Diagnosis: Last Documented On 2 2:11PM By Alina Manrique ; [facility] Doxazosin Mesylate 2 MG Oral Tablet 01/23/2022 Provi carmina: Diagnosis: Last Documented On 2 2:11PM By Alina Mnarique ; [facility] Simvastatin 20 MG Oral Tablet 01/16/2022 Provider: Diagnosis: Last Documented On 2 2:11PM By Alina Manrique ; [facility] clonazePAM 0.5 MG Oral Tablet 01/11/2022 Provider: Diagnosis: Last Documented On 2 2:11PM By Alina Manrique ; [facility] Pilocarpine HCl 5 MG Oral Tablet 01/05/2022 Provider : Bear Hamilton Diagnosis: Last Documented On 2 2:11PM By Alina Manrique ; [facility] Past Medications on file Clotrimazole 1% External Cream 03/18/2023 - 04/17/2023 Provider: Ad diggs MD Diagnosis: use as directed Last Documented On 3 4:47PM By Ragini Bradshaw ; [facility] Medications Administered Includes: Administered Medications from this encounter No Administered Medications Recorded Vital Signs Includes: Vital Signs from this encounter Vital Name 09/26/2024 09:14A Height (in) 58 Weight (lb) 175 Body Mass Index 36.6 Body Surface Area 1.7 Note: ab Last Documented: On 09/26/2024 9:14AM ; [facility] Results Includes: Results discussed during this encounter No Results Recorded For Specified Dates History of Present Illness Includes: History of Present Illness from this encounter VAL Weston is a 74 year old female. - Allergy list reviewed - Problem list reviewed - Medication list reviewed - Medication list reviewed - Review of medications documented Social History Description Last Updated Alcohol use socially drink 03/18/2023 Last Documented On 5 9:13AM ; [facility] Not exercising regularly 03/24/2022 Last Documented On 5 9:13AM ; [facility] Tobacco non-user 03/24/2022 Last Documented On 5 9:13AM ; [facility] Non-smoker 03/24/2022 Last Documented On 5 9:13AM ; [facility] Recent change in diet 03/21/2019 Last Documented On 5 9:13AM ; [facility] Sex - Female 12/11/2024 Last Documented On 5 3:19PM ; [facility] Smoking Status Unknown Procedures and Surgical History Includes: Procedures from this encounter Procedures Code Diagnosis Performing Provider Service Location Service Date DRAIN/INJECT, JOINT/BURSA (RIGHT) Effusion, right knee, Presence of right artificial knee joint Drew Ricardo PA-C [facility] 09/26/2024 Last Documented On 5 12:52PM ; [facility] X-RAY EXAM OF KNEE 3 VIEWS (RIGHT) 71560 Effusion, right knee, Presence of right artificial knee joint Drew Ricardo PA-C [facility] 09/26/2024 Last Documented On 5 12:52PM ; [facility] use of tobacco assessment performed 1000F Last Documented On 5 9:13AM ; [facility] patient screened for future fall risk: documentation of any fall with injury in past year 1100F Last Documented On 5 9:13AM ; [facility] follow-up visit in one month Last Documented On 5 9:13AM ; [facility] referral to physician see pcp for bp Last Documented On 5 9:13AM ; [facility] referral to physician Last Documented On 5 9:13AM ; [facility] Pt received screening for fall risk G8270 Last Documented On 5 9:13AM ; [facility] Clinical summary provided to patient Last Documented On 5 9:13AM ; [facility] Surgical History Last Updated History of hysterectomy 10/09/2021 Last Documented On 5 9:13AM ; [facility] History of total knee arthroplasty 2018 Right 10/09/2021 Last Documented On 5 9:13AM ; [facility] History of appendectomy 03/21/2019 Last Documented On 5 9:13AM ; [facility] Medical History Includes: Medical History addressed during this encounter Description Last Updated Recent immunization for flu 02/14/2022 0 09/26/2024 Last Documented On 5 9:13AM ; [facility] Recent immunization for flu 02/13/2022 Last Documented On 5 10:25AM ; [facility] Recent immunization for pneumococcal pne umonia 02/13/2022 09/26/2024 Last Documented On 5 10:25AM ; [facility] History of arthritis 10/09/2021 Last Documented On 5 9:13AM ; [facility] Use of CPAP 10/09/2021 Last Documented On 5 9:13AM ; [facility] Heartburn / Acid Reflux 06/26/2020 Last Documented On 5 9:13AM ; [facility] Hypertension 06/26/2020 Last Documented On 5 9:13AM ; [facility] Sleep Apnea 06/26/2020 Last Documented On 5 9:13AM ; [facility] Use of CPAP 06/26/2020 Last Documented On 5 9:13AM ; [facility] Arthritic joint problems 03/21/2019 Last Documented On 5 9:13AM ; [facility] Intermittent hypertension 03/21/2019 Last Documented On 5 9:13AM ; [facility] Carpal tunnel/ulnar removed-right ~high cholesterol 03/31/2017 Last Documented On 5 9:13AM ; [facility] History of diverticulitis of colon 03/31 Last Documented On 5 9:13AM ; [facility] Family History Includes: Family History addressed during this encounter Description Last Updated Family history of thromboembolic disease 10/09/2021 Last Documented On 5 9:13AM ; [facility] Family history of rheumatoid arthritis 0 06/26/2020 Last Documented On 5 9:13AM ; [facility] Stroke / Seizures 06/26/2020 Last Documented On 5 9:13AM ; [facility] stroke/seizure 03/21/2019 Last Documented On 5 9:13AM ; [facility] Family history of cancer 03/21/2019 Last Documented On 5 9:13AM ; [facility] Family history of hypertension 9 Last Documented On 5 9:13AM ; [facility] Review of Systems Includes: Review of [...] Gastrointestinal: No heartburn and no abdominal pain. Indigestion. No Peptic Ulcer, no GI Stomach Bleed, and no Ulcers. Acid Reflux. Endocrine: No hot flashes, no muscle weakness, [...] encounter Description No anxiety Last Documented On 5 9:13AM ; [facility] Physical Exam Includes: Physical Exam from this encounter Allergies Includes: Active Allergies Substance Type Reaction Onset Date Resolved Date Statu s OTHER Allergy maxalt/ziac 10/09/2021 Active Last Documented On 5 9:13AM ; [facility] Morphine Derivatives Allergy Nausea, Vom iting, Diarrhea / Diarrheal disorder 08/05/2009 Resolved Last Documented On 7 9:34AM ; [facility] Care Patient Admitting Representative Name (Identifier) Role/Relation Location/Telecom Last Documented By Ad Stapleton MD ([id number]) Assigned practitioner (occupation) tel:[phone] Last Documented On 12/11/2024 3:19PM ; [facility] CODIE HAYWOOD MD (FP) ([id number]) Primary care physician (occupation) [address], [place], [place], , [address] tel:[phone] Last Documented On 12/11/2024 3:19PM ; [facility] Mohan Knox DO ([id number]) [address] , [place], [place], , [address] tel:[phone] Last Documented On 03/21/2019 3:39PM ; [facility] Encounters Encounter Provider Location (Healthcare Service Location) Date Check-In Time Check-Out Time Diagnosis Encounter Disposition [facility] Up [facility] 2024 9:14AM 10:26AM Overweight Payer Includes: Active Insurance Policies Plan Name (Payer ID) Coverage Type Member ID Group # Subscriber (ID) Relationship Effective Dates 1 - Medicare Part B [facility] ([id number]) [id number] Stacey Weston Self 01/15/2013 - Unknown Last Documented On 9 8:26AM ; [facility] 2 - [facility] [id number] Stacey mantilla Self 05/17/2016 - Unknown Last Documented On 2 11:18AM ; [facility] Clinical Notes Includes: Clinical Notes from this encounter * Progress note Date Encounter Last Documented by 09/26/2024 Follow Up Last documented on 09/26/2024; 10:25 AM, Drew Evans; [facility] Active Problems & Conditions - Joint Pain in the Right Knee - Joint Pain Right Thumb Chief Complaint The Chief Complaint is: Right knee pain. Referred Here Referred by Self. History of Present Illness Stacey Weston is a 74 year old female. - Allergy list reviewed - Problem list reviewed - Medication list reviewed - Medication list reviewed - Review of medications documented Current Medication - Carvedilol 25 MG Oral [...] hypertension. Immunization History: Recent immunization for flu 02/14/2022, for flu 02/13/2022, and for pneumococcal pneumonia. Diagnoses: - Sleep Apnea - Heartburn / Acid Reflux - Hypertension Diagnoses: Diverticulitis of colon. Arthritis Carpal tunnel/ulnar removed-right high cholesterol. Surgical: - Appendectomy - Hysterectomy - Total knee arthroplasty 2018 Right Social History Current diet: Recent change in diet. Behavioral: Tobacco non-user. Tobacco use: Non-smoker. Alcohol: Alcohol use socially drink. Habits: Not exercising regularly. Allergies - OTHER [...] Gastrointestinal: No heartburn and no abdominal pain. Indigestion. No Peptic Ulcer, no GI Stomach Bleed, and no Ulcers. Acid Reflux. Endocrine: No hot flashes, no muscle weakness, [...] and Immunologic: Complaint of seasonal allergic reaction. Physical Findings - Vitals taken 09/26/2024 09:14 am ab Height 58 in Weight 175 lbs Body Mass Index 36.6 kg/m2 Body Surface Area 1.7 m2 Patient alert And oriented x3 Moderately overweight Antalgic gait Right hip motion Normal Right knee exam Incision well healed, well-appearing scar Ecchymosis of the popliteal fossa Moderate swelling, mild effusion Knee extension 3- Knee flexion 95- limited secondary to pain TA/Gastroc/Quad firing Sensation intact to light touch throughout Palpable pulses DP/PT Tests Three-view x-ray right knee taken today demonstrates well-appearing medial UK without signs of loosening or subsidence. Good patellar tracking. Well-appearing patellofemoral space. Assessment - Overweight History of right TKA 12/25/2020 - lateral compartment grade 0 patellofemoral grade 2 Therapy - Follow-up visit in one month. - Clinical summary provided to patient. - Referral to physician see pcp for bp and to physician. - Pt received screening for fall risk. Counseling/Education Tobacco non-user. use of tobacco assessment performed. - Instructions for patient SEE PCP FOR BP - Lose weight Plan StartCited - Overweight Therapy/Physical Therapy: Knee Instructions: See PT order attached EndCited Patient screened for future fall risk: documentation of any fall with injury in past year. Fall Risk Assessment: This patient has been [...] therapy has been discussed with the patient. Patient presents today for evaluation of right knee, 4 days ago was seated, felt immediate pop in the knee posteriorly, began to have swelling, difficulty weight-bearing. Was not trying to get up at the time. Today we reviewed she is well-appearing x-rays, moderate swelling on exam mild effusion, ecchymosis posteriorly. Today recommend aspirating the knee rule out hemarthrosis, aspirated 10 cc of blood-tinged normal-appearing fluid. Today we discussed her symptoms are most consistent with a ruptured popliteal cyst. Today recommend knee sleeve, start tramadol, [place] 5 for pain control, physical therapy for soft tissue modalities and restoring range of motion. Follow up 6 weeks for re-evaluation The [Right] knee was prepped with 3 betadine swabs and an alcohol swab. 3cc 1% lidocaine plain was injected into the knee superficially. The knee was reprepped in the same fashion. An 18 gauge needle on 60cc syringe was then used to aspirate 10 cc of blood-tinged normal-appearing synovial fluid. 10 cc of Marcaine and Lidocaine mix were then injected through the same needle with good fill, patient tolerated procedure well. Hemostasis was obtained with a band-aid. Patient felt immediate relief with lidocaine test Notes This dictation was done with voice recognition software and may contain errors and omissions. Practice Management Use of tobacco assessment performed and patient screened for future fall risk documentation of any fall with injury in past year. Care Team - Mohan Knox DO
--- OUTSIDE RECORDS SUMMARY | 2025-05-13 19:49 | XMS_ITS ---
Care Plan - [facility], [facility] Created on: May 13, 2025 Stacey Weston : 1950 Sex: Female Author Organization [facility] , [facility] Address [address] [place] [address] Phone Care Team Providers Care Junior Systems Engineer Name Role Phone Ad Stapleton MD Unavailable [phone] YOBANY HIGGINS (FP), CODIE Heart Primary Care Provider [phone] Mohan Knox DO Unavailable [phone]
--- OUTSIDE RECORDS SUMMARY | 2025-05-13 19:49 | XMS_ITS | Data Portability ---
Author Organization [place] [facility], [facility]- [facility] Out[facility] Address [address] [place] [address] Care Team Providers Care Utility Gelatin Maker Name Role Phone JF BROOKS Primary Care Provider Assessment No assessment recorded. Plan of Treatment Reminders Order Date Submit Date Provider Last Modified By Organization Details Last Modified Time Details Appointments None recorded. Lab None recorded. Referral None recorded. Procedures None recorded. Surgeries None recorded. Imaging None recorded. Medication Orders Medrol (Carlos) 4 mg tablets in a dose pack 2022 023 [facility] #[id number], [address] [place], [address], 3 08:58:26 methocarbam ol 500 mg tablet 2022 023 [facility] #[id number], [address] [place], [address], 08:58:26 Patient TargetsNo targets recorded. Patient Instructions Encounter Date Encounter Id Patient Instructions Last Modified By Organization Details Last Modified Time 06/12/2022 [id number] biceps tendiniti s: exercises [email or web address] Not available 06/12/2022 08:58:23 The patient is diagnosed with a probable long head of the biceps strain and contusion of the left upper extremity. The patient will be treated conservatively with rest, ice, compression and elevation. The patient will be given a prednisone dose taper and a muscle relaxer for nighttime rest and spasms. The patient will follow up on a as needed basis but will probably return back to [place]. Diagnosis and treatment discussed with patient. All questions answered today. [email or web address] Not available 06/12/2022 12:37:36 Reason for Referral None Reported. Problems Name Problem SNOMED Code Status Onset Date Resolution Date Notes Provider Name and Address Organization Details Recorded Time Biceps tendinitis [id number] Active 023 Rick Morocho PA-C [address] [place], [address], [facility] 08:57:05 Problem Notes None recorded. Medical Equipment None Reported. Allergies No known drug allergies Medications Name Sig Start Date Stop Date Status Note LastModified by Organization Details LastModified Time amoxicillin 500 mg capsule TAKE 4 CAPSULES 1HR PRIOR TO APPOINTMENT active Not Available Not Available Not Available methocarbamo l 500 mg tablet TAKE 1 TABLET BY MOUTH EVERYDAY AT BEDTIME active Not Available Not Available No t Available pilocarpine 5 mg tablet TAKE 1 TABLET TWICE A DAY BY ORAL ROUTE FOR 90 DAYS. active Not Available Not Available No t Available carvedilol 25 mg tablet TAKE 1 TABLET BY MOUTH TWICE A DAY WITH FOOD FOR 90 DAYS active Not Available Not Available No t Available ascorbic acid (vitamin C) 1,000 mg tablet TAKE 1 TABLET BY MOUTH ONCE A DAY POST SURGERY active Not Available Not Available No t Available ropinirole 1 mg tablet TAKE 1 TABLET BY MOUTH EVERY DAY AT BEDTIME NEEDED active Not Available Not Available No t Available trazodone 50 mg tablet TAKE 1/2-1 TABLET AT BEDTIME NEEDED active Not Available Not Available No t Available sumatriptan 100 mg tablet TAKE 1 TABLET BY MOUTH AT ONSET OF MIGRAINE, MAY REPEAT DOSE AFTER 2 HRS active Not Available Not Available No t Available clonazepam 0.5 mg tablet TAKE 1 TABLET BY MOUTH EVERY DAY AT BEDTIME NEEDED active Not Available Not Available No t Available amlodipine 5 mg tablet TAKE 1 TABLET BY MOUTH IN THE MORNING active Not Available Not Available Not Available ondansetron 8 mg disintegrati ng tablet DISSOLVE 1 TABLET ON THE TONGUE EVERY 8 HOURS NEEDED active Not Available Not Available No t Available meloxicam 7.5 mg tablet TAKE 1-2 TABLETS BY MOUTH EVERY DAY NEEDED FOR PAIN active Not Available Not Available No t Available famotidine 20 mg tablet TAKE 1 TABLET BY MOUTH TWICE A DAY active Not Available Not Available No t Available hydrocodone 7.5 mg-acetamino phen 325 mg tablet TAKE 1 TABLET BY MOUTH EVERY 6 HOURS NEEDED FOR 3 DAYS active Not Available Not Available No t Available ropinirole 2 mg tablet TAKE 1-1&1/2 TABLETS BY MOUTH AT BEDTIME NEEDED active Not Available Not Available No t Available simvastatin 20 mg tablet TAKE 1 TABLET BY MOUTH EVERYDAY AT BEDTIME active Not Available Not Available No t Available omeprazole 20 mg capsule,alan yed release TAKE 1 CAPSULE BY MOUTH TWICE A DAY active Not Available Not Available No t Available hydroxyzine HCl 25 mg tablet TAKE 1 TO 2 TABLETS BY MOUTH AT BEDTIME NEEDED active Not Available Not Available No t Available furosemide 20 mg tablet TAKE 1 TABLET BY MOUTH EVERY DAY NEEDED FOR 14 DAYS active Not Available Not Available No t Available hydroxychlor oquine 200 mg tablet TAKE 1 TABLET BY MOUTH EVERY DAY active Not Available Not Available No t Available methylpredni solone 4 mg tablets in a dose pack TAKE DIRECTED ON PACKAGE INSTRUCTION S active Not Available Not Available No t Available losartan 100 mg tablet TAKE 1 TABLET BY MOUTH EVERY DAY active Not Available Not Available No t Available fluticasone propionate 50 mcg/actuatio n nasal spray,suspen dwayne SPRAY TWICE IN EACH NOSTRIL DAILY active Not Available Not Available No t Available sertraline 50 mg tablet TAKE 1 TABLET BY MOUTH EVERY DAY active Not Available Not Available No t Available dicyclomine 10 mg capsule TAKE 1 CAPSULE EVERY 6 HOURS NEEDED active Not Available Not Available No t Available naproxen 500 mg tablet TAKE ONE TABLET TWICE A DAY NEEDED FOLLOWING SURGERY active Not Available Not Available No t Available doxazosin 2 mg tablet TAKE 1 TABLET BY MOUTH EVERY DAY active Not Available Not Available No t Available sodium fluoride 1.1 % dental paste USE DIRECTED EVERY DAY*NOT COVERED* active Not Available Not Available No t Available diclofenac 1 % topical gel APPLY 2 GRAMS TO THE AFFECTED AREA(S) BY TOPICAL ROUTE 4 TIMES PER DAY active Not Available Not Available No t Available Lagevrio 200 mg capsule (EUA) TAKE 4 CAPSULES BY MOUTH EVERY 12 HOURS FOR 5 DAYS active Not Available Not Available N ot Available Vitals None Recorded Social History None recorded. 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 Family History Nothing Reported. Medical History No medical history recorded. Gynecological HistoryNo gynecological history recorded. Obstetrics History GPAL:G 0 P 0 0 0 0 Past Encounters Encounter ID Performer Location Encounter Start Date Encounter Closed Date Diagnosis/Indication Diagnosis SNOMED-CT Code Diagnosis ICD10 Code Diagnosis IMO Codes Diagnosis Note [id number] Jarret Solares MD [facility] [place] [address] 06/12/2022 08:20:46 06/12/2022 09:00:58 Biceps tendinitis 823493297 M75.22 Health Concerns Section Related Observation LastModified by Organization Detai ls LastModified Time None Recorded Concern Status LastModified by Organization Details LastModified Time None Recorded Advance Directives Directive None Recorded Payers Insurance Date Sequence Insurance Name Policy Number Policy Phillip Covered Member ID Phillip Member ID Guarantor Name 06/12/2022 1 [place] Stacey Michael Enrico [id number] Stacey Weston 06/12/2022 2 [facility] (MEDICARE SUPPLEMENT) Stacey Michael Enrico [id number] Stacey Enrico Notes Date Note Type Note Provider Name and Address Organization Details Recorded Time 06/12/2022 text/html Stacey is a very pleasant 72-year-old who comes in complaining of pain in her left arm. The patient fell and felt a pain in her bicep about 2 weeks ago. Patient has a deep pain in her bicep which she states is extreme. Patient states pain can be 10 out of 10. She complains of pain starting at the antecubital space going up towards her shoulder and does run down towards her arm somewhat. The patient denies any bruising. The patient fell couple weeks ago and states she had a cracked rib and asked when she had the Lortab. Patient lives in [place] and is here visiting family. Rick Morocho PA-C [address] [place], [address], [place] - [facility] 06/12/2022 12:37:40 OBGyn Episode No OBEpisode recorded.
--- OUTSIDE RECORDS SUMMARY | 2025-05-13 19:49 | XMS_ITS | Clinical Summary ---
Author Organization [facility] , [facility] Address [address] [place] [address] Phone Care Team Providers Care Management Retail Intern Name Role Phone Ad Stapleton MD Unavailable [phone] YOBANY HIGGINS (FP), C[facility] Primary Care Provider [phone] Lisette Neymar CLARKin Diana Unavailable [phone] Reason for Visit and Chief Complaint The Chief Complaint is: right thumb pain Problems Includes: Problems addressed during this encounter and other active Problems All Visits Onset Date Date of Diagnosis Resolved Date Provider Condition Status Joint Pain Right Thumb 10/09/2021 10/09/2021 Ad Stapleton MD Active Last Documented On 5 1:41AM ; [facility] Joint Pain Right Knee 06/26/2020 06/26/2020 Nathaniel Feldman MD Active Last Documented On 5 1:40AM ; [facility] Plan of Treatment Fall Risk Assessment: This [...] with the patient. - Last Documented On 04/22/2023 5:00PM ; [facility] Given nail removal has occurred once, I discussed with the patient I didn't feel doing this again would resolve her discomfort. She may continue the topical anti-fungal. I also recommended daily [place] soaks as well for one month, and if she does not notice an improvement in her symptoms, stop the soaks. For now, she will keep an eye on her symptoms and return to Dr. Stapleton if she has any concerns. - Last Documented On 04/22/2023 5:00PM ; [facility] Instructions to patient Lose weight Last Documented On 3 8:51AM ; [facility] Assessments Includes: Assessments from this encounter Findings - Overweight - Last Documented On 04/22/2023 5:00PM ; [facility] Instructions Includes: Instructions from this encounter Instructions to patient Lose weight Last Documented On 3 8:51AM ; [facility] Medical Equipment - Implanted Devices Includes: Current Devices No Medical Equipment Recorded Medications Includes: Medications discussed during this encounter and other current Medications Current Medications (continue as prescribed) HYDROcodone-Acetaminophen 5- 325 MG Oral Tablet 09/26/2024 Provider: Herbert Feldman MD Diagnosis: Take 1 tablet every 8 hrs prn pain Last Documented On 5 10:46AM By Moises Feldman ; [facility], [facility] traZODone HCl 50 MG Oral Tablet 01/29/2022 Provider: Diagnosis: Last Documented On 2 2:11PM By Alina Manrique ; [facility] SUMAtriptan Succinate 100 MG Oral Tablet 01/27/2022 Provider: Diagnosis: Last Documented On 2 2:11PM By Alina Hoover [facility] Carvedilol 25 MG Oral Tablet 01/23/2022 Provider: Diagnosis: Last Documented On 2 2:11PM By Alina Manrique ; [facility] Doxazosin Mesylate 2 MG Oral Tablet 01/23/2022 Provi carmina: Diagnosis: Last Documented On 2 2:11PM By Alina Manrique ; [facility] Simvastatin 20 MG Oral Tablet 01/16/2022 Provider: Diagnosis: Last Documented On 2 2:11PM By Alina Manrique ; [facility] clonazePAM 0.5 MG Oral Tablet 01/11/2022 Provider: Diagnosis: Last Documented On 2 2:11PM By Alina Manrique ; [facility] Pilocarpine HCl 5 MG Oral Tablet 01/05/2022 Provider : Bear Hamilton Diagnosis: Last Documented On 2 2:11PM By Alina Manrique ; [facility] Past Medications on file Medrol 4 MG Oral Tablet Ther apy Pack 09/26/2024 - 10/03/2024 Provider: Drew Levine Diagnosis: take as directed per instructions on box Last Documented On 5 10:46AM By Drew Ricardo ; [facility] Clotrimazole 1% External Cream 03/18/2023 - 04/17/2023 Provider: Ad diggs MD Diagnosis: use as directed Last Documented On 3 4:47PM By Ragini Bradshaw ; [facility] Medications Administered Includes: Administered Medications from this encounter No Administered Medications Recorded Vital Signs Includes: Vital Signs from this encounter Vital Name 04/21/2023 08:52A Height (in) 58 Weight (lb) 175 Body Mass Index 36.6 Body Surface Area 1.7 Note: [facility] Last Documented: On 04/21/2023 8:52AM ; [facility] Results Includes: Results discussed during this encounter No Results Recorded For Specified Dates History of Present Illness Includes: History of Present Illness from this encounter VAL Weston is a 73 year old female. - Allergy list reviewed - Problem list reviewed - Medication list reviewed Patient is here today for follow up and recheck of her recurring onychomycosis L thumb. She is doing well today. She states she was recently prescribed Clotrimazole 1% topical that she has been using when she began to notice her nail changed in appearance. She states the nail has been removed once by Dr. Stapleton. She states she has occasional pain. Social History Description Last Updated Alcohol use socially drink 03/18/2023 Last Documented On 3 8:51AM ; [facility] Not a current smoker. 03/18/2023 Last Documented On 3 8:51AM ; [facility] No caffeine use 03/24/2022 Last Documented On 3 8:51AM ; [facility] No recent change in diet 03/24/2022 Last Documented On 3 8:51AM ; [facility] Not exercising regularly 03/24/2022 Last Documented On 3 8:51AM ; [facility] Not using drugs 03/24/2022 Last Documented On 3 8:51AM ; [facility] Tobacco non-user 03/24/2022 Last Documented On 3 8:51AM ; [facility] Non-smoker 03/24/2022 Last Documented On 3 8:51AM ; [facility] Not a smoker 03/24/2022 Last Documented On 3 8:51AM ; [facility] Not a current smoker. 06/26/2020 Last Documented On 3 8:51AM ; [facility] Not a current smoker 03/21/2019 Last Documented On 3 8:51AM ; [facility] Recent change in diet 03/21/2019 Last Documented On 3 8:51AM ; [facility] Smoking status : Never smoker 03/21/2019 Last Documented On 3 8:51AM ; [facility] No tobacco use 03/21/2019 Last Documented On 3 8:51AM ; [facility] Sex - Female 12/11/2024 Last Documented On 5 3:19PM ; [facility] Procedures and Surgical History Includes: Procedures from this encounter Procedures Code Diagnosis Performing Provider Service L ocation Service Date use of tobacco assessment performed 1000F Last Documented On 3 8:51AM ; [facility] patient screened for future fall risk: documentation of any fall with injury in past year 1100F Last Documented On 3 8:51AM ; [facility] review of medications documented 1160F Last Documented On 3 8:51AM ; [facility] Surgical History Last Updated History of hysterectomy 10/09/2021 Last Documented On 3 8:51AM ; [facility] History of total knee arthroplasty 2018 Right 10/09/2021 Last Documented On 3 8:51AM ; [facility] History of appendectomy 03/21/2019 Last Documented On 3 8:51AM ; [facility] Medical History Includes: Medical History addressed during this encounter Description Last Updated No recent immunization for pneumococcal pneumonia 09/26/2024 Last Documented On 3 8:51AM ; [facility] Recent immunization for flu 02/14/2022 0 09/26/2024 Last Documented On 3 8:51AM ; [facility] History of arthritis 10/09/2021 Last Documented On 3 8:51AM ; [facility] Use of CPAP 10/09/2021 Last Documented On 3 8:51AM ; [facility] Previous Fractures 08/09/2020 Last Documented On 3 8:51AM ; [facility] Appendectomy 06/26/2020 Last Documented On 3 8:51AM ; [facility] Heartburn / Acid Reflux 06/26/2020 Last Documented On 3 8:51AM ; [facility] Hypertension 06/26/2020 Last Documented On 3 8:51AM ; [facility] Hysterectomy 06/26/2020 Last Documented On 3 8:51AM ; [facility] Sleep Apnea 06/26/2020 Last Documented On 3 8:51AM ; [facility] Total knee arthroplasty 06/26/2020 Last Documented On 3 8:51AM ; [facility] Use of CPAP 06/26/2020 Last Documented On 3 8:51AM ; [facility] Arthritic joint problems 03/21/2019 Last Documented On 3 8:51AM ; [facility] Intermittent hypertension 03/21/2019 Last Documented On 3 8:51AM ; [facility] Carpal tunnel/ulnar removed-right ~high cholesterol 03/31/2017 Last Documented On 3 8:51AM ; [facility] History of diverticulitis of colon 03/31 Last Documented On 3 8:51AM ; [facility] Family History Includes: Family History addressed during this encounter Description Last Updated Family history of thromboembolic disease 10/09/2021 Last Documented On 3 8:51AM ; [facility] Family history of rheumatoid arthritis 0 06/26/2020 Last Documented On 3 8:51AM ; [facility] Stroke / Seizures 06/26/2020 Last Documented On 3 8:51AM ; [facility] stroke/seizure 03/21/2019 Last Documented On 3 8:51AM ; [facility] Family history of cancer 03/21/2019 Last Documented On 3 8:51AM ; [facility] Family history of hypertension 9 Last Documented On 3 8:51AM ; [facility] Review of Systems Includes: Review of Systems [...] Immunologic: No complaint of seasonal allergic reaction. Reviewed 04/21/23 The patient is awake alert oriented in time place and person. Is in no acute distress. Has normal mood and affect. Is neatly dressed. Has normal gait and station. Pupils are equal and react to light normally. Eyes move normally. Mucous membranes are moist. The patient has no trouble with speech. The patient is afebrile. Normal circulation. Normal sensation. No thenar or intrinsic atrophy. Normal strength. Patient has a thickened thumb nail plate on the right thumb non adherent; chronic nail bed deformity secondary to fungal infection. No erythema. No drainage. Mental Status Includes: Mental Status from this encounter Description No anxiety Last Documented On 3 8:51AM ; [facility] Physical Exam Includes: Physical Exam from this encounter Allergies Includes: Active Allergies Substance Type Reaction Onset Date Resolved Date Statu s OTHER Allergy maxalt/ziac 10/09/2021 Active Last Documented On 5 9:13AM ; [facility] Morphine Derivatives Allergy Nausea, Vom iting, Diarrhea / Diarrheal disorder 08/05/2009 Resolved Last Documented On 7 9:34AM ; [facility] Care Management Retail Intern Name (Identifier) Role/Relation Location/Telecom Last Documented By Ad Stapleton MD ([id number]) Assigned practitioner (occupation) tel:[phone] Last Documented On 12/11/2024 3:19PM ; [facility] CODIE HAYWOOD MD (FP) ([id number]) Primary care physician (occupation) [address], [place], [place], [place], [address] tel: Last Documented On 12/11/2024 3:19PM ; [facility] Mohan Knox DO ([id number]) [address], [place], [place], , [address] tel: Last Documented On 03/21/2019 3:39PM ; [facility] Encounters Encounter Provider Location (Healthcare Service Location) Date Check-In Time Check-Out Time Diagnosis Encounter Disposition Follow Up Bill Villalpando MD [facility] 2022 8:45AM 9:10AM Overweight Payer Includes: Active Insurance Policies Plan Name (Payer ID) Coverage Type Member ID Group # Subscriber (ID) Relationship Effective Dates 1 - Medicare Part B [facility] ([id number]) [id number] Stacey Weston Self 01/15/2013 - Unknown Last Documented On 9 8:26AM ; [facility] - [facility] [id number]) [id number] Stacey mantilla Self 05/17/2016 - Unknown Last Documented On 2 11:18AM ; [facility] Clinical Notes Includes: Clinical Notes from this encounter * Progress note Date Encounter Last Documented by 04/21/2023 Follow Up Last documented on 04/22/2023; 5:00 PM, Bill Villalpando MD; [facility] Active Problems & Conditions - Joint Pain in the Right Knee - Joint Pain Right Thumb Chief Complaint The Chief Complaint is: Right thumb pain. Referred Here Referred by self. History of Present Illness Stacey Weston is a 73 year old female. - Allergy list reviewed - Problem list reviewed - Medication list reviewed Patient is here today for follow up and recheck of her recurring onychomycosis L thumb. She is doing well today. She states she was recently prescribed Clotrimazole 1% topical that she has been using when she began to notice her nail changed in appearance. She states the nail has been removed once by Dr. Stapleton. She states she has occasional pain. Current Medication - Carvedilol 25 MG Oral [...] hypertension. Immunization History: Recent immunization for flu 02/14/2022. No recent immunization for pneumococcal pneumonia. Diagnoses: [...] Immunologic: No complaint of seasonal allergic reaction. Reviewed 04/21/23 The patient is awake alert oriented in time place and person. Is in no acute distress. Has normal mood and affect. Is neatly dressed. Has normal gait and station. Pupils are equal and react to light normally. Eyes move normally. Mucous membranes are moist. The patient has no trouble with speech. The patient is afebrile. Normal circulation. Normal sensation. No thenar or intrinsic atrophy. Normal strength. Patient has a thickened thumb nail plate on the right thumb non adherent; chronic nail bed deformity secondary to fungal infection. No erythema. No drainage. Physical Findings - Vitals taken 04/21/2023 08:52 am kn Height 58 in 59 - 78 Weight 175 lbs 95 - 175 Body Mass Index 36.6 kg/m2 Body Surface Area 1.7 m2 Tests Xray 3 views of the R thumb taken in the office today shows minor degenerative changes with no sign of infection Assessment - Overweight Counseling/Education - Lose weight Plan Fall Risk Assessment: This patient has been [...] therapy has been discussed with the patient. Given nail removal has occurred once, I discussed with the patient I didn't feel doing this again would resolve her discomfort. She may continue the topical anti-fungal. I also recommended daily [place] soaks as well for one month, and if she does not notice an improvement in her symptoms, stop the soaks. For now, she will keep an eye on her symptoms and return to Dr. Stapleton if she has any concerns. Practice Management Use of tobacco assessment performed and patient screened for future fall risk documentation of any fall with injury in past year Review of medications documented. Care Team - Mohan Knox, DO Notes This dictation was done with voice recognition software and may contain errors and omissions. transcribed by Brett Zuleta
--- OUTSIDE RECORDS SUMMARY | 2025-05-13 19:49 | XMS_ITS | Continuity of Care Document ---
Author Organization [facility] Address [address] [facility] [address] [place] [address] Care Team Providers Care Under Cutter Name Role Phone MARGO ALEJANDRO Motion Graphics Artist KAVON TANG Urologist YOVANI LOPEZ Magnet Placer AIDEN VALVERDE Primary Care Provider CHARLIE BAUTISTA Outside Industrial Sales Representative INGRID CASTAÑEDA Referring Provider [phone] Assessment No assessment recorded. Plan of Treatment [...] DERM VISIT 2025 08:20A M LOAN MEDINA LINEMARKER Not available Not available Not available RECHECK [...] None recorded. Imaging None recorded. Medication Orders Xiidra 5 % eye drops in a dropperet te 2024 025 [facility] #[id number], [address] [place], [address], 04/23/2025 11:21:56 Patient TargetsNo targets recorded. Patient InstructionsNo instructions recorded. Reason for Referral None Reported. Results Created Date Observation Date Name Description Value Unit Range Abnormal Flag Note LastModifiedBy Organization Detail LastModifiedTime 04/20/2004/20/2025 COMPL ETE BLOOD COUNT white blood cells 6.5 10*3/ uL 3.8-10 .8 normal Not Available [facility] [address] [place] [address], [address], 04/20/2025 19:15:20 04/20/20 25 04/20/2025 COMPL ETE BLOOD COUNT red blood cells 4.70 10*6/ uL 3.80-5 .20 normal Not Available [facility] [address] [place] [address], [address], 04/20/2025 19:15:20 04/20/20 25 04/20/2025 COMPL ETE BLOOD COUNT hemoglobin 12.4 g/dL 12.0-1 6.0 normal Not Available [facility] [address] [place] [address], [address], 04/20/2025 19:15:20 04/20/20 25 04/20/2025 COMPL ETE BLOOD COUNT hematocrit 36.4 % 35.0-4 7.0 normal Not Available [facility] [address] [place] [address], [address], 04/20/2025 19:15:20 04/20/20 25 04/20/2025 COMPL ETE BLOOD COUNT MCV 78 fL 80-100 low Not Available [facility] [address] [place] [address], [address], 04/20/2025 19:15:20 04/20/20 25 04/20/2025 COMPL ETE BLOOD COUNT MCH 26 pg 26-35 normal Not Available [facility] [address] [place] [address], [address], 04/20/2025 19:15:20 04/20/20 25 04/20/2025 COMPL ETE BLOOD COUNT MCHC 34 g/dL 32-36 normal Not Available [facility] [address] [place] [address], [address], 04/20/2025 19:15:20 04/20/20 25 04/20/2025 COMPL ETE BLOOD COUNT RDW 14.8 % 11.0-1 5.0 normal Not Available [facility] [address] [place] [address], [address], 04/20/2025 19:15:20 04/20/20 25 04/20/2025 COMPL ETE BLOOD COUNT MPV 7.0 fL 6.2-10 .5 normal Not Available [facility] [address] [place] [address], [address], 04/20/2025 19:15:20 04/20/20 25 04/20/2025 COMPL ETE BLOOD COUNT platelet count 267 10*3/ uL 150-40 0 normal Not Available [facility] [address] [place] [address], [address], 04/20/2025 19:15:20 04/20/20 25 04/20/2025 COMPL ETE BLOOD COUNT neutrophil,a bsolute 3.9 10*3/ uL 1.6-8. 4 normal Not Available [facility] [address] [place] [address], [address], 04/20/2025 19:15:20 04/20/20 25 04/20/2025 COMPL ETE BLOOD COUNT lymphocyte,a bsolute 1.5 10*3/ uL 0.4-5. 1 normal Not Available [facility] [address] [place] [address], [address], 04/20/2025 19:15:20 04/20/20 25 04/20/2025 COMPL ETE BLOOD COUNT monocyte,abs olute 0.9 10*3/ uL 0.0-1. 2 normal Not Available [facility] [address] [place] [address], [address], 04/20/2025 19:15:20 04/20/20 25 04/20/2025 COMPL ETE BLOOD COUNT eosinophil,a bsolute 0.2 10*3/ uL 0.0-0. 8 normal Not Available [facility] [address] [place] [address], [address], 04/20/2025 19:15:20 04/20/20 25 04/20/2025 COMPL ETE BLOOD COUNT basophil,abs olute 0.1 10*3/ uL 0.0-0. 3 normal Not Available [facility] [address] [place] [address], [address], 04/20/2025 19:15:20 04/20/20 25 04/20/2025 COMPL ETE BLOOD COUNT % neutrophils 59.3 % 42.0-7 8.0 normal Not Available [facility] [address] [place] [address], [address], 04/20/2025 19:15:20 04/20/20 25 04/20/2025 COMPL ETE BLOOD COUNT % lymphocytes 23.0 % 11.0-4 7.0 normal Not Available [facility] [address] [place] [address], [address], 04/20/2025 19:15:20 04/20/20 25 04/20/2025 COMPL ETE BLOOD COUNT % monocytes 13.6 % 0.0-11 .0 high Not Available [facility] [address] [place] [address], [address], 04/20/2025 19:15:20 04/20/20 25 04/20/2025 COMPL ETE BLOOD COUNT % eosinophils 3.1 % 0.0-7. 0 normal Not Available [facility] [address] [place], [address], 04/20/2025 19:15:20 04/20/20 25 04/20/2025 COMPL ETE BLOOD COUNT % basophils 1.0 % 0.0-3. 0 normal Not Available [facility] [address] [place], [address], 04/20/2025 19:15:20 04/20/20 25 04/20/2025 COMPL ETE BLOOD COUNT nucleated red cells 0.0 % 0.0-0. 9 normal Not Available [facility] [address] [place] [address], [address], 04/20/2025 19:15:20 04/20/20 25 04/20/2025 COMPL ETE BLOOD COUNT nucleated RBCs, absolute 0.00 10*3/ uL not estab. normal Not Available [facility] [address] [place] [address], [address], 04/20/2025 19:15:20 03/24/20 25 03/23/2025 DEXA No observ ation record ed. IVETT Castañeda MD [address] [place], [address], 03/26/2025 12:33:01 03/29/20 25 03/29/2025 elect ayo blackburngr am No observ ation record ed. BARCODE Not Available 2024 16:54:21 04/20/20 25 04/20/2025 XR, chest , 2 view No observ ation record ed. IVETT Not Available 2024 13:51:02 04/20/20 25 04/20/2025 XR, chest , 2 view No observ ation record ed. IVETT [address], [address], 04/22/2025 13:51:02 04/23/20 25 04/20/2025 elect ayo diogr am No observ ation record ed. BARCODE Not Available 2024 08:23:38 04/23/20 25 04/23/2025 optic al coher ence tomog brittany, retin a No observ ation record ed. [email or web address] Not Available 2024 11:19:42 04/23/20 25 04/23/2025 visua l field test No observ ation record ed. [email or web address] Not Available 2024 13:59:35 05/06/20 25 05/02/2025 compl ete PFT w/ post [facility] hodil ator jayce metry * No observ ation record ed. [facility] [address] [place], [address], 05/11/2025 15:43:58 Result Notes None recorded. 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 93982217 Active Not Available [facility] 3 08:06:45 Morbid obesity 008822045 Active Not Available [facility] 3 08:06:48 Chronic kidney disease stage 3B 725165092 Active Not Available [facility] 4 09:23:52 Body mass index 40+ - severely obese 237162552 Active Not Available [facility] 4 09:23:58 Insomnia 038742672 Active 2014 From Automate d Load;Pro vider: Daisy, Cadet;S tatus: Active AIDEN Davis CHRISTINALavinia, DO [address] [place], [address] , [facility] 4 18:20:35 Hyperten sive disorder 78851904 Completed 201402/05/2019 From Automate d Load;Pro vider: Daisy, Cadet;S tatus: Active JF MARTINEZ CLAIR, [address] [place], [address] , [facility] 9 18:12:30 Hyperlip idemia 63143250 Active 2014 From Automate d Load;Pro vider: Helio Villa;S tatus: Active AIDEN VALVERDE DO [address] [place] [address], [address] , [facility] 4 18:20:28 Melanocy tic nevus of trunk 547541898 Completed 201411/09/2016 From Automate d Load;Pro vider: Loan Medina; Status: [facility] 7 10:32:09 Senile hyperker atosis 557822839 Completed 201404/28/2016 From Automate d Load;Pro vider: Loan Medina; Status: Active HELIO VILLA MD [address] [place] [address], [address] , [facility] 6 15:20:57 Lentigo Completed 201404/28/2016 From Automate d Load;Pro vider: Loan Medina; Status: Active HELIO VILLA MD [address] [place] [address], [address] , [facility] 6 15:20:42 Hypertro phic conditio n of skin 05491350 Completed 201404/28/2016 From Automate d Load;Pro vider: Loan Medina; Status: Active HELIO VILLA MD [address] [place] [address], [address] , [facility] 6 15:21:10 Gastroin testinal tract finding Completed 201403/20/2019 From Automate d Load;Pro vider: Marlene Raza;S tatus: Active JF CHAMBERS DO [address] [place] [address], [address] , [facility] 9 08:44:09 Backache 280988274 Completed 201404/28/2016 From Automate d Load;Pro vider: Helio Villa;S tatus: Active HELIO VILLA MD [address] [place], [address] , [facility] 6 15:28:50 Function al heart murmur 81841905 Active 2014 From Automate d Load;Pro vider: Diaz Hill;S tatus: Active Not Available [facility] 3 08:12:47 Irritabl e bowel syndrome with diarrhea 983657608 Active 2014 From Automate d Load;Pro vider: Marlene Raza;S tatus: Active Not Available [facility] 3 08:12:47 Constipa tion 06653836 Completed 201511/09/2016 From Automate d Load;Pro vider: Marlene Raza;S tatus: Active [facility] 7 10:31:52 Lacerati on of hand 862536551 Completed 201504/28/2016 From Automate d Load;Pro vider: Helio Villa;S tatus: Active HELIO VILLA MD [address] [place], [address] , [facility] 6 15:21:03 Low back pain 382756425 Completed 201511/09/2016 From Automate d Load;Pro vider: Helio Villa;S tatus: Active [facility] 7 10:32:13 Hemangio ma 272029995 Completed 201511/09/2016 From Automate d Load;Pro vider: Loan Medina; Status: Active [facility] 7 10:32:17 Degenera tion of lumbar interver tebral disc 69606824 Active 2015 Not Available [facility] 3 08:12:47 Hyperkal emia 81878339 Completed 201803/17/2019 JF CHAMBERS DO [address] [place], [address] , [facility] 9 08:33:51 Benign essentia l hyperten dwayne 5032382 Active 2018 AIDEN VALVERDE, DO [address] [place], [address] , [facility] 4 18:20:26 Fracture of phalanx of finger 68073892 Active 2018 Not Available [facility] 3 08:12:47 Hyponatr emia 62832817 Active 2018 Not Available [facility] 3 08:12:47 Migraine 97895041 Active 2019 Not Available [facility] 3 08:12:47 Generali zed anxiety disorder 67774620 Active 2020 Not Available [facility] 3 08:12:47 Restless legs syndrome 94960161 Active 2022 AIDEN VALVERDE, DO [address] [place], [address] , [facility] 4 11:41:36 COVID-19 947622188 Active 2022 BLADIMIR GLOVER MD [address] [place], [address] , [facility] 3 12:34:54 Lower abdomina l pain 24823487 Active 2023 CONNIE MOREIRA, DO [address] [place], [address] , [facility] 4 10:53:29 Stomach cramps 76437090 Active 2023 CONNIE MOREIRA, DO [address] [place], [address] , [facility] 4 11:21:49 Divertic ulosis of colon 834445362 Active 2023 CONNIE MOREIRA DO [address] [place], [address] , [facility] 4 11:21:56 Nausea 147519223 Active 2023 CONNIE MOREIRA, DO [address] [place], [address] , [facility] 4 11:23:15 Obstruct ani sleep apnea of adult 45827815504 03 Active 2023 AIDEN VALVERDE, DO [address] [place], [address] , [facility] 4 18:20:43 Anxiety 24146183 Active 2023 AIDEN VALVERDE, DO [address] [place], [address] , [facility] 4 11:41:56 Obesity 472762052 Active 2023 [facility] 4 10:34:00 Ex-smoke r 2245813 Active 2024 AIDEN VALVERDE, DO [address] [place], [address] , [facility] 5 10:41:21 Problem Notes Documentation Provider Name and Address Organization Details Recorded Time Motion Graphics Artist Consult Note : [place] [address] [id number], Donna S (id #[id number], : 1950) [place] [address] [place] [address] Encounter Summary - Progress Note Date Printed: [...] received this fax in error, please visit [email or web address] to notify the sender and confirm that the information will be destroyed. If you do not have internet access, please call to notify the sender and confirm that the information will be destroyed. Thank you for your attention and cooperation. [ID:[id number]] Patient Stacey Weston (75yo, F) #[id number] 1950 Patient Demographics: Address [address] [place] [id number] Encounter Notes: Encounter Reason/Date 75 yo F [...] Review of SystemsROS as noted in the HPI [id number] 09:50 Ht: 4 ft 11.5 in Results/Interpretations [...] year oct mac hvf 10-2 Z79.899: Other assisted (current) drug therapy 2. Dry eyes-failed art tearsrec xiidra bid oureplace plugs today H04.129: Dry eye syndrome of unspecified lacrimal gland Xiidra 5 % eye drops in a dropperette - PLACE 1 DROP INTO BOTH EYES TWICE A DAY APPROXIMATELY 12 HOURS APART Qty: (3) 60 dropperette, single-use drop dispenser blister pack Refills: 3 Pharmacy: [facility] #[id number] Note to Pharmacy: restasis was sent in error - correct rx is for xiidra glasses (Expiration Date: 04/23/2026)Right -Sph: +1.75Cyl: sphAxis: A dd: +3.00Left -Sph: +1.25Cyl: +0.25Axis: 015Add: +3.00 3. Incipient senile hrwhviloP94.099: Other age-related incipient cataract, unspecified eye Return to Office AIDEN VALVERDE DO for PHYSICAL EXAM at [facility] on 05/25/2025 at 09:00 AM CARDIO_ULTRASOUND for CARDIO ULTRASOUND at RADIOLOGY [facility] on 06/06/2025 at 01:45 PM ENDOCRINOLOGY_NURSE for INJECTION at ENDOCRINOLOGY on 07/04/2025 at 09:00 AM LOAN MEDINA APRN for DERM VISIT at DERMATOLOGY [facility] on 01/09/2026 at 08:20 AM KAVON TANG MD for RECHECK at UROLOGY [facility] on 02/13/2026 at 09:00 AM to see MIKAL LOJA APRN for RECHECK at CARDIOLOGY [facility] on or around 03/30/2026 BONE_DENSITY for BONE DENSITY at BONE DENSITY on 04/04/2026 at 09:00 AM INGRID CASTAÑEDA MD for RECHECK at ENDOCRINOLOGY on 04/04/2026 at 09:15 AM to see MARGO ALEJANDRO MD at OPHTHALMOLOGY [facility] on or around 04/23/2026 Patient Medical History: Allergies List Reviewed Allergies BISOPROLOL-HYDROCHLOROTHIAZIDE LEVAQUIN: Rash LEVOFLOXACIN MAXALT: - hives / n/v METOCLOPRAMIDE HCL RIZATRIPTAN ZIAC: - hives / n/v Medications Reviewed Medications NameDate Source albuterol sulfate HFA 90 mcg/actuation aerosol inhalerInhale 2 puff(s) every 4 hours by inhalation route for 30 days.04/20/25 prescribed AIDEN VASQUEZT, DO carvediloL 25 mg tabletTAKE 1 TABLET BY MOUTH TWICE A DAY WITH FOOD FOR 90 DAYS06/28/24 filled surescripts celecoxib 200 mg capsuleTAKE 1 CAPSULE BY MOUTH EVERY DAY03/23/25 renewed AIDEN VASQUEZT, DO clonazePAM 0.5 mg tabletTAKE 1 TABLET BY MOUTH EVERY DAY AT BEDTIME YWOUMG79/26/25 renewed AIDEN VALVERDE, DO cloNIDine HCL 0.1 mg tablet2 TABLETS ORALLY ONCE A DAY IN THE EVENING 30 DAYS12/21/24 renewed AIDEN VALVERDE, DO Co Q-101 DAILY06/03/17 entered Skylar Burns COMPOUNDED MEDICATIONSemaglutide 4mg/1ml Injectable Inject 0.5mL (2mg=50 units) subcutaneously once weekly for four (4) weeks.07/17/24 prescribed AIDEN VALVERDE, DO estradioL 0.01% (0.1 mg/gram) vaginal creamPLEASE SEE ATTACHED FOR DETAILED RMAEJKVSNV05/08/23 filled surescripts famotidine 20 mg tabletTAKE 1 TABLET BY MOUTH TWICE A DAY TLKRFJ15/19/25 renewed AIDEN VALVERDE, DO fluticasone propionate 50 mcg/actuation nasal spray,suspensionSPRAY TWICE IN EACH NOSTRIL DAILY08/08/24 filled surescripts hydroxychloroquine 200 mg tabletTAKE 1 TABLET BY MOUTH EVERY DAY03/19/25 renewed YOVANI LOPEZ MD hydrOXYzine HCL 25 mg tabletTAKE 1 TO 2 TABLETS BY MOUTH AT BEDTIME QPFIES39/14/25 renewed AIDEN VALVERDE, DO loratadine 10 mg tabletTake 1 tablet(s) every day by oral route for 90 days.12/21/24 prescribed AIDEN VASQUEZT, DO losartan 100 mg tabletTAKE 1 TABLET BY MOUTH EVERY DAY01/11/25 renewed AIDEN VALVERDE, DO omeprazole 20 mg capsule,delayed release1 capsule [...] Buy and bill Internal Note:Injects every 6 fglbeh29/08/25 administered AURELIO ARNETT APRN Purelax 17 gram oral powder hwfzaq12 GRAMS BY MOUTH ONCE DAILY11/16/22 filled surescripts Restasis 0.05 % eye drops in a dropperetteInstill by ophthalmic route.05/03/24 filled surescripts rOPINIRole 2 mg tabletTAKE 1 - 1&1/2 TABLETS BY MOUTH AT BEDTIME HZHIYZ82/19/25 filled surescripts semaglutide 0.25 mg or 0.5 mg (2 mg/1.5 mL) subcutaneous pen injectorInject by subcutaneous route 0.25 MG once weekly.08/29/24 prescribed AIDEN VALVERDE DO semaglutide 2 mg/dose (8 mg/3 mL) subcutaneous pen injectorInject 2 mg every week by subcutaneous route for 30 days.06/29/24 prescribed AIDEN VALVERDE DO semaglutide methylcobalamin 4mg 1mg/1ml injectableInject 0.5mL (2mg=50 units) subcutaneously once weekly for four (4) weeks. Internal Note:to compounding slnazqaq86/04/25 filled surescripts sertraline 100 mg tabletTAKE 1 & 1/2 TABLET BY MOUTH EVERY DAY FOR 90 DAYS08/29/24 filled surescripts simvastatin 20 mg tabletTAKE 1 TABLET BY MOUTH EVERYDAY AT OGFHILO96/25/25 filled surescripts sodium fluoride 1.1 % dental pasteUSE MQRNQDOE21/15/25 renewed AIDEN VALVERDE DO SUMAtriptan 100 mg tabletTAKE 1 TABLET BY MOUTH AT ONSET OF MIGRAINE, MAY REPEAT DOSE AFTER 2 HRS10/12/24 prescribed AIDEN VALVERDE DO Sure Comfort Insulin Syringe 0.5 mL 31 gauge x 5/16 USE CBDZVAWT41/15/25 filled surescripts Xiidra 5 % eye drops in a dropperettePLACE 1 DROP INTO BOTH EYES TWICE A DAY APPROXIMATELY 12 HOURS APART04/23/25 prescribed MARGO ALEJANDRO MD Some medications listed in Document: #[id number] could not be added to this patient's [...] 04/20/2025) Vaccine Type Date Amt. Route Site [facility] Lot # Mfr. Exp. 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 08/12/23 COVID-19 mRNA ages 12 and up 03/04/2023 05/04/23 [facility] COVID-19, mRNA, LNP-S, bivalent, PF, 50 mcg/0.5 mL dose (Moderna) 04/06/22 0.5 mL Intramuscular [id number] [employer] 09/22/22 COVID-19, mRNA, LNP-S, PF, 100 mcg/0.5 mL dose (Moderna) 11/05/21 0.5 mL Intramuscular [id number] [employer] 01/25/22 COVID-19, mRNA, LNP-S, PF, 100 mcg/0.5 mL dose (Moderna) 03/13/21 0.25 mL Intramuscular [id number] [employer] 07/25/21 COVID-19, mRNA, LNP-S, PF, 30 mcg/0.3 mL dose (Pfizer-BioNTech) 07/17/20 0.3 mL Pfizer, Inc COVID-19, mRNA, LNP-S, PF, 30 mcg/0.3 mL dose (Pfizer-BioNTech) 06/15/20 0.3 mL Intramuscular [id number] Pfizer, Inc 10/13/20 Diphtheria, Tetanus, Pertussis Tdap 03/10/24 0.5 mL [id number] GlaxoSmithKline Influenza influenza, high dose seasonal 02/07/25 0.5 mL [id number] Sanofi Pasteur influenza, high dose seasonal 02/03/24 0.5 mL Intramuscular Deltoid, Left [id number] Sanofi Pasteur 11/13/24 Inactivated Influenza 12/20/2020 02/02/24 Christina Vickers influenza, high-dose, quadrivalent 01/29/23 0.7 mL Intramuscular Deltoid, Right [id number] Sanofi Pasteur 11/14/23 Inactivated Influenza 12/20/2020 01/29/23 Kendal Canales influenza, high-dose, quadrivalent 02/05/22 0.7 mL Intramuscular [id number] Sanofi Pasteur 11/13/22 influenza, high-dose, quadrivalent 01/28/21 0.7 mL Intramuscular [id number] Sanofi Pasteur 11/13/21 Influenza vaccine, quadrivalent, adjuvanted 01/27/20 0.5 mL Intramuscular [id number] Seq[employer] 09/25/20 influenza, high dose seasonal 02/03/19 0.5 mL Intramuscular [id number] Sanofi Pasteur 09/20/19 influenza, high dose seasonal 02/10/18 0.5 mL Intramuscular [id number] Sanofi Pasteur 08/01/18 influenza, injectable, quadrivalent 02/14/17 influenza, high dose seasonal 01/08/17 0.5 mL Intramuscular [id number] Sanofi Pasteur 07/16/17 influenza, high dose seasonal 01/30/16 influenza, high dose seasonal 01/24/15 0.5 mL influenza, seasonal, injectable 03/08/14 0.5 mL influenza, high dose seasonal 01/30/13 Pneumococcal pneumococcal conjugate PCV 13 06/29/14 pneumococcal polysaccharide PPV23 07/05/13 Respiratory Syncytial Virus RSV, recombinant, protein subunit RSVpreF, adjuvant reconstituted, 0.5 mL, PF 05/04/23 0.5 mL Intramuscular Deltoid, Left [id number] G75S4 [facility] 11/18/24 RSV (Respiratory Syncytial Virus) 03/04/2023 05/04/23 Kendal Canales Tetanus tetanus toxoid 07/24/05 Zoster zoster recombinant 08/18/22 0.5 mL Intramuscular [id number] GlaxoSmithKline 10/12/23 zoster recombinant 03/30/22 0.5 mL Intramuscular [id number] GlaxoSmithKline 04/08/23 zoster live 03/30/14 Electronically Signed by: MARGO ALEJANDRO MD INGRID CASTAÑEDA MD [address] [place] [address], [phone] 04/23/2025 12:20:37 Motion Graphics Artist Consult Note : [address] [facility] [id number], Donna S (id #[id number], : 1950) [place] [address] [place] [address] Encounter Summary - Progress Note Date Printed: [...] received this fax in error, please visit [email or web address] to notify the sender and confirm that the information will be destroyed. If you do not have internet access, please call to notify the sender and confirm that the information will be destroyed. Thank you for your attention and cooperation. [ID:[id number]] Patient Stacey Weston (75yo, F) #[id number] 1950 Patient Demographics: Address [address] [place] [id number] Encounter Notes: Encounter Reason/Date 75 yo F returns for a HVF and Mac Pt reports her VA is decreasing OD> OS States she has discomfort in OU Floaters in OU GTTS: Xiidra BID @ 7:30 AM AGM eyes water really bad plugs help vision declining using art tear daily too 200mg/day plaq 04/23/2025 - 09:30AM - OPHTHALMOLOGY [facility] History of Present IllnessNone recorded Review of SystemsROS as noted in the HPI [id number] 09:50 Ht: 4 ft 11.5 in Results/Interpretations [...] year oct mac hvf 10-2 Z79.899: 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 Dry eyes-failed art tearsrec xiidra bid oureplace plugs today H04.129: Dry eye syndrome of unspecified lacrimal gland Xiidra 5 % eye drops in a dropperette - PLACE 1 DROP INTO BOTH EYES TWICE A DAY APPROXIMATELY 12 HOURS APART Qty: (3) 60 dropperette, single-use drop dispenser blister pack Refills: 3 Pharmacy: [facility] #[id number] Note to Pharmacy: restasis was sent in error - correct rx is for xiidra glasses (Expiration Date: 04/23/2026)Right -Sph: +1.75Cyl: sphAxis: A dd: +3.00Left -Sph: +1.25Cyl: +0.25Axis: 015Add: +3.00 3. Incipient senile vgawrvbqX06.099: Other age-related incipient cataract, unspecified eye Return to Office AIDEN VALVERDE DO for PHYSICAL EXAM at [facility] on 05/25/2025 at 09:00 AM CARDIO_ULTRASOUND for CARDIO ULTRASOUND at RADIOLOGY CARDIOLOGY [facility] on 06/06/2025 at 01:45 PM ENDOCRINOLOGY_NURSE for INJECTION at ENDOCRINOLOGY on 07/04/2025 at 09:00 AM LOAN MEDINA APRN for DERM VISIT at DERMATOLOGY [facility] on 01/09/2026 at 08:20 AM KAVON TANG MD for RECHECK at UROLOGY [facility] on 02/13/2026 at 09:00 AM to see MIKAL LOJA APRN for RECHECK at CARDIOLOGY [facility] on or around 03/30/2026 BONE_DENSITY for BONE DENSITY at BONE DENSITY on 04/04/2026 at 09:00 AM INGRID CASTAÑEDA MD for RECHECK at ENDOCRINOLOGY on 04/04/2026 at 09:15 AM to see MARGO ALEJANDRO MD at OPHTHALMOLOGY [facility] on or around 04/23/2026 Patient Medical History: Allergies List Reviewed Allergies BISOPROLOL-HYDROCHLOROTHIAZIDE LEVAQUIN: Rash LEVOFLOXACIN MAXALT: - hives / n/v METOCLOPRAMIDE HCL RIZATRIPTAN ZIAC: - hives / n/v Medications Reviewed Medications NameDate Source albuterol sulfate HFA 90 mcg/actuation aerosol inhalerInhale 2 puff(s) every 4 hours by inhalation route for 30 days.04/20/25 prescribed AIDENVLADIMIR VASQUEZT, DO carvediloL 25 mg tabletTAKE 1 TABLET BY MOUTH TWICE A DAY WITH FOOD FOR 90 DAYS06/28/24 filled surescripts celecoxib 200 mg capsuleTAKE 1 CAPSULE BY MOUTH EVERY DAY03/23/25 renewed AIDEN L CHRISTINAT, DO clonazePAM 0.5 mg tabletTAKE 1 TABLET BY MOUTH EVERY DAY AT BEDTIME [id number]/26/25 renewed AIDEN VASQUEZT, DO cloNIDine HCL 0.1 mg tablet2 TABLETS ORALLY ONCE A DAY IN THE EVENING 30 DAYS12/21/24 renewed AIDEN VASQUEZT, DO Co Q-101 DAILY06/03/17 entered Skylar Burns COMPOUNDED MEDICATIONSemaglutide 4mg/1ml Injectable Inject 0.5mL (2mg=50 units) subcutaneously once weekly for four (4) weeks.07/17/24 prescribed AIDEN VASQUEZT, DO estradioL 0.01% (0.1 mg/gram) vaginal creamPLEASE SEE ATTACHED FOR DETAILED [id number]/08/23 filled surescripts famotidine 20 mg tabletTAKE 1 TABLET BY MOUTH TWICE A DAY IDHNUE72/19/25 renewed AIDEN VASQUEZT, DO fluticasone propionate 50 mcg/actuation nasal spray,suspensionSPRAY TWICE IN EACH NOSTRIL DAILY08/08/24 filled surescripts hydroxychloroquine 200 mg tabletTAKE 1 TABLET BY MOUTH EVERY DAY03/19/25 renewed YOVANI LOPEZ MD hydrOXYzine HCL 25 mg tabletTAKE 1 TO 2 TABLETS BY MOUTH AT BEDTIME IBSEIK95/14/25 renewed AIDEN VASQUEZT, DO loratadine 10 mg tabletTake 1 tablet(s) every day by oral route for 90 days.12/21/24 prescribed AIDEN VASQUEZT, DO losartan 100 mg tabletTAKE 1 TABLET BY MOUTH EVERY DAY01/11/25 renewed AIDEN VASQUEZT, DO omeprazole 20 mg capsule,delayed release1 [...] Buy and bill Internal Note:Injects every 6 avisfn41/08/25 administered AURELIO ARNETT APRN Purelax 17 gram oral powder porzic75 GRAMS BY MOUTH ONCE DAILY11/16/22 filled surescripts Restasis 0.05 % eye drops in a dropperetteInstill by ophthalmic route.05/03/24 filled surescripts rOPINIRole 2 mg tabletTAKE 1 - 1&1/2 TABLETS BY MOUTH AT BEDTIME CFCMHD65/19/25 filled surescripts semaglutide 0.25 mg or 0.5 mg (2 mg/1.5 mL) subcutaneous pen injectorInject by subcutaneous route 0.25 MG once weekly.08/29/24 prescribed AIDEN VALVERDE DO semaglutide 2 mg/dose (8 mg/3 mL) subcutaneous pen injectorInject 2 mg every week by subcutaneous route for 30 days.06/29/24 prescribed AIDEN VALVERDE DO semaglutide methylcobalamin 4mg 1mg/1ml injectableInject 0.5mL (2mg=50 units) subcutaneously once weekly for four (4) weeks. Internal Note:to compounding iiarnymu22/04/25 filled surescripts sertraline 100 mg tabletTAKE 1 & 1/2 TABLET BY MOUTH EVERY DAY FOR 90 DAYS08/29/24 filled surescripts simvastatin 20 mg tabletTAKE 1 TABLET BY MOUTH EVERYDAY AT VFBWHHL27/25/25 filled surescripts sodium fluoride 1.1 % dental pasteUSE [id number]/15/25 renewed AIDEN VALVERDE DO SUMAtriptan 100 mg tabletTAKE 1 TABLET BY MOUTH AT ONSET OF MIGRAINE, MAY REPEAT DOSE AFTER 2 HRS10/12/24 prescribed AIDEN VALVERDE DO Sure Comfort Insulin Syringe 0.5 mL 31 gauge x 5/16 USE [id number]/15/25 filled surescripts Xiidra 5 % eye drops in a dropperettePLACE 1 DROP INTO BOTH EYES TWICE A DAY APPROXIMATELY 12 HOURS APART04/23/25 prescribed MARGO ALEJANDRO MD Some medications listed in Document: #[id number] could not be added to this patient's [...] 04/20/2025) Vaccine Type Date Amt. Route Site [facility] Lot # Mfr. Exp. Date VIS VIS Given [employer] COVID-19 COVID-19, mRNA, LNP-S, PF, 50 mcg/0.5 mL 05/04/23 0.5 mL Intramuscular Deltoid, Right [id number] [employer] 08/12/23 COVID-19 mRNA ages 12 and up 03/04/2023 05/04/23 [facility] COVID-19, mRNA, LNP-S, bivalent, PF, 50 mcg/0.5 mL dose (Moderna) 04/06/22 0.5 mL Intramuscular [id number] [employer] 09/22/22 COVID-19, mRNA, LNP-S, PF, 100 mcg/0.5 mL dose (Moderna) 11/05/21 0.5 mL Intramuscular [id number] [employer] 01/25/22 COVID-19, mRNA, LNP-S, PF, 100 mcg/0.5 mL dose (Moderna) 03/13/21 0.25 mL Intramuscular [id number] [employer] 07/25/21 COVID-19, mRNA, LNP-S, PF, 30 mcg/0.3 mL dose (Pfizer-BioNTech) 07/17/20 0.3 mL Pfizer, Inc COVID-19, mRNA, LNP-S, PF, 30 mcg/0.3 mL dose (Pfizer-BioNTech) 06/15/20 0.3 mL Intramuscular [id number] Pfizer, Inc 10/13/20 Diphtheria, Tetanus, Pertussis Tdap 03/10/24 0.5 mL [id number] GlaxoSmc[employer] creationsKline Influenza influenza, high dose seasonal 02/07/25 0.5 mL [id number] Sanofi Pasteur influenza, high dose seasonal 02/03/24 0.5 mL Intramuscular Deltoid, Left [id number] Sanofi Pasteur 11/13/24 Inactivated Influenza 12/20/2020 02/02/24 Christina Vickers influenza, high-dose, quadrivalent 01/29/23 0.7 mL Intramuscular Deltoid, Right [id number] Sanofi Pasteur 11/14/23 Inactivated Influenza 12/20/2020 01/29/23 Kendal Canales influenza, high-dose, quadrivalent 02/05/22 0.7 mL Intramuscular [id number] Sanofi Pasteur 11/13/22 influenza, high-dose, quadrivalent 01/28/21 0.7 mL Intramuscular [id number] Sanofi Pasteur 11/13/21 Influenza vaccine, quadrivalent, adjuvanted 01/27/20 0.5 mL Intramuscular [id number] Se[employer] 09/25/20 influenza, high dose seasonal 02/03/19 0.5 mL Intramuscular [id number] Sanofi Pasteur 09/20/19 influenza, high dose seasonal 02/10/18 0.5 mL Intramuscular [id number] Sanofi Pasteur 08/01/18 influenza, injectable, quadrivalent 02/14/17 influenza, high dose seasonal 01/08/17 0.5 mL Intramuscular [id number] Sanofi Pasteur 07/16/17 influenza, high dose seasonal 01/30/16 influenza, high dose seasonal 01/24/15 0.5 mL influenza, seasonal, injectable 03/08/14 0.5 mL influenza, high dose seasonal 01/30/13 Pneumococcal pneumococcal conjugate PCV 13 06/29/14 pneumococcal polysaccharide PPV23 07/05/13 Respiratory Syncytial Virus RSV, recombinant, protein subunit RSVpreF, adjuvant reconstituted, 0.5 mL, PF 05/04/23 0.5 mL Intramuscular Deltoid, Left [id number] [facility] 11/18/24 RSV (Respiratory Syncytial Virus) 03/04/2023 05/04/23 [facility] Tetanus tetanus toxoid 07/24/05 Zoster zoster recombinant 08/18/22 0.5 mL Intramuscular [id number] GlaxoSmithKline 10/12/23 zoster recombinant 03/30/22 0.5 mL Intramuscular [id number] GlaxoSmithKline 04/08/23 zoster live 03/30/14 Electronically Signed by: MARGO ALEJANDRO MD AIDEN VALVERDE DO [address] [place] [address], [phone], [facility] 04/23/2025 13:01:24 Procedures Surgical History Date Name Laterality Status Provider Name and Address Organization Details Recorded Time 025 OCT/Retina completed MARGO ALEJANDRO MD [address] [place] [address], [phone], [facility] 04/23/2025 11:27:53 025 Visual Field Extended completed MARGO ALEJANDRO MD [address] [place] [address], [phone], [facility] 04/23/2025 11:27:51 025 Punctual Plug completed MARGO ALEJANDRO MD [address] [place] [address], [phone], [facility] 04/23/2025 11:27:17 025 EKG completed MIKAL LOJA APRN [address] [place] [address], [phone], [facility] 03/29/2025 16:24:21 025 DXA Low Bone Mass 2 - Tx completed INGRID CASTAÑEDA MD [facility] [place], [address], [facility] 03/24/2025 10:29:10 025 Neurostimulator Analysis w/o Reprogramming completed Chelly Tyler [facility] 02/07/2025 15:59:51 025 Post Void Residual; Ultrasound completed Lexy Rahman [facility] 02/07/2025 15:02:22 025 Destruction Premalignant Lesion(s) completed Shruti Valdez [facility] 01/09/2025 08:36:36 025 Prolia Injection completed Gena Browne [facility] 12/22/2024 09:20:55 025 Punctual Plug completed MARGO ALEJANDRO MD [address] [place] [address], [phone], [facility] 10/13/2024 09:28:28 025 Prolia Injection completed Karol Crooks [facility] 06/23/2024 09:07:52 025 Axial Length, IOL Master completed MARGO ALEJANDRO MD [address] [place] [address], [phone], [facility] 06/02/2024 09:56:59 024 OCT/Retina completed MARGO ALEJANDRO MD [address] [place] [address], [address], [facility] 04/19/2024 10:29:56 024 DXA Low Bone Mass 2 - Tx completed INGRID CASTAÑEDA MD [address] [place] [address], [address], [facility] 03/23/2024 16:44:04 024 EKG completed MIKAL LOJA APRN [address] [place] [address], [phone], [facility] 02/24/2024 09:40:10 024 Post Void Residual; Ultrasound completed Reg Sky [facility] 12/29/2023 15:52:26 024 Prolia Injection completed Josefa Kumar [facility] 12/21/2023 16:07:15 024 procedure on intestine completed Christy Moraet [facility] 02/24/2024 09:35:22 024 Neurostimulator Analysis w/o Reprogramming completed Chelly Tyler [facility] 05/31/2023 10:21:06 024 Post Void Residual; Ultrasound completed Reg Sky [facility] 05/31/2023 09:27:17 023 Other completed KAVON TANG MD [address] [place], [address], [facility] 04/27/2023 15:56:37 023 Prolia Injection completed Flower Tiwarichelle [facility] 04/19/2023 16:20:54 023 PNE Implantation; Sacral Nerve completed KAVON TANG MD [address] [place], [address], [facility] 04/06/2023 15:07:08 023 Post Void Residual; Ultrasound completed Gaby Richards [facility] 01/22/2023 08:55:17 023 DXA Low Bone Mass 2 - Tx completed INGRID CASTAÑEDA MD [address] [place], [address], [facility] 12/15/2022 18:22:03 023 TCM completed Bree Rolon [facility] 11/19/2022 20:07:07 023 Post Void Residual; Ultrasound completed Jillian Roe [facility] 07/17/2022 08:34:39 022 Post Void Residual; Ultrasound completed Catrachita Tarango [facility] 05/05/2022 08:53:27 021 Destruction BN Lesions completed Sondra Oconnor [facility] 04/29/2021 08:58:00 021 Knee Surgery completed Kendal Canales [facility] 04/29/2021 11:21:40 021 Visual Field Extended completed MARGO ALEJANDRO MD [address] [place], [address], [facility] 11/11/2020 09:09:46 021 EKG completed JF CHAMBERS DO [address] [place], [address], [facility] 09/30/2020 10:03:56 021 OCT/Retina completed MAGRO ALEJANDRO MD [address] [place], [address], [facility] 09/09/2020 09:45:14 020 Salivary Gland Biopsy completed MARGO FRIEDMAN MD [address] [place], [address], [facility] 04/30/2020 09:43:49 020 Destruction BN Lesions completed Ariadna Meng [facility] 04/23/2020 08:51:13 020 Urinary Bladder completed KAVON TANG MD [address] [place], [address], [facility] 03/26/2020 09:44:18 020 Post Void Residual; Ultrasound completed Teena Johnson [facility] 02/09/2020 08:13:00 020 EKG completed MIKAL LOJA, LINEMARKER [address] [place], [address], [facility] 02/01/2020 09:13:51 020 Post Void Residual; Ultrasound completed Yolanda Alexander [facility] 11/15/2019 09:12:34 020 Biopsy Skin Lesion; Tangential completed Cheyanne Magaña [facility] 10/31/2019 11:29:08 019 Destruction BN Lesions completed LOAN MEDINA, LINEMARKER [address] [place], [address], [facility] 04/20/2019 09:32:34 019 Evening/Weekend/Ho liday Services completed Denny Schwab [facility] 02/25/2019 13:34:39 019 EKG completed DIAZ HILL PA-C [address] [place], [address], [facility] 01/26/2019 08:54:46 019 Probing Lacrimal Canaliculi completed MARGO ALEJANDRO MD [address] [place], [address], [facility] 05/26/2018 13:24:16 018 Destruction BN Lesions completed [facility] 04/19/2018 09:15:50 018 Date of Last Pap Smear completed [facility] 12/13/2018 10:16:23 018 EKG completed DIAZ HILL PA-C [address] [place], [address], [facility] 01/26/2018 09:02:42 018 DXA Low Bone Mass 1 - No Tx completed INGRID CASTAÑEDA MD [address] [place], [address], [facility] 11/08/2017 18:09:16 018 Most Recent Bone Density completed [facility] 12/13/2018 10:16:45 018 Orthopedic Surgery completed ROBIN ARELLANO PA-C [address] [place], [address], [facility] 09/01/2017 09:30:46 017 Destruction BN Lesions completed [facility] 04/14/2017 09:04:58 017 Shave Lesion; scalp, neck, hand, foot, genitalia completed [facility] 04/14/2017 09:06:31 017 EKG completed DIAZ HILL PA-C [address] [place], [address], [facility] 10/29/2016 09:29:58 016 EKG completed DIAZ HILL PA-C [address] [place], [address], [facility] 05/05/2016 14:22:08 016 Most Recent Mammogram completed Betty Cosby [facility] 12/13/2018 10:18:24 012 Total Hysterectomy completed Luis Carlos Whaleyley [facility] 12/13/2018 13:20:05 Appendectomy completed Skylarnate Burns [facility] 04/28/2016 11:23:45 Carpal tunnel surgery completed Yulisa Frazier [facility] 02/02/2020 09:20:20 Orthopedic Surgery completed Amari Klein [facility] 09/25/2019 15:42:13 Other completed Gabbie Pérez [facility] 10/14/2023 16:17:19 Imaging Results None recorded. Procedure Notes None recorded. Medical Equipment None Reported. Allergies Allergen ID Allergen Name Allergen Category Reaction Reaction Severity Criticality Documentation Date Start Date Code Code System Note Provider Name and Address Organization Details Recorded Time 893237 bisoprolo l / hydrochlo rothiazid e medicatio n Not available Not available Not available 04/10/20162005 63986 7 RxNorm hives / n/v Yulisa Frazier [facility] 0 09:22:14 975846 Maxalt medicatio n Not available Not available Not available 04/10/20162005 24436 8 RxNorm hives / n/v Yulisa Frazier [facility] 0 09:22:08 587644 Levaquin medicatio n rash Not available Not available 06/18/2022 29823 2 RxNorm KAVON TANG MD [address] [place], [address], [facility] 3 13:46:23 285308 rizatript an medicatio n Not available Not available Not available 03/29/2025 06594 RxNorm Not Available ivett - External Data Service - prod 5 06:13:52 047590 levofloxa arcadio medicatio n Not available Not available Not available 03/29/20252023 55881 RxNorm Not Available ivett - External Data Service - prod 5 06:15:51 780940 metoclopr amide hydrochlo ride medicatio n Not available Not available Not available 03/29/20252023 80926 6 RxNorm Not Available ivett - External Data Service - prod 5 06:15:51 870055 bisoprolo l / hydrochlo rothiazid e medicatio n Not available Not available Not available 03/29/20252023 01766 7 RxNorm Not Available ivett - External [...] oral route as needed for 3 days. 09/03/ 2024 09/18 /2024 completed Not Available Not Available Not Available [...] completed Not Available Not Available Not Available [place] 5 mg-325 mg tablet Take 1 tablet [...] Not Available Vitals Date Recorded Body height Provider Name an d Address Organization Details Last Updated DateTime 04/23/2025 151.13 cm [facility] 04/23/2025 09:50:38 Social History Question Answer Notes LastModified by Organizat ion Details LastModified Time Tobacco Smoking Status Former Smoker hasnt smoked since 1979 Luis [facility] 12/13/2018 13:18:56 Accident Related Injury No [email or web address] Information not available 09/25/2019 What Is Your Level Of Caffeine Consumption? Moderate [email or web address] Information not available 08/29/2024 How Much Tobacco Do You Chew? None [email or web address] Information not available 02/25/2019 Are You Deaf Or Do You Have Serious Difficulty Hearing? No Information not available 12/11/2020 What Type Of Diet Are You Following? REGULAR Information not available 12/11/2020 Which Illicit Or Recreational Drugs Have You Used? None Per Pt [email or web address] Information not available 04/16/2019 When Did You Quit Smoking? 16+yearssinc [email or web address] te Information not available 10/15/2022 Which Of Your Hands Is Dominant? Right [email or web address] Information not available 09/25/2019 Hard Of Hearing Or Deaf In One Or Both Ears? No Information not available 10/26/2019 Legally Blind In One Or Both Eyes? No Information not available 10/26/2019 Which Hand Is Involved? Left Shoulder Information not available 09/25/2019 Rate The Severity Of Your Symptoms: (0-10 With 0=none And 10=worst Possible) 3 -08/24 Information not available 09/25/2019 Date Of Injury: 2009 Or Longer [email or web address] Information not available 09/25/2019 Have You Been Treated For This Problem Before? Yes [email or web address] Information not available 09/25/2019 How Long Have You Had These Symptoms? 10 Years, Worse In Last Month [email or web address] Information not available 09/25/2019 Will This Be Filed As Workers' Compensation? No [email or web address] Information not available 09/25/2019 Marital Status Unknown Informatio n not available 04/28/2016 What Was The Date Of Your Most Recent Tobacco Screening? 03/29/2025 [email or web address] Information not available 03/29/2025 What Is Your Current Pack Years? 20-29packyea rs [email or web address] Information not available 04/27/2024 What Is Your [...] Date Was Tobacco Cessation Counseling Provided? 04/27/2024 Information not available 04/27/2024 How Many Years Have You Smoked Tobacco? 20 Information not available 04/28/2016 Have You Recently Traveled Abroad? No Information not available 12/11/2020 Work Related Injury? No [email or web address] Information not available 09/25/2019 Sex: Female Functional Status Question Answer Note LastModified by Organizat ion Details LastModified Time How many times per week do you consume alcohol? Less than 1 time per week [email or web address] Information not available 08/29/2024 Do you use any illicit or recreational drugs? 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 Never used electronic cigarettes [email or web address] Information not available 02/25/2019 What is your exercise level? Occasional Information not available 12/11/2020 Mental Status Question Answer Note LastModified by Organization D etails LastModified Time Do you feel stressed (tense, restless, nervous, or anxious, or unable to sleep at night)? [id number] Information not available 12/11/2020 Family History Relationship [...] Recorded Time Tdap 4 completed Sarah Best [facility] 03/13/2024 08:47:59 Influenza, high-dose, trivalent, PF 6 completed Sarah Best [facility] 08/20/2022 08:13:21 Pneumococcal conjugate PCV 13 5 completed Sarah Best [facility] 08/20/2022 08:13:21 pneumococcal polysaccharide PPV23 4 completed Sarah Nasir [facility] 08/20/2022 08:13:21 tetanus toxoid, unspecified formulation 6 completed Sarah [facility] 08/20/2022 08:13:21 zoster live 4 completed Sarah Best [facility] 08/20/2022 08:13:21 Influenza, high-dose, trivalent, PF 5 completed Sarah Best [facility] 02/09/2025 16:28:58 COVID-19, mRNA, LNP-S, PF, 30 mcg/0.3 mL dose 1 completed Not Available [facility] 07/07/2023 10:32:34 Influenza, high-dose, quadrivalent, PF 3 completed JF CHAMBERS, DO [address] [place], [address], [facility] 02/09/2023 08:06:59 COVID-19, mRNA, LNP-S, PF, 50 mcg/0.5 mL 3 completed [facility], [address], [address], [facility] 05/13/2023 07:47:23 RSV, recombinant, protein subunit RSVpreF, adjuvant reconstituted, 0.5 mL, PF 3 completed [facility], [address], [address], [facility] 05/13/2023 07:47:23 COVID-19, mRNA, LNP-S, PF, 100 mcg/0.5mL dose or 50 mcg/0.25mL dose 1 completed Sarah Best [facility] 08/20/2022 08:13:21 COVID-19, mRNA, LNP-S, PF, 100 mcg/0.5mL dose or 50 mcg/0.25mL dose 2 completed Sarah Best [facility] 08/20/2022 08:13:21 Influenza, high-dose, quadrivalent, PF 2 completed Sarah Best [facility] 08/20/2022 08:13:21 Influenza, high-dose, trivalent, PF 4 completed Maryjane Ritchie [facility] 02/03/2024 08:52:58 COVID-19, mRNA, LNP-S, PF, 30 mcg/0.3 mL dose 1 completed Sarah Best [facility] 08/20/2022 08:13:21 Influenza, high-dose, trivalent, PF 5 completed Sarah Best [facility] 08/20/2022 08:13:21 Influenza, split virus, trivalent, preservative 4 completed Sarah Best [facility] 08/20/2022 08:13:21 Influenza, adjuvanted, quadrivalent, PF 0 [facility] 08:13:21 Influenza, high-dose, quadrivalent, PF 1 [facility] 08/[facility] 08:13:21 Influenza, high-dose, trivalent, PF 9 [facility] 08/[facility]22 08:13:21 Influenza, high-dose, trivalent, PF 7 completed Sarha [facility] 08/20/2022 08:13:21 Influenza, high-dose, trivalent, PF 8 [facility] 08/20/2022 08:13:21 Influenza, high-dose, trivalent, PF 3 completed [facility] 08/20/2022 08:13:21 zoster recombinant 2 completed [facility] 08/20/2022 08:13:21 COVID-19, mRNA, LNP-S, bivalent, PF, 50 mcg/0.5 mL or 25mcg/0.25 mL dose 2 completed [facility] 08/20/2022 08:13:21 zoster recombinant 3 completed [facility] 08/25/2022 08:40:09 Influenza, split virus, quadrivalent, preservative 7 completed [facility] 08/25/2022 08:40:09 Past Encounters Encounter ID Performer Location Encounter Start Date Encounter Closed Date Diagnosis/Indication Diagnosis SNOMED-CT Code Diagnosis ICD10 Code Diagnosis IMO Codes Diagnosis Note [id number] MIKAL LOJA APRN CARDIOLOG [address] ,[address] [place] [address] 03/29/2025 15:28:42 04/05/2025 18:59:40 Hypertensive disorder 20858132 I10 Stable. Primary care managing Mixed hyperlipidemia 267 323235 E78.2 Continue with statin. Low cholestero l, low fat diet advised. Recommend FLP at least annually. 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 Obesity 380948910 E66.9 Discussed importance of maintainin g healthy weight, increasing aerobic exercise. Goal 120-150 min per week. Dyspnea on exertion 6084 5006 R06.09 187076 Echocardio gram will be arranged for evaluation of structural heart disease. Further recommenda tions to be made based on findings. [id number] AIDEN VALVERDE DO [facility] [address] [address] 04/20/2025 14:54:44 04/20/2025 15:38:38 Dyspnea on exertion 37126844 R06.09 [id number] - The primary differenti al diagnoses for [...] as-needed use for chest tightness or wheezing. [id number] MARGO ALEJANDRO MD OPHTHALMO LOGY [address] ,[address] [place] [address] 04/23/2025 09:07:52 04/23/2025 11:43:27 Long-term drug therapy 857075585 Z79.899 5 years of tx on plaq no retinopath y ou todayoct mac normal plaquenil therapy 200mg/day max daily dose 388mg/day for current body weight discussed risk of vision loss - non-revers ible mac normal1 year oct mac hvf 10-2 Dry eyes 796344063 H04.1 29 failed art tearsrec xiidra bid oureplace plugs today Incipient senile cataract 697924820 H25.099 Health Concerns Section Related Observation LastModified by Organization Detai ls LastModified Time None Recorded Concern Status LastModified by Organization Details LastModified Time None Recorded Payers Encounter Date Sequence Insurance Name Policy Number Policy Phillip Covered Member ID Phillip Member ID Guarantor Name 04/23/2025 1 [place] Stacey Michael Enrico [id number] Stacey S Enrico 04/23/2025 2 [employer] (MEDICARE SUPPLEMENT) Stacey Weston [id number] Stacey Weston Notes Date Note Type Note Provider Name and Address Organization Details Recorded Time 04/23/2025 text/html ROS as noted in the HPI MARGO ALEJANDRO MD [address] [place], [address], [facility] 04/23/2025 11:28:10 OBGyn Episode No OBEpisode recorded.
[2025-05-13 19:50] LABS: NT Pro Brain Natriuretic Pep. 124 pg/mL (0-450)
[2025-05-13 19:52] LABS: Troponin I < 0.01 ng/ml (0.00-0.034)
[2025-05-13 20:07] LABS: Free T4 (Free Thyroxine) 1.12 ng/dl (0.78-2.19)
[2025-05-13 20:08] LABS: Thyroid Stimulating Hormone 0.88 uIU/mL (0.465-4.68)
[2025-05-13 20:39] LABS: Hepatitis C Ab Qual. W/ RFX NEGATIVE (Negative)
[2025-05-13] MEDS: NITROPRUSSIDE SODIUM 50 MG in DEXTROSE 5 % IN WATER 250 ML 7.04 MG IV (21:25)
--- NOTE | 2025-05-13 22:01 | EXP.HP ---
History of Present Illness *Admission Date: 05/13/25 *Reason for visit:: htn *History of present illness: past medical history of hypertension on carvedilol, clonidine, and losartan, hyperlipidemia, cardiac murmur who presents to the emergency department for complaints of high blood pressure. Patient arrives via EMS. Patient states that over the course of about 30 minutes today, she developed a severe headache. She does report a remote history of migraine headaches but states that this feels different and more severe. She did take a sumatriptan hand at approximately 5 PM. The headache has improved slightly since then. She checked her blood pressure at home and noticed that it was elevated to the 180-190 range, which is abnormal for her. Did not miss any medication doses. throughout the day, she has had some tightness in her chest but denies any shortness of breath, cough, fever, abdominal pain, nausea, vomiting, diarrhea, dysuria or hematuria. no blurry vision or double vision. In ED blood pressure 198/105. Started nitroprusside will transfer to unit No other concerns at this time other than persisten headache. discussed plan History independently obtained. Discussed case with ER physician. Independently interpreted diagnostics. [facility] Disclaimer: The information contained in this section may have been updated after the patient was seen, as this information can be updated by other users. Medical History (Updated 05/13/25 @ 20:58 by Travis Davis MD) Heart murmur Sjogrens syndrome Gastritis Hyperlipidemia Hypertension Hiatal hernia Hemorrhoids Esophageal dysmotility Diverticulosis Surgical History History of partial knee replacement H/O: hysterectomy Hx of appendectomy History of knee replacement Family History Father Cancer Sister Breast cancer Sister Brain cancer Lung cancer Social History (Updated 10/23/24 @ 09:29 by Zoraida Hood RN) Smoking Status: Never smoker alcohol intake: current alcohol intake frequency: holidays/special occasions only substance use type: denies use current occupational status: employed Travel in the last 8 weeks?: Inside the [place] housing[place] house current occupational exposures/hazards: No caffeine: Yes Have you lived/traveled outside US in past 30 days?: No Contact w/someone who lives/traveled outside US past 30 days?: No Exposure to someone with infectious disease in past 14 days?: No Do you have a fever (greater than 100.4 F or 38 C)?: No Have you tested positive for COVID-19?: No Exposed to someone with COVID-19 in past 14 days?: No Do you have a sore throat?: No Do you have a cough?: No Do you have any weakness?: No Do you have any diarrhea?: No Are you experiencing any unusual bleeding?: No Do you have any muscle aches/pain?: No Do you have any abdominal pain?: No Are you experiencing loss of taste or smell?: No Other Medical History Have you received the Flu Vaccine for this season: Yes Have you received the Pneumonia Vaccine: Yes Review of Systems Review of Systems Review of systems:: pertinent systems reviewed and negative unless documented below Constitutional Constitutional: Reports system reviewed and no additional complaints, except as documented Eyes Eyes: Reports system reviewed and no additional complaints, except as documented ENT Ears, Nose, Mouth, and Throat: Reports system reviewed and no additional complaints, except as documented *Cardiovascular Cardiovascular: Reports system reviewed and no additional complaints, except as documented *Respiratory Respiratory: Reports system reviewed and no additional complaints, except as documented *Gastrointestinal Gastrointestinal: Reports system reviewed and no additional complaints, except as documented *Genitourinary Genitourinary: Reports system reviewed and no additional complaints, except as documented *Musculoskeletal Musculoskeletal: Reports system reviewed and no additional complaints, except as documented *Neurologic Neurologic: Reports system reviewed and no additional complaints, except as documented Psychiatric Psychiatric: Reports system reviewed and no additional complaints, except as documented Endocrine Endocrine: Reports system reviewed and no additional complaints, except as documented Meds Home Medications and Allergies Home Medications ?Medication ?Instructions ?Recorded ?Confirmed ?Type clonazepam 0.5 mg tablet 0.5 mg PO DAILY Anxiety 03/05/20 10/23/24 History coenzyme Q10 30 mg capsule 30 mg PO DAILY Supplement 03/05/20 10/23/24 History fluticasone propionate 50 15.8 ml intranasal DAILY allergies 03/05/20 10/23/24 History mcg/actuation nasal spray,suspension losartan 100 mg tablet 100 mg PO DAILY bp 03/05/20 10/23/24 History omeprazole 20 mg capsule,delayed 20 mg PO DAILY GERD 03/05/20 10/23/24 History release simvastatin 20 mg tablet 20 mg PO DAILY Cholesterol 03/05/20 10/23/24 History sumatriptan succinate 100 mg tablet 100 mg PO DAILY migraines 03/05/20 10/23/24 History carvedilol 25 mg tablet 25 mg PO BID 07/18/24 10/23/24 History denosumab 60 mg/mL subcutaneous 60 mg SQ [id number] 07/18/24 10/23/24 History syringe (Prolia) estradiol 0.01% (0.1 mg/gram) 0.25 appful vaginal WEEKLY 07/18/24 10/23/24 History vaginal cream famotidine 20 mg tablet 20 mg PO BID 07/18/24 10/23/24 History hydroxychloroquine 200 mg tablet 200 mg PO DAILY 07/18/24 10/23/24 History hydroxyzine HCl 25 mg tablet 25 mg PO BID PRN allegies 07/18/24 10/23/24 History polyethylene glycol 3350 17 17 g PO DAILY 07/18/24 10/23/24 History gram/dose oral powder (Purelax) ropinirole 2 mg tablet 2 mg PO HS 07/18/24 10/23/24 History sertraline 100 mg tablet 100 mg PO DAILY 07/18/24 10/23/24 History sodium sul 1.479 gram-potas ch See Rx Instructions PO PER PKG DIR 09/27/24 10/23/24 Rx 0.188 gram-magnes sul 0.225 gram colonscopy #24 tabs tablet (Sutab) clonidine HCl 0.1 mg tablet 0.1 mg PO BID 10/20/24 10/23/24 History New Prescriptions to Start Prescriptions: Allergies Allergy/AdvReac Type Severity Reaction Status Date / Time bisoprolol (From Ziac) Allergy Mild Other Verified 10/23/24 09:17 hydrochlorothiazide (From Allergy Mild Other Verified 10/23/24 09:17 Ziac) levofloxacin (From Levaquin) Allergy Mild Nausea Verified 10/23/24 09:17 rizatriptan (From Maxalt) Allergy Mild Nausea Verified 10/23/24 09:17 rivaroxaban (From Xarelto) Allergy Nausea Verified 10/23/24 09:17 Exam Data for Last 24 hours Vital signs and Labs for Last 24 Hours: Pulse Resp BP Pulse Ox O2 Del Method 71 14 165/106 H 93 L Room Air 05/13/25 21:45 05/13/25 21:57 05/13/25 21:57 05/13/25 21:45 05/13/25 21:45 Laboratory Results - last 24 hr 05/13/25 19:20: WBC 6.8, RBC 4.66, Hgb 12.0 L, Hct 36.5 L, MCV 78.3 L, MCH 25.8 L, MCHC 32.9, RDW 14.5, Plt Count 240, MPV 8.9, Neut % (Auto) 56.1, Lymph % (Auto) 32.3, [place] % (Auto) 8.5, Eos % (Auto) 2.5, Baso % (Auto) 0.3, Neut # (Auto) 3.8, Lymph # (Auto) 2.2, [place] # (Auto) 0.6, Eos # (Auto) 0.2, Baso # (Auto) 0.0, Sodium 136, Potassium 4.1, Chloride 106, Carbon Dioxide 22, Anion Gap 12.1, BUN 19 H, Creatinine 1.00, Estimated Creat Clear 58, Estimated GFR 54 L, Est GFR ( Amer) 65, Glucose 88, Calcium 8.6, Total Bilirubin 1.0, AST 33, ALT 30, Alkaline Phosphatase 60, Troponin I < 0.01, NT-Pro-B Natriuret Pep 124, Total Protein 7.0, Albumin 4.1, Globulin 2.9, Albumin/Globulin Ratio 1.4, TSH 0.88, Free T4 1.12, HCV Ab JORDAN w/Rflx PCR Qn Negative, HIV Ag/Ab Combo Qual Negative I & O for Last 24 hours: Intake & Output 05/10/25 05/11/25 05/12/25 05/13/25 23:59 23:59 23:59 23:59 Weight 77.564 kg Constitutional Constitutional: no acute distress *Routine HEENT Exam Head: Present normocephalic Eye: Present EOMI and PERRL ENT: Present mucous membranes moist *Routine Neck Exam Neck: Present supple; Absent lymphadenopathy *Routine Respiratory Exam Respiratory: Present CTA bilaterally *Routine Cardiovascular Exam Cardiovascular: Present RRR *Routine Abdominal Exam Abdominal: Present soft and normoactive bowel sounds; Absent tenderness *Routine Rectal Exam Rectal:: deferred *Routine Genitalia Exam Genitalia:: deferred *Routine Extremities Exam Extremities: Absent cyanosis, clubbing or edema *Routine Skin Exam Skin: Present warm; Absent rash *Routine Neurological Exam Neurological: Present alert and oriented X3 Assessment and Plan *Assessment and plan (1) Hypertensive emergency: Status: Acute Category: Medical Code(s): I16.1 - Hypertensive emergency (2) Small bowel tumor: Status: Acute Category: Medical Code(s): D49.0 - Neoplasm of unspecified behavior of digestive system (3) Personal history of adenomatous and serrated colon polyps: Status: Acute Category: Medical Code(s): Z86.0101 - Personal history of adenomatous and serrated colon polyps (4) GERD (gastroesophageal reflux disease): Status: Acute Category: Medical Code(s): K21.9 - Gastro-esophageal reflux disease without esophagitis Plan Hypertensive emergency - Nitroprusside drip, wean as p.o. medicines take effect - Restart Coreg and losartan at home dose - Discontinue clonidine - Will add Procardia - Echo ordered - Telemetry - Admit to ICU Hyperlipidemia - Continue statin GERD - PPI Anxiety depression - Sertraline Resume other medications once reconciled for chronic medical conditions
--- NOTE | 2025-05-13 22:44 | PC.NURSE ---
Patient arrived to ICU via wheelchair @22:18 from ED
[2025-05-13 23:20] LABS: Troponin I < 0.01 ng/ml (0.00-0.034)
[2025-05-14] VITALS (36 sets, daily range): BP systolic 109–222; BP diastolic 52–104; PULSE 63–84; RESP 12–20; TEMP 36.6–36.9; O2SAT 88–97; BMI 36.1
[2025-05-14] MEDS: ROPINIROLE 1MG TABLET 2 MG PO ×2 (00:30→21:22)
[2025-05-14] MEDS: ACETAMINOPHEN 325MG TAB 650 MG PO ×2 (00:35→18:15)
[2025-05-14] MEDS: HYDROCODONE/APAP 5/325 MG TABLET 1 TAB PO ×3 (04:56→22:12)
[2025-05-14] MEDS: MORPHINE 4MG/ML SYRINGE 4 MG IV (05:40)
[2025-05-14] MEDS: IRBESARTAN 150MG TAB 150 MG PO ×2 (06:55→21:20)
[2025-05-14] MEDS: CARVEDILOL 12.5MG TABLET 25 MG PO (06:55)
[2025-05-14] MEDS: ONDANSETRON 4MG/2ML VIAL 4 MG IV ×3 (07:12→22:11)
[2025-05-14] MEDS: SERTRALINE 100MG TABLET 100 MG PO (08:28)
--- NOTE | 2025-05-14 09:00 | CA_ITS ---
FINAL REPORT TECHNIQUE: Grayscale, color Doppler and duplex Doppler ultrasound of the kidneys, aorta and renal arteries was performed. Multiple velocities were measured. CLINICAL HISTORY: HTN COMPARISON: None FINDINGS: Aorta velocity: 106 cm/sec Right kidney: 9.6 cm. No evidence of hydronephrosis or mass. Right intrarenal RI: 0.48-0.61 Right renal artery velocity: 167 cm/sec. Right RAR (Renal artery-Aortic Ratio): 1.6 Left Kidney: 11.3 cm. No evidence of hydronephrosis or mass. Left intrarenal RI: 0.62-0.84 Left renal artery velocity: 141 cm/sec. Left RAR (Renal Artery-Aortic Ratio): 1.3 IMPRESSION: No evidence of significant renal artery stenosis. CT angiogram or postcontrast MR angiogram would be more sensitive for evaluation of possible renal artery stenosis. Reviewed, Interpreted and Dictated by Lorri Nguyen MD Transcribed by Natalie Richards Authenticated and [facility]
--- NOTE | 2025-05-14 09:00 | CA_ITS ---
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 171.0 (50-130 cm/s) AI PHT 1043.00 ms AO Peak GR. 11.70 mmHg AO Mean GR. 6.00 (<5 mmHg) AO VTI 37.7 (18-25 cm) SHELL (VTI) 3.40 (2.5-4.5 cm2) Mitral Valve MV E Max Mendoza. 95.0 (40-130 cm/s) MV A Velocity 113.0 (40-130 cm/s) E/A Ratio 0.84 MV PHT 71.0 ms Pulmonary Valve PV Peak Velocity 65.0 (50-150 cm/s) Tricuspid Valve TR P. Velocity 281.00 cm/s RAP Estimate 8.00 mmHg RVSP 39.60 mmHg Left Ventricle The left ventricle is normal size. Left ventricular systolic function is normal. The left ventricular ejection fraction is within the normal range. There is increased left ventricular wall thickness. There is normal LV segmental wall motion. Transmitral Doppler flow pattern suggests impaired LV relaxation. LVEF is 60% Right Ventricle The right ventricle is mildly dilated. The right ventricular systolic function is normal. Atria Left atrium is moderately dilated. Right atrium is mildly dilated. There is no color Doppler evidence of interatrial shunt. Aortic Valve The aortic valve is mildly thickened. There is no hemodynamically significant aortic valvular stenosis. Mild aortic regurgitation is present. Mitral Valve The mitral valve is normal in structure. No evidence of mitral valve stenosis. Mild to moderate mitral regurgitation is present. Tricuspid Valve The tricuspid valve leaflets are thin and pliable. Mild tricuspid regurgitation. RVSP is 30-35 mmHg. Pulmonic Valve The pulmonary valve is grossly normal in structure. Trace pulmonic valve regurgitation is present. Great Vessels The aortic root is normal in size. IVC is normal in size and collapses >50% with inspiration. Pericardium There is no pericardial effusion. Other Information Study Quality: Fair Conclusion Normal biventricular systolic function. Mild RV dilation. Biatrial dilation. Mild to moderate MR. Mild AI, mild TR. Electronically signed by : Angelia Hughes MD 05/14/2025 13:50:13
--- NOTE | 2025-05-14 09:02 | EXP.CARD.CON ---
History of Present Illness History of Present Illness Consult date: 05/14/25 Requesting physician: Candice Boyle Consult reason: hypertension Chief complaint: HTN emergency Additional Medical History:: 1. Hypertension treated for many years 2. History of remote TIA/CVA 3. History of small bowel obstruction likely secondary to scar tissue from prior abdominal surgeries History of present illness: 75-year-old white female with history of hypertension presented to the emergency department for high blood pressure and headache. Patient did try home sumatriptan dose to see if the headache was due to a migraine but this did not help. Blood pressure in the emergency department noted to be 198/105 and nitroprusside was started and patient was admitted to the ICU. At the time of my visit patient's blood pressure was 120 systolic but she still had headache in the temporal areas. An attempt was made to wean nitroprusside down as oral medications were increased but due to recurrent increase in blood pressure it was titrated back up. [facility] Disclaimer: The information contained in this section may have been updated after the patient was seen, as this information can be updated by other users. Medical History (Updated 05/14/25 @ 17:31 by EDWIN Lee) Heart murmur Sjogrens syndrome Gastritis Hyperlipidemia Hypertension Hiatal hernia Hemorrhoids Esophageal dysmotility Diverticulosis Surgical History History of partial knee replacement H/O: hysterectomy Hx of appendectomy History of knee replacement Family History Father Cancer Sister Breast cancer Sister Brain cancer Lung cancer Social History (Updated 10/23/24 @ 09:29 by Zoraida Hood RN) Smoking Status: Never smoker alcohol intake: current alcohol intake frequency: holidays/special occasions only substance use type: denies use current occupational status: employed Travel in the last 8 weeks?: [place] the [place] housing: house current occupational exposures/hazards: No caffeine: Yes Have you lived/traveled outside US in past 30 days?: No Contact w/someone who lives/traveled outside US past 30 days?: No Exposure to someone with infectious disease in past 14 days?: No Do you have a fever (greater than 100.4 F or 38 C)?: No Have you tested positive for COVID-19?: No Exposed to someone with COVID-19 in past 14 days?: No Do you have a sore throat?: No Do you have a cough?: No Do you have any weakness?: No Do you have any diarrhea?: No Are you experiencing any unusual bleeding?: No Do you have any muscle aches/pain?: No Do you have any abdominal pain?: No Are you experiencing loss of taste or smell?: No Review of Systems Review of Systems Review of systems:: pertinent systems reviewed and negative unless documented below Constitutional Constitutional: Reports headache(s) ENT Ears, Nose, Mouth, and Throat: Reports headache(s) *Cardiovascular Cardiovascular: Reports chest pain and Reports dyspnea on exertion *Respiratory Respiratory: Reports dyspnea on exertion *Neurologic Neurologic: Reports system reviewed and no additional complaints, except as documented and Reports headache(s) Exam Data for Last 24 hours Vital signs and Labs for Last 24 Hours: Temp Pulse Resp BP Pulse Ox O2 Del Method 97.9 F 68 18 158/77 H 94 L Room Air 05/14/25 08:11 05/14/25 08:30 05/14/25 08:30 05/14/25 08:30 05/14/25 08:30 05/14/25 08:30 Laboratory Results - last 24 hr 05/13/25 19:20: WBC 6.8, RBC 4.66, Hgb 12.0 L, Hct 36.5 L, MCV 78.3 L, MCH 25.8 L, MCHC 32.9, RDW 14.5, Plt Count 240, MPV 8.9, Neut % (Auto) 56.1, Lymph % (Auto) 32.3, [place] % (Auto) 8.5, Eos % (Auto) 2.5, Baso % (Auto) 0.3, Neut # (Auto) 3.8, Lymph # (Auto) 2.2, [place] # (Auto) 0.6, Eos # (Auto) 0.2, Baso # (Auto) 0.0, Sodium 136, Potassium 4.1, Chloride 106, Carbon Dioxide 22, Anion Gap 12.1, BUN 19 H, Creatinine 1.00, Estimated Creat Clear 58, Estimated GFR 54 L, Est GFR ( Amer) 65, Glucose 88, Calcium 8.6, Total Bilirubin 1.0, AST 33, ALT 30, Alkaline Phosphatase 60, Troponin I < 0.01, NT-Pro-B Natriuret Pep 124, Total Protein 7.0, Albumin 4.1, Globulin 2.9, Albumin/Globulin Ratio 1.4, TSH 0.88, Free T4 1.12, HCV Ab JORDAN w/Rflx PCR Qn Negative, HIV Ag/Ab Combo Qual Negative 05/13/25 22:47: Troponin I < 0.01 I & O for Last 24 hours: Intake & Output 05/11/25 05/12/25 05/13/25 05/14/25 11:59 11:59 11:59 11:59 Intake Total 70.553 / 70.553 Output Total 600 / 600 Balance -529.447 / -529.447 Weight 179 lb 3.209 oz Constitutional Constitutional: mild distress *Routine Respiratory Exam Respiratory: Present CTA bilaterally *Routine Cardiovascular Exam Cardiovascular: Present RRR; Absent murmur, gallop or rubs *Routine Extremities Exam Extremities: Absent edema *Routine Neurological Exam Neurological: Present alert, oriented X3 and CN II-XII intact Meds Home Medications and Allergies Home Medications ?Medication ?Instructions ?Recorded ?Confirmed ?Type clonazepam 0.5 mg tablet 0.5 mg PO HS Anxiety 03/05/20 05/13/25 History losartan 100 mg tablet 100 mg PO DAILY 03/05/20 05/13/25 History omeprazole 20 mg capsule,delayed 20 mg PO BID 03/05/20 05/13/25 History release simvastatin 20 mg tablet 20 mg PO HS Cholesterol 03/05/20 05/13/25 History sumatriptan succinate 100 mg tablet 100 mg PO DAILY migraines 03/05/20 05/13/25 History carvedilol 25 mg tablet 25 mg PO BID 07/18/24 05/13/25 History famotidine 20 mg tablet 20 mg PO BID 07/18/24 05/13/25 History hydroxychloroquine 200 mg tablet 200 mg PO DAILY 07/18/24 05/13/25 History hydroxyzine HCl 25 mg tablet 25 mg PO HS 07/18/24 05/13/25 History ropinirole 2 mg tablet 2 - 3 mg PO HS 07/18/24 05/14/25 History pilocarpine HCl 5 mg tablet 5 mg PO TID 05/13/25 05/13/25 History albuterol sulfate 90 mcg/actuation 2 puff inhalation Q4H 05/14/25 05/14/25 History aerosol inhaler (Ventolin HFA) celecoxib 200 mg capsule 200 mg PO DAILY 05/14/25 05/14/25 History clonidine HCl 0.1 mg tablet 0.2 mg PO HS 05/14/25 05/14/25 History lifitegrast 5 % eye drops in a 1 drp ophthalmic (eye) BID 05/14/25 05/14/25 History dropperette (Xiidra) loratadine 10 mg tablet 10 mg PO DAILY 05/14/25 05/14/25 History New Prescriptions to Start Prescriptions: Allergies Allergy/AdvReac Type Severity Reaction Status Date / Time bisoprolol (From Ziac) Allergy Mild Other Verified 10/23/24 09:17 hydrochlorothiazide (From Allergy Mild Other Verified 10/23/24 09:17 Ziac) levofloxacin (From Levaquin) Allergy Mild Nausea Verified 10/23/24 09:17 rizatriptan (From Maxalt) Allergy Mild Nausea Verified 10/23/24 09:17 rivaroxaban (From Xarelto) Allergy Nausea Verified 10/23/24 09:17 Assessment and Plan *Assessment and plan (1) Hypertensive emergency: Status: Acute Category: Medical Code(s): I16.1 - Hypertensive emergency (2) History of migraine: Status: Acute Category: Medical Code(s): Z86.69 - Personal history of other diseases of the nervous system and sense organs Plan 1. Hypertensive emergency -wean off nipride as tolerated - Resume carvedilol and losartan -Discontinue clonidine in favor of nifedipine -Add hydralazine 25 mg and Isordil 10 mg 3 times daily -Echo and renal duplex essentially unremarkable 2. History of migraines -Defer to hospitalist Follow response to medication as noted above Hopefully home in a.m.
[2025-05-14] MEDS: UBROGEPANT 50MG TABLET 100 MG PO (09:32)
[2025-05-14 10:44] LABS: Hematocrit 33.3 % (37.0-47.0); Hemoglobin 11.1 g/dL (12.2-16.2); Immature Granulocytes % 0.3 %; Mean Corpuscular HGB Conc 33.3 g/dL (31.8-35.4); Mean Corpuscular Hemoglobin 26.2 pg (27.0-31.2); Mean Corpuscular Volume 78.5 fl (81-99); Nucleated Red Blood Cells % 0 %; Platelet Count 218 K/mm3 (142-424); Red Blood Count 4.24 M/mm3 (4.20-5.40); Red Cell Distribution Width-SD 41.5 fL; White Blood Count 6.1 K/mm3 (4.8-10.8)
[2025-05-14 11:04] LABS: Troponin I < 0.01 ng/ml (0.00-0.034)
[2025-05-14 11:20] LABS: Albumin Level 3.5 g/dl (3.5-5.0); Chloride 109 mmol/L (98-107)
[2025-05-14 11:21] LABS: Potassium 4.2 mmoL/L (3.5-5.1); Sodium 136 mmol/L (136-145)
[2025-05-14 11:23] LABS: Alanine Aminotransferase 26 U/L (12-78); Albumin/Globulin Ratio 1.4 (1.1-1.8); Anion Gap 7.2 mEq/L (5-15); Aspartate Amino Transferase 27 U/L (14-36); Blood Urea Nitrogen 18 mg/dl (7-17); Carbon Dioxide 24 mmol/L (22.0-30.0); Creatinine Clearance Estimated 60 mL/min (50-200); Creatinine,Serum 1.00 mg/dl (0.52-1.04); Estimated Glomerular Filt Rate 54 ml/min (>60); GFR (African American) 65 ML/MIN (>60); Globulin 2.5 g/dL (1.3-3.2); Total Protein,Serum 6.0 g/dl (6.3-8.2)
[2025-05-14 11:24] LABS: Alkaline Phosphatase 57 U/L (38-126); Bilirubin,Total 0.9 mg/dl (0.2-1.3); Calcium 8.8 mg/dl (8.4-10.2); Glucose 111 mg/dl (74-100); Magnesium 2.1 mg/dl (1.6-2.3); Phosphorous 3.6 mg/dl (2.5-4.5)
--- NOTE | 2025-05-14 11:55 | PC.NURSE ---
Patient BP of 182/98(126), HR of 68. Patient complains of headache at this time. notified. Continuation of care plan.
--- NOTE | 2025-05-14 13:12 | PC.NURSE ---
Patients BP of 205/98(133), HR of 70. notified. Continuation of care plan.
[2025-05-14] MEDS: NITROPRUSSIDE SODIUM 50 MG in DEXTROSE 5 % IN WATER 250 ML 7.37 MG IV (14:10)
--- NOTE | 2025-05-14 17:14 | EXP.ACUTE.PN ---
Subjective *Date: 05/14/25 *Time: 19:15 Interval history: Better this morning but still having some intermittent headache. Improved from admission. Blood pressure much better this morning, off drip. Has gradually crept up over the day however and had to go back on night pride drip this afternoon. Headache had improvement temporarily after Ubrelvy. Medical Exam Vital signs and Labs for Last 24 Hours: Vital Signs Temp Pulse Pulse Resp BP BP Pulse Ox 05/14/25 16:45 70 20 141/70 H 91 L 05/14/25 16:30 76 16 134/77 94 L 05/14/25 16:01 98.0 F 70 16 159/92 H 93 L 05/14/25 16:00 71 05/14/25 15:31 74 16 167/85 H 90 L 05/14/25 15:15 75 14 173/83 H 93 L 05/14/25 15:00 05/14/25 14:55 69 13 180/88 H 94 L 05/14/25 14:16 222/104 H 05/14/25 14:16 73 12 94 L 05/14/25 14:15 73 18 94 L 05/14/25 14:11 204/94 H 05/14/25 14:11 71 14 95 05/14/25 14:00 91 L 05/14/25 13:32 74 18 208/104 H 96 05/14/25 13:10 73 19 205/98 H 92 L 05/14/25 13:00 05/14/25 12:11 69 05/14/25 12:01 68 18 188/96 H 95 05/14/25 11:01 65 16 151/74 H 93 L 05/14/25 11:00 05/14/25 10:01 67 18 164/83 H 95 05/14/25 09:00 66 16 120/52 L 94 L 05/14/25 09:00 05/14/25 08:30 68 18 158/77 H 94 L 05/14/25 08:11 97.9 F 71 16 173/89 H 94 L 05/14/25 08:00 75 05/14/25 08:00 97 05/14/25 07:50 05/14/25 07:31 63 18 151/64 H 95 05/14/25 06:00 71 14 112/55 L 88 L 05/14/25 05:00 77 14 165/68 H 94 L 05/14/25 05:00 05/14/25 04:00 98.5 F 75 16 131/70 93 L 05/14/25 04:00 96 05/14/25 04:00 84 05/14/25 03:03 73 17 143/66 H 93 L 05/14/25 03:00 05/14/25 02:00 83 16 128/66 90 L 05/14/25 01:15 72 18 148/86 H 93 L 05/14/25 01:00 05/14/25 00:00 72 05/14/25 00:00 97.9 F 69 14 135/65 94 L 05/13/25 23:00 05/13/25 23:00 76 15 157/91 H 95 05/13/25 22:34 72 05/13/25 22:34 76 15 158/98 H 95 05/13/25 22:23 98.0 F 71 21 189/80 H 97 05/13/25 22:12 98.2 F 71 16 165/106 H 05/13/25 21:57 14 05/13/25 21:57 165/106 H 05/13/25 21:45 71 93 L 05/13/25 21:34 201/99 H 05/13/25 21:34 67 94 L 05/13/25 21:30 203/104 H 05/13/25 21:30 68 94 L 05/13/25 21:10 94 L 05/13/25 21:00 67 206/93 H 92 L 05/13/25 20:50 70 195/99 H 90 L 05/13/25 20:00 73 209/110 H 94 L 05/13/25 19:05 72 18 198/105 H 99 O2 Del Method O2 Flow Rate 05/14/25 16:45 Room Air 05/14/25 16:30 Room Air 05/14/25 16:01 Room Air 05/14/25 16:00 05/14/25 15:31 Room Air 05/14/25 15:15 Room Air 05/14/25 15:00 Room Air 05/14/25 14:55 Room Air 05/14/25 14:16 05/14/25 14:16 05/14/25 14:15 05/14/25 14:11 05/14/25 14:11 05/14/25 14:00 Room Air 05/14/25 13:32 Room Air 05/14/25 13:10 Nasal Cannula 4 05/14/25 13:00 Room Air 05/14/25 12:11 05/14/25 12:01 Room Air 05/14/25 11:01 Room Air 05/14/25 11:00 Room Air 05/14/25 10:01 Room Air 05/14/25 09:00 Room Air 05/14/25 09:00 Room Air 05/14/25 08:30 Room Air 05/14/25 08:11 Room Air 05/14/25 08:00 05/14/25 08:00 Room Air 05/14/25 07:50 Room Air 05/14/25 07:31 Room Air 05/14/25 06:00 05/14/25 05:00 05/14/25 05:00 Room Air 05/14/25 04:00 Room Air 05/14/25 04:00 Room Air 05/14/25 04:00 05/14/25 03:03 Room Air 05/14/25 03:00 Room Air 05/14/25 02:00 Room Air 05/14/25 01:15 Room Air 05/14/25 01:00 Room Air 05/14/25 00:00 05/14/25 00:00 Room Air 05/13/25 23:00 Room Air 05/13/25 23:00 05/13/25 22:34 05/13/25 22:34 Room Air 05/13/25 22:23 Room Air 05/13/25 22:12 Room Air 05/13/25 21:57 05/13/25 21:57 05/13/25 21:45 Room Air 05/13/25 21:34 05/13/25 21:34 Room Air 05/13/25 21:30 05/13/25 21:30 Room Air 05/13/25 21:10 Room Air 05/13/25 21:00 05/13/25 20:50 05/13/25 20:00 05/13/25 19:05 Room Air Intake and Output 05/14/25 05/14/25 05/14/25 07:59 15:59 23:59 Intake Total 62.340 / 984.146 677.394 / 984.146 244.412 / 984.146 Output Total 400 / 800 400 / 800 Balance -337.660 / 184.146 277.394 / 184.146 244.412 / 184.146 Intake: Intake, Oral Amount 0 / 874 664 / 874 210 / 874 Intake, Total IV Amount 62.340 / 110.146 13.394 / 110.146 34.412 / 110.146 Nitroprusside Sodium 50 mg In 62.340 / 62.340 Dextrose 5 % in Water 250 ml @ 0.3 MCG/KG/MIN 7.037 mls/hr IV .Q24H [facility] Rx#:[id number] Nitroprusside Sodium 50 mg In 13.394 / 47.806 34.412 / 47.806 Dextrose 5 % in Water 250 ml @ 0.3 MCG/KG/MIN 7.374 mls/hr IV .Q24H [facility] Rx#:[id number] Output: Output, Urine Amount 400 / 800 400 / 800 Other: Number of Unmeasured Voids 1 Weight 81.284 kg Patient Weight 05/14/25 23:59 Weight 81.284 kg Laboratory Results - last 24 hr 05/13/25 19:20: WBC 6.8, RBC 4.66, Hgb 12.0 L, Hct 36.5 L, MCV 78.3 L, MCH 25.8 L, MCHC 32.9, RDW 14.5, Plt Count 240, MPV 8.9, Neut % (Auto) 56.1, Lymph % (Auto) 32.3, Walker % (Auto) 8.5, Eos % (Auto) 2.5, Baso % (Auto) 0.3, Neut # (Auto) 3.8, Lymph # (Auto) 2.2, Walker # (Auto) 0.6, Eos # (Auto) 0.2, Baso # (Auto) 0.0, Sodium 136, Potassium 4.1, Chloride 106, Carbon Dioxide 22, Anion Gap 12.1, BUN 19 H, Creatinine 1.00, Estimated Creat Clear 58, Estimated GFR 54 L, Est GFR ( Amer) 65, Glucose 88, Calcium 8.6, Total Bilirubin 1.0, AST 33, ALT 30, Alkaline Phosphatase 60, Troponin I < 0.01, NT-Pro-B Natriuret Pep 124, Total Protein 7.0, Albumin 4.1, Globulin 2.9, Albumin/Globulin Ratio 1.4, TSH 0.88, Free T4 1.12, HCV Ab JORDAN w/Rflx PCR Qn Negative, HIV Ag/Ab Combo Qual Negative 05/13/25 22:47: Troponin I < 0.01 05/14/25 10:36: WBC 6.1, RBC 4.24, Hgb 11.1 L, Hct 33.3 L, MCV 78.5 L, MCH 26.2 L, MCHC 33.3, RDW 14.6, Plt Count 218, MPV 8.7, Neut % (Auto) 50.6, Lymph % (Auto) 34.8, Walker % (Auto) 10.2 H, Eos % (Auto) 3.6, Baso % (Auto) 0.5, Neut # (Auto) 3.1, Lymph # (Auto) 2.1, Walker # (Auto) 0.6, Eos # (Auto) 0.2, Baso # (Auto) 0.0, Sodium 136, Potassium 4.2, Chloride 109 H, Carbon Dioxide 24, Anion Gap 7.2, BUN 18 H, Creatinine 1.00, Estimated Creat Clear 60, Estimated GFR 54 L, Est GFR ( Amer) 65, Glucose 111 H D, Calcium 8.8, Phosphorus 3.6, Magnesium 2.1, Total Bilirubin 0.9, AST 27, ALT 26, Alkaline Phosphatase 57, Troponin I < 0.01, Total Protein 6.0 L, Albumin 3.5 D, Globulin 2.5, Albumin/Globulin Ratio 1.4 I & O for Labs for Last 24 Hours: Intake & Output 05/11/25 05/12/25 05/13/25 05/14/25 23:59 23:59 23:59 23:59 Intake Total 8.213 / 8.213 984.146 / 984.146 Output Total 200 / 200 800 / 800 Balance -191.787 / -191.787 184.146 / 184.146 Weight 81.284 kg 81.284 kg Constitutional: Present no acute distress, obese and cooperative Head: Present atraumatic Respiratory: Present normal respiratory effort; Absent rhonchi, wheezes or crackles Cardiac: Present Reg Rate and Rhythm GI: Present soft and normal bowel sounds; Absent distention or tenderness Extremities: Present normal inspection and full ROM Skin: Present intact; Absent erythema Neuro: Present Grossly Intact, alert, awake, oriented x 3 and moves all extremities Assessment and Plan *Assessment and plan (1) Hypertensive emergency: Status: Acute Category: Medical Code(s): I16.1 - Hypertensive emergency (2) Small bowel tumor: Status: Acute Category: Medical Code(s): D49.0 - Neoplasm of unspecified behavior of digestive system (3) Personal history of adenomatous and serrated colon polyps: Status: Acute Category: Medical Code(s): Z86.0101 - Personal history of adenomatous and serrated colon polyps (4) GERD (gastroesophageal reflux disease): Status: Acute Category: Medical Code(s): K21.9 - Gastro-esophageal reflux disease without esophagitis Plan 75-year-old female who presents with hypertensive urgency. Having headache and nausea. Started on nitroprusside drip with improvement. Blood pressure better this morning, had to go back on nitroprusside drip this afternoon however even after taking oral antihypertensive medications. Cardiology assisting with care. Continues to require inpatient management. Problems addressed as follows: Hypertensive emergency - Continue carvedilol 25 mg twice daily, irbesartan 150 mg this morning, increase to twice daily given resumption of nitroprusside drip. - Discussed case with cardiology, recommend to continue nifedipine 30 mg daily, isosorbide 10 mg 3 times a day, hydralazine 25 mg 3 times a day -Concern for episode of rebound hypertension secondary to clonidine. Continue to hold at this time - Echo and renal duplex essentially unremarkable History of migraines: Continue Tylenol, hydrocodone as needed for headache. Trialed Ubrelvy today with temporary benefit. Nausea: Zofran and Phenergan as needed every 6 hours Hyperlipidemia: Continue pravastatin 40 mg daily GERD: Pantoprazole 40 mg nightly Resume ropinirole 2 mg nightly for restless leg Hydroxychloroquine 200 mg daily per home regimen ICU/Critical care attestation This patient is critically ill with 35 minutes devoted solely to this patient managing life/organ supporting interventions that required physician assessment. This includes time spent making adjustments in ventilator settings, IV fluid administration, titration of pressors, adjustments of medications, discussion of patient with consultants and other care providers as well as updating patient and/or family (if patient by virtue of his/her condition is unable to participate in decision making). This does not include time spent performing separately billed procedures. Time is not concurrent with that of other providers.
[2025-05-14] MEDS: PROMETHAZINE HCL 25MG/ML 1ML VIAL 25 MG IV (18:13)
[2025-05-14] MEDS: CARVEDILOL 25MG TABLET 25 MG PO (21:20)
[2025-05-14] MEDS: PRAVASTATIN 40MG TAB 40 MG PO (21:22)
[2025-05-14] MEDS: PANTOPRAZOLE 40MG TABLET 40 MG PO (21:23)
[2025-05-14] MEDS: HYDRALAZINE HCL 25MG TABLET 25 MG PO (21:24)
[2025-05-14] MEDS: ISOSORBIDE DINITRATE 10 MG TABLET PO (21:27)
[2025-05-14] MEDS: PROCHLORPERAZINE 10MG/2ML VIAL 10 MG IV (22:46)
[2025-05-15] VITALS (18 sets, daily range): BP systolic 107–155; BP diastolic 58–88; PULSE 63–86; RESP 12–20; TEMP 36.7–36.9; O2SAT 91–96; BMI 37.7
[2025-05-15 05:52] LABS: Hematocrit 38.2 % (37.0-47.0); Immature Granulocytes % 0.4 %; Mean Corpuscular HGB Conc 32.2 g/dL (31.8-35.4); Mean Corpuscular Hemoglobin 25.4 pg (27.0-31.2); Mean Corpuscular Volume 78.8 fl (81-99); Nucleated Red Blood Cells % 0 %; Platelet Count 262 K/mm3 (142-424); Red Blood Count 4.85 M/mm3 (4.20-5.40); Red Cell Distribution Width-SD 41.2 fL; White Blood Count 9.0 K/mm3 (4.8-10.8)
[2025-05-15 06:00] LABS: Albumin Level 4.2 g/dl (3.5-5.0); Chloride 104 mmol/L (98-107); Potassium 4.2 mmoL/L (3.5-5.1); Sodium 136 mmol/L (136-145)
[2025-05-15 06:02] LABS: Blood Urea Nitrogen 17 mg/dl (7-17); Creatinine Clearance Estimated 63 mL/min (50-200); Creatinine,Serum 0.90 mg/dl (0.52-1.04); Estimated Glomerular Filt Rate 61 ml/min (>60); GFR (African American) 73 ML/MIN (>60)
[2025-05-15 06:03] LABS: Alanine Aminotransferase 31 U/L (12-78); Albumin/Globulin Ratio 1.5 (1.1-1.8); Alkaline Phosphatase 58 U/L (38-126); Anion Gap 13.2 mEq/L (5-15); Aspartate Amino Transferase 30 U/L (14-36); Bilirubin,Total 0.9 mg/dl (0.2-1.3); Calcium 9.4 mg/dl (8.4-10.2); Carbon Dioxide 23 mmol/L (22.0-30.0); Globulin 2.8 g/dL (1.3-3.2); Glucose 109 mg/dl (74-100); Magnesium 2.0 mg/dl (1.6-2.3); Total Protein,Serum 7.0 g/dl (6.3-8.2)
[2025-05-15 06:10] LABS: Hemoglobin 12.4 g/dL (12.2-16.2)
--- OUTSIDE RECORDS SUMMARY | 2025-05-15 07:23 | XMS_ITS | Clinical Summary ---
Author Organization [facility] , [facility] Address [address] [place] [address] Phone Care Team Providers Care Court Bailiff Name Role Phone Pieter HIGGINS, Ad Bain Unavailable Wendi HAYWOOD MD (), [facility] Primary Care Provider [phone] Lisette Neymar CLARKin Diana Unavailable [phone] Reason for Visit and Chief Complaint BRACE FITTING Problems Includes: Problems addressed during this encounter and other active Problems All Visits Onset Date Date of Diagnosis Resolved Date Provider Condition Status Joint Pain Right Thumb 10/09/2021 10/09/2021 Ad Stapleton MD Active Last Documented On 5 1:41AM ; [facility], [facility] Joint Pain Right Knee 06/26/2020 06/26/2020 Nathaniel Feldman MD Active Last Documented On 5 1:40AM ; [facility] Plan of Treatment No Plan of Treatment [...] On 5 10:46AM By Moises Feldman ; [facility] traZODone HCl 50 MG Oral Tablet 01/29/2022 Provider: Diagnosis: Last Documented On 2 2:11PM By Alina Manrique ; [facility], [facility] SUMAtriptan Succinate 100 MG Oral Tablet 01/27/2022 Provider: Diagnosis: Last Documented On 2 2:11PM By Alina Manrique ; [facility], [facility] Carvedilol 25 MG Oral Tablet 01/23/2022 Provider: Diagnosis: Last Documented On 2 2:11PM By Alina Manrique ; [facility], [facility] Doxazosin Mesylate 2 MG Oral Tablet 01/23/2022 Provi carmina: Diagnosis: Last Documented On 2 2:11PM By Alina Manrique ; [facility], [facility] Simvastatin 20 MG Oral Tablet 01/16/2022 Provider: Diagnosis: Last Documented On 2 2:11PM By Alina Manrique ; [facility], [facility] clonazePAM 0.5 MG Oral Tablet 01/11/2022 Provider: Diagnosis: Last Documented On 2 2:11PM By Alina Manrique ; [facility], [facility] Pilocarpine HCl 5 MG Oral Tablet 01/05/2022 Provider : Bear Hamilton Diagnosis: Last Documented On 2 2:11PM By Alina Manrique ; [facility], [facility] Medications Administered Includes: Administered Medications from this encounter No Administered Medications Recorded Results Includes: Results discussed during this encounter No Results Recorded For Specified Dates History of Present Illness Includes: History of Present Illness from this encounter No History of Present Illness Recorded Social History Description Last Updated Sex - Female 12/11/2024 Last Documented On 5 3:19PM ; [facility], [facility] Smoking Status Unknown Procedures and Surgical History Includes: Procedures from this encounter Procedures Code Diagnosis Performing Provider Service Location Service Date KNEE SUPPORT, NEOPRENE [id number] Effusion, right knee, Presence of right artificial knee joint Drew ORTIZ 09/26/2024 Last Documented On 5 1:06PM ; [facility], [facility] Medical History Includes: Medical History addressed during [...] Active Last Documented On 5 9:13AM ; [facility] Morphine Derivatives Allergy Nausea, Vom iting, Diarrhea / Diarrheal disorder 08/05/2009 Resolved Last Documented On 7 9:34AM ; [facility], [facility] Care Court Bailiff Name (Identifier) Role/Relation Location/Telecom Last Documented By Ad Stapleton MD ([id number]) Assigned practitioner (occupation) Last Documented On 12/11/2024 3:19PM ; [facility], [facility] CODIE HAYWOOD MD (FP) ([id number]) Primary care physician (occupation) [address], [facility], [address] tel: Last Documented On 12/11/2024 3:19PM ; [facility], [facility] Diana [facility] ([id number]) [address] , [facility], [address] tel: Last Documented On 03/21/2019 3:39PM ; [facility], [facility] Encounters Encounter Provider Location (Healthcare Service Location) Date Check-In Time Check-Out Time Diagnosis Encounter Disposition BRACE FITTING Drew CORTEZ DME 2024 10:27AM 11:59PM Payer Includes: Active Insurance Policies Plan Name (Payer ID) Coverage Type Member ID Group # Subscriber (ID) Relationship Effective Dates 1 - Medicare Part B [facility] ([id number]) [id number] Stacey Michael Enrico Self 01/15/2013 - Unknown Last Documented On 9 8:26AM ; [facility], [facility] 2 - [facility] ([id number]) [id number] Stacey S Mary ulte Self 05/17/2016 - Unknown Last Documented On 2 11:18AM ; [facility], [facility]
--- OUTSIDE RECORDS SUMMARY | 2025-05-15 07:23 | XMS_ITS | Referral Summary ---
Author Organization [employer] ([place], [place], [place], [place], [place]) Address [address] [place] [address] Care Team Providers Care Lead Ruby On Rails Developer Name Role Phone Josesito Braxton DO Primary Care Provider [phone] Encounters Date Type Department Care Team Description 05/02/2025 9:40 AM EST - 05/02/2025 11:59 PM EST Hospital Encounter [facility] [address] [place] [address] Josesito Braxton DO Other forms [...] Do you speak a language other than Filipino at ho [place]? No 07/15/2023 Do you want help with [...] Procedure Name Priority Date/Time Associated Diagnosis Comments DE GAS DILUT/WASHOUT LUNG VOL W/WO DISTRIB VENT&V [...] 05/06/2025 6:42 PM EST Pulmonary function test/PFT. [address] [address] PATIENT: Stacey Weston is a 75 y.o. [...] Advance Directives For more information, please contact: [phone] * Full Code (Latest Code Status on File) Date Activated Date Inactivated Comments 07/14/2023 4:39 PM 07/21/2023 2:58 PM -Attempt Resu scitation if person has no pulse and is not breathing. -If no pulse or not breathing attempt CPR/CODE. -Call Rapid Response if patient is in distress. Care Teams Lead Ruby On Rails Developer Relationship Specialty Start Date End Date Josesito Braxton DO [address] [place] [address] PCP - General Family Medicine 07/26/24
--- OUTSIDE RECORDS SUMMARY | 2025-05-15 07:23 | XMS_ITS | Clinical Summary ---
Author Organization [employer] ([place], [place], [place], [place], [place]) Address [address] [place] [address] Care Team Providers Care Capital Campaign Fundraiser Name Role Phone Josesito Braxton DO Primary Care Provider [phone] Allergies Active Allergy Reactions Criticality Noted Date Comments Levofloxacin 07/14/2023 Metoclopramide Hcl 07/14/2023 Bisoprolol-Hydrochlorothiazide 07/14 Medications amoxicillin-clav ulanate (AUGMENTIN) 875-125 mg per tablet Take 1 tablet by mouth 2 (two) times daily. 28 tablet 08/25/2023 Active Active Problems Problem Noted Date Diagnosed Date Small bowel obstruction 07/14/2023 Encounters Date Type Department Care Team Description 05/02/2025 9:40 AM EST - 05/02/2025 11:59 PM [facility] Hospital Encounter [facility] Pul[facility] Lab [address] [place] [address] Josesito Braxton DO Other forms [...] Do you speak a language other than Uzbek at ho tx? No 07/15/2023 Do you want help with [...] Procedure Name Priority Date/Time Associated Diagnosis Comments [place] GAS DILUT/WASHOUT LUNG VOL W/WO DISTRIB VENT&V [...] 05/06/2025 6:42 PM EST Pulmonary function test/PFT. [address] [address] PATIENT: Stacey Weston is a 75 y.o. [...] Advance Directives For more information, please contact: [phone] * Full Code (Latest Code Status on File) Date Activated Date Inactivated Comments 07/14/2023 4:39 PM 07/21/2023 2:58 PM -Attempt Resu scitation if person has no pulse and is not breathing. -If no pulse or not breathing attempt CPR/CODE. -Call Rapid Response if patient is in distress. Care Teams Capital Campaign Fundraiser Relationship Specialty Start Date End Date Josesito Braxton DO [address] [place] [address] [place] [address] PCP - General Family Medicine 07/26/24
--- OUTSIDE RECORDS SUMMARY | 2025-05-15 07:24 | XMS_ITS | Clinical Summary ---
Author Organization [facility] , [facility] Address [address] [place] [address] Phone Care Team Providers Care Flat Optical Element Maker Name Role Phone Pieter HIGGINS, Ad Bain Unavailable [phone] YOBANY HIGGINS (FP), CODIE Heart Primary Care Provider [phone] Lisette Mohan CLARK Unavailable [phone] Reason for Referral 04/15/2022 Encounter for Follow Up Date Recorded Target Due Date Referral Type Referring Prov ider Reason For Referral 04/15/2022 Thaddeus Hair on PA-C see pcp for bp Last Documented On 2 3:37PM ; [facility] 04/15/2022 Thaddeus Hair on PA-C referral to physician Last Documented On 2 3:43PM ; [facility], [facility] Reason for Visit and Chief Complaint The Chief Complaint is: Right knee pain Problems Includes: Problems addressed during this encounter and other active Problems All Visits Onset Date Date of Diagnosis Resolved Date Provider Condition Status Joint Pain Right Thumb 10/09/2021 10/09/2021 Ad Stapleton MD Active Last Documented On 5 1:41AM ; [facility] Joint Pain Right Knee 06/26/2020 06/26/2020 Nathaniel Feldman MD Active Last Documented On 5 1:40AM ; [facility], [facility] Plan of Treatment Patient is 1 year [...] On 5 10:46AM By Moises Feldman ; [facility] traZODone HCl 50 MG Oral Tablet 01/29/2022 Provider: Diagnosis: Last Documented On 2 2:11PM By Alina Manrique ; [facility] SUMAtriptan Succinate 100 MG Oral Tablet 01/27/2022 Provider: Diagnosis: Last Documented On 2 2:11PM By Alina Manrique ; [facility] Carvedilol 25 MG Oral Tablet 01/23/2022 Provider: Diagnosis: Last Documented On 2 2:11PM By Alina Manrique ; [facility] Doxazosin Mesylate 2 MG Oral Tablet 01/23/2022 Provi carmina: Diagnosis: Last Documented On 2 2:11PM By Alina Manrique ; [facility] Simvastatin 20 MG Oral Tablet 01/16/2022 Provider: Diagnosis: Last Documented On 2 2:11PM By Alina Manrique ; [facility] clonazePAM 0.5 MG Oral Tablet 01/11/2022 Provider: Diagnosis: Last Documented On 2 2:11PM By Alina Manrique ; [facility], [facility] Pilocarpine HCl 5 MG Oral Tablet 01/05/2022 Provider : Bear Hamilton Diagnosis: Last Documented On 2 2:11PM By Alina Manrique ; [facility], [facility] Past Medications on file Medrol 4 MG Oral Tablet Ther apy Pack 09/26/2024 - 10/03/2024 Provider: Drew Levine Diagnosis: take as directed per instructions on box Last Documented On 5 10:46AM By Drew Ricardo ; [facility], [facility] Clotrimazole 1% External Cream 03/18/2023 - 04/17/2023 Provider: Ad diggs MD Diagnosis: use as directed Last Documented On 3 4:47PM By Ragini Bradshaw ; [facility] Medications Administered Includes: Administered Medications from this encounter No Administered Medications Recorded Vital Signs Includes: Vital Signs from this encounter Vital Name 04/15/2022 03:42P Blood Pressure Sitting (mmHg) 146/80 Pulse Rate-Sitting (bpm) 76 Height (in) 58 Weight (lb) 183.4 Body Mass Index (kg/m2) 38.3 Body Surface Area (m2) 1.8 Note: ck Last Documented: On 04/15/2022 3:42PM ; [facility] Results Includes: Results discussed during this encounter No Results Recorded For Specified Dates History of Present Illness Includes: History of Present Illness from this encounter VAL Weston is a 72 year old female. - Allergy list reviewed - Problem list reviewed - Medication list reviewed Social History Description Last Updated Not a current smoker. 03/18/2023 Last Documented On 2 3:37PM ; [facility] Not using alcohol 03/18/2023 Last Documented On 2 3:37PM ; [facility] No caffeine use 03/24/2022 Last Documented On 2 3:37PM ; [facility] No recent change in diet 03/24/2022 Last Documented On 2 3:37PM ; [facility], [facility] Not exercising regularly 03/24/2022 Last Documented On 2 3:37PM ; [facility] Not using drugs 03/24/2022 Last Documented On 2 3:37PM ; [facility] Tobacco non-user 03/24/2022 Last Documented On 2 3:37PM ; [facility] Non-smoker 03/24/2022 Last Documented On 2 3:37PM ; [facility] Not a smoker 03/24/2022 Last Documented On 2 3:37PM ; [facility] Not a current smoker. 06/26/2020 Last Documented On 2 3:37PM ; [facility] Not a current smoker 03/21/2019 Last Documented On 2 3:37PM ; [facility], [facility] Recent change in diet 03/21/2019 Last Documented On 2 3:37PM ; [facility] Smoking status : Never smoker 03/21/2019 Last Documented On 2 3:37PM ; [facility], [facility] No tobacco use 03/21/2019 Last Documented On 2 3:37PM ; [facility], [facility] Sex - Female 12/11/2024 Last Documented On 5 3:19PM ; [facility], [facility] Procedures and Surgical History Includes: Procedures from this encounter Procedures Code Diagnosis Performing Provider Service L ocation Service Date use of tobacco assessment performed 1000F Last Documented On 2 3:37PM ; [facility], [facility] patient screened for future fall risk: documentation of any fall with injury in past year 1100F Last Documented On 2 3:43PM ; [facility] follow-up visit in one month Last Documented On 2 3:43PM ; [facility] referral to physician see pcp for bp Last Documented On 2 3:37PM ; [facility] referral to physician Last Documented On 2 3:43PM ; [facility], [facility] Pt received screening for fall risk G8270 Last Documented On 2 3:37PM ; [facility] Clinical summary provided to patient Last Documented On 2 3:37PM ; [facility] an X-ray was performed 06/2020 [facility] [id number] Last Documented On 2 3:37PM ; [facility] Surgical History Last Updated History of hysterectomy 10/09/2021 Last Documented On 2 3:37PM ; [facility] History of total knee arthroplasty 2018 Right 10/09/2021 Last Documented On 2 3:37PM ; [facility], [facility] History of appendectomy 03/21/2019 Last Documented On 2 3:37PM ; [facility], [facility] Medical History Includes: Medical History addressed during this encounter Description Last Updated Recent immunization for flu 02/13/2022 Last Documented On 2 8:07AM ; [facility], [facility] Recent immunization for pneumococcal pne umonia 02/13/2022 04/15/2022 Last Documented On 2 8:07AM ; [facility], [facility] History of arthritis 10/09/2021 Last Documented On 2 3:37PM ; [facility], [facility] Use of CPAP 10/09/2021 Last Documented On 2 3:37PM ; [facility], [facility] Previous Fractures 08/09/2020 Last Documented On 2 3:37PM ; [facility], [facility] Appendectomy 06/26/2020 Last Documented On 2 3:37PM ; [facility], [facility] Heartburn / Acid Reflux 06/26/2020 Last Documented On 2 3:37PM ; [facility], [facility] Hypertension 06/26/2020 Last Documented On 2 3:37PM ; [facility], [facility] Hysterectomy 06/26/2020 Last Documented On 2 3:37PM ; [facility], [facility] Sleep Apnea 06/26/2020 Last Documented On 2 3:37PM ; [facility], [facility] Total knee arthroplasty 06/26/2020 Last Documented On 2 3:37PM ; [facility], [facility] Use of CPAP 06/26/2020 Last Documented On 2 3:37PM ; [facility], [facility] Arthritic joint problems 03/21/2019 Last Documented On 2 3:37PM ; [facility], [facility] Intermittent hypertension 03/21/2019 Last Documented On 2 3:37PM ; [facility] Carpal tunnel/ulnar removed-right ~high cholesterol 03/31/2017 Last Documented On 2 3:37PM ; [facility], [facility] History of diverticulitis of colon 03/31 Last Documented On 2 3:37PM ; [facility], [facility] Family History Includes: Family History addressed during this encounter Description Last Updated Family history of thromboembolic disease 10/09/2021 Last Documented On 2 3:37PM ; [facility] Family history of rheumatoid arthritis 0 06/26/2020 Last Documented On 2 3:37PM ; [facility], [facility] Stroke / Seizures 06/26/2020 Last Documented On 2 3:37PM ; [facility] stroke/seizure 03/21/2019 Last Documented On 2 3:37PM ; [facility], [facility] Family history of cancer 03/21/2019 Last Documented On 2 3:37PM ; [facility] Family history of hypertension 9 Last Documented On 2 3:37PM ; [facility] Review of Systems Includes: Review of Systems [...] anxiety Last Documented On 2 3:37PM ; [facility], [facility] Physical Exam Includes: Physical Exam from this encounter Immunizations Includes: Immunizations addressed during this encounter Vaccine Dose # Date Site Reaction(s) Status Source Influenza 2 02/13/2022 Complete (Reported) Patient Last Documented On 2 3:42PM ; [facility] PCV (Pneumovax 23) 2 02/13/2022 Complete ( Reported) Patient Last Documented On 2 3:42PM ; [facility] Allergies Includes: Active Allergies Substance Type Reaction Onset Date Resolved Date Statu s OTHER Allergy maxalt/ziac 10/09/2021 Active Last Documented On 5 9:13AM ; [facility] Morphine Derivatives Allergy Nausea, Vom iting, Diarrhea / Diarrheal disorder 08/05/2009 Resolved Last Documented On 7 9:34AM ; [facility], [facility] Care Flat Optical Element Maker Name (Identifier) Role/Relation Location/Telecom Last Documented By Ad Stapleton MD ([id number]) Assigned practitioner (occupation) tel:[phone] Last Documented On 12/11/2024 3:19PM ; [facility], [facility] CODIE HAYWOOD MD (FP) ([id number]) Primary care physician (occupation) [address], [place], [place], , [address] tel:[phone] Last Documented On 12/11/2024 3:19PM ; [facility], [facility] Mohan Knox DO ([id number]) [address] , [place], [place], , [address] tel: Last Documented On 03/21/2019 3:39PM ; [facility] Encounters Encounter Provider Location (Healthcare Service Location) Date Check-In Time Check-Out Time Diagnosis Encounter Disposition Follow Up [facility] 2021 3:31PM 4:02PM Payer Includes: Active Insurance Policies Plan Name (Payer ID) Coverage Type Member ID Group # Subscriber (ID) Relationship Effective Dates 1 - Medicare Part B [facility] ([id number]) [id number] Stacey Weston Self 01/15/2013 - Unknown Last Documented On 9 8:26AM ; [facility], [facility] 2 - [facility] [id number] Stacey mantilla Self 05/17/2016 - Unknown Last Documented On 2 11:18AM ; [facility], [facility]
--- OUTSIDE RECORDS SUMMARY | 2025-05-15 07:24 | XMS_ITS ---
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 Role Phone Ad Silverio MD Unavailable [phone] YOBANY HIGGINS (FP), CODIE Heart Primary Care Provider [phone] Mohan Knox DO Unavailable [phone] Reason for Referral 09/26/2024 Encounter for Follow Up Date Recorded Target Due Date Referral Type Referring Prov ider Reason For Referral 09/26/2024 Drew PAYANC referr al to physician Last Documented On 5 9:13AM ; [facility] 09/26/2024 Drew PAYANC see pc p for bp Last Documented On 5 9:13AM ; [facility] 04/15/2022 Encounter for Follow Up Date Recorded Target Due Date Referral Type Referring Prov ider Reason For Referral 04/15/2022 Thaddeus Hair on PA-C referral to physician Last Documented On 2 3:43PM ; [facility] 04/15/2022 Thaddeus Hair on PA-C see pcp for bp Last Documented On 2 3:37PM ; [facility] 11/11/2021 Encounter for Post Op Date Recorded Target Due Date Referral Type Referring Prov ider Reason For Referral 11/11/2021 Afsaneh corbett APRN referral to physician Last Documented On 2 1:08PM ; [facility] 05/12/2021 Encounter for Follow Up Date Recorded Target Due Date Referral Type Referring Prov ider Reason For Referral 05/12/2021 Drew Ricardo PA-C see pc p for bp Last Documented On 1 3:24PM ; [facility] 02/13/2021 Encounter for Post Op Date Recorded Target Due Date Referral Type Referring Prov ider Reason For Referral 02/13/2021 Herbert Feldman MD see pcp for bp Last Documented On 1 9:54AM ; [facility] 01/10/2021 Encounter for Post Op Date Recorded Target Due Date Referral Type Referring Prov ider Reason For Referral 01/10/2021 Herbert Feldman MD see pcp for bp Last Documented On 1 9:58AM ; [facility] 09/26/2020 Encounter for Follow Up Date Recorded Target Due Date Referral Type Referring Prov ider Reason For Referral 09/26/2020 Herbert Feldman MD see pcp for bp Last Documented On 1 8:31AM ; [facility] 08/09/2020 Encounter for IN HOUSE REFERRAL Date Recorded Target Due Date Referral Type Referring Prov ider Reason For Referral 08/09/2020 Misael Jordan MD see pcp f or bp Last Documented On 1 1:35PM ; [facility] 07/25/2020 Encounter for Follow Up Date Recorded Target Due Date Referral Type Referring Prov ider Reason For Referral 07/25/2020 Herbert Feldman MD see pcp for bp Last Documented On 1 1:10PM ; [facility] 06/26/2020 Encounter for NEW PROBLEM/EST PT Date Recorded Target Due Date Referral Type Referring Prov ider Reason For Referral 06/26/2020 Herbert Feldman MD see pcp for bp Last Documented On 1 10:30AM ; [facility] Problems Includes: Active, inactive, and resolved Problems All Visits Onset Date Date of Diagnosis Resolved Date Provider Condition Status Joint Pain Right Thumb 10/09/2021 10/09/2021 Ad Silverio MD Active Last Documented On 5 1:41AM ; [facility] Joint Pain Right Knee 06/26/2020 06/26/2020 Nathaniel Feldman MD Active Last Documented On 5 1:40AM ; [facility] Joint Pain Fingers of Right Hand 03/21/2019 03/21/2019 10/09/2021 Ad diggs MD Resolved Last Documented On 5 1:39AM ; [facility] Joint Pain Left Knee 10/07/2017 10/07/2017 12/25/2021 Afsaneh Zhang FIRST LEVELER Resolved Last Documented On 5 1:39AM ; [facility] Joint Pain Knee 05/06/2017 05/06/2017 12/25/2021 Afsaneh radford FIRST LEVELER Resolved Last Documented On 5 1:39AM ; [facility] Plan of Treatment Findings Encounter Date Patient screened for future fall risk: documentation of any fall with injury in past year Follow Up with Drew Ricardo PA-C 09/26/2024 Last Documented On 5 9:14AM ; [facility] Instructions to patient Instructions for patient SEE PCP FOR BP Last Documented On 5 9:13AM ; [facility] Lose weight Last Documented On 5 9:13AM ; [facility] Lose weight Last Documented On 3 8:51AM ; [facility] Lose weight Last Documented On 3 3:21PM ; [facility] Instructions for patient SEE PCP FOR BP Last Documented On 2 3:37PM ; [facility] Lose weight Last Documented On 2 3:37PM ; [facility] Lose weight Last Documented On 2 4:17PM ; [facility] No intervention and counseli ng on cessation of tobacco use Last Documented On 2 9:14AM ; [facility] Lose weight Last Documented On 2 9:14AM ; [facility] Lose weight Last Documented On 2 1:03PM ; [facility] Lose weight Last Documented On 2 10:54AM ; [facility] Instructions for patient SEE PCP FOR BP Last Documented On 1 3:24PM ; [facility] Lose weight Last Documented On 1 3:24PM ; [facility] Instructions for patient SEE PCP FOR BP Last Documented On 1 9:54AM ; [facility] Lose weight Last Documented On 1 9:54AM ; [facility] Instructions for patient SEE PCP FOR BP Last Documented On 1 9:58AM ; [facility] Lose weight Last Documented On 1 9:58AM ; [facility] Instructions for patient SEE PCP FOR BP Last Documented On 1 8:31AM ; [facility] Lose weight Last Documented On 1 8:31AM ; [facility] Instructions for patient SEE PCP FOR BP Last Documented On 1 1:35PM ; [facility] Lose weight Last Documented On 1 1:35PM ; [facility] Instructions for patient SEE PCP FOR BP Last Documented On 1 1:10PM ; [facility] Lose weight Last Documented On 1 1:10PM ; [facility] Instructions for patient SEE PCP FOR BP Last Documented On 1 10:29AM ; [facility] Lose weight Last Documented On 1 10:30AM ; [facility] Instructions for patient see pcp for BP Last Documented On 9 3:36PM ; [facility] Instructions for patient SEE PCP FOR BP Last Documented On 9 8:33AM ; [facility] Instructions for patient SEE PCP FOR BP Last Documented On 8 9:06AM ; [facility] Instructions for patient PCP for BP Last Documented On 8 11:06AM ; [facility] Instructions for patient PCP for BP Last Documented On 8 4:03PM ; [facility] Instructions for patient PCP for BP Last Documented On 8 1:33PM ; [facility] Instructions for patient PCP for BP Last Documented On 8 11:47AM ; [facility] Instructions for patient PCP for BP Last Documented On 8 2:39PM ; [facility] Instructions for patient PCP for BP Last Documented On 8 1:02PM ; [facility] Instructions for patient PCP for BP Last Documented On 7 11:36AM ; [facility] Instructions for patient PCP for BP Last Documented On 7 9:10AM ; [facility] Instructions for patient PCP for BP Last Documented On 7 9:35AM ; [facility] Assessments Includes: Assessments for all patient encounters Findings Encounter Date Overweight Follow Up with Drew Evans 09/26/2024 Last Documented On 5 9:14AM ; [facility] Overweight Follow Up with Bill Villalpando MD 04/21/2023 Last Documented On 3 8:52AM ; [facility] Instructions Includes: Instructions for all patient encounters Instructions to patient Instructions for patient SEE PCP FOR BP Last Documented On 5 9:13AM ; [facility] Lose weight Last Documented On 5 9:13AM ; [facility] Lose weight Last Documented On 3 8:51AM ; [facility] Lose weight Last Documented On 3 3:21PM ; [facility] Instructions for patient SEE PCP FOR BP Last Documented On 2 3:37PM ; [facility] Lose weight Last Documented On 2 3:37PM ; [facility] Lose weight Last Documented On 2 4:17PM ; [facility] No intervention and counseli ng on cessation of tobacco use Last Documented On 2 9:14AM ; [facility] Lose weight Last Documented On 2 9:14AM ; [facility] Lose weight Last Documented On 2 1:03PM ; [facility] Lose weight Last Documented On 2 10:54AM ; [facility] Instructions for patient SEE PCP FOR BP Last Documented On 1 3:24PM ; [facility] Lose weight Last Documented On 1 3:24PM ; [facility] Instructions for patient SEE PCP FOR BP Last Documented On 1 9:54AM ; [facility] Lose weight Last Documented On 1 9:54AM ; [facility] Instructions for patient SEE PCP FOR BP Last Documented On 1 9:58AM ; [facility] Lose weight Last Documented On 1 9:58AM ; [facility] Instructions for patient SEE PCP FOR BP Last Documented On 1 8:31AM ; [facility] Lose weight Last Documented On 1 8:31AM ; [facility] Instructions for patient SEE PCP FOR BP Last Documented On 1 1:35PM ; [facility] Lose weight Last Documented On 1 1:35PM ; [facility] Instructions for patient SEE PCP FOR BP Last Documented On 1 1:10PM ; [facility] Lose weight Last Documented On 1 1:10PM ; [facility] Instructions for patient SEE PCP FOR BP Last Documented On 1 10:29AM ; [facility] Lose weight Last Documented On 1 10:30AM ; [facility] Instructions for patient see pcp for BP Last Documented On 9 3:36PM ; [facility] Instructions for patient SEE PCP FOR BP Last Documented On 9 8:33AM ; [facility] Instructions for patient SEE PCP FOR BP Last Documented On 8 9:06AM ; [facility] Instructions for patient PCP for BP Last Documented On 8 11:06AM ; [facility] Instructions for patient PCP for BP Last Documented On 8 4:03PM ; [facility] Instructions for patient PCP for BP Last Documented On 8 1:33PM ; [facility] Instructions for patient PCP for BP Last Documented On 8 11:47AM ; [facility] Instructions for patient PCP for BP Last Documented On 8 2:39PM ; [facility] Instructions for patient PCP for BP Last Documented On 8 1:02PM ; [facility] Instructions for patient PCP for BP Last Documented On 7 11:36AM ; [facility] Instructions for patient PCP for BP Last Documented On 7 9:10AM ; [facility] Instructions for patient PCP for BP Last Documented On 7 9:35AM ; [facility], [facility] Medical Equipment - Implanted Devices Includes: Current and historical Devices No Medical Equipment Recorded Medications Includes: Current and historical Medications Current Medications (continue as prescribed) HYDROcodone-Acetaminophen 5- 325 MG Oral Tablet 09/26/2024 Provider: Herbert Feldman MD Diagnosis: Take 1 tablet every 8 hrs prn pain Last Documented On 5 10:46AM By Moises Feldman ; [facility], [facility] traZODone HCl 50 MG Oral Tablet 01/29/2022 Provider: Diagnosis: Last Documented On 2 2:11PM By Alina Manrique ; [facility], [facility] SUMAtriptan Succinate 100 MG Oral Tablet 01/27/2022 Provider: Diagnosis: Last Documented On 2 2:11PM By Alina Manrique ; [facility], [facility] Carvedilol 25 MG Oral Tablet 01/23/2022 Provider: Diagnosis: Last Documented On 2 2:11PM By Alina Manrique ; [facility], [facility] Doxazosin Mesylate 2 MG Oral Tablet 01/23/2022 Provi carmina: Diagnosis: Last Documented On 2 2:11PM By Alina Manrique ; [facility], [facility] Simvastatin 20 MG Oral Tablet 01/16/2022 Provider: Diagnosis: Last Documented On 2 2:11PM By Alina Manrique ; [facility] clonazePAM 0.5 MG Oral Tablet 01/11/2022 Provider: Diagnosis: Last Documented On 2 2:11PM By Alina Manrique ; [facility] Pilocarpine HCl 5 MG Oral Tablet 01/05/2022 Provider : Bear Hamilton Diagnosis: Last Documented On 2 2:11PM By Alina Manrique ; [facility] Past Medications on file Medrol 4 MG Oral Tablet Ther apy Pack 09/26/2024 - 10/03/2024 Provider: Drew Levine Diagnosis: take as directed per instructions on box Last Documented On 5 10:46AM By Drew Ricardo ; [facility] Clotrimazole 1% External Cream 03/18/2023 - 04/17/2023 Provider: Ad diggs MD Diagnosis: use as directed Last Documented On 3 4:47PM By Ragini Bradshaw ; [facility] clonazePAM 0.5 MG Oral Tablet 12/11/2021 - 02/02/2022 Provider: Diagnosis: Last Documented On 2 2:10PM By Alina Manrique ; [facility] rOPINIRole HCl 2 MG Oral Tablet 12/02/2021 - Provider: Diagnosis: Last Documented On 2 2:11PM By Alina Manrique ; [facility] Hydroxychloroquine Sulfate 2 00 MG Oral Tablet 11/30/2021 - 02/02/2022 Provider: Bear tan Diagnosis: Last Documented On 2 2:10PM By Alina Manrique ; [facility] Losartan Potassium 100 MG Or al Tablet 11/25/2021 - 02/02/2022 Provider: Cristina BRITTON MD Diagnosis: Last Documented On 2 2:10PM By Alina Manrique ; [facility] Naproxen 500 MG Oral Tablet 11/21/2021 - 02/02/2022 Pr ovider: AD SILVERIO MD Diagnosis: Last Documented On 2 2:10PM By Alina Manrique ; [facility], [facility] amLODIPine Besylate 5 MG Ora l Tablet 11/20/2021 - 12/25/2021 Provider: Cristina BRITTON MD Diagnosis: Last Documented On 2 9:17AM By Michael Sam ; [facility] Sodium Fluoride 5000 PPM 1.1% Dental Paste 11/02/2021 - 02/02/2022 Provider: Diagnosis: Last Documented On 2 2:11PM By Alina Manrique ; [facility] Naproxen 500 MG Oral Tablet 10/27/2021 - 02/02/2022 Pr ovider: Ad Silverio MD Diagnosis: take one tablet twice a day prn following surger y Last Documented On 2 2:10PM By Alina Manrique ; [facility] Vitamin C 1000 MG Oral Tablet 10/27/2021 - 02/02/2022 Provider: Ad diggs MD Diagnosis: once a day post surgery Last Documented On 2 2:10PM By Alina Manrique ; [facility] Omeprazole 20 MG Oral Capsule Delayed Release 10/22/19 - 02/02/2022 Provider: Diagnosis: Last Documented On 2 2:11PM By Alina Manrique ; [facility] Simvastatin 20 MG Oral Tablet 10/19/2021 - 02/02/2022 Provider: Diagnosis: Last Documented On 2 2:11PM By Alina Manrique ; [facility] Furosemide 20 MG Oral Tablet 10/17/2021 - 12/25/2021 P rovider: Diagnosis: Last Documented On 2 9:16AM By Michael Sam ; [facility], [facility] raNITIdine HCl 150 MG Oral Tablet 10/09/2021 - 02/02/2022 Provider: ELIZ JACOB DO () Diagnosis: Last Documented On 2 2:09PM By Alina Manrique ; [facility] Co Q 10 10 MG Oral Capsule 10/09/2021 - 02/02/2022 Pro vider: Diagnosis: Last Documented On 2 2:10PM By Alina Manrique ; [facility] Simvastatin 20 MG Oral Tablet 10/09/2021 - 12/25/2021 Provider: CODIE HAYWOOD MD (FP) Diagnosis: Last Documented On 2 9:17AM By Michael Sam ; [facility] SUMAtriptan Succinate 100 MG Oral Tablet 10/09/2021 - 02/02/2022 Provider: ELZI JACOB DO ([facility]) Diagnosis: Last Documented On 2 2:09PM By Alina Manrique ; [facility], [facility] Meclizine HCl 12.5 MG Oral Tablet 10/09/2021 - 022 Provider: Diagnosis: Last Documented On 2 2:09PM By Alina Manrique ; [facility] Losartan Potassium 50 MG Oral Tablet 10/09/2021 - 12/25/2021 Provider: CODIE HAYWOOD MD (FP) Diagnosis: Last Documented On 2 9:17AM By Michael Sam ; [facility] Hydroxychloroquine Sulfate 200 MG Oral Tablet 10/10/19 - 12/25/2021 Provider: Diagnosis: Last Documented On 2 9:17AM By Michael Sam ; [facility] Fluticasone Propionate 50 MC G/ACT Nasal Suspension 10/09/2021 - 02/02/2022 Provider: Diagnosis: Last Documented On 2 2:10PM By Alina Manrique ; [facility] Omeprazole 20 MG Oral Capsule Delayed Release 10/10/19 22 - 12/25/2021 Provider: Diagnosis: Last Documented On 2 9:17AM By Michael Sam ; [facility] Osteo Bi-Flex Joint Shield Oral Tablet 10/09/2021 - Provider: Diagnosis: Last Documented On 2 2:09PM By Alina Manrique ; [facility] Toprol XL 50 MG Oral Tablet Extended Release 24 Hour 10/09/2021 - 02/02/2022 Provider: Diagnosis: Last Documented On 2 2:11PM By Alina Manrique ; [facility] traZODone HCl 50 MG Oral Tablet 10/09/2021 - Provider: Diagnosis: Last Documented On 2 2:11PM By Alina Manrique ; [facility] rOPINIRole HCl 0.5 MG Oral Tablet 10/09/2021 - 022 Provider: Diagnosis: Last Documented On 2 9:17AM By Michael Sam ; [facility] clonazePAM 0.5 MG Oral Tablet 10/09/2021 - 02/02/2022 Provider: Mohan Knox DO Diagnosis: Last Documented On 2 2:10PM By Alina Manrique ; [facility] domperidone Oral Capsule 10/09/2021 - 02/02/2022 Provi carmina: Diagnosis: Last Documented On 2 2:11PM By Alina Manrique ; [facility] Carvedilol 25 MG Oral Tablet 09/24/2021 - 02/02/2022 P rovider: Diagnosis: Last Documented On 2 2:10PM By Alina Manrique ; [facility] Famotidine 20 MG Oral Tablet 09/24/2021 - 02/02/2022 P rovider: Diagnosis: Last Documented On 2 2:10PM By Alina Manrique ; [facility] Doxazosin Mesylate 2 MG Oral Tablet 09/24/2021 - 02/02 Provider: Diagnosis: Last Documented On 2 2:10PM By Alina Manrique ; [facility] HYDROcodone-Acetaminophen 7. 5-325 MG Oral Tablet 04/01/2021 - 02/02/2022 Provider: Herbert Feldman MD Diagnosis: 1-2 po q 4-6h Last Documented On 2 2:09PM By Alina Manrique ; [facility] Ultram 50 MG Oral Tablet 04/01/2021 - 02/02/2022 Provider: Herbert hopkins MD Diagnosis: [id number] Last Documented On 2 2:09PM By Alina Manrique ; [facility] Meloxicam 15 MG Oral Tablet 04/01/2021 - 10/09/2021 Provider: Herbert hopkins MD Diagnosis: once a day Last Documented On 2 11:16AM By Sharyn Mcdonald ; [facility] HYDROcodone-Acetaminophen 7. 5-325 MG Oral Tablet 02/13/2021 - 10/09/2021 Provider: Herbert Feldman MD Diagnosis: 1-2 po q 4-6h Last Documented On 2 10:53AM By Dr. Silverio ; [facility] rOPINIRole HCl 0.5 MG Oral Tablet 02/13/2021 - 022 Provider: Diagnosis: Last Documented On 2 11:17AM By Sharyn Mcdonald ; [facility] HYDROcodone-Acetaminophen 7. 5-325 MG Oral Tablet 01/10/2021 - 10/09/2021 Provider: Herbert Feldman MD Diagnosis: 1 tab every 6 hrs prn pain Last Documented On 2 10:53AM By Dr. Silverio ; [facility] Ultram 50 MG Oral Tablet 01/08/2021 - 10/09/2021 Provider: Herbert hopkins MD Diagnosis: [id number] Last Documented On 2 10:53AM By Dr. Silverio ; [facility] Colace 100 MG Oral Capsule 12/23/2020 - 10/09/2021 Provider: Herbert hopkins MD Diagnosis: 1-2 tabs daily DNF UNTIL SX 12/25/20 Last Documented On 2 10:53AM By Dr. Silverio ; [facility] Meloxicam 15 MG Oral Tablet 12/23/2020 - 10/09/2021 Provider: Herbert hopkins MD Diagnosis: once a day DNF UNTIL SX 12/25/20 Last Documented On 2 10:53AM By Dr. Silverio ; [facility] Neurontin 300 MG Oral Capsule 12/23/2020 - 10/09/2021 Provider: Herbert hopkins MD Diagnosis: 1 every bedtime DNF UNTIL SX 12/25/20 Last Documented On 2 10:53AM By Dr. Silverio ; [facility] Ondansetron HCl 4 MG Oral Tablet 12/23/2020 - 10/09/2021 Provider: Herbert Feldman MD Diagnosis: [id number] DNF UNTIL SX 12/25/20 Last Documented On 2 10:53AM By Dr. Silverio ; [facility] oxyCODONE HCl 5 MG Oral Tablet 12/23/2020 - 10/09/2021 Provider: Herbert hopkins MD Diagnosis: 1-2 po q 4-6h DNF UNTIL SX 12/25/20 Last Documented On 2 10:53AM By Dr. Silverio ; [facility] Ultram 50 MG Oral Tablet 12/23/2020 - 10/09/2021 Provider: Herbert hopkins MD Diagnosis: 1-2 po q6h prn pain DNF UNTIL SX 12/25/20 Last Documented On 2 10:53AM By Dr. Silverio ; [facility] Acetaminophen 500 MG Oral Tablet 12/23/2020 - 10/09/2021 Provider: Herbert Feldman MD Diagnosis: 2 three times a day DNF UNTIL SX 12/25/20 Last Documented On 2 10:53AM By Dr. Silverio ; [facility] Cefadroxil 500 MG Oral Capsule 12/23/2020 - 10/09/2021 Provider: Herbert hopkins MD Diagnosis: twice a day DNF UNTIL SX 12/25/20 Last Documented On 2 10:53AM By Dr. Silverio ; [facility] Ultram 50 MG Oral Tablet 10/01/2020 - 10/09/2021 Provider: Herbert hopkins MD Diagnosis: 1-2 po q6h prn pain *DO NOT FILL UNTIL 10-02-2020 Last Documented On 2 10:53AM By Dr. Silverio ; [facility] Hydroxychloroquine Sulfate 200 MG Oral Tablet 08/16/19 - 10/09/2021 Provider: Diagnosis: Last Documented On 2 11:15AM By Sharyn Mcdonald ; [facility] traZODone HCl 50 MG Oral Tablet 08/15/2020 - Provider: Diagnosis: Last Documented On 11:18AM By Sharyn Mcdonald ; [facility] traMADol HCl 50 MG Oral Tablet 08/09/2020 - 10/09/2021 Provider: Misael Jordan MD Diagnosis: 1 tab every 12 hours Last Documented On 2 10:53AM By Dr. Silverio ; [facility] Diclofenac Sodium 75 MG Oral Tablet Delayed Release 07/25/2020 - 10/09/2021 Provider: Herbert hopkins MD Diagnosis: twice a day Last Documented On 2 10:53AM By Dr. Silverio ; [facility] Mobic 15 MG Oral Tablet 06/26/2020 - 10/09/2021 Provid er: Herbert Feldman MD Diagnosis: once a day Last Documented On 2 10:53AM By Dr. Silverio ; [facility] Benefiber Oral Tablet 03/21/2019 - 10/09/2021 Provider : Diagnosis: Last Documented On 11:48AM By Afsaneh Zhang ; [facility] Aspirin 81 MG Oral Tablet 03/21/2019 - 10/09/2021 Prov ider: Diagnosis: Last Documented On 11:48AM By Afsaneh Zhang ; [facility] Toprol XL 50 MG Oral Tablet Extended Release 24 Hour 03/21/2019 - 10/09/2021 Provider: Diagnosis: Last Documented On 2 11:18AM By Sharyn Mcdonald ; [facility], [facility] Promethazine HCl 25 MG Oral Tablet 03/21/2019 - 2021 Provider: Diagnosis: Last Documented On 11:17AM By Sharyn Mcdonald ; [facility] Probiotic Oral Capsule 03/21/2019 - 10/09/2021 Provide r: Diagnosis: Last Documented On 11:48AM By Afsaneh Zhang ; [facility] Osteo Bi-Flex Joint Shield Oral Tablet 03/21/2019 - Provider: Diagnosis: Last Documented On 11:16AM By Sharyn Mcdonald ; [facility], [facility] Meclizine HCl 12.5 MG Oral Tablet 03/21/2019 - 022 Provider: Diagnosis: Last Documented On 11:16AM By Sharyn Mcdonald ; [facility] Fluticasone Propionate 50 MC G/ACT Nasal Suspension 03/21/2019 - 10/09/2021 Provider: Diagnosis: Last Documented On 2 11:15AM By Sharyn Mcdonald ; [facility] domperidone Oral Capsule 03/21/2019 - 10/09/2021 Provi carmina: Diagnosis: Last Documented On 11:15AM By Sharyn Mcdonald ; [facility] Co Q 10 10 MG Oral Capsule 03/21/2019 - 10/09/2021 Pro vider: Diagnosis: Last Documented On 11:15AM By Sharyn Mcdonald ; [facility] Oxybutynin Chloride 5 MG Ora l Tablet 03/17/2019 - 10/09/2021 Provider: Mohan Issa r DO Diagnosis: Last Documented On 11:16AM By Sharyn Mcdonald ; [facility] clonazePAM 0.5 MG Oral Tablet 03/14/2019 - 10/09/2021 Provider: Mohan Knox DO Diagnosis: Last Documented On 11:15AM By Sharyn Mcdonald ; [facility] SUMAtriptan Succinate 100 MG Oral Tablet 03/13/2019 - 10/09/2021 Provider: ELIZ JACOB DO (FP) Diagnosis: Last Documented On 2 11:18AM By Sharyn Mcdonald ; [facility] Losartan Potassium 50 MG Oral Tablet 02/20/2019 - 10/09/2021 Provider: CODIE HAYWOOD MD (FP) Diagnosis: Last Documented On 2 11:15AM By Sharyn Mcdonald ; [facility] Simvastatin 20 MG Oral Tablet 01/24/2019 - 10/09/2021 Provider: CODIE HAYWOOD MD (FP) Diagnosis: Last Documented On 2 11:17AM By Sharyn Mcdonald ; [facility] raNITIdine HCl 150 MG Oral Tablet 12/31/2018 - 10/09/2021 Provider: ELIZ JACOB DO (FP) Diagnosis: Last Documented On 2 11:17AM By Sharyn Mcdonald ; [facility] Omeprazole 20 MG Oral Capsule Delayed Release 11/19/19 19 - 10/09/2021 Provider: Diagnosis: Last Documented On 2 11:16AM By Sharyn Mcdonald ; [facility] Zofran 4MG Oral Tablet 09/27/2017 - 10/09/2021 Provide r: Bree Bhatti MD Diagnosis: 1 tab every 6 hrs prn pain tc Last Documented On 2 10:52AM By Dr. Silverio ; [facility] Hephzibah 7.5-325MG Oral Tablet 09/27/2017 - 10/09/2021 Pr ovider: Bree Bhatti MD Diagnosis: 1 po q 6 to 8 hrs prn pain Last Documented On 2 10:53AM By Dr. Silverio ; [facility] NEUROCREAM TDG Transdermal Cream 09/10/2017 - 10/09/2021 Provider: Bree parnell MD Diagnosis: apply to affected area faxed to [facility] pharmacy @ [phone]//[phone] Last Documented On [address] Silverio ; [facility] Hephzibah 5-325MG Oral Tablet 09/08/2017 - 10/09/2021 Prov ider: Bree Bhatti MD Diagnosis: 1-2 po q 4-6h prn Last Documented On 2 10:52AM By Dr. Silverio ; [facility] Neurontin 100MG Oral Capsule 09/08/2017 - 10/09/2021 P rovider: Bree Bhatti MD Diagnosis: 3 three times a day Last Documented On 2 10:52AM By Dr. Silverio ; [facility] Percocet 7.5-325MG Oral Tablet 08/23/2017 - 10/09/2021 Provider: Bree parnell MD Diagnosis: 1 tab every 6 hrs prn pain Last Documented On 2 10:52AM By Dr. Silverio ; [facility] Zofran 4MG Oral Tablet 08/23/2017 - 10/09/2021 Provide r: Bree Bhatti MD Diagnosis: 1 tab every 6 hrs prn pain tc Last Documented On 2 10:52AM By Dr. Silverio ; [facility] Percocet 7.5-325MG Oral Tablet 07/28/2017 - 10/09/2021 Provider: Bree parnell MD Diagnosis: 1-2 po q 4-6h/As needed prn/elh Last Documented On 2 10:52AM By Dr. Silverio ; [facility] OxyCODONE HCl 10MG Oral Tablet 07/05/2017 - 10/09/2021 Provider: Bree parnell MD Diagnosis: 1 tab every 12 hours//tc Last Documented On 2 10:52AM By Dr. Silverio ; [facility] Percocet 7.5-325MG Oral Tablet 07/05/2017 - 10/09/2021 Provider: Bree parnell MD Diagnosis: 1-2 po q 4-6h//tc Last Documented On 2 10:52AM By Dr. Silverio ; [facility] Xarelto 10MG Oral Tablet 07/05/2017 - 10/09/2021 Provi carmina: Bree Bhatti MD Diagnosis: once a day for 21 days post op//tc Last Documented On 2 10:52AM By Dr. Silverio ; [facility] Simvastatin 20MG Oral Tablet 03/31/2017 - 03/21/2019 Carolyn adlerder: Diagnosis: Last Documented On 9 3:31PM By Malka Fagan ; [facility] Losartan Potassium 50MG Oral Tablet 03/31/2017 - 03/21 Provider: Diagnosis: Last Documented On 9 3:31PM By Malka Fagan ; [facility] Metoprolol Tartrate 25MG Oral Tablet 03/31/2017 - 09/2018 Provider: Diagnosis: Last Documented On 9 3:31PM By Malka Fagan ; [facility] Voltaren 1% Transdermal Gel 03/31/2017 - 10/09/2021 Pr ovider: Bree Bhatti MD Diagnosis: four times a day Last Documented On 2 10:52AM By Dr. Silverio ; [facility] Medications Administered Includes: Administered Medications in patient's chart No Administered Medications Recorded Vital Signs Includes: Vital Signs from 05/15/2024 through 05/15/2025 Vital Name 09/26/2024 09:14A Height (in) 58 Weight (lb) 175 Body Mass Index 36.6 Body Surface Area 1.7 Note: ab Last Documented: On 09/26/2024 9:14AM ; [facility], [facility] Results Includes: Results from 05/15/2024 through 05/15/2025 No Results Recorded For Specified Dates Social History Description Last Updated Alcohol use socially drink 03/18/2023 Last Documented On 3 3:52PM ; [facility] Not a current smoker. 03/18/2023 Last Documented On 3 3:52PM ; [facility] No caffeine use 03/24/2022 Last Documented On 2 12:00PM ; [facility] No recent change in diet 03/24/2022 Last Documented On 2 12:00PM ; [facility] Not exercising regularly 03/24/2022 Last Documented On 2 12:00PM ; [facility], [facility] Not using drugs 03/24/2022 Last Documented On 2 12:00PM ; [facility] Tobacco non-user 03/24/2022 Last Documented On 2 12:00PM ; [facility] Non-smoker 03/24/2022 Last Documented On 2 12:00PM ; [facility] Not a smoker 03/24/2022 Last Documented On 2 12:00PM ; [facility], [facility] Not a current smoker. 06/26/2020 Last Documented On 1 1:17PM ; [facility], [facility] Not a current smoker 03/21/2019 Last Documented On 9 2:32PM ; [facility], [facility] Recent change in diet 03/21/2019 Last Documented On 9 2:32PM ; [facility], [facility] Smoking status : Never smoker 03/21/2019 Last Documented On 9 2:32PM ; [facility], [facility] No tobacco use 03/21/2019 Last Documented On 9 2:32PM ; [facility] Sex - Female 12/11/2024 Last Documented On 5 3:19PM ; [facility], [facility] Procedures and Surgical History Includes: Procedures from 05/15/2024 through 05/15/2025 Procedures Code Diagnosis Performing Provider Service Location Service Date KNEE SUPPORT, NEOPRENE [id number] Effusion, right knee, Presence of right artificial knee joint Drew Ricardo PA-C [facility] 09/26/2024 Last Documented On 5 1:06PM ; [facility], [facility] X-RAY EXAM OF KNEE 3 VIEWS (RIGHT) 37425 Effusion, right knee, Presence of right artificial knee joint Drew Ricardo PA-C [facility] 09/26/2024 Last Documented On 5 12:52PM ; [facility], [facility] DRAIN/INJECT, JOINT/BURSA (RIGHT) 36515 Effusion, right knee, Presence of right artificial knee joint Drew Ricardo PA-C [facility] 09/26/2024 Last Documented On 5 12:52PM ; [facility], [facility] Surgical History Last Updated History of hysterectomy 10/09/2021 Last Documented On 2 11:07AM ; [facility], [facility] History of total knee arthroplasty 2018 Right 10/09/2021 Last Documented On 2 11:07AM ; [facility], [facility] History of appendectomy 03/21/2019 Last Documented On 9 2:32PM ; [facility], [facility] Medical History Includes: Medical History in patient's chart Description Last Updated Recent immunization for flu 02/13/2022 Last Documented On 5 10:25AM ; [facility] Recent immunization for pneumococcal pne umonia 02/13/2022 09/26/2024 Last Documented On 5 10:25AM ; [facility] History of arthritis 10/09/2021 Last Documented On 2 11:07AM ; [facility], [facility] Use of CPAP 10/09/2021 Last Documented On 2 11:07AM ; [facility], [facility] Previous Fractures 08/09/2020 Last Documented On 1 3:42PM ; [facility] Appendectomy 06/26/2020 Last Documented On 1 1:17PM ; [facility] Heartburn / Acid Reflux 06/26/2020 Last Documented On 1 1:17PM ; [facility] Hypertension 06/26/2020 Last Documented On 1 1:17PM ; [facility] Hysterectomy 06/26/2020 Last Documented On 1 1:17PM ; [facility] Sleep Apnea 06/26/2020 Last Documented On 1 1:17PM ; [facility] Total knee arthroplasty 06/26/2020 Last Documented On 1 1:17PM ; [facility] Use of CPAP 06/26/2020 Last Documented On 1 1:17PM ; [facility] Arthritic joint problems 03/21/2019 Last Documented On 9 2:32PM ; [facility] Intermittent hypertension 03/21/2019 Last Documented On 9 2:32PM ; [facility] Carpal tunnel/ulnar removed-right ~high cholesterol 03/31/2017 Last Documented On 7 3:45PM ; [facility] History of diverticulitis of colon 03/31 Last Documented On 7 3:45PM ; [facility] Family History Includes: Family History in patient's chart Description Last Updated Family history of thromboembolic disease 10/09/2021 Last Documented On 2 11:07AM ; [facility] Family history of rheumatoid arthritis 0 06/26/2020 Last Documented On 1 1:17PM ; [facility] Stroke / Seizures 06/26/2020 Last Documented On 1 1:17PM ; [facility] stroke/seizure 03/21/2019 Last Documented On 9 2:32PM ; [facility] Family history of cancer 03/21/2019 Last Documented On 9 2:32PM ; [facility] Family history of hypertension 9 Last Documented On 9 2:32PM ; [facility] Mental Status Description No anxiety Last Documented On 5 9:13AM ; [facility] No anxiety Last Documented On 3 8:51AM ; [facility] No anxiety Last Documented On 3 3:21PM ; [facility] No anxiety Last Documented On 2 3:37PM ; [facility] No anxiety Last Documented On 2 4:17PM ; [facility] No anxiety Last Documented On 2 1:03PM ; [facility] No anxiety Last Documented On 2 10:54AM ; [facility] No anxiety Last Documented On 1 3:24PM ; [facility] No anxiety Last Documented On 1 9:54AM ; [facility] No anxiety Last Documented On 1 9:58AM ; [facility] No anxiety Last Documented On 1 8:31AM ; [facility] No anxiety Last Documented On 1 1:35PM ; [facility] No anxiety Last Documented On 1 1:10PM ; [facility] No anxiety Last Documented On 1 10:29AM ; [facility] No anxiety Last Documented On 9 3:45PM ; [facility] No anxiety Last Documented On 9 8:33AM ; [facility] No anxiety Last Documented On 8 8:44AM ; [facility] No anxiety Last Documented On 8 11:06AM ; [facility] No anxiety Last Documented On 8 4:03PM ; [facility] No anxiety Last Documented On 8 1:33PM ; [facility] No anxiety Last Documented On 8 11:47AM ; [facility] No anxiety Last Documented On 8 2:39PM ; [facility] No anxiety Last Documented On 8 1:02PM ; [facility] No anxiety Last Documented On 7 11:36AM ; [facility] No anxiety Last Documented On 7 9:10AM ; [facility] No anxiety Last Documented On 7 9:38AM ; [facility] Immunizations Includes: Immunizations in patient's chart Vaccine Dose # Date Site Reaction(s) Status Source Influenza 1 02/14/2021 Complete (Reported) Patient Last Documented On 2 11:13AM ; [facility] Influenza 2 02/13/2022 Complete (Reported) Patient Last Documented On 2 3:42PM ; [facility] PCV (Pneumovax 23) 1 02/14/2021 Complete ( Reported) Patient Last Documented On 2 11:13AM ; [facility] PCV (Pneumovax 23) 2 02/13/2022 Complete ( Reported) Patient Last Documented On 2 3:42PM ; [facility] Td 1 10/09/2021 Complete (Refused - Patient objection) [facility] Last Documented On 2 11:13AM ; [facility] Allergies Includes: Active, inactive, and resolved Allergies Substance Type Reaction Onset Date Resolved Date Statu s OTHER Allergy maxalt/ziac 10/09/2021 Active Last Documented On 5 9:13AM ; [facility] Morphine Derivatives Allergy Nausea, Vom iting, Diarrhea / Diarrheal disorder 08/05/2009 Resolved Last Documented On 7 9:34AM ; [facility] Care Reinforcing Metal Worker Name (Identifier) Role/Relation Location/Telecom Last Documented By Ad Silverio MD ([id number]) Assigned practitioner (occupation) tel:[phone] Last Documented On 12/11/2024 3:19PM ; [facility], [facility] CODIE HAYWOOD MD (FP) ([id number]) Primary care physician (occupation) [address], [place], [place], [place], [address] tel:[phone] Last Documented On 12/11/2024 3:19PM ; [facility], [facility] ([id number]) [address], [place], [place], , [address] tel:[phone] Last Documented On 03/21/2019 3:39PM ; [facility], [facility] Encounters Includes: Encounters from 05/15/2024 through 05/15/2025 Encounter Provider Location (Healthcare Service Location) Date Check-In Time Check-Out Time Diagnosis Encounter Disposition [employer] Drew Ricardo PA-C [facility] 2024 10:27AM 11:59PM Follow Up Drew Ricardo PA-C [facility] 2024 9:14AM 10:26AM Overweight Payer Includes: Active Insurance Policies Plan Name (Payer ID) Coverage Type Member ID Group # Subscriber (ID) Relationship Effective Dates 1 - Medicare Part B [facility] ([id number]) [id number] Stacey Weston Self 01/15/2013 - Unknown Last Documented On 9 8:26AM ; [facility], [facility] 2 - [facility] [id number] Stacey mantilla Self 05/17/2016 - Unknown Last Documented On 2 11:18AM ; [facility], [facility] Clinical Notes Includes: Signed Clinical Notes starting from 04/30/2022 * Progress note Date Encounter Last Documented by 09/26/2024 Follow Up Last documented on 09/26/2024; 10:25 AM, Drew Evans; [facility], [facility] Active Problems & Conditions - Joint [...] cyst. Today recommend knee sleeve, start tramadol, Hephzibah 5 for pain control, physical therapy for [...]
--- OUTSIDE RECORDS SUMMARY | 2025-05-15 07:24 | XMS_ITS | Clinical Summary ---
Author Organization [facility] Address [address] [place] [address] Phone Care Team Providers Care Production Repairer Name Role Phone Ad Stapleton MD Unavailable [phone] YOBANY HIGGINS (FP), CODIE Heart Primary Care Provider [phone] Lisette Neymar CLARKin Diana Unavailable [phone] Reason for Visit and Chief Complaint The Chief Complaint is: right thumb pain Problems Includes: Problems addressed during this encounter and other active Problems All Visits Onset Date Date of Diagnosis Resolved Date Provider Condition Status Joint Pain Right Thumb 10/09/2021 10/09/2021 Ad Stapleton MD Active Last Documented On 5 1:41AM ; [facility] Joint Pain Right Knee 06/26/2020 06/26/2020 Nathaniel Feldman MD Active Last Documented On 5 1:40AM ; [facility] Plan of Treatment Fall Risk Assessment: [...] - Last Documented On 03/31/2023 3:52PM ; [facility] Instructions to patient Lose weight Last Documented On 3:21PM ; [facility] Assessments Includes: Assessments from this encounter Findings X-ray of the right hand 3 views shows no fractures or dislocations. Alignment is good. There are no areas of lucency. - Last Documented On 03/31/2023 3:52PM ; [facility] Patient has onychomycosis. We will need to try to treat her medically we can not control infection medically we may need to consider surgery once again - Last Documented On 03/31/2023 3:52PM ; [facility] Instructions Includes: Instructions from this encounter Instructions to patient Lose weight Last Documented On 3 3:21PM ; [facility] Medical Equipment - Implanted Devices Includes: Current Devices No Medical Equipment Recorded Medications Includes: Medications discussed during this encounter and other current Medications New / Renewed during this visit Ad Stapleton MD on 03/18/2023 Clotrimazole 1% External Cream Provider: Ad Stapleton MD 30 day supply: 1 gram, 0 refills Diagnosis: use as directed Pharmacy: [facility]/pharmacy #[id number] [facility] [place], [address] - Last Documented On 3 4:47PM By Ragini Bradshaw ; [facility] Current Medications (continue as prescribed) HYDROcodone-Acetaminophen 5- 325 MG Oral Tablet 09/26/2024 Provider: Herbert Feldman MD Diagnosis: Take 1 tablet every 8 hrs prn pain Last Documented On 5 10:46AM By Moises Feldman ; [facility] traZODone HCl 50 MG Oral Tablet 01/29/2022 Provider: Diagnosis: Last Documented On 2 2:11PM By Alina Hoover [facility] SUMAtriptan Succinate 100 MG Oral Tablet 01/27/2022 Provider: Diagnosis: Last Documented On 2 2:11PM By Alina Manrique ; [facility] Carvedilol 25 MG Oral Tablet 01/23/2022 Provider: Diagnosis: Last Documented On 2 2:11PM By Alina Manrique ; [facility] Doxazosin Mesylate 2 MG Oral Tablet 01/23/2022 Provi carmina: Diagnosis: Last Documented On 2 2:11PM By Alina Manrique ; [facility] Simvastatin 20 MG Oral Tablet 01/16/2022 Provider: Diagnosis: Last Documented On 2 2:11PM By Alina Manrique ; [facility] clonazePAM 0.5 MG Oral Tablet 01/11/2022 Provider: Diagnosis: Last Documented On 2 2:11PM By Alina Manrique ; [facility] Pilocarpine HCl 5 MG Oral Tablet 01/05/2022 Provider : Bear Hamilton Diagnosis: Last Documented On 2 2:11PM By Alina Manrique ; [facility] Past Medications on file Medrol 4 [...] Documented: On 03/18/2023 3:52PM ; [facility] Results Includes: Results discussed during this [...] Last Documented On 3 3:52PM ; [facility] DUNCAN Not a current smoker. 03/18/2023 Last Documented On 3 3:52PM ; [facility] No caffeine use 03/24/2022 Last Documented On 3 3:21PM ; [facility] No recent change in diet 03/24/2022 Last Documented On 3 3:21PM ; [facility] Not exercising regularly 03/24/2022 Last Documented On 3 3:21PM ; [facility] Not using drugs 03/24/2022 Last Documented On 3 3:21PM ; [facility] Tobacco non-user 03/24/2022 Last Documented On 3 3:21PM ; [facility] Non-smoker 03/24/2022 Last Documented On 3 3:21PM ; [facility] Not a smoker 03/24/2022 Last Documented On 3 3:21PM ; [facility] Not a current smoker. 06/26/2020 Last Documented On 3 3:21PM ; [facility] Not a current smoker 03/21/2019 Last Documented On 3 3:21PM ; [facility] Recent change in diet 03/21/2019 Last Documented On 3 3:21PM ; [facility] Smoking status : Never smoker 03/21/2019 Last Documented On 3 3:21PM ; [facility] No tobacco use 03/21/2019 Last Documented On 3 3:21PM ; [facility] Sex - Female 12/11/2024 Last Documented On 5 3:19PM ; [facility] Procedures and Surgical History Includes: Procedures from this encounter Procedures Code Diagnosis Performing Provider Service L ocation Service Date use of tobacco assessment performed 1000F Last Documented On 3 3:21PM ; [facility] patient screened for future fall risk: documentation of any fall with injury in past year 1100F Last Documented On 3 3:21PM ; [facility] review of medications documented 1160F Last Documented On 3 3:53PM ; [facility] Surgical History Last Updated History of hysterectomy 10/09/2021 Last Documented On 3 3:21PM ; [facility] History of total knee arthroplasty 2018 Right 10/09/2021 Last Documented On 3 3:21PM ; [facility] History of appendectomy 03/21/2019 Last Documented On 3 3:21PM ; [facility] Medical History Includes: Medical History addressed during this encounter Description Last Updated Recent immunization for flu 02/13/2022 Last Documented On 3 3:21PM ; [facility] Recent immunization for pneumococcal pne umonia 02/13/2022 09/26/2024 Last Documented On 3 3:21PM ; [facility] No recent immunization for pneumococcal pneumonia 03/18/2023 Last Documented On 3 3:52PM ; [facility] Recent immunization for flu 02/14/2022 1 05/18/2022 Last Documented On 3 3:52PM ; [facility] History of arthritis 10/09/2021 Last Documented On 3 3:21PM ; [facility] Use of CPAP 10/09/2021 Last Documented On 3 3:21PM ; [facility] Previous Fractures 08/09/2020 Last Documented On 3 3:21PM ; [facility] Appendectomy 06/26/2020 Last Documented On 3 3:21PM ; [facility] Heartburn / Acid Reflux 06/26/2020 Last Documented On 3 3:21PM ; [facility] Hypertension 06/26/2020 Last Documented On 3 3:21PM ; [facility] Hysterectomy 06/26/2020 Last Documented On 3 3:21PM ; [facility] Sleep Apnea 06/26/2020 Last Documented On 3 3:21PM ; [facility] Total knee arthroplasty 06/26/2020 Last Documented On 3 3:21PM ; [facility] Use of CPAP 06/26/2020 Last Documented On 3 3:21PM ; [facility] Arthritic joint problems 03/21/2019 Last Documented On 3 3:21PM ; [facility] Intermittent hypertension 03/21/2019 Last Documented On 3 3:21PM ; [facility] Carpal tunnel/ulnar removed-right ~high cholesterol 03/31/2017 Last Documented On 3 3:21PM ; [facility] History of diverticulitis of colon 03/31 Last Documented On 3 3:21PM ; [facility] Family History Includes: Family History addressed during this encounter Description Last Updated Family history of thromboembolic disease 10/09/2021 Last Documented On 3 3:21PM ; [facility] Family history of rheumatoid arthritis 0 06/26/2020 Last Documented On 3 3:21PM ; [facility] Stroke / Seizures 06/26/2020 Last Documented On 3 3:21PM ; [facility] stroke/seizure 03/21/2019 Last Documented On 3 3:21PM ; [facility] Family history of cancer 03/21/2019 Last Documented On 3 3:21PM ; [facility] Family history of hypertension 9 Last Documented On 3 3:21PM ; [facility] Review of Systems Includes: Review of [...] anxiety Last Documented On 3 3:21PM ; [facility] Physical Exam Includes: Physical Exam from this encounter Allergies Includes: Active Allergies Substance Type Reaction Onset Date Resolved Date Statu s OTHER Allergy maxalt/ziac 10/09/2021 Active Last Documented On 5 9:13AM ; [facility] Morphine Derivatives Allergy Nausea, Vom iting, Diarrhea / Diarrheal disorder 08/05/2009 Resolved Last Documented On 7 9:34AM ; [facility] Care Production Repairer Name (Identifier) Role/Relation Location/Telecom Last Documented By Ad Stapleton MD ([id number]) Assigned practitioner (occupation) tel:[phone] Last Documented On 12/11/2024 3:19PM ; [facility] CODIE HAYWOOD MD (FP) ([id number]) Primary care physician (occupation) [address], [place], [place], [place], [address] tel: Last Documented On 12/11/2024 3:19PM ; [facility] Mohan Napier Clarigo CLARK ([id number]) [address] , [place], [place], [place], [address] tel: Last Documented On 03/21/2019 3:39PM ; [facility] Encounters Encounter Provider Location (Healthcare Service Location) Date Check-In Time Check-Out Time Diagnosis Encounter Disposition Follow Up Ad Stapleton MD [facility] 2022 2:32PM 4:34PM Payer Includes: Active Insurance Policies Plan Name (Payer ID) Coverage Type Member ID Group # Subscriber (ID) Relationship Effective Dates 1 - Medicare Part [place] of [place] ([id number]) [id number] Stacey Weston Self 01/15/2013 - Unknown Last Documented On 9 8:26AM ; [facility] 2 - [facility] [phone]) [id number] Stacey mantilla Self 05/17/2016 - Unknown Last Documented On 2 11:18AM ; [facility] Clinical Notes Includes: Clinical Notes from this encounter * Progress note Date Encounter Last Documented by 03/18/2023 Follow Up Last documented on 03/31/2023; 3:52 PM, Ad Stapleton MD; [facility] Active Problems & Conditions - Joint [...]
--- OUTSIDE RECORDS SUMMARY | 2025-05-15 07:25 | XMS_ITS | Clinical Summary ---
Author Organization [facility] Address [address] [place] [address] Phone Care Team Providers Care Sterilisation Technician Name Role Phone Stephanie HIGGINS, Scar Irby [...] Carlee Griffin Leukemoid reaction Benign Essential Hypertension 75379151 (SNOMED CT) Active 08/05 Carlee Griffin Benign hypertension Other obesity due to excess calories 529865541 (SNOMED CT) Active 08/05 [facility] Simple obesity Medications Medication Instructions Start Date Stop Date Generic Name [facility] Provider DOXYCYCLINE HYCLATE 100 MG CAPS take 1 cap po BID DOXYCYCLINE HYCLATE 12747699811 [facility] PERCOCET 7.5-325 MG TABS take 1 tab po q4h PRN OXYCODONE-ACETAM INOPHEN 87539978843 [facility] SIMVASTATIN 20 MG TABS take 1 tab po qhs SIMVASTATIN 25158302305 [facility] XARELTO 10 MG TABS take 1 tab po daily RIVAROXABAN 42846491708 [facility] RANITIDINE HCL 150 MG ORAL CAPSULE take 1 cap po BID RANITIDINE HCL 42523110973 [facility] ZOFRAN 4 MG ORAL TABLET take 1 tab po q6h PRN ONDANSETRON HCL 93472938738 [facility] EQ OMEPRAZOLE MAGNESIUM 20 MG CPDR take 1 cap po BID OMEPRAZOLE MAGNESIUM 74048619836 [facility] COZAAR 50 MG TABS take 1 tab po BID LOSARTAN POTASSIUM 15171985640 [facility] COQ-10 50 MG CAPS take 1 cap po daily COENZYME Q10 70145990284 [facility] COLACE CAPS take 2 caps po daily DOCUSATE SODIUM CAPS 21025123465 [facility] CLONAZEPAM 1 MG TABS take 1 tab po qhs CLONAZEPAM 25853425575 [facility] PROBIOTIC CAPS take 1 cap po daily SACCHAROMYCES BOULARDII CAPS 03885306176 [facility] OSTEO BI-FLEX ADV DOUBLE ST ORAL TABLET take 1 tab po BID [facility] 46853648727 [facility] MIRALAX ORAL PACKET take 17g po daily POLYETHYLENE GLYCOL 3350 40856317960 [facility] METOPROLOL SUCCINATE ER 50 MG CU37N-PVD take 1 tab po BID METOPROLOL SUCCINATE 30006479179 [facility] IMITREX 100 MG TABS take 1 tab po daily PRN SUMATRIPTAN SUCCINATE 27621209714 [facility] FLONASE 50 MCG/ACT NASAL SUSPENSION two sprays into nostril daily PRN FLUTICASONE PROPIONATE 80274708293 [facility] DOMPERIDONE take 1 tab po QID for nausea, vomiting DOMPERIDONE [facility] BENEFIBER DRINK MIX PACK take 3.5g po daily WHEAT DEXTRIN 23751393968 [facility] Medications Administered No information available. [...] Procedures Code Procedure Name Date Entry Date CPT-32309 C- reactive protein CPT-28932 Sedimentation Rate (ESR) 201 12/19/11 CPT-55718 C- reactive protein CPT-65885 Sedimentation Rate (ESR) 201 12/19/11 Vital Signs [...]
--- OUTSIDE RECORDS SUMMARY | 2025-05-15 07:25 | XMS_ITS | Clinical Summary ---
Author Organization [facility] Address [address] [place] [address] Care Team Providers Care Solder Leveler [employer]ed [employer] Boards Name Role Phone Phoebe Cabrera DO Primary [...] 03/30/2014 Insurance MEDICARE A & B [employer] [facility] Care Teams Solder Leveler [employer] Relationship Specialty Start Date End Date Phoebe Cabrera DO [address] [facility] [address] [place] [address] PCP - General Family Medicine 07/07/23
--- OUTSIDE RECORDS SUMMARY | 2025-05-15 07:25 | XMS_ITS | Patient Health Record ---
Author Organization [facility] Address [address] [place] [address] Phone [phone] Care Team Providers Care Chief Bank Examiner Name Role Phone Josesito Braxton DO Primary Care Provider UnavailScar Mendiola M.D. 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 Orally Once a day Hyponatremia (ICD_10 [...] Active Domperidone 10mg TID Orally *Reorder from [facility] for eRx and Interaction Alerts* Not-Taki [...] Status W/U Status Risk Notes Problem Hyperlipidemia (55066371) Hyperlipidemia (E78.5) Added On:07/04 Active confirmed Problem Hypertension (82755888) HTN (hypertension) (I10) Added On:05/28 Active confirmed Problem Hyperlipidemia (08158741) Hyperlipidemia (E78.5) Added On:07/17 Active confirmed Problem Obese (722201203) Obese (E66.9) Added On:04/15 Active confirmed Problem Syndrome of inappropriate secretion of antidiuretic hormone (04889416) SIADH (syndrome of inappropriate ADH production) (E22.2) [...] PM Office Visit, Est Pt., Level 4 ([address]) [address] [address] Scar Dhaliwal HTN (hypertension) I10 ; Obese E66.9 ; Hyperlipidemia E78.5 and SIADH (syndrome of inappropriate ADH production) E22.2 10/18/19 03:40 PM Office Visit, Est Pt., Level 3 (62818) [address] [address] Scar Dhaliwal SIADH (syndrome of inappropriate ADH production) E22.2 ; Hyponatremia E87.1 ; HTN (hypertension) I10 ; Hyperlipidemia E78.5 and Obese E66.9 03/20/20 25 01:20 PM Office Visit, Est Pt., Level 3 (87839) [address] [address] Scar Dhaliwal SIADH (syndrome of inappropriate ADH production) E22.2 ; HTN (hypertension) I10 ; Hyperlipidemia E78.5 and Obese E66.9 08/01/19 25 07:57 AM Telephone Encounter [place] [address] [place] [address] Scar Dhaliwal SIADH (syndrome of inappropriate ADH production) E22.2 08/04/19 09:43 AM Telephone Encounter [facility] [address] [place] [address] Scar Dhaliwal 08/09/19 12:09 PM Telephone Encounter [facility] [address] [place] [address] Scar Dhaliwal Assessments Encounter Date Diagnosis (ICD [...] Differential 02/21 CBC, Platelet with No Differential 08/07 CBC, Platelet with No Differential 10/17 CBC, Platelet with No Differential 03/20 Comp. Metabolic Panel (14) 03/20/2025 Comp. Metabolic Panel (14) 10/17/2024 Comp. Metabolic Panel (14) 08/07/2024 Basic Metabolic Panel (8) 02/22/2024 Urinalysis 02/22/2024 Urinalysis 08/07/2024 Urinalysis 10/17/2024 Urinalysis 03/20/2025 Uric Acid, Serum 09/28/2022 Uric Acid, Serum 12/29/2022 Uric Acid, Serum 07/04/2019 Uric Acid, Serum 09/11/2021 Urinalysis, Complete 09/11/2021 PTH, Intact 12/29/2022 CBC WITH DIFF 12/20/2023 Urinalysis 12/29/2022 .Renal Function Panel 12/29/2022 .Renal Function Panel 09/11/2021 CMP14+eGFR 11/26/2020 CMP14+eGFR 07/04/2019 CMP14+eGFR 07/18/2019 CMP14+eGFR 01/16/2020 CBC W/AUTO DIFF 09/11/2021 CBC W/AUTO DIFF 12/29/2022 URINALYSIS COMPLETE 09/28/2022 URINALYSIS COMPLETE 11/26/2020 URINALYSIS COMPLETE 05/28/2020 URINALYSIS COMPLETE 07/04/2019 URINALYSIS COMPLETE 07/18/2019 URINALYSIS COMPLETE 12/20/2023 CBC W AUTOMATED DIFFERENTIAL 07/18/2019 CBC W AUTOMATED DIFFERENTIAL 01/16/2020 CBC W AUTOMATED DIFFERENTIAL 11/26/2020 BMP 04/15/2021 BMP 05/28/2020 BMP 09/21/2019 BMP 09/28/2022 BMP 10/18/2023 BMP 12/20/2023 Future Test Test Name Order Date Urinalysis 08/19/2023 Vitamin D 08/19/2023 BMP8+eGFR 08/19/2023 Hgb+Hct 08/19/2023 Next Appt Details Provider Name:Scar Dhaliwal, 08/21/2025 11:30:00 AM, [address] [facility] [address], [place], [address], Insurance Providers Payer Name Payer Address Payer Phone Subscriber Number Group Number Insured Name Patient Relationship to Insured Coverage Start Date Coverage End Date [place] [address] [place] [address] [id number] STACEY WATSON [place] [address] [phone] [id number] STACEY WATSON Self - patient is the [...] Interstem placement 04/27/23 Hospitalization History Reason Date(Month/Year) [facility] - 4 day stay - sept ic UTI 11/12/22
--- OUTSIDE RECORDS SUMMARY | 2025-05-15 07:26 | XMS_ITS ---
Care Plan - [facility] Created on: May 15, 2025 Stacey Weston : 1950 Sex: Female Author Organization [facility] Address [address] [place] [address] Phone Care Team Providers Care Test Architect Name Role Phone Ad Stapleton MD Unavailable [phone] YOBANY HIGGINS (FP), C[facility] Primary Care Provider [phone] Mohan Knox DO Unavailable [phone]
--- OUTSIDE RECORDS SUMMARY | 2025-05-15 07:26 | XMS_ITS | Clinical Summary ---
Author Organization [facility] Address [address] [place] [address] Phone Care Team Providers Care Caster Investment Casting Name Role Phone Ad Stapleton MD Unavailable [phone] YOBANY HIGGINS (FP), CODIE Heart Primary Care Provider [phone] Lisette Neymar CALRKin Diana Unavailable [phone] Reason for Visit and Chief Complaint The Chief Complaint is: right thumb pain Problems Includes: Problems addressed during this encounter and other active Problems All Visits Onset Date Date of Diagnosis Resolved Date Provider Condition Status Joint Pain Right Thumb 10/09/2021 10/09/2021 Ad Stapleton MD Active Last Documented On 5 1:41AM ; [facility] Joint Pain Right Knee 06/26/2020 06/26/2020 Nathaniel Feldman MD Active Last Documented On 5 1:40AM ; [facility] Plan of Treatment Fall Risk Assessment: [...] - Last Documented On 04/22/2023 5:00PM ; [facility] Given nail removal has occurred once, [...] - Last Documented On 04/22/2023 5:00PM ; [facility] Instructions to patient Lose weight Last Documented On 3 8:51AM ; [facility] Assessments Includes: Assessments from this encounter Findings - Overweight - Last Documented On 04/22/2023 5:00PM ; [facility] Instructions Includes: Instructions from this encounter Instructions to patient Lose weight Last Documented On 3 8:51AM ; [facility] Medical Equipment - Implanted Devices Includes: Current Devices No Medical Equipment Recorded Medications Includes: Medications discussed during this encounter and other current Medications Current Medications (continue as prescribed) HYDROcodone-Acetaminophen 5- 325 MG Oral Tablet 09/26/2024 Provider: Herbert Feldman MD Diagnosis: Take 1 tablet every 8 hrs prn pain Last Documented On 5 10:46AM By Moises Feldman ; [facility] traZODone HCl 50 MG Oral Tablet 01/29/2022 Provider: Diagnosis: Last Documented On 2 2:11PM By Alina Manrique ; [facility] SUMAtriptan Succinate 100 MG Oral Tablet 01/27/2022 Provider: Diagnosis: Last Documented On 2 2:11PM By Alina Hoover [facility] Carvedilol 25 MG Oral Tablet 01/23/2022 Provider: Diagnosis: Last Documented On 2 2:11PM By Alina Manrique ; [facility] Doxazosin Mesylate 2 MG Oral Tablet 01/23/2022 Provi carmina: Diagnosis: Last Documented On 2 2:11PM By Alina Manrique ; [facility] Simvastatin 20 MG Oral Tablet 01/16/2022 Provider: Diagnosis: Last Documented On 2 2:11PM By Alina Manrique ; [facility] clonazePAM 0.5 MG Oral Tablet 01/11/2022 Provider: [...] Index 36.6 Body Surface Area 1.7 Note: [facility] Last Documented: On 04/21/2023 8:52AM ; RAFI [...] 03/24/2022 Last Documented On 3 8:51AM ; [facility] No recent change in diet 03/24/2022 Last Documented On 3 8:51AM ; [facility] Not exercising regularly 03/24/2022 Last Documented On 3 8:51AM ; [facility] Not using drugs 03/24/2022 Last Documented On 3 8:51AM ; [facility] Tobacco non-user 03/24/2022 Last Documented On 3 8:51AM ; [facility] Non-smoker 03/24/2022 Last Documented On 3 8:51AM ; [facility] Not a smoker 03/24/2022 Last Documented On 3 8:51AM ; [facility] Not a current smoker. 06/26/2020 Last Documented On 3 8:51AM ; [facility] Not a current smoker 03/21/2019 Last Documented On 3 8:51AM ; [facility] Recent change in diet 03/21/2019 Last Documented On 3 8:51AM ; [facility] Smoking status : Never smoker 03/21/2019 Last Documented On 3 8:51AM ; [facility] No tobacco use 03/21/2019 Last Documented On 3 8:51AM ; [facility] Sex - Female 12/11/2024 Last Documented On 5 3:19PM ; [facility] Procedures and Surgical History Includes: Procedures from this encounter Procedures Code Diagnosis Performing Provider Service L ocation Service Date use of tobacco assessment performed 1000F Last Documented On 3 8:51AM ; [facility] patient screened for future fall risk: documentation of any fall with injury in past year 1100F Last Documented On 3 8:51AM ; [facility] review of medications documented 1160F Last Documented On 3 8:51AM ; [facility] Surgical History Last Updated History of hysterectomy 10/09/2021 Last Documented On 3 8:51AM ; [facility] History of total knee arthroplasty 2018 Right 10/09/2021 Last Documented On 3 8:51AM ; [facility] History of appendectomy 03/21/2019 Last Documented On 3 8:51AM ; [facility] Medical History Includes: Medical History addressed during this encounter Description Last Updated No recent immunization for pneumococcal pneumonia 09/26/2024 Last Documented On 3 8:51AM ; [facility] Recent immunization for flu 02/14/2022 0 09/26/2024 Last Documented On 3 8:51AM ; [facility] History of arthritis 10/09/2021 Last Documented On 3 8:51AM ; [facility] Use of CPAP 10/09/2021 Last Documented On 3 8:51AM ; [facility] Previous Fractures 08/09/2020 Last Documented On 3 8:51AM ; [facility] Appendectomy 06/26/2020 Last Documented On 3 8:51AM ; [facility] Heartburn / Acid Reflux 06/26/2020 Last Documented On 3 8:51AM ; [facility] Hypertension 06/26/2020 Last Documented On 3 8:51AM ; [facility] Hysterectomy 06/26/2020 Last Documented On 3 8:51AM ; [facility] Sleep Apnea 06/26/2020 Last Documented On 3 8:51AM ; [facility] Total knee arthroplasty 06/26/2020 Last Documented On 3 8:51AM ; [facility] Use of CPAP 06/26/2020 Last Documented On 3 8:51AM ; [facility] Arthritic joint problems 03/21/2019 Last Documented On 3 8:51AM ; [facility] Intermittent hypertension 03/21/2019 Last Documented On 3 8:51AM ; [facility] Carpal tunnel/ulnar removed-right ~high cholesterol 03/31/2017 Last Documented On 3 8:51AM ; [facility] History of diverticulitis of colon 03/31 Last Documented On 3 8:51AM ; [facility] Family History Includes: Family History addressed during this encounter Description Last Updated Family history of thromboembolic disease 10/09/2021 Last Documented On 3 8:51AM ; [facility] Family history of rheumatoid arthritis 0 06/26/2020 Last Documented On 3 8:51AM ; [facility] Stroke / Seizures 06/26/2020 Last Documented On 3 8:51AM ; [facility] stroke/seizure 03/21/2019 Last Documented On 3 8:51AM ; [facility] Family history of cancer 03/21/2019 Last Documented On 3 8:51AM ; [facility] Family history of hypertension 9 Last Documented On 3 8:51AM ; [facility] Review of Systems Includes: Review of Systems [...] anxiety Last Documented On 3 8:51AM ; [facility] Physical Exam Includes: Physical Exam from this encounter Allergies Includes: Active Allergies Substance Type Reaction Onset Date Resolved Date Statu s OTHER Allergy maxalt/ziac 10/09/2021 Active Last Documented On 5 9:13AM ; [facility] Morphine Derivatives Allergy Nausea, Vom iting, Diarrhea / Diarrheal disorder 08/05/2009 Resolved Last Documented On 7 9:34AM ; [facility] Care Caster Investment Casting Name (Identifier) Role/Relation Location/Telecom Last Documented By Ad Stapleton MD ([id number]) Assigned practitioner (occupation) tel:[phone] Last Documented On 12/11/2024 3:19PM ; [facility] CODIE HAYWOOD MD (FP) ([id number]) Primary care physician (occupation) [address], [place], [place], [place], [address] tel: Last Documented On 12/11/2024 3:19PM ; [facility] Mohan Knox DO ([id number]) [address], [place], [place], , [address] tel: Last Documented On 03/21/2019 3:39PM ; [facility] Encounters Encounter Provider Location (Healthcare Service Location) Date Check-In Time Check-Out Time Diagnosis Encounter Disposition Follow Up Bill Villalpando MD [facility] 2022 8:45AM 9:10AM Overweight Payer Includes: Active Insurance Policies Plan Name (Payer ID) Coverage Type Member ID Group # Subscriber (ID) Relationship Effective Dates 1 - Medicare Part B [facility] ([id number]) [id number] Stacey Weston Self 01/15/2013 - Unknown Last Documented On 9 8:26AM ; [facility] 2 - [facility] [phone]) [id number] Stacey mantilla Self 05/17/2016 - Unknown Last Documented On 2 11:18AM ; [facility] Clinical Notes Includes: Clinical Notes from this encounter * Progress note Date Encounter Last Documented by 04/21/2023 Follow Up Last documented on 04/22/2023; 5:00 PM, Bill Villalpando MD; [facility] Active Problems & Conditions - Joint Pain [...]
--- OUTSIDE RECORDS SUMMARY | 2025-05-15 07:26 | XMS_ITS | Patient Health Record ---
Author Organization [facility] Address [address] [place] [address] Care Team Providers Care Take Up Operator Name Role Phone Moahn Knox DO Primary Care Provider Scar Samuel Unavailable [phone] Allergies Allergen (clinical drug ingredient) Drug/Non Drug [...] Potassium 100 MG 1 tablet in e jack tamp operator Orally Once a day Active Trelegy Ellipta [...] Status W/U Status Risk Notes Problem Hyperlipidemia (81014787) Hyperlipidemia (E78.5) Active confirmed Problem Hyperlipidemia (41927555) Hyperlipidemia (E78.5) Active confirmed Problem Hypertension (37575140) HTN (hypertension) (I10) Active confirmed Problem Syndrome of inappropriate secretion of antidiuretic hormone (59777477) SIADH (syndrome of inappropriate ADH production) (E22.2) Active confirmed Problem Obese (758897893) Obese (E66.9) Active confirme d Plan Of Treatment Pending Test Test Name Order Date Uric Acid, Serum 07/04/2019 Uric Acid, Serum 09/11/2021 Uric Acid, Serum 09/28/2022 Uric Acid, Serum 12/29/2022 Urinalysis, Complete 09/11/2021 PTH, Intact 12/29/2022 CBC WITH DIFF 12/20/2023 Urinalysis 12/29/2022 .Renal Function Panel 12/29/2022 .Renal Function Panel 09/11/2021 CMP14+eGFR 11/26/2020 CMP14+eGFR 07/04/2019 CMP14+eGFR 01/16/2020 CMP14+eGFR 07/18/2019 CBC W/AUTO DIFF 09/11/2021 CBC W/AUTO DIFF 12/29/2022 URINALYSIS COMPLETE 12/20/2023 URINALYSIS COMPLETE 11/26/2020 URINALYSIS COMPLETE 09/28/2022 URINALYSIS COMPLETE 05/28/2020 URINALYSIS COMPLETE 07/04/2019 URINALYSIS COMPLETE 07/18/2019 CBC W AUTOMATED DIFFERENTIAL 01/16/2020 CBC W AUTOMATED DIFFERENTIAL 07/18/2019 CBC W AUTOMATED DIFFERENTIAL 11/26/2020 BMP 12/20/2023 BMP 09/21/2019 BMP 05/28/2020 BMP 04/15/2021 BMP 09/28/2022 BMP 10/18/2023 Future Test Test Name Order Date Urinalysis 08/19/2023 Vitamin D 08/19/2023 BMP8+eGFR 08/19/2023 Hgb+Hct 08/19/2023 Insurance Providers Payer Name Payer Address Payer Phone Subscriber Number Group Number Insured Name Patient Relationship to Insured Coverage Start Date Coverage End Date [place] [address] [place] [address] [id number] Stacey Weston Self - [place] [address] [id number] Stacey Weston Self - patient is the [...] Interstem placement 04/27/23 Hospitalization History Reason Date(Month/Year) [facility] - 4 day stay - sept ic UTI 11/12/22
--- OUTSIDE RECORDS SUMMARY | 2025-05-15 07:26 | XMS_ITS | Clinical Summary ---
Author Organization [facility] [place] [place] [address] Care Team Providers Care Corporate Executive Chef Name Role Phone Unavailable Primary Care Provider [...]
--- OUTSIDE RECORDS SUMMARY | 2025-05-15 07:26 | XMS_ITS | Data Portability ---
Author Organization [place] [facility] Address [address] [place] [address] Care Team Providers Care Certified Performance Technologist Name Role Phone JF BROOKS Primary Care Provider Assessment No assessment recorded. Plan of Treatment Reminders Order Date Submit Date Provider Last Modified By Organization Details Last Modified Time Details Appointments None recorded. Lab None recorded. Referral None recorded. Procedures None recorded. Surgeries None recorded. Imaging None recorded. Medication Orders Medrol (Carlos) 4 mg tablets in a dose pack 2022 023 [facility] #[id number], [address] [place], [address], 3 08:58:26 methocarbam ol 500 mg tablet 2022 023 [id number], [address] [place], [address], 08:58:26 Patient TargetsNo targets recorded. Patient Instructions Encounter Date Encounter Id Patient Instructions Last Modified By Organization Details Last Modified Time 06/12/2022 [id number] biceps tendiniti s: exercises [email or web address] Not available [...] basis but will probably return back to [place]. Diagnosis and treatment discussed with patient. All questions answered today. [email or web address] Not available 06/12/2022 12:37:36 Reason for Referral None Reported. Problems Name Problem SNOMED Code Status Onset Date Resolution Date Notes Provider Name and Address Organization Details Recorded Time Biceps tendinitis 097479461 Active 023 Rick Morocho PA-C [address] [place], [address], [facility] 08:57:05 Problem Notes None recorded. [...] ICD10 Code Diagnosis IMO Codes Diagnosis Note [id number] Jarret Solares MD [facility] [place] [address] 06/12/2022 08:20:46 06/12/2022 09:00:58 Biceps tendinitis 561684371 M75.22 Health Concerns Section Related Observation LastModified by Organization Detai ls LastModified Time None Recorded Concern Status LastModified by Organization Details LastModified Time None Recorded Advance Directives Directive None Recorded Payers Insurance Date Sequence Insurance Name Policy Number Policy Phillip Covered Member ID Phillip Member ID Guarantor Name 06/12/2022 1 [place] Stacey Michael Enrico [id number] Stacey Weston 06/12/2022 2 [facility] (MEDICARE SUPPLEMENT) Stacey Michael Enrico [id number] Stacey Enrico Notes Date Note Type Note [...] she had the Lortab. Patient lives in [place] and is here visiting family. Rick Morocho PA-C [address] [place], [address], [place] [facility] 06/12/2022 12:37:40 OBGyn Episode No OBEpisode recorded.
--- OUTSIDE RECORDS SUMMARY | 2025-05-15 07:26 | XMS_ITS | Clinical Summary ---
Author Organization [facility] Address [address] [place] [address] Phone Care Team Providers Care Reservations Manager Name Role Phone Pieter HIGGINS, Ad Bain Unavailable [phone] YOBANY HIGGINS (FP), CODIE Heart Primary Care Provider + [phone] Lisette Mohan CLARK Unavailable [phone] Reason for Referral 09/26/2024 Encounter for Follow Up Date Recorded Target Due Date Referral Type Referring Prov ider Reason For Referral 09/26/2024 Drew Ricardo PA-C see pc p for bp Last Documented On 5 9:13AM ; [facility] 09/26/2024 Drew Ricardo PA-C referr al to physician Last Documented On 5 9:13AM ; [facility] Reason for Visit and Chief Complaint The Chief Complaint is: Right knee pain Problems Includes: Problems addressed during this encounter and other active Problems All Visits Onset Date Date of Diagnosis Resolved Date Provider Condition Status Joint Pain Right Thumb 10/09/2021 10/09/2021 Ad Stapleton MD Active Last Documented On 5 1:41AM ; [facility] Joint Pain Right Knee 06/26/2020 06/26/2020 Nathaniel Feldman MD Active Last Documented On 5 1:40AM ; [facility] Plan of Treatment Patient screened for future fall risk: documentation of any fall with injury in past year. - Last Documented On 09/26/2024 10:25AM ; [facility] Fall Risk Assessment: This patient has [...] - Last Documented On 09/26/2024 10:25AM ; [facility] Patient presents today for evaluation of [...] cyst. Today recommend knee sleeve, start tramadol, [place] 5 for pain control, physical therapy for [...] - Last Documented On 09/26/2024 10:25AM ; [facility] Pending Tests Order Diagnosis Results Due Ordering P rovider Therapy - Physical Therapy Knee Overweight 09/26/24 Drew Ricardo PA-C Last Documented On 10:24AM ; [facility] Instructions to patient Instructions for patient SEE PCP FOR BP Last Documented On 9:13AM ; [facility] Lose weight Last Documented On 9:13AM ; [facility] Assessments Includes: Assessments from this encounter Findings - Overweight - Last Documented On 09/26/2024 10:25AM ; [facility] History of right TKA 12/25/2020 - lateral compartment grade 0 patellofemoral grade 2 - Last Documented On 09/26/2024 10:25AM ; [facility] Instructions Includes: Instructions from this encounter Instructions to patient Instructions for patient SEE PCP FOR BP Last Documented On 5 9:13AM ; [facility] Lose weight Last Documented On 5 9:13AM ; [facility] Medical Equipment - Implanted Devices Includes: Current Devices No Medical Equipment Recorded Medications Includes: Medications discussed during this encounter and other current Medications New / Renewed during this visit Drew Ricardo PA-C on 09/26/2024 Medrol 4 MG Oral Tablet Therapy Pack Provider: Drew Ricardo PA-C 7 day supply: 1 tablet, 0 refills Diagnosis: take as directed per instructions on Fididel cy: [facility]/pharmacy #[id number] - [address], [address] - Last Documented On 5 10:46AM By Drew Ricardo ; [facility] HYDROcodone-Acetaminophen 5- 325 MG Oral Tablet Provider: Herbert Feldman MD 10 day supply: 20 tablet, 0 refills Diagnosis: Take 1 tablet every 8 hrs prn pain Pharmacy: [facility]/pharmacy #[id number] - [address], [address] - Last Documented On 5 10:46AM By Moises Feldman ; [facility] Current Medications (continue as prescribed) traZODone HCl 50 MG Oral Tablet 01/29/2022 Provider: Diagnosis: Last Documented On 2 2:11PM By Alina Manrique ; [facility] SUMAtriptan Succinate 100 MG Oral Tablet 01/27/2022 Provider: Diagnosis: Last Documented On 2 2:11PM By Alina Manrique ; [facility] Carvedilol 25 MG Oral Tablet 01/23/2022 Provider: Diagnosis: Last Documented On 2 2:11PM By Alina Manrique ; [facility] Doxazosin Mesylate 2 MG Oral Tablet 01/23/2022 Provi carmina: Diagnosis: Last Documented On 2 2:11PM By Alina Manrique ; [facility] Simvastatin 20 MG Oral Tablet 01/16/2022 Provider: Diagnosis: Last Documented On 2 2:11PM By Alina Manrique ; [facility] clonazePAM 0.5 MG Oral Tablet 01/11/2022 Provider: Diagnosis: Last Documented On 2 2:11PM By Alina Manrique ; [facility] Pilocarpine HCl 5 MG Oral Tablet 01/05/2022 Provider : Bear Hamilton Diagnosis: Last Documented On 2 2:11PM By Alina Manrique ; [facility] Past Medications on file Clotrimazole 1% External Cream 03/18/2023 - 04/17/2023 Provider: Ad diggs MD Diagnosis: use as directed Last Documented On 3 4:47PM By Ragini Bradshaw ; [facility] Medications Administered Includes: Administered Medications from this encounter No Administered Medications Recorded Vital Signs Includes: Vital Signs from this encounter Vital Name 09/26/2024 09:14A Height (in) 58 Weight (lb) 175 Body Mass Index 36.6 Body Surface Area 1.7 Note: ab Last Documented: On 09/26/2024 9:14AM ; [facility] Results Includes: Results discussed during this [...] Last Documented On 5 9:13AM ; [facility] Not exercising regularly 03/24/2022 Last Documented On 5 9:13AM ; [facility] Tobacco non-user 03/24/2022 Last Documented On 5 9:13AM ; [facility] Non-smoker 03/24/2022 Last Documented On 5 9:13AM ; [facility] Recent change in diet 03/21/2019 Last Documented On 5 9:13AM ; [facility] Sex - Female 12/11/2024 Last Documented On 5 3:19PM ; [facility] Smoking Status Unknown Procedures and Surgical History Includes: Procedures from this encounter Procedures Code Diagnosis Performing Provider Service Location Service Date DRAIN/INJECT, JOINT/BURSA (RIGHT) Effusion, right knee, Presence of right artificial knee joint Drew Ricardo PA-C [facility] 09/26/2024 Last Documented On 5 12:52PM ; [facility] X-RAY EXAM OF KNEE 3 VIEWS (RIGHT) 56687 Effusion, right knee, Presence of right artificial knee joint Drew Ricardo PA-C [facility] 09/26/2024 Last Documented On 5 12:52PM ; [facility] use of tobacco assessment performed 1000F Last Documented On 5 9:13AM ; [facility] patient screened for future fall risk: documentation of any fall with injury in past year 1100F Last Documented On 5 9:13AM ; [facility] follow-up visit in one month Last Documented On 5 9:13AM ; [facility] referral to physician see pcp for bp Last Documented On 5 9:13AM ; [facility] referral to physician Last Documented On 5 9:13AM ; [facility] Pt received screening for fall risk G8270 Last Documented On 5 9:13AM ; [facility] Clinical summary provided to patient Last Documented On 5 9:13AM ; [facility] Surgical History Last Updated History of hysterectomy 10/09/2021 Last Documented On 5 9:13AM ; [facility] History of total knee arthroplasty 2018 Right 10/09/2021 Last Documented On 5 9:13AM ; [facility] History of appendectomy 03/21/2019 Last Documented On 5 9:13AM ; [facility] Medical History Includes: Medical History addressed during this encounter Description Last Updated Recent immunization for flu 02/14/2022 0 09/26/2024 Last Documented On 5 9:13AM ; [facility] Recent immunization for flu 02/13/2022 Last Documented On 5 10:25AM ; [facility] Recent immunization for pneumococcal pne umonia 02/13/2022 09/26/2024 Last Documented On 5 10:25AM ; [facility] History of arthritis 10/09/2021 Last Documented On 5 9:13AM ; [facility] Use of CPAP 10/09/2021 Last Documented On 5 9:13AM ; [facility] Heartburn / Acid Reflux 06/26/2020 Last Documented On 5 9:13AM ; [facility] Hypertension 06/26/2020 Last Documented On 5 9:13AM ; [facility] Sleep Apnea 06/26/2020 Last Documented On 5 9:13AM ; [facility] Use of CPAP 06/26/2020 Last Documented On 5 9:13AM ; [facility] Arthritic joint problems 03/21/2019 Last Documented On 5 9:13AM ; [facility] Intermittent hypertension 03/21/2019 Last Documented On 5 9:13AM ; [facility] Carpal tunnel/ulnar removed-right ~high cholesterol 03/31/2017 Last Documented On 5 9:13AM ; [facility] History of diverticulitis of colon 03/31 Last Documented On 5 9:13AM ; [facility] Family History Includes: Family History addressed during this encounter Description Last Updated Family history of thromboembolic disease 10/09/2021 Last Documented On 5 9:13AM ; [facility] Family history of rheumatoid arthritis 0 06/26/2020 Last Documented On 5 9:13AM ; [facility] Stroke / Seizures 06/26/2020 Last Documented On 5 9:13AM ; [facility] stroke/seizure 03/21/2019 Last Documented On 5 9:13AM ; [facility] Family history of cancer 03/21/2019 Last Documented On 5 9:13AM ; [facility] Family history of hypertension 9 Last Documented On 5 9:13AM ; [facility] Review of Systems Includes: Review [...] anxiety Last Documented On 5 9:13AM ; [facility] Physical Exam Includes: Physical Exam from this encounter Allergies Includes: Active Allergies Substance Type Reaction Onset Date Resolved Date Statu s OTHER Allergy maxalt/ziac 10/09/2021 Active Last Documented On 5 9:13AM ; [facility] Morphine Derivatives Allergy Nausea, Vom iting, Diarrhea / Diarrheal disorder 08/05/2009 Resolved Last Documented On 7 9:34AM ; [facility] Care Reservations Manager Name (Identifier) Role/Relation Location/Telecom Last Documented By Ad Stapleton MD ([id number]) Assigned practitioner (occupation) tel:[phone] Last Documented On 12/11/2024 3:19PM ; [facility], [facility] CODIE HAYWOOD MD (FP) ([id number]) Primary care physician (occupation) [address], [place], [place], , [address] tel:[phone] Last Documented On 12/11/2024 3:19PM ; [facility], [facility] Mohan Knox DO ([id number]) [address] , [place], [place], , [address] tel:[phone] Last Documented On 03/21/2019 3:39PM ; [facility] Encounters Encounter Provider Location (Healthcare Service Location) Date Check-In Time Check-Out Time Diagnosis Encounter Disposition Follow Up [facility] 2024 9:14AM 10:26AM Overweight Payer Includes: Active Insurance Policies Plan Name (Payer ID) Coverage Type Member ID Group # Subscriber (ID) Relationship Effective Dates 1 - Medicare Part B [facility] ([id number]) [id number] Stacey Weston Self 01/15/2013 - Unknown Last Documented On 9 8:26AM ; [facility] 2 - [facility] [id number] Stacey mantilla Self 05/17/2016 - Unknown Last Documented On 2 11:18AM ; [facility] Clinical Notes Includes: Clinical Notes from this encounter * Progress note Date Encounter Last Documented by 09/26/2024 Follow Up Last documented on 09/26/2024; 10:25 AM, Drew Evans; [facility] Active Problems & Conditions - Joint [...] cyst. Today recommend knee sleeve, start tramadol, [place] 5 for pain control, physical therapy for [...]
[2025-05-15] MEDS: ACETAMINOPHEN 325MG TAB 650 MG PO (09:14)
[2025-05-15] MEDS: IRBESARTAN 150MG TAB 150 MG PO (09:15)
[2025-05-15] MEDS: CARVEDILOL 25MG TABLET 25 MG PO (09:15)
[2025-05-15] MEDS: HYDRALAZINE HCL 25MG TABLET 25 MG PO ×2 (09:20→13:15)
--- NOTE | 2025-05-15 10:08 | P.PN_ITS ---
Subjective Subjective Date: 05/15/25 Time: 10:08 Principal diagnosis: HTN emergency Interval history: 75-year-old white female sitting in bed in no acute distress. Looks as though she feels much better today than she did yesterday. Headache has significantly improved. Blood pressure remains in the 110-150/70s on current meds. She is off of the nipride. Exam Data for Last 24 hours Vital signs and Labs for Last 24 Hours: Temp Pulse Resp BP Pulse Ox O2 Del Method O2 Flow Rate 98.0 F 76 18 150/76 H 91 L Room Air 4 05/15/25 08:08 05/15/25 09:00 05/15/25 09:00 05/15/25 09:00 05/15/25 09:00 05/15/25 09:00 05/14/25 13:10 Laboratory Results - last 24 hr 05/14/25 10:36: WBC 6.1, RBC 4.24, Hgb 11.1 L, Hct 33.3 L, MCV 78.5 L, MCH 26.2 L, MCHC 33.3, RDW 14.6, Plt Count 218, MPV 8.7, Neut % (Auto) 50.6, Lymph % (Auto) 34.8, [place] % (Auto) 10.2 H, Eos % (Auto) 3.6, Baso % (Auto) 0.5, Neut # (Auto) 3.1, Lymph # (Auto) 2.1, [place] # (Auto) 0.6, Eos # (Auto) 0.2, Baso # (Auto) 0.0, Sodium 136, Potassium 4.2, Chloride 109 H, Carbon Dioxide 24, Anion Gap 7.2, BUN 18 H, Creatinine 1.00, Estimated Creat Clear 60, Estimated GFR 54 L , Est GFR ( Amer) 65, Glucose 111 H D, Calcium 8.8, Phosphorus 3.6, Magnesium 2.1, Total Bilirubin 0.9, AST 27, ALT 26, Alkaline Phosphatase 57, Troponin I < 0.01, Total Protein 6.0 L, Albumin 3.5 D, Globulin 2.5, Albumin/Globulin Ratio 1.4 05/15/25 04:37: WBC 9.0 D, RBC 4.85, Hgb 12.4 D, Hct 38.2, MCV 78.8 L, MCH 25.4 L, MCHC 32.2, RDW 14.4, Plt Count 262, MPV 9.0, Neut % (Auto) 64.9, Lymph % (Auto) 25.9, [place] % (Auto) 6.6, Eos % (Auto) 2.0, Baso % (Auto) 0.2, Neut # (Auto) 5.8, Lymph # (Auto) 2.3, [place] # (Auto) 0.6, Eos # (Auto) 0.2, Baso # (Auto) 0.0, Sodium 136, Potassium 4.2, Chloride 104, Carbon Dioxide 23, Anion Gap 13.2, BUN 17, Creatinine 0.90, Estimated Creat Clear 63, Estimated GFR 61, Est GFR ( Amer) 73, Glucose 109 H, Calcium 9.4, Magnesium 2.0, Total Bilirubin 0.9, AST 30, ALT 31, Alkaline Phosphatase 58, Total Protein 7.0, Albumin 4.2 D, Globulin 2.8, Albumin/Globulin Ratio 1.5 I & O for Last 24 hours: Intake & Output 05/12/25 05/13/25 05/14/25 05/15/25 11:59 11:59 11:59 11:59 Intake Total 524.553 / 159.895 7618.841 / 1379.841 Output Total 600 / 600 2400 / 2400 Balance -75.447 / -75.447 -1020.159 / -1020.159 Weight 179 lb 3.209 oz 187 lb 2.759 oz Microbiology Reports for the Last 24 Hours: Microbiology 05/13/25 22:40 Rectum CRE Surveillance Culture - Final Negative Constitutional Constitutional: no acute distress *Routine Respiratory Exam Respiratory: Present CTA bilaterally *Routine Cardiovascular Exam Cardiovascular: Present RRR; Absent murmur, gallop or rubs *Routine Extremities Exam Extremities: Absent edema *Routine Neurological Exam Neurological: Present alert, oriented X3 and CN II-XII intact Progress Note: A&P Assessment and plan (1) Hypertensive emergency: Status: Acute (2) Small bowel tumor: Status: Acute (3) Personal history of adenomatous and serrated colon polyps: Status: Acute (4) GERD (gastroesophageal reflux disease): Status: Acute Assessment and Plan Assessment and Plan for All Diagnoses:: 1. Hypertensive emergency - off nipride - on carvedilol and losartan -Discontinued clonidine in favor of nifedipine -Added hydralazine 25 mg and Isordil 10 mg 3 times daily -Echo and renal duplex essentially unremarkable 2. History of migraines -Defer to hospitalist Stable from a cardiac standpoint for discharge home. Home medication recommendations: Carvedilol 25 mg twice daily Avapro 150mg twice daily (discontinue losartan) Nifedipine 30 mg daily (discontinue clonidine) Hydralazine 25 mg 3 times daily Isordil 10 mg 3 times daily Resume simvastatin 20 mg daily Follow-up in the office in 1 to 2 weeks.
[2025-05-15] MEDS: HYDROXYCHLOROQUINE SULFATE 200MG TABLET 200 MG PO (10:26)
[2025-05-15] MEDS: ISOSORBIDE DINITRATE 10 MG TABLET PO ×2 (10:26→13:17)
--- NOTE | 2025-05-15 11:03 | EXP.DC.SUM ---
General Admission date:: 05/13/25 Discharge date: 05/15/25 HPI HPI HPI: past medical history of hypertension on carvedilol, clonidine, and losartan, hyperlipidemia, cardiac murmur who presents to the emergency department for complaints of high blood pressure. Patient arrives via EMS. Patient states that over the course of about 30 minutes today, she developed a severe headache. She does report a remote history of migraine headaches but states that this feels different and more severe. She did take a sumatriptan hand at approximately 5 PM. The headache has improved slightly since then. She checked her blood pressure at home and noticed that it was elevated to the 180-190 range, which is abnormal for her. Did not miss any medication doses. throughout the day, she has had some tightness in her chest but denies any shortness of breath, cough, fever, abdominal pain, nausea, vomiting, diarrhea, dysuria or hematuria. no blurry vision or double vision. In ED blood pressure 198/105. Started nitroprusside will transfer to unit No other concerns at this time other than persisten headache. discussed plan History independently obtained. Discussed case with ER physician. Independently interpreted diagnostics. Hospital Course Hospital Course Hospital Course: 75-year-old female who presents with hypertensive urgency. Having headache and nausea. Started on nitroprusside drip with improvement. Blood pressure showed gradual improvement with adjustment in oral blood pressure regimen. Able to wean off nitroprusside with improved control and tolerate oral regimen with systolics less than 150. Cardiology assisted with care. Recommend follow-up as an outpatient. Problems addressed as follows: Hypertensive emergency -Initially started on nitroprusside drip. Showed gradual improvement. Able to make adjustments to oral regimen with stable blood pressure systolic 150 and less. Cardiology assisted with care. Recommend continuing the following regimen: Carvedilol 25 mg twice daily Avapro 150mg twice daily (discontinue losartan) Nifedipine 30 mg daily (discontinue clonidine) Hydralazine 25 mg 3 times daily Isordil 10 mg 3 times daily -Concern for episode of rebound hypertension secondary to clonidine. Continue to hold at this time - Echo and renal duplex essentially unremarkable History of migraines: Improvement in headache after extensive treatment and with improvement in blood pressure. Continue Tylenol or ibuprofen as needed. Nausea: Zofran and Phenergan as needed every 6 hours during admission. Nausea and headache resolved by discharge. Hyperlipidemia: Continue simvastatin 20 mg daily GERD: Pantoprazole 40 mg nightly during admission. Resume famotidine at discharge along with omeprazole 20 mg twice daily. Continue ropinirole 2 mg nightly for restless leg Continue hydroxychloroquine 200 mg daily per home regimen Total time spent on discharge 32 minutes in counseling, documentation, chart review, and direct care with patient. Exam Data for Last 24 hours Vital signs and Labs for Last 24 Hours: Temp Pulse Resp BP Pulse Ox O2 Del Method O2 Flow Rate 98.0 F 73 16 155/69 H 91 L Room Air 4 05/15/25 08:08 05/15/25 10:00 05/15/25 10:00 05/15/25 10:00 05/15/25 10:00 05/15/25 10:00 05/14/25 13:10 Laboratory Results - last 24 hr 05/14/25 10:36: Sodium 136, Potassium 4.2, Chloride 109 H, Carbon Dioxide 24, Anion Gap 7.2, BUN 18 H, Creatinine 1.00, Estimated Creat Clear 60, Estimated GFR 54 L, Est GFR ( Amer) 65, Glucose 111 H D, Calcium 8.8, Phosphorus 3.6, Magnesium 2.1, Total Bilirubin 0.9, AST 27, ALT 26, Alkaline Phosphatase 57, Troponin I < 0.01, Total Protein 6.0 L, Albumin 3.5 D, Globulin 2.5, Albumin/Globulin Ratio 1.4 05/15/25 04:37: WBC 9.0 D, RBC 4.85, Hgb 12.4 D, Hct 38.2, MCV 78.8 L, MCH 25.4 L, MCHC 32.2, RDW 14.4, Plt Count 262, MPV 9.0, Neut % (Auto) 64.9, Lymph % (Auto) 25.9, [place] % (Auto) 6.6, Eos % (Auto) 2.0, Baso % (Auto) 0.2, Neut # (Auto) 5.8, Lymph # (Auto) 2.3, [place] # (Auto) 0.6, Eos # (Auto) 0.2, Baso # (Auto) 0.0, Sodium 136, Potassium 4.2, Chloride 104, Carbon Dioxide 23, Anion Gap 13.2, BUN 17, Creatinine 0.90, Estimated Creat Clear 63, Estimated GFR 61, Est GFR ( Amer) 73, Glucose 109 H, Calcium 9.4, Magnesium 2.0, Total Bilirubin 0.9, AST 30, ALT 31, Alkaline Phosphatase 58, Total Protein 7.0, Albumin 4.2 D, Globulin 2.8, Albumin/Globulin Ratio 1.5 I & O for Last 24 hours: Intake & Output 05/12/25 05/13/25 05/14/25 05/15/25 23:59 23:59 23:59 23:59 Intake Total 8.213 / 8.213 1186.181 / 1686.181 710 / 710 Output Total 200 / 200 1900 / 1900 1200 / 1200 Balance -191.787 / -191.787 -713.819 / -213.819 -490 / -490 Weight 81.284 kg 81.284 kg 84.9 kg Microbiology Reports for the Last 24 Hours: Microbiology 05/13/25 22:40 Rectum CRE Surveillance Culture - Final Negative Constitutional Constitutional: no acute distress, obese and cooperative *Routine HEENT Exam Head: Present normocephalic Eye: Present EOMI and PERRL ENT: Present mucous membranes moist *Routine Neck Exam Neck: Present supple; Absent lymphadenopathy *Routine Respiratory Exam Respiratory: Present CTA bilaterally; Absent rhonchi *Routine Cardiovascular Exam Cardiovascular: Present RRR *Routine Abdominal Exam Abdominal: Present soft and normoactive bowel sounds; Absent tenderness *Routine Rectal Exam Patient deferred: visual exam *Routine Exam Patient deferred: external exam *Routine Extremities Exam Extremities: Absent cyanosis, clubbing or edema *Routine Skin Exam Skin: Present warm; Absent rash *Routine Neurological Exam Neurological: Present alert, oriented X3 and moving all extremities; Absent altered mental status Results Data Completed and Pending Labs on day of discharge: Labs from last 24 hours 05/15/25 05/14/25 04:37 10:36 WBC 9.0 D RBC 4.85 Hgb 12.4 D Hct 38.2 MCV 78.8 L MCH 25.4 L MCHC 32.2 RDW 14.4 Plt Count 262 MPV 9.0 Neut % (Auto) 64.9 Lymph % (Auto) 25.9 [place] % (Auto) 6.6 Eos % (Auto) 2.0 Baso % (Auto) 0.2 Neut # (Auto) 5.8 Lymph # (Auto) 2.3 [place] # (Auto) 0.6 Eos # (Auto) 0.2 Baso # (Auto) 0.0 Sodium 136 136 Potassium 4.2 4.2 Chloride 104 109 H Carbon Dioxide 23 24 Anion Gap 13.2 7.2 BUN 17 18 H Creatinine 0.90 1.00 Estimated Creat Clear 63 60 Estimated GFR 61 54 L Est GFR ( Amer) 73 65 Glucose 109 H 111 H D Calcium 9.4 8.8 Phosphorus 3.6 Magnesium 2.0 2.1 Total Bilirubin 0.9 0.9 AST 30 27 ALT 31 26 Alkaline Phosphatase 58 57 Troponin I < 0.01 Total Protein 7.0 6.0 L Albumin 4.2 D 3.5 D Globulin 2.8 2.5 Albumin/Globulin Ratio 1.5 1.4 DS: Diagnosis Discharge Diagnosis (1) Hypertensive emergency: Status: Acute Code(s): I16.1 - Hypertensive emergency (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 - Neoplasm of unspecified behavior of digestive system (3) Personal history of adenomatous and serrated colon polyps: Status: Acute Code(s): Z86.0101 - Personal history of adenomatous and serrated colon polyps (4) GERD (gastroesophageal reflux disease): Status: Acute Code(s): K21.9 - Gastro-esophageal reflux disease without esophagitis Meds Home Medications and Allergies Home Medications ?Medication ?Instructions ?Recorded ?Confirmed ?Type clonazepam 0.5 mg tablet 0.5 mg PO HS Anxiety 03/05/20 05/13/25 History omeprazole 20 mg capsule,delayed 20 mg PO BID 03/05/20 05/13/25 History release simvastatin 20 mg tablet 20 mg PO HS Cholesterol 03/05/20 05/13/25 History sumatriptan succinate 100 mg tablet 100 mg PO DAILY migraines 03/05/20 05/13/25 History carvedilol 25 mg tablet 25 mg PO BID 07/18/24 05/13/25 History famotidine 20 mg tablet 20 mg PO BID 07/18/24 05/13/25 History hydroxychloroquine 200 mg tablet 200 mg PO DAILY 07/18/24 05/13/25 History hydroxyzine HCl 25 mg tablet 25 mg PO HS 07/18/24 05/13/25 History ropinirole 2 mg tablet 2 - 3 mg PO HS 07/18/24 05/14/25 History pilocarpine HCl 5 mg tablet 5 mg PO TID 05/13/25 05/13/25 History albuterol sulfate 90 mcg/actuation 2 puff inhalation Q4H 05/14/25 05/14/25 History aerosol inhaler (Ventolin HFA) celecoxib 200 mg capsule 200 mg PO DAILY 05/14/25 05/14/25 History lifitegrast 5 % eye drops in a 1 drp ophthalmic (eye) BID 05/14/25 05/14/25 History dropperette (Xiidra) loratadine 10 mg tablet 10 mg PO DAILY 05/14/25 05/14/25 History hydralazine 25 mg tablet 25 mg PO TID 30 days #90 tabs 05/15/25 Rx irbesartan 150 mg tablet 150 mg PO BID 30 days #60 tabs 05/15/25 Rx isosorbide dinitrate 10 mg tablet 10 mg PO TID 30 days #90 tabs 05/15/25 Rx nifedipine 30 mg tablet,extended 30 mg PO DAILY #30 tabs 05/15/25 Rx release 24 hr New Prescriptions to Start Prescriptions: hydralazine Gayle,Jarret irbesartan Gayle,Jarret isosorbide dinitrate Gayle,Jarret nifedipine Gayle,Jarret Allergies Allergy/AdvReac Type Severity Reaction Status Date / Time bisoprolol (From Ziac) Allergy Mild Other Verified 10/23/24 09:17 hydrochlorothiazide (From Allergy Mild Other Verified 10/23/24 09:17 Ziac) levofloxacin (From Levaquin) Allergy Mild Nausea Verified 10/23/24 09:17 rizatriptan (From Maxalt) Allergy Mild Nausea Verified 10/23/24 09:17 rivaroxaban (From Xarelto) Allergy Nausea Verified 10/23/24 09:17 Discharge Plan Disposition Patient Disposition: Home, Self-Care Condition: Fair Discharge Order Discharge Orders: Discharge Order (Routine); Ordered 05/15/25 Ordered By: Jarret Araujo Follow up Plan Follow up with: Josesito Braxton DO [Primary Care Provider, Family Practice] - 05/22/25 9:00 am Referral Note: Phone number and office change. [phone] [facility] [place] last, [facility] [address] Travis Bush PA [Physician Excel Developer, Cardiology] - 05/21/25 9:00 am Prescriptions/Medication Reconciliation: New nifedipine 30 mg Tablet Extended Release 24hr 30 mg PO DAILY Qty: 30 0RF isosorbide dinitrate 10 mg Tablet 10 mg PO TID 30 Days Qty: 90 0RF hydralazine 25 mg Tablet 25 mg PO TID 30 Days Qty: 90 0RF irbesartan 150 mg Tablet 150 mg PO BID 30 Days Qty: 60 0RF Continued carvedilol 25 mg tablet 25 mg PO BID famotidine 20 mg tablet 20 mg PO BID hydroxychloroquine 200 mg tablet 200 mg PO DAILY hydroxyzine HCl 25 mg tablet 25 mg PO HS ropinirole 2 mg tablet 2 - 3 mg PO HS Rx Instructions: administer 1-3 hours before bedtime clonazepam 0.5 MG tablet 0.5 mg PO HS sumatriptan succinate 100 MG tablet 100 mg PO DAILY simvastatin 20 MG tablet 20 mg PO HS omeprazole 20 MG capsule,delayed release(DR/EC) 20 mg PO BID pilocarpine HCl 5 mg tablet 5 mg PO TID celecoxib 200 mg capsule 200 mg PO DAILY Patient Comments: [NO ORIGINAL SIG] albuterol sulfate [Ventolin HFA] 90 mcg/actuation HFA aerosol inhaler 2 puff inhalation Q4H loratadine 10 mg tablet 10 mg PO DAILY Xiidra 5 % dropperette 1 drp ophthalmic (eye) BID Discontinued losartan 100 MG tablet 100 mg PO DAILY clonidine HCl 0.1 mg tablet 0.2 mg PO HS Problem Reconciliation Problems Reviewed?: Yes Patient Discharge Instructions ACTIVITY: Continue current activity DIET: continue same diet Print Language: Albanian Providers Primary Care Provider: Josesito Braxton Admit Provider: Carlito Mckee Attending Provider: Carlito Mckee
--- NOTE | 2025-05-15 13:52 | PC.NURSE ---
Upon standing to get dressed pt complained about feeling dizzy. pt bp was checked sitting on the side of the bed and was noted to be 107/73. standing at bedside was 118/70. pt agreeable to stay for additional 30 min to monitor bp as she had just taken bp meds here
--- NOTE | 2025-05-16 10:16 | SW/DCPLANNER ---
Spoke with patient on the phone. Patient stated that she is doing alot better. Patient stated that she is aware of her upcoming appointments. Patient stated that she was able to get her new medicine picked up from [facility]. Patient stated that she has had the best experience here at [facility]. Patient stated that she has no concerns or questions at this time. Moe Chappell
== END 2025-05-15 14:20 | disposition home or self-care (01) | DRG 305 ==
LOC: ER 20:58 → ICU 22:25
PROVIDERS: Internal Medicine Adolescent Medicine; Student in an Organized Health Care Education/Training Program; Admitting Provider Internal Medicine; Emergency Provider Student in an Organized Health Care Education/Training Program; PCP Family Medicine; Visit Provider Internal Medicine
DX: I16.1 Hypertensive emergency (principal); D49.0 Neoplasm of unspecified behavior of digestive system; Z86.0101 Personal history of adenomatous and serrated colon polyps; K21.9 Gastro-esophageal reflux disease without esophagitis; Z86.69 Personal history of other diseases of the nervous system and sense organs; I10 Essential (primary) hypertension; E78.5 Hyperlipidemia, unspecified; G43.909 Migraine, unspecified, not intractable, without status migrainosus; G25.81 Restless legs syndrome; Z88.1 Allergy status to other antibiotic agents; Z88.8 Allergy status to other drugs, medicaments and biological substances; F41.9 Anxiety disorder, unspecified; F32.A Depression, unspecified; Z86.73 Personal history of transient ischemic attack (TIA), and cerebral infarction without residual deficits; R11.0 Nausea
CPT/HCPCS: 36415; 70450; 71045; 80053; 83735; 83880; 84100; 84439; 84443; 84484; 85025; 86803; 87081; 87389; 93005; 93306; 93976; 99285; J0780; J1200; J1650; J2270; J2405; J2550; J7060